=== PATIENT | female | born 1950 | race Caucasian/White ===

== ENCOUNTER 2017-07-04 17:34 | Inpatient (IN) | payer MEDICARE, OTHER ==
[2017-07-04] MEDS ORDERED: DEXTROSE 50% 25 GM / 50ML DISP.SYRIN. IV (20:00)
[2017-07-04] MEDS ORDERED: NON FORMULARY ITEM (Albuterol Sulfate (Proair Hfa Inhaler) 2 PUFF) INH (20:45)
[2017-07-04] MEDS ORDERED: ALBUTEROL SULFATE 2.5 MG/3 ML NEBU. NEB (21:00)
[2017-07-04] MEDS ORDERED: NON FORMULARY ITEM (Budesonide/Formoterol Fumarate (Symbicort 160-4.5 Mcg Inhaler) 2 PUFF) IH (21:00)
[2017-07-04] MEDS ORDERED: NON FORMULARY ITEM (Ipratropium/Albuterol Sulfate (Combivent Respimat Inhal) 2 INH) IH (21:00)
[2017-07-04] MEDS: IV DEXTROSE 5% - 0.9 % NACL 1,000 ML IV (21:05)
[2017-07-04 21:26] LABS: POC GLUCOSE 102 mg/dL (70-99)
[2017-07-04 21:37] LABS: HEMATOCRIT 33.2 % (36.0-47.0); HEMOGLOBIN 10.9 g/dL (12.0-15.5); MEAN CORPUSCULAR HEMOGLOBIN 26 pg (25-35); MEAN CORPUSCULAR HGB CONC 33 g/dL (31-37); MEAN CORPUSCULAR VOLUME 79 fL (79-100); PLATELET COUNT 310 x10^3/uL (140-400); RED BLOOD COUNT 4.19 x10^6/uL (3.50-5.40); RED CELL DISTRIBUTION WIDTH 16.5 % (11.5-14.5); WHITE BLOOD COUNT 7.8 x10^3/uL (4.0-11.0)
[2017-07-04] MEDS: ATORVASTATIN CALCIUM 40 MG TABLET. PO (21:37)
[2017-07-04] MEDS: ALPRAZolam 0.5 MG TABLET PO (21:38)
[2017-07-04] MEDS: oxyCODONE IR 5 MG TABLET PO (21:38)
[2017-07-04] MEDS: AMITRIPTYLINE HCL 50 MG TABLET PO (21:38)
[2017-07-04] MEDS: IPRATRPIUM/ALBUTEROL 0.5/2.5MG 3 ML NEBU. NEB (21:45)
[2017-07-04 21:57] LABS: ALBUMIN 3.8 g/dL (3.4-5.0); ALK PHOS 91 U/L (46-116); ALT (SGPT) 18 U/L (14-59); ANION GAP 9 (6-14); AST (SGOT) 12 U/L (15-37); BLOOD UREA NITROGEN 21 mg/dL (7-20); BUN/CREATININE RATIO 12 (6-20); CALCIUM 8.9 mg/dL (8.5-10.1); CARBON DIOXIDE 30 mmol/L (21-32); CHLORIDE 104 mmol/L (98-107); CREATININE 1.8 mg/dL (0.6-1.0); GLUCOSE 116 mg/dL (70-99); POTASSIUM 3.4 mmol/L (3.5-5.1); SODIUM 143 mmol/L (136-145); TOTAL BILIRUBIN 0.5 mg/dL (0.2-1.0); TOTAL PROTEIN 7.6 g/dL (6.4-8.2)
[2017-07-04 23:28] LABS: % SAT IRON 13 % (15-34); IRON,SERUM 60 ug/dL (50-170)
[2017-07-05 01:01] LABS: BILIRUBIN,URINE NEGATIVE (NEG); CLARITY,URINE CLEAR; COLOR,URINE YELLOW; GLUCOSE,URINE NEGATIVE (NEG); NITRITE,URINE NEGATIVE (NEG); PROTEIN,URINE NEGATIVE (NEG-TRACE); UROBILINOGEN,URINE 0.2 mg/dL (0.2 mg/dL)
[2017-07-05 01:07] LABS: BARBITURATES NEG (NEG); BENZODIAZEPINES POS (NEG); CANNABINOIDS NEG (NEG); COCAINE NEG (NEG); METHADONE NEG (NEG); OPIATES POS (NEG); PHENCYCLIDINE NEG (NEG)
[2017-07-05] MEDS: POTASSIUM CHLORIDE 20 MEQ TABLET.ER. PO ×3 (01:10→12:28)
[2017-07-05 01:16] LABS: AMPHETAMINE/METHAMPHETAMINE NEG (NEG); ETHANOL, URINE NEG (NEG)
[2017-07-05 01:45] LABS: BACTERIA,URINE MANY /HPF (0-FEW); RBC,URINE OCC /HPF (0-2); SQUAMOUS EPITHELIAL CELL,UR MOD /LPF
[2017-07-05 01:46] LABS: HYALINE CASTS, URINE FEW /HPF
[2017-07-05 04:39] LABS: ADD MAN DIFF? NO
[2017-07-05 04:53] LABS: BASO # 0.1 x10^3/uL (0.0-0.2); BASO % 1 % (0-3); EOS # 0.1 x10^3/uL (0.0-0.7); EOS % 2 % (0-3); HEMATOCRIT 32.7 % (36.0-47.0); HEMOGLOBIN 10.7 g/dL (12.0-15.5); LYMPH # 2.3 x10^3/uL (1.0-4.8); LYMPH % 31 % (24-48); MEAN CORPUSCULAR HEMOGLOBIN 26 pg (25-35); MEAN CORPUSCULAR HGB CONC 33 g/dL (31-37); MEAN CORPUSCULAR VOLUME 80 fL (79-100); MONO # 0.4 x10^3/uL (0.0-1.1); MONO % 6 % (0-9); NEUT # 4.4 x10^3uL (1.8-7.7); NEUT % 61 % (31-73); PLATELET COUNT 309 x10^3/uL (140-400); RED CELL DISTRIBUTION WIDTH 16.6 % (11.5-14.5); WHITE BLOOD COUNT 7.3 x10^3/uL (4.0-11.0)
[2017-07-05 05:16] LABS: ANION GAP 8 (6-14); BLOOD UREA NITROGEN 21 mg/dL (7-20); CALCIUM 9.2 mg/dL (8.5-10.1); CARBON DIOXIDE 31 mmol/L (21-32); CHLORIDE 103 mmol/L (98-107); CREATININE 1.6 mg/dL (0.6-1.0); GFR 32.1; GLUCOSE 135 mg/dL (70-99); POTASSIUM 3.1 mmol/L (3.5-5.1); SODIUM 142 mmol/L (136-145)
[2017-07-05] MEDS: IV DEXTROSE 5% - 0.9 % NACL 1,000 ML IV ×4 (06:31→20:32)
[2017-07-05] MEDS: IPRATRPIUM/ALBUTEROL 0.5/2.5MG 3 ML NEBU. NEB ×4 (07:36→20:19)
[2017-07-05] MEDS: BUDESONIDE 0.5 MG/2 ML NEBU. NEB ×2 (07:36→20:19)
[2017-07-05] MEDS ORDERED: POTASSIUM CHLORIDE 10 MEQ TABLET.ER. PO (08:00)
[2017-07-05] MEDS: IOHEXOL 240 MG/ML 50ML VIAL. PO (08:00)
[2017-07-05] MEDS ORDERED: CONTRAST GIVEN. MC (08:00)
[2017-07-05] MEDS: INSULIN LISPRO 300 UNITS/3 ML INSULN.PEN. SQ ×4 (08:00→16:57)
[2017-07-05] MEDS ORDERED: FUROSEMIDE 40 MG TABLET. PO (09:00)
[2017-07-05] MEDS ORDERED: hydroCHLOROthiazide 12.5 MG CAPSULE PO (09:00)
[2017-07-05] MEDS: DICLOFENAC SODIUM 1% TOPICAL GEL 100GM TUBE. TP ×2 (09:00→20:31)
[2017-07-05] MEDS: LIDOCAINE (700MG/PATCH) PATCH. TD ×2 (09:00→21:52)
[2017-07-05 09:18] LABS: POC GLUCOSE 137 mg/dL (70-99)
[2017-07-05] MEDS: ASPIRIN CHEWABLE 81 MG TABLET. PO (09:23)
[2017-07-05] MEDS: LEVOTHYROXINE 100 MCG TABLET PO (09:23)
[2017-07-05] MEDS: ALPRAZolam 0.5 MG TABLET PO ×3 (09:23→20:30)
[2017-07-05] MEDS: GLIMEPIRIDE 2 MG TABLET. PO ×2 (09:24→16:52)
[2017-07-05] MEDS: PIOGLITAZONE 15 MG TABLET. PO (09:24)
[2017-07-05] MEDS: oxyCODONE IR 5 MG TABLET PO ×2 (09:24→20:31)
[2017-07-05] MEDS: LISINOPRIL 20 MG TABLET PO (09:24)
[2017-07-05] MEDS: amLODIPine BESYLATE 5 MG TABLET PO (09:25)
[2017-07-05] MEDS: BUPIVACAINE MPF 0.25% 10 ML VIAL. IJ (10:15)
[2017-07-05 11:28] LABS: POC GLUCOSE 153 mg/dL (70-99)
[2017-07-05] MEDS: BUPIVACAINE MPF 0.25% 30 ML VIAL. IJ (11:58)
[2017-07-05] MEDS: methylPREDNISolone ACETATE 40 MG/ML VIAL. IM (11:58)
[2017-07-05] MEDS: MAGNESIUM CITRATE 296 ML SOLUTION. PO (12:28)
[2017-07-05] MEDS: METHYLNALTREXONE 12 MG/0.6 ML VIAL. SQ (12:29)
[2017-07-05 16:42] LABS: POC GLUCOSE 157 mg/dL (70-99)
[2017-07-05] MEDS: ATORVASTATIN CALCIUM 40 MG TABLET. PO (20:30)
[2017-07-05] MEDS: AMITRIPTYLINE HCL 50 MG TABLET PO (20:31)
[2017-07-05] MEDS: PATCH REMOVAL. MC (20:36)
[2017-07-05 21:08] LABS: POC GLUCOSE 105 mg/dL (70-99)
[2017-07-06 03:43] LABS: ADD MAN DIFF? NO
[2017-07-06 03:48] LABS: BASO # 0.1 x10^3/uL (0.0-0.2); BASO % 1 % (0-3); EOS # 0.1 x10^3/uL (0.0-0.7); EOS % 1 % (0-3); HEMOGLOBIN 9.6 g/dL (12.0-15.5); LYMPH # 1.1 x10^3/uL (1.0-4.8); LYMPH % 17 % (24-48); MEAN CORPUSCULAR HEMOGLOBIN 27 pg (25-35); MEAN CORPUSCULAR HGB CONC 33 g/dL (31-37); MEAN CORPUSCULAR VOLUME 80 fL (79-100); MONO # 0.3 x10^3/uL (0.0-1.1); MONO % 5 % (0-9); NEUT % 76 % (31-73); PLATELET COUNT 260 x10^3/uL (140-400); RED BLOOD COUNT 3.61 x10^6/uL (3.50-5.40); RED CELL DISTRIBUTION WIDTH 16.6 % (11.5-14.5); WHITE BLOOD COUNT 6.6 x10^3/uL (4.0-11.0)
[2017-07-06 04:03] LABS: ANION GAP 3 (6-14); BLOOD UREA NITROGEN 15 mg/dL (7-20); CALCIUM 8.6 mg/dL (8.5-10.1); CARBON DIOXIDE 31 mmol/L (21-32); CHLORIDE 108 mmol/L (98-107); CREATININE 0.7 mg/dL (0.6-1.0); GFR 83.2; GLUCOSE 153 mg/dL (70-99); POTASSIUM 4.6 mmol/L (3.5-5.1); SODIUM 142 mmol/L (136-145)
[2017-07-06] MEDS: LEVOTHYROXINE 100 MCG TABLET PO (06:11)
[2017-07-06] MEDS: IV DEXTROSE 5% - 0.9 % NACL 1,000 ML IV ×2 (06:12→11:14)
[2017-07-06] MEDS: oxyCODONE IR 5 MG TABLET PO ×2 (06:12→20:28)
[2017-07-06] MEDS: BUDESONIDE 0.5 MG/2 ML NEBU. NEB ×2 (06:57→20:37)
[2017-07-06] MEDS: IPRATRPIUM/ALBUTEROL 0.5/2.5MG 3 ML NEBU. NEB ×4 (06:57→20:37)
[2017-07-06 07:54] LABS: POC GLUCOSE 141 mg/dL (70-99)
[2017-07-06] MEDS: INSULIN LISPRO 300 UNITS/3 ML INSULN.PEN. SQ ×3 (08:00→17:00)
[2017-07-06] MEDS: POLYETHYLENE GLYCOL 3350 17 GM PACKET. PO (08:00)
[2017-07-06] MEDS: DICLOFENAC SODIUM 1% TOPICAL GEL 100GM TUBE. TP ×2 (08:23→20:29)
[2017-07-06] MEDS: LIDOCAINE (700MG/PATCH) PATCH. TD (08:23)
[2017-07-06] MEDS: PANTOPRAZOLE 40 MG TABLET.DR. PO (08:24)
[2017-07-06] MEDS: GLIMEPIRIDE 2 MG TABLET. PO ×2 (08:24→17:33)
[2017-07-06] MEDS: PIOGLITAZONE 15 MG TABLET. PO (08:24)
[2017-07-06] MEDS: ASPIRIN CHEWABLE 81 MG TABLET. PO (08:24)
[2017-07-06] MEDS: ALPRAZolam 0.5 MG TABLET PO ×3 (08:24→20:28)
[2017-07-06] MEDS: amLODIPine BESYLATE 5 MG TABLET PO (08:25)
[2017-07-06] MEDS: LISINOPRIL 20 MG TABLET PO (08:25)
[2017-07-06 11:13] LABS: POC GLUCOSE 225 mg/dL (70-99)
[2017-07-06] MEDS: MAGNESIUM CITRATE 296 ML SOLUTION. PO (11:13)
[2017-07-06] MEDS: GADOBUTROL 7.5 MMOL/7.5 ML VIAL IV ×2 (12:50→12:51)
[2017-07-06] MEDS: BISACODYL 5 MG TABLET.DR. PO ×2 (13:05→17:33)
[2017-07-06] MEDS: METOCLOPRAMIDE HCL 10 MG/2 ML VIAL. IV (15:16)
[2017-07-06] MEDS: POLYETHYLENE GLYCOL 3350 238 GM POWDER PO (15:18)
[2017-07-06 16:55] LABS: POC GLUCOSE 145 mg/dL (70-99)
[2017-07-06] MEDS: ATORVASTATIN CALCIUM 40 MG TABLET. PO (20:27)
[2017-07-06] MEDS: AMITRIPTYLINE HCL 50 MG TABLET PO (20:28)
[2017-07-06] MEDS: PATCH REMOVAL. MC (21:00)
[2017-07-06 22:03] LABS: POC GLUCOSE 135 mg/dL (70-99)
[2017-07-07] MEDS: IV DEXTROSE 5% - 0.9 % NACL 1,000 ML IV (03:02)
[2017-07-07] MEDS: LEVOTHYROXINE 100 MCG TABLET PO (05:06)
[2017-07-07] MEDS ORDERED: PROCHLORPERAZINE 10 MG/2 ML VIAL. IV (07:00)
[2017-07-07] MEDS ORDERED: ONDANSETRON PF 4 MG/2 ML VIAL. IV (07:00)
[2017-07-07] MEDS ORDERED: MORPHINE SULFATE 2 MG/ML DISP.SYRIN. IV (07:00)
[2017-07-07] MEDS ORDERED: LIDOCAINE 1% PF 2 ML VIAL. ID (07:00)
[2017-07-07] MEDS ORDERED: fentaNYL PF VIAL 100 MCG/2 ML VIAL IV ×2 (07:00)
[2017-07-07] MEDS: IPRATRPIUM/ALBUTEROL 0.5/2.5MG 3 ML NEBU. NEB ×2 (07:27→12:00)
[2017-07-07] MEDS: BUDESONIDE 0.5 MG/2 ML NEBU. NEB (07:27)
[2017-07-07 07:35] LABS: POC GLUCOSE 98 mg/dL (70-99)
[2017-07-07] MEDS: INSULIN LISPRO 300 UNITS/3 ML INSULN.PEN. SQ ×2 (08:00→12:00)
[2017-07-07] MEDS: GLIMEPIRIDE 2 MG TABLET. PO ×2 (08:00→16:34)
[2017-07-07] MEDS: DICLOFENAC SODIUM 1% TOPICAL GEL 100GM TUBE. TP (09:00)
[2017-07-07] MEDS: ALPRAZolam 0.5 MG TABLET PO ×2 (09:00→16:32)
[2017-07-07 12:02] LABS: POC GLUCOSE 129 mg/dL (70-99)
[2017-07-07] MEDS: IV RINGERS,LACTATED 1000ML 1,000 ML IV (12:29)
[2017-07-07] MEDS ORDERED: LIDOCAINE 2% PF Vial for OR 5 ML VIAL. ×2 (12:33)
[2017-07-07] MEDS ORDERED: PROPOFOL 60 ML IV (12:33)
[2017-07-07] MEDS ORDERED: PROPOFOL 40 ML IV (13:14)
[2017-07-07] MEDS: POLYETHYLENE GLYCOL 3350 17 GM PACKET. PO (16:32)
[2017-07-07] MEDS: oxyCODONE IR 5 MG TABLET PO (16:33)
[2017-07-07] MEDS: LISINOPRIL 20 MG TABLET PO (16:34)
[2017-07-07] MEDS: LIDOCAINE (700MG/PATCH) PATCH. TD (16:34)
[2017-07-07] MEDS: PIOGLITAZONE 15 MG TABLET. PO (16:35)
[2017-07-07] MEDS: PANTOPRAZOLE 40 MG TABLET.DR. PO (16:35)
[2017-07-07] MEDS: ASPIRIN CHEWABLE 81 MG TABLET. PO (16:35)
[2017-07-07] MEDS: amLODIPine BESYLATE 5 MG TABLET PO (16:35)
== END 2017-07-07 18:17 | disposition home or self-care (01) | DRG 391 ==
LOC: 6 SOUTH 17:34
PROC: 0DB68ZX Excision of Stomach, Via Natural or Artificial Opening Endoscopic, Diagnostic (ICD-10-PCS; principal; 2017-07-07 12:40)
PROC: 0DB98ZX Excision of Duodenum, Via Natural or Artificial Opening Endoscopic, Diagnostic (ICD-10-PCS; 2017-07-07 12:40)
DX: A09 Infectious gastroenteritis and colitis, unspecified (principal); N17.0 Acute kidney failure with tubular necrosis; E11.22 Type 2 diabetes mellitus with diabetic chronic kidney disease; E11.42 Type 2 diabetes mellitus with diabetic polyneuropathy; R13.10 Dysphagia, unspecified; Z68.42 Body mass index [BMI] 45.0-49.9, adult; D64.9 Anemia, unspecified; E03.9 Hypothyroidism, unspecified; E66.9 Obesity, unspecified; E78.5 Hyperlipidemia, unspecified; E86.0 Dehydration; F32.9 Major depressive disorder, single episode, unspecified; F40.240 Claustrophobia; G57.10 Meralgia paresthetica, unspecified lower limb; G89.29 Other chronic pain; I12.9 Hypertensive chronic kidney disease with stage 1 through stage 4 chronic kidney disease, or unspecified chronic kidney disease; I70.0 Atherosclerosis of aorta; J44.9 Chronic obstructive pulmonary disease, unspecified; K21.0 Gastro-esophageal reflux disease with esophagitis; K44.9 Diaphragmatic hernia without obstruction or gangrene; K59.09 Other constipation; K64.8 Other hemorrhoids; M17.0 Bilateral primary osteoarthritis of knee; M46.90 Unspecified inflammatory spondylopathy, site unspecified; M51.16 Intervertebral disc disorders with radiculopathy, lumbar region; N18.9 Chronic kidney disease, unspecified; Z79.82 Long term (current) use of aspirin; Z80.49 Family history of malignant neoplasm of other genital organs; Z83.3 Family history of diabetes mellitus; Z87.11 Personal history of peptic ulcer disease; Z87.891 Personal history of nicotine dependence; A08.4 Viral intestinal infection, unspecified
CPT/HCPCS: 36415; 45378; 71046; 72100; 72158; 73565; 74176; 80048; 80053; 80307; 81001; 82962; 83540; 83550; 85025; 85027; 87045; 88305; 88342; 93005; 94640; 94760; 97165-GO; A9585; J1030; J1815; J2212; J2704; J2765; J3490; J7042; J7120; J7620; J7626; Q9966

== ENCOUNTER 2018-12-09 21:30 | Inpatient (IN) | payer MEDICARE, OTHER ==
[~2018-12-09] VITALS: Ht 157.5 cm; Wt 130.3 kg
[~2018-12-09 21:30] MED LIST: ALBU0.63 NEB; ALBU2.5V8 INH; ALPR0.5T PO; AMIT100T PO; AMLO5TAB10 PO; ASPI-630 PO; ATOR40TA PO; BUDE10.2 IH; FLECTOR1 EACH TD; FURO-68 PO; GLIM4TAB4 PO; IPRA3AMP29 NEB; IPRA4AER IH; LEVO200T PO; LIDO700A21 TP; LISI1TAB19 PO; OXYC10TA PO; PIOG45TA40 PO; POTA20TA4 PO
[2018-12-09 22:12] LABS: BASO # 0.1 x10^3/uL (0.0-0.2); BASO % 1 % (0-3); EOS # 0.2 x10^3/uL (0.0-0.7); EOS % 2 % (0-3); HEMATOCRIT 35.9 % (36.0-47.0); HEMOGLOBIN 11.9 g/dL (12.0-15.5); LYMPH # 1.1 x10^3/uL (1.0-4.8); LYMPH % 15 % (24-48); MEAN CORPUSCULAR HEMOGLOBIN 29 pg (25-35); MEAN CORPUSCULAR HGB CONC 33 g/dL (31-37); MEAN CORPUSCULAR VOLUME 87 fL (79-100); MONO # 0.3 x10^3/uL (0.0-1.1); MONO % 4 % (0-9); NEUT # 5.8 x10^3/uL (1.8-7.7); NEUT % 78 % (31-73); PLATELET COUNT 330 x10^3/uL (140-400); RED BLOOD COUNT 4.14 x10^6/uL (3.50-5.40); RED CELL DISTRIBUTION WIDTH 14.3 % (11.5-14.5); WHITE BLOOD COUNT 7.4 x10^3/uL (4.0-11.0)
[2018-12-09] MEDS ORDERED: IPRATRPIUM/ALBUTEROL 0.5/2.5MG 3 ML NEBU. NEB ONE (22:15)
--- NOTE | 2018-12-09 22:18 | PHYS DOC ---
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 Patient's underlying history of COPD uses Symbicort as well as Combivent. She states she's had difficulty with ambulation and having this to rest with even walking to the bathroom. She denies any chest pain. No nausea, vomiting, diarrhea, abdominal pain. She does describe abdominal bloat ing. Patient is already on Lasix 40 mg daily. She denies any fever. Patient was seen by her primary care physician on November 14 with no medication changes at that time. She was referred to cardiology for further evaluation given the dyspnea on exertion. Review of Systems Review of Systems Constitutional: Denies fever or chills [] HENT: Denies nasal congestion or sore throat [] Respiratory: shortness of breath [] Cardiovascular: No additional information not addressed in HPI [] GI: Abdominal bloating, no nausea, vomiting, bloody stools or diarrhea [] Musculoskeletal: Denies back pain or joint pain [] Neurologic: Denies headache, focal weakness or sensory changes [] All other systems were reviewed and found to be within normal limits, except as documented in this note. Current Medications Current Medications Current Medications Medications (Trade) Dose Ordered Sig/Sushma Start Time Stop Time Status Last Admin Dose Admin Albuterol/ Ipratropium (Duoneb) 3 ml 1X ONCE 12/09/18 22:15 12/09/18 22:17 DC 12/09/18 22:08 3 ML Info (CONTRAST GIVEN -- Rx MONITORING) 1 each PRN DAILY PRN 12/10/18 00:15 12/12/18 00:14 Iohexol (Omnipaque 300 Mg/ml) 60 ml 1X ONCE 12/10/18 00:00 12/10/18 00:01 DC 12/10/18 00:18 60 ML Allergies Allergies Allergies Coded Allergies Type Severity Reaction Last Updated Verified No Known Drug Allergies 07/04/17 No Physical Exam Physical Exam Constitutional: Well developed, well nourished, no acute distress, non-toxic appearance. [] HENT: Normocephalic, atraumatic, bilateral external ears normal, oropharynx moist, no oral exudates, nose normal. [] Neck: large lymph node appreciated to left neck concerning Eyes: PERRLA, EOMI, conjunctiva normal, no discharge. [] Cardiovascular:Heart rate regular rhythm, no murmur [] Lungs & Thorax: Decreased breath sounds appreciable bilaterally[] Abdomen: Bowel sounds normal, soft, no tenderness, no masses, no pulsatile masses, distended [] Skin: Warm, dry, no erythema, no rash. [] Extremities: No tenderness, no edema. [] Neurologic: Alert and oriented X 3, no focal deficits noted. [] Psychologic: Affect normal, judgement normal, mood normal. [] Current Patient Data Vital Signs Vital Signs Date Time Temp Pulse Resp B/P (MAP) Pulse Ox O2 Delivery O2 Flow Rate FiO2 12/09/18 22:35 96 19 149/64 (92) 95 Room Air 12/09/18 21:35 97.8 97.8 Lab Values Laboratory Tests Test 12/09/18 22:05 12/09/18 22:20 12/09/18 22:24 White Blood Count 7.4 x10^3/uL (4.0-11.0) Red Blood Count 4.14 x10^6/uL (3.50-5.40) Hemoglobin 11.9 g/dL (12.0-15.5) L Hematocrit 35.9 % (36.0-47.0) L Mean Corpuscular Volume 87 fL (79-100) Mean Corpuscular Hemoglobin 29 pg (25-35) Mean Corpuscular Hemoglobin Concent 33 g/dL (31-37) Red Cell Distribution Width 14.3 % (11.5-14.5) Platelet Count 330 x10^3/uL (140-400) Neutrophils (%) (Auto) 78 % (31-73) H Lymphocytes (%) (Auto) 15 % (24-48) L Monocytes (%) (Auto) 4 % (0-9) Eosinophils (%) (Auto) 2 % (0-3) Basophils (%) (Auto) 1 % (0-3) Neutrophils # (Auto) 5.8 x10^3/uL (1.8-7.7) Lymphocytes # (Auto) 1.1 x10^3/uL (1.0-4.8) Monocytes # (Auto) 0.3 x10^3/uL (0.0-1.1) Eosinophils # (Auto) 0.2 x10^3/uL (0.0-0.7) Basophils # (Auto) 0.1 x10^3/uL (0.0-0.2) Sodium Level 143 mmol/L (136-145) Potassium Level 3.9 mmol/L (3.5-5.1) Chloride Level 103 mmol/L (98-107) Carbon Dioxide Level 29 mmol/L (21-32) Anion Gap 11 (6-14) Blood Urea Nitrogen 17 mg/dL (7-20) Creatinine 1.1 mg/dL (0.6-1.0) H Estimated GFR (Cockcroft-Gault) 49.1 BUN/Creatinine Ratio 15 (6-20) Glucose Level 119 mg/dL (70-99) H Calcium Level 9.8 mg/dL (8.5-10.1) Total Bilirubin 0.3 mg/dL (0.2-1.0) Aspartate Amino Transferase (AST) 15 U/L (15-37) Alanine Aminotransferase (ALT) 16 U/L (14-59) Alkaline Phosphatase 82 U/L (46-116) Troponin I Quantitative < 0.017 ng/mL (0.000-0.055) UZ-Clz-V-Type Natriuretic Peptide 272 pg/mL (0-124) H Total Protein 8.6 g/dL (6.4-8.2) H Albumin 3.9 g/dL (3.4-5.0) Albumin/Globulin Ratio 0.8 (1.0-1.7) L Urine Collection Type Unknown Urine Color Yellow Urine Clarity Clear Urine pH 5.0 Urine Specific Holmes 1.010 Urine Protein Negative mg/dL (NEG-TRACE) Urine Glucose (UA) Negative mg/dL (NEG) Urine Ketones (Stick) Negative mg/dL (NEG) Urine Blood Negative (NEG) Urine Nitrite Negative (NEG) Urine Bilirubin Negative (NEG) Urine Urobilinogen Dipstick 0.2 mg/dL (0.2 mg/dL) Urine Leukocyte Esterase Negative (NEG) Urine RBC 0 /HPF (0-2) Urine WBC 0 /HPF (0-4) Urine Squamous Epithelial Cells Mod /LPF Urine Bacteria Few /HPF (0-FEW) Influenza Type A Antigen Negative (NEGATIVE) Influenza Type B Antigen Negative (NEGATIVE) Laboratory Tests 12/09/18 22:05 Laboratory Tests 12/09/18 22:05 EKG EKG [] Radiology/Procedures Radiology/[place] [address] IMAGING REPORT Signed PATIENT: MEGA ARAUZ: [id number] : 1950 LOCATION: ER AGE: 68 SEX: F EXAM STATUS: REG ER ORD. PHYSICIAN: SHELDON TRUONG MD REASON: dyspnea PROCEDURE: PORTABLE CHEST 1V AP chest. HISTORY: Dyspnea AP view was taken of the chest. The heart is enlarged. There is an elevated left diaphragm. There is density in the left upper lobe either an infiltrate or possibly a nodule. There is atelectasis or infiltrate in the left lung base. A left pleural effusion is possible. The right lung is clear. IMPRESSION: 1. Cardiomegaly. 2. Elevated left diaphragm. 3. Left basilar density from atelectasis or infiltrate or pleural effusion. 4. Infiltrate versus nodule or mass left upper lobe. Electronically signed by: Carlos Weir MD (12/09/2018 10:54 PM) [facility] DICTATED and SIGNED BY: CARLOS WEIR MD DATE: 12/09/18 2254 [] [address] [address] IMAGING REPORT Signed PATIENT: MEGA ARAUZ: [id number] : 1950 LOCATION: ER AGE: 68 SEX: F EXAM STATUS: REG ER ORD. PHYSICIAN: SHELDON TRUONG MD REASON: left neck nodul, concern for lung mass on xray PROCEDURE: CT NECK CHEST W/CONT CT of the neck with contrast, CT chest with contrast. HISTORY: Lung nodule, left neck mass, short of air, weakness CT NECK: CT scan the neck was done using 60 mL Omnipaque 300 contrast. Visualized portion of the brain is unremarkable. Sinuses are clear. Parotid and submandibular glands are unremarkable. Thyroid is fairly small possible atrophy. There is extensive adenopathy on the left side of the neck extending into the mediastinum. There is degenerative disc disease with disc space narrowing at multiple levels in the thoracic spine. There is no bony destructive process. IMPRESSION: 1. Extensive left neck adenopathy End impression CT CHEST: CT scan the chest was done following the CT scan of the neck. There is extensive superior mediastinal and left periaortic adenopathy in the mediastinum. Subcarinal node is enlarged. Left hilar nodes are enlarged. There is a left upper lobe lung mass just above the hilum of the lung which continues to the hilum and is contiguous with the mediastinal adenopathy. Lung cancer is most likely. Small cell lung cancer can have this pattern. Lymphoma could potentially have this pattern. The right lung is clear except for mild atelectasis in the anterior medial right upper lobe and middle lobe. There is mild atelectasis along the left diaphragm. There is a large hiatus hernia. Visualized portions the liver and spleen are unremarkable. Adrenal glands are normal. Spleen is unremarkable. IMPRESSION: 1. Left upper lobe lung mass most likely lung cancer. 2. Extensive mediastinal and hilar adenopathy. 3. Atelectasis left lung base. 4. Mild atelectasis medial right lung. 5. Hiatus hernia Electronically signed by: Carlos Weir MD (12/10/2018 1:27 AM) [facility] DICTATED and SIGNED BY: CARLOS WEIR MD DATE: 12/10/18 0127 Course & Med Decision Making Course & Med Decision Making Pertinent Labs and Imaging studies reviewed. (See chart for details) [] 68-year-old female presents to the emergency department with complaints of dyspnea, weakness, fatigue. Patient's underlying history of COPD uses Symbicort as well as Combivent. She states she's had difficulty with ambulation and having this to rest with even walking to the bathroom. She denies any chest pain. No nausea, vomiting, diarrhea, abdominal pain. She does describe abdominal bloatin g. Patient is already on Lasix 40 mg daily. She denies any fever. Patient was seen by her primary care physician on November 14 with no medication changes at that time. She was referred to cardiology for further evaluation given the dyspnea on exertion. Labs reviewed, white blood cell count 7.4, hemoglobin 11.9, BNP 272, influenza negative. Chest x-ray revealed evidence of concern for atelectasis versus pleural effusion and left lung. CT was performed of the neck as well as chest given lymphadenopathy appreciated in the left neck and concern for left pleural effusion. CT reveals evidence of left upper lung mass as well as extensive lymphadenopathy appreciated in the neck and hilar lymphadenopathy. This is likely all reactive. Results discussed with patient and family at bedside. Patient will be admitted to the hospital for further evaluation with pulmonary as well as hematology oncology. Consults will be placed. Dragon Disclaimer Dragon Disclaimer This electronic medical record was generated, in whole or in part, using a voice recognition dictation system. Departure Departure Impression: Primary Impression: Dyspnea on minimal exertion Additional Impression: Mass of left lung Disposition: ADMITTED INPATIENT Admitting Physician: Yari Michel Condition: STABLE Referrals: YARI MICHEL MD (PCP) Problem Qualifiers SHELDON TRUONG MD Dec 09, 2018 22:18
[2018-12-09 22:22] LABS: CALCIUM 9.8 mg/dL (8.5-10.1); CREATININE 1.1 mg/dL (0.6-1.0); GFR 49.1; POTASSIUM 3.9 mmol/L (3.5-5.1)
[2018-12-09 22:27] LABS: ALBUMIN 3.9 g/dL (3.4-5.0); ALBUMIN/GLOBULIN RATIO 0.8 (1.0-1.7); TOTAL BILIRUBIN 0.3 mg/dL (0.2-1.0); TOTAL PROTEIN 8.6 g/dL (6.4-8.2)
[2018-12-09 22:31] LABS: BILIRUBIN,URINE NEGATIVE (NEG); CLARITY,URINE CLEAR; COLOR,URINE YELLOW; NITRITE,URINE NEGATIVE (NEG); PROTEIN,URINE NEGATIVE (NEG-TRACE); UROBILINOGEN,URINE 0.2 mg/dL (0.2 mg/dL)
[2018-12-09 22:38] LABS: BACTERIA,URINE FEW /HPF (0-FEW); RBC,URINE 0 /HPF (0-2); SQUAMOUS EPITHELIAL CELL,UR MOD /LPF; WBC,URINE 0 /HPF (0-4)
[2018-12-09 22:47] LABS: INFLUENZA A PATIENT NEGATIVE (NEGATIVE); INFLUENZA B PATIENT NEGATIVE (NEGATIVE)
--- NOTE | 2018-12-09 22:57 | RAD ---
AP chest. HISTORY: Dyspnea AP view was taken of the chest. The heart is enlarged. There is an elevated left diaphragm. There is density in the left upper lobe either an infiltrate or possibly a nodule. There is atelectasis or infiltrate in the left lung base. A left pleural effusion is possible. The right lung is clear. IMPRESSION: 1. Cardiomegaly. 2. Elevated left diaphragm. 3. Left basilar density from atelectasis or infiltrate or pleural effusion. 4. Infiltrate versus nodule or mass left upper lobe. Electronically signed by: Carlos Weir MD (12/09/2018 10:54 PM) [facility]
[2018-12-10] MEDS ORDERED: CONTRAST GIVEN. MC PRN ×2 (00:15→14:15)
--- NOTE | 2018-12-10 01:30 | RAD ---
CT of the neck with contrast, CT chest with contrast. HISTORY: Lung nodule, left neck mass, short of air, weakness CT NECK: CT scan the neck was done using 60 mL Omnipaque 300 contrast. Visualized portion of the brain is unremarkable. Sinuses are clear. Parotid and submandibular glands are unremarkable. Thyroid is fairly small possible atrophy. There is extensive adenopathy on the left side of the neck extending into the mediastinum. There is degenerative disc disease with disc space narrowing at multiple levels in the thoracic spine. There is no bony destructive process. IMPRESSION: 1. Extensive left neck adenopathy End impression CT CHEST: CT scan the chest was done following the CT scan of the neck. There is extensive superior mediastinal and left periaortic adenopathy in the mediastinum. Subcarinal node is enlarged. Left hilar nodes are enlarged. There is a left upper lobe lung mass just above the hilum of the lung which continues to the hilum and is contiguous with the mediastinal adenopathy. Lung cancer is most likely. Small cell lung cancer can have this pattern. Lymphoma could potentially have this pattern. The right lung is clear except for mild atelectasis in the anterior medial right upper lobe and middle lobe. There is mild atelectasis along the left diaphragm. There is a large hiatus hernia. Visualized portions the liver and spleen are unremarkable. Adrenal glands are normal. Spleen is unremarkable. IMPRESSION: 1. Left upper lobe lung mass most likely lung cancer. 2. Extensive mediastinal and hilar adenopathy. 3. Atelectasis left lung base. 4. Mild atelectasis medial right lung. 5. Hiatus hernia Electronically signed by: Carlos Weri MD (12/10/2018 1:27 AM) [facility]
[2018-12-10] MEDS ORDERED: ONDANSETRON PF 4 MG/2 ML VIAL. IV PRN (02:00)
[2018-12-10] MEDS ORDERED: MORPHINE SULFATE 2 MG/ML VIAL. IV PRN (02:00)
[2018-12-10] MEDS ORDERED: ACETAMINOPHEN 325 MG TABLET. PO PRN (02:00)
[2018-12-10] MEDS ORDERED: IOHEXOL 300 MG/ML 100ML VIAL. ONE (04:02)
[2018-12-10 04:20] VITALS: BP 149/59
[2018-12-10] MEDS ORDERED: ALBUTEROL SULFATE 2.5 MG/3 ML NEBU. NEB PRN (04:45)
[2018-12-10] MEDS: ALPRAZolam 0.25 MG TABLET PO PRN (04:55)
[2018-12-10 07:00] VITALS: BP 133/59
[2018-12-10] MEDS ORDERED: IPRATRPIUM/ALBUTEROL 0.5/2.5MG 3 ML NEBU. NEB SCH (08:00)
[2018-12-10] MEDS ORDERED: IPRATRPIUM/ALBUTEROL 0.5/2.5MG 3 ML NEBU. NEB PRN (09:30)
--- NOTE | 2018-12-10 09:44 | PDOC ---
Provider Note Provider Note Pt seen.H&P dictated.#[id number] PATRIC MICHEL MD Dec 10, 2018 09:44
[2018-12-10] MEDS: LIDOCAINE (700MG/PATCH) PATCH. TP SCH ×2 (10:00→11:54)
--- NOTE | 2018-12-10 10:04 | HP ---
ADMIT DATE: 12/10/2018 REASON FOR ADMISSION TO THE HOSPITAL: New lung mass with pleural effusion and cervical adenopathy, possible cancer. HISTORY OF PRESENT ILLNESS: The patient is a 68-year-old female. She was having shortness of breath and she also noted some swelling lymph nodes in the neck, came to the Emergency Room. She is an ex-smoker, smoked for more than 25 years, stopped 10 years ago and she was having shortness of breath as well as hard to breathe. She came to the Emergency Room and x-ray shows a lung mass, new, and also cervical lymphadenopathy and CT scan shows pleural effusion and mediastinal adenopathy. The patient was admitted to the hospital, Pulmonary and Oncology was consulted. PAST MEDICAL HISTORY: Has history of diastolic heart failure, chronic COPD, diabetes, hypertension, hyperlipidemia, hypothyroidism, anxiety, depression. She also had a lipomatosis of the spinal cord. ALLERGIES: No known drug allergies. MEDICATIONS: Albuterol inhaler, she has albuterol nebulizer; Xanax 0.5 three times a day, amitriptyline 100 mg at bedtime, amlodipine 5 mg daily, aspirin 81 mg daily, atorvastatin 40 mg daily, Symbicort twice a day, Flector patch daily, glimepiride 4 mg twice a day, DuoNeb 4 times daily, levothyroxine 200 mcg daily, lidocaine patch daily, lisinopril 20/12.5 daily, oxycodone 10 mg q.6, Actos 45 mg daily; potassium 20 mEq, she takes one daily. PERSONAL HISTORY: Smoked for more than 25 years, 2 packs, quit 10 years ago. Denies alcohol, denies street drugs. SOCIAL HISTORY: Lives with her and ambulates. She is on chronic pain medications. FAMILY HISTORY: Her had prostate cancer and history of cancer in her sister. REVIEW OF SYMPTOMS: Complains of shortness of breath and also swelling in the back of the left neck, anxiety. Rest of the 14-system was reviewed and negative. PHYSICAL EXAMINATION: VITAL SIGNS: At the time of admission shows temperature 97, pulse 101, respirations 12, blood pressure 193/72, 100% on room air. HEENT: Head is atraumatic. Pupils equal. Oral cavity: Dentures. NECK: There are some palpable firm lymph nodes swellings in the posterior of the left neck. CHEST: Symmetrical. CARDIOVASCULAR: S1, S2. LUNGS: Clear to auscultation. No wheezing. ABDOMEN: Obese. No masses palpable. EXTERNAL GENITALIA: No Arriaga. RECTAL: Deferred. EXTREMITIES: No calf tenderness, no edema. Pulses 1+. NEUROLOGIC: Moving all extremities. No focal deficits noted. LABORATORY DATA: Shows a white count of 7, hemoglobin 12, platelets 330. Electrolytes show sodium 143, potassium 3.9, chloride 103, bicarbonate 29, anion gap 11, BUN 17, creatinine 1.1, glucose 119. LFTs were normal. Troponin is negative. BNP normal. Albumin 3.9. Urine is negative. Serology: Influenza A and B was negative. Had a chest x-ray, shows elevated left diaphragm, left basilar density, nodule in the left upper lobe. Had a CT of the neck and chest, shows a left upper lobe lung mass, extensive mediastinal and hilar adenopathy, atelectasis of the left lung base, mild atelectasis of the right lung, hiatal hernia. FINAL IMPRESSION: 1. Left upper lung mass new finding ,suspicious for lung cancer 2. Extensive mediastinal hilar adenopathy as well as cervical adenopathy, atelectasis of the left lung, atelectasis of the right lung and hiatal hernia. 3. Diabetes. 4. Hypertension. 5. Hyperlipidemia. 6. Hypothyroidism. 7. Anxiety, depression. 8. Ex-smoker, quit 10 years ago, smoked for 25 years, 2 packs at least. PLAN: At this time, was admitted to the hospital. Pulmonary is consulted. Oncology was consulted. We had to get a tissue biopsy and breathing treatment. Further recommendations to follow. Discussed with Dr. Madden. PATRIC MICHEL MD DR: ALISSON/deb JOB#: [id number] / [id number] SHERICE
[2018-12-10 10:46] LABS: PROTHROMBIN TIME PATIENT 12.7 SEC (11.7-14.0)
[2018-12-10 11:00] VITALS: BP 128/53
[2018-12-10] MEDS: PIOGLITAZONE 15 MG TABLET. PO SCH (11:51)
[2018-12-10] MEDS: amLODIPine BESYLATE 5 MG TABLET PO SCH (11:51)
[2018-12-10] MEDS: LEVOTHYROXINE 100 MCG TABLET PO SCH (11:52)
[2018-12-10] MEDS: LISINOPRIL 20 MG TABLET PO SCH (11:52)
[2018-12-10] MEDS: ALPRAZolam 0.5 MG TABLET PO SCH ×3 (11:52→21:12)
[2018-12-10] MEDS: hydroCHLOROthiazide 12.5 MG CAPSULE PO SCH (11:52)
[2018-12-10] MEDS: ASPIRIN CHEWABLE 81 MG TABLET. PO SCH (11:53)
[2018-12-10] MEDS: GLIMEPIRIDE 2 MG TABLET. PO SCH ×2 (11:53→21:13)
[2018-12-10] MEDS: DICLOFENAC SODIUM 1% TOPICAL GEL 100GM TUBE. TP SCH ×2 (11:54→21:15)
[2018-12-10] MEDS: INSULIN LISPRO 300 UNITS/3 ML VIAL. SQ SCH ×2 (12:00→17:00)
[2018-12-10] MEDS ORDERED: NON FORMULARY ITEM (Albuterol Sulfate (Albuterol Sulfate Neb Soln) 1 VIAL) NEB SCH (13:00)
[2018-12-10] MEDS ORDERED: NON FORMULARY ITEM (Ipratropium/Albuterol Sulfate (Combivent Respimat Inhal) 2 INH) IH SCH (13:00)
[2018-12-10] MEDS: IPRATRPIUM/ALBUTEROL 0.5/2.5MG 3 ML NEBU. NEB SCH ×3 (13:00→20:13)
[2018-12-10] MEDS: BUDESONIDE 0.5 MG/2 ML NEBU. NEB SCH ×2 (13:00→20:13)
--- NOTE | 2018-12-10 13:42 | PDOC ---
Provider Note Provider Note Med Onc consult: see dictation [id number] 1. Extensive left neck adenopathy - plan LN bx. 2. Left upper lobe lung mass most likely lung cancer. 3. Extensive mediastinal and hilar adenopathy. KAYLA GRAHAM MD Dec 10, 2018 13:41
[2018-12-10] MEDS ORDERED: IOHEXOL 300 MG/ML 100ML VIAL. IV ONE ×2 (14:00)
[2018-12-10] MEDS ORDERED: IOHEXOL 240 MG/ML 50ML VIAL. PO ONE (14:00)
[2018-12-10 15:00] VITALS: BP 186/77
--- NOTE | 2018-12-10 15:11 | NUR ---
SW following pt for dc planning. Chart reviewed and discussed with RN. Pt lives at home with spouse. Oncology following. PT/OT ordered. SW will be available as needed.
[2018-12-10] MEDS: oxyCODONE IR 5 MG TABLET PO PRN (17:22)
--- NOTE | 2018-12-10 17:57 | PDOC ---
PULMONARY PROGRESS NOTES Vitals Vital Signs Date Time Temp Pulse Resp B/P (MAP) Pulse Ox O2 Delivery O2 Flow Rate FiO2 12/10/18 17:22 97 Room Air 2.0 12/10/18 15:00 98.2 103 18 186/77 (113) 98.2 Labs Laboratory Tests Test 12/09/18 22:05 12/09/18 22:20 12/09/18 22:24 12/10/18 10:10 White Blood Count 7.4 x10^3/uL (4.0-11.0) Red Blood Count 4.14 x10^6/uL (3.50-5.40) Hemoglobin 11.9 g/dL (12.0-15.5) Hematocrit 35.9 % (36.0-47.0) Mean Corpuscular Volume 87 fL (79-100) Mean Corpuscular Hemoglobin 29 pg (25-35) Mean Corpuscular Hemoglobin Concent 33 g/dL (31-37) Red Cell Distribution Width 14.3 % (11.5-14.5) Platelet Count 330 x10^3/uL (140-400) Neutrophils (%) (Auto) 78 % (31-73) Lymphocytes (%) (Auto) 15 % (24-48) Monocytes (%) (Auto) 4 % (0-9) Eosinophils (%) (Auto) 2 % (0-3) Basophils (%) (Auto) 1 % (0-3) Neutrophils # (Auto) 5.8 x10^3/uL (1.8-7.7) Lymphocytes # (Auto) 1.1 x10^3/uL (1.0-4.8) Monocytes # (Auto) 0.3 x10^3/uL (0.0-1.1) Eosinophils # (Auto) 0.2 x10^3/uL (0.0-0.7) Basophils # (Auto) 0.1 x10^3/uL (0.0-0.2) Sodium Level 143 mmol/L (136-145) Potassium Level 3.9 mmol/L (3.5-5.1) Chloride Level 103 mmol/L (98-107) Carbon Dioxide Level 29 mmol/L (21-32) Anion Gap 11 (6-14) Blood Urea Nitrogen 17 mg/dL (7-20) Creatinine 1.1 mg/dL (0.6-1.0) Estimated GFR (Cockcroft-Gault) 49.1 BUN/Creatinine Ratio 15 (6-20) Glucose Level 119 mg/dL (70-99) Calcium Level 9.8 mg/dL (8.5-10.1) Total Bilirubin 0.3 mg/dL (0.2-1.0) Aspartate Amino Transf (AST/SGOT) 15 U/L (15-37) Alanine Aminotransferase (ALT/SGPT) 16 U/L (14-59) Alkaline Phosphatase 82 U/L (46-116) Troponin I Quantitative < 0.017 ng/mL (0.000-0.055) HH-Sia-O-Type Natriuretic Peptide 272 pg/mL (0-124) Total Protein 8.6 g/dL (6.4-8.2) Albumin 3.9 g/dL (3.4-5.0) Albumin/Globulin Ratio 0.8 (1.0-1.7) Urine Collection Type Unknown Urine Color Yellow Urine Clarity Clear Urine pH 5.0 Urine Specific Merrill 1.010 Urine Protein Negative mg/dL (NEG-TRACE) Urine Glucose (UA) Negative mg/dL (NEG) Urine Ketones (Stick) Negative mg/dL (NEG) Urine Blood Negative (NEG) Urine Nitrite Negative (NEG) Urine Bilirubin Negative (NEG) Urine Urobilinogen Dipstick 0.2 mg/dL (0.2 mg/dL) Urine Leukocyte Esterase Negative (NEG) Urine RBC 0 /HPF (0-2) Urine WBC 0 /HPF (0-4) Urine Squamous Epithelial Cells Mod /LPF Urine Bacteria Few /HPF (0-FEW) Influenza Type A Antigen Negative (NEGATIVE) Influenza Type B Antigen Negative (NEGATIVE) Prothrombin Time 12.7 SEC (11.7-14.0) Prothromb Time International Ratio 1.0 (0.8-1.1) Test 12/10/18 12:09 12/10/18 17:27 Glucose (Fingerstick) 147 mg/dL (70-99) 125 mg/dL (70-99) Laboratory Tests Test 12/09/18 22:05 12/09/18 22:20 12/09/18 22:24 12/10/18 10:10 White Blood Count 7.4 x10^3/uL (4.0-11.0) Red Blood Count 4.14 x10^6/uL (3.50-5.40) Hemoglobin 11.9 g/dL (12.0-15.5) Hematocrit 35.9 % (36.0-47.0) Mean Corpuscular Volume 87 fL (79-100) Mean Corpuscular Hemoglobin 29 pg (25-35) Mean Corpuscular Hemoglobin Concent 33 g/dL (31-37) Red Cell Distribution Width 14.3 % (11.5-14.5) Platelet Count 330 x10^3/uL (140-400) Neutrophils (%) (Auto) 78 % (31-73) Lymphocytes (%) (Auto) 15 % (24-48) Monocytes (%) (Auto) 4 % (0-9) Eosinophils (%) (Auto) 2 % (0-3) Basophils (%) (Auto) 1 % (0-3) Neutrophils # (Auto) 5.8 x10^3/uL (1.8-7.7) Lymphocytes # (Auto) 1.1 x10^3/uL (1.0-4.8) Monocytes # (Auto) 0.3 x10^3/uL (0.0-1.1) Eosinophils # (Auto) 0.2 x10^3/uL (0.0-0.7) Basophils # (Auto) 0.1 x10^3/uL (0.0-0.2) Sodium Level 143 mmol/L (136-145) Potassium Level 3.9 mmol/L (3.5-5.1) Chloride Level 103 mmol/L (98-107) Carbon Dioxide Level 29 mmol/L (21-32) Anion Gap 11 (6-14) Blood Urea Nitrogen 17 mg/dL (7-20) Creatinine 1.1 mg/dL (0.6-1.0) Estimated GFR (Cockcroft-Gault) 49.1 BUN/Creatinine Ratio 15 (6-20) Glucose Level 119 mg/dL (70-99) Calcium Level 9.8 mg/dL (8.5-10.1) Total Bilirubin 0.3 mg/dL (0.2-1.0) Aspartate Amino Transf (AST/SGOT) 15 U/L (15-37) Alanine Aminotransferase (ALT/SGPT) 16 U/L (14-59) Alkaline Phosphatase 82 U/L (46-116) Troponin I Quantitative < 0.017 ng/mL (0.000-0.055) TZ-Zud-A-Type Natriuretic Peptide 272 pg/mL (0-124) Total Protein 8.6 g/dL (6.4-8.2) Albumin 3.9 g/dL (3.4-5.0) Albumin/Globulin Ratio 0.8 (1.0-1.7) Urine Collection Type Unknown Urine Color Yellow Urine Clarity Clear Urine pH 5.0 Urine Specific Merrill 1.010 Urine Protein Negative mg/dL (NEG-TRACE) Urine Glucose (UA) Negative mg/dL (NEG) Urine Ketones (Stick) Negative mg/dL (NEG) Urine Blood Negative (NEG) Urine Nitrite Negative (NEG) Urine Bilirubin Negative (NEG) Urine Urobilinogen Dipstick 0.2 mg/dL (0.2 mg/dL) Urine Leukocyte Esterase Negative (NEG) Urine RBC 0 /HPF (0-2) Urine WBC 0 /HPF (0-4) Urine Squamous Epithelial Cells Mod /LPF Urine Bacteria Few /HPF (0-FEW) Influenza Type A Antigen Negative (NEGATIVE) Influenza Type B Antigen Negative (NEGATIVE) Prothrombin Time 12.7 SEC (11.7-14.0) Prothromb Time International Ratio 1.0 (0.8-1.1) Test 12/10/18 12:09 12/10/18 17:27 Glucose (Fingerstick) 147 mg/dL (70-99) 125 mg/dL (70-99) Medications Active Scripts Medications Dose Route/Sig Max Daily Dose Days Date Category Proair Hfa Inhaler (Albuterol Sulfate) 8.5 Gm Hfa.aer.ad 2 Puff INH PRN Q4HRS PRN 07/04/17 Reported Lidocaine PATCH (Lidocaine) 1 Each Adh..patch 1 Each TP DAILY 07/04/17 Reported Amlodipine Besylate 5 Mg Tablet 5 Mg PO DAILY 07/04/17 Reported Duoneb 0.5-3(2.5) Mg/3 Ml (Albuterol/Ipratropium) 3 Ml Ampul.neb 3 Ml NEB QID 07/04/17 Reported Symbicort 160-4.5 Mcg Inhaler (Budesonide/Formoterol Fumarate) 10.2 Gm Hfa.aer.ad 2 Puff IH BID 07/04/17 Reported Flector (Diclofenac Epolamine) 1 Each Patch.td12 1 Each TD BID 07/04/17 Reported Combivent Respimat Inhal (Ipratropium/Albuterol Sulfate) 4 Gm Aer.w.adap 2 Inh IH QID 07/04/17 Reported Albuterol Sulfate Neb Soln (Albuterol Sulfate) 0.63 Mg/3 Ml Vial.neb 1 Vial NEB QID 07/04/17 Reported Xanax (Alprazolam) 0.5 Mg Tablet 1 Tab PO TID 07/04/17 Reported Oxycodone Hcl Immed.release (Oxycodone Hcl) 10 Mg Tablet 10 Mg PO PRN Q6HRS PRN 07/04/17 Reported Potassium Chloride 20 Meq Tablet.er 8 Meq PO DAILY 07/04/17 Reported Synthroid (Levothyroxine Sodium) 200 Mcg Tablet 1 Tab PO DAILY 07/04/17 Reported Lisinopril-Hctz 20-12.5 Mg Tab (Lisinopril/Hydrochlorothiazide) 1 Each Tablet 1 Tab PO DAILY 07/04/17 Reported Glimepiride 4 Mg Tablet 1 Tab PO BID 07/04/17 Reported Lipitor (Atorvastatin Calcium) 40 Mg Tablet 1 Tab PO DAILY 07/04/17 Reported Actos (Pioglitazone Hcl) 45 Mg Tablet 1 Tab PO DAILY 07/04/17 Reported Amitriptyline Hcl 100 Mg Tablet 1 Tab PO QHS 07/04/17 Reported Aspirin 81 Mg Tab.chew 1 Tab PO DAILY 07/04/17 Reported Impression . NOTE DICTATED S/W DR GRAHAM WILL AWAIT BX RESULTS AECOPD MIRNA ANTON MD Dec 10, 2018 17:57
[2018-12-10 19:10] VITALS: BP 139/67
[2018-12-10] MEDS: AMITRIPTYLINE HCL 25 MG TABLET. PO SCH ×2 (21:00→21:13)
[2018-12-10] MEDS: ATORVASTATIN CALCIUM 40 MG TABLET. PO SCH (21:13)
[2018-12-10] MEDS: PATCH REMOVAL. MC SCH (21:26)
[2018-12-10 23:55] VITALS: BP 122/54
[2018-12-11] VITALS (9 sets, daily range): BP systolic 115–147; BP diastolic 54–80
[2018-12-11] MEDS: ALBUTEROL SULFATE 2.5 MG/3 ML NEBU. INH PRN (00:32)
[2018-12-11] MEDS: oxyCODONE IR 5 MG TABLET PO PRN ×3 (02:31→17:11)
--- NOTE | 2018-12-11 02:38 | CONS ---
DATE OF CONSULTATION: 12/10/2018 ATTENDING PHYSICIAN: Dr. Deng. REASON FOR CONSULTATION: The patient seen in pulmonary consultation at the request of Dr. Deng for abnormal CT chest. HISTORY OF PRESENT ILLNESS: The patient is a 68-year-old who presented with increasing shortness of breath. Over the last 2-3 weeks, she was having difficulty tolerating activities of daily living at home. She has a cough, mostly nonproductive. No fever, chills or night sweats. No hemoptysis. She was evaluated in the Emergency Department and underwent CT chest, which revealed a left upper lobe mass, extensive mediastinal hilar adenopathy, some atelectasis in the left base, mild atelectasis in the right mid lung and a hiatal hernia. PAST MEDICAL HISTORY: Remarkable for: 1. Tobacco dependent, quit 25 years ago. 2. COPD. 3. Chronic diastolic heart failure. 4. Diabetes. 5. Hypertension. 6. Hyperlipidemia. 7. Hypothyroidism. 8. Anxiety and depression. 9. Lipomatosis of spinal cord. ALLERGIES: No known drug allergies. CURRENT MEDICATIONS: List was reviewed. SOCIAL HISTORY: She smoked 2 packs for 10 years, quit 25 years ago. FAMILY HISTORY: Cancer in her sister. She does not know what type. REVIEW OF SYSTEMS: CONSTITUTIONAL: No fever or chills. EYES: No change in visual acuity. HENT: No nasal congestion or sore throat. PULMONARY: As indicated above. CARDIOVASCULAR: No chest pain. No pressure. GASTROINTESTINAL: No nausea, vomiting, diarrhea. GENITOURINARY: No dysuria or frequency. MUSCULOSKELETAL: No localized muscle aches or joint pains. SKIN: No new skin rashes. NEUROLOGIC: No headaches, diplopia or blurred vision. PHYSICAL EXAMINATION: GENERAL: Morbid obese individual, body mass index of liters of oxygen supplementation. HEENT: Eyes, the sclerae were nonicteric. NECK: Jugular venous distention could not be assessed secondary to body habitus. CHEST: Full expansion. LUNGS: Poor airway flow with no wheezes. CARDIOVASCULAR: Regular rate and rhythm with S1, S2, no S3. ABDOMEN: Obese. EXTREMITIES: No clubbing, cyanosis. Minimal edema. NEUROLOGICAL: The patient was awake, alert, following commands. A detailed neuro exam was not performed. LABORATORY DATA: Serology for influenza was negative. Electrolytes were noted. BUN and creatinine were noted. White count was normal. IMPRESSION: 1. Progressive dyspnea, multifactorial secondary to acute exacerbation of chronic obstructive pulmonary disease, morbid obesity and weakness. 2. Abnormal CT chest revealing left upper lobe mass, mediastinal hilar adenopathy and extensive left neck adenopathy. 3. Morbid obesity. 4. Clinical symptoms and signs of obstructive sleep apnea. 5. Chronic diastolic heart failure. 6. Hyperlipidemia. 7. Hypothyroidism. PLAN: 1. Case discussed with Dr. Madden. We will proceed with a biopsy of the left neck adenopathy. 2. We will follow clinical course and make further recommendations. 3. Outpatient polysomnogram. I do appreciate the privilege in sharing in the patient's care. MIRNA ANTON MD DR: KRYSTAL/nts JOB#: [id number] / [id number]
--- NOTE | 2018-12-11 03:17 | CONS ---
DATE OF CONSULTATION: 12/10/2018 REQUESTING PHYSICIAN: Dr. Yari Deng. REASON FOR CONSULTATION: Left cervical lymphadenopathy, left upper lobe lung mass along with extensive hilar and mediastinal lymphadenopathy. HISTORY OF PRESENT ILLNESS: The patient is a 68-year-old gentleman who had dyspnea since 11/2018. She has a history of cigarette smoking that she quit in 2008. She has smoked 1-2 packs of cigarettes per day for 25 years. In view of worsening shortness of breath, she came in to the Emergency Room on 12/09/2018. She underwent CT scan of the neck that revealed extensive adenopathy in the left side of the neck extending into the mediastinum. She underwent CT scan of the chest that revealed left upper lobe lung mass with extensive mediastinal and hilar lymphadenopathy concerning for small cell lung cancer or lymphoma. She denies any significant loss of weight or loss of appetite. No fevers, chills or night sweats. She denies hemoptysis. She reports headaches. PAST MEDICAL HISTORY: History of diastolic heart failure, chronic COPD, diabetes, hypertension, hyperlipidemia, hypothyroidism, anxiety, depression, lipomatosis of the spinal cord. SOCIAL HISTORY: She has a history of smoking for 25 years that she quit in 2008. She has smoked 1-2 packs a day. FAMILY HISTORY: has prostate cancer and sister also has history of cancer. REVIEW OF SYSTEMS: A 12-point review of system was performed. Pertinent positives are mentioned in the history of present illness. Rest of the system review is negative. PHYSICAL EXAMINATION: GENERAL APPEARANCE: The patient is a 68-year-old female who is in no acute cardiorespiratory distress. VITAL SIGNS: Blood pressure 128/53, temperature 98.6. HEENT: Head is atraumatic, normocephalic. EYES: No icterus. NECK: Supple. CHEST: Bilaterally symmetrical. HEART: S1, S2 normal. ABDOMEN: Soft, nontender, no hepatosplenomegaly. CENTRAL NERVOUS SYSTEM: No focal deficits. LYMPHATICS: She has evidence of left cervical lymphadenopathy. A 2-cm lymph node is palpable in the left posterior neck region. SKIN: No rashes. PSYCHOLOGIC: Mood and affect are appropriate. LABORATORY DATA: WBC 7.4, hemoglobin 11.9, platelet count 330. Creatinine 1.1, calcium 9.8, total bilirubin 0.3, AST 15, ALT 16, alkaline phosphatase 82, total protein is 8.6, albumin 3.9. IMPRESSION AND PLAN: 1. Left upper lobe lung mass with extensive mediastinal, hilar lymphadenopathy and left cervical lymphadenopathy is clinically concerning for primary lung cancer with metastatic disease. I discussed in detail with the patient and her sister. I explained the concern for malignancy and the need for biopsy and she understands and agrees to proceed with biopsy. I will consult Interventional Radiology for left cervical lymph node biopsy. I also discussed with Dr. Deng and with Dr. Shalonda Godoy. I will also obtain CT scan of the abdomen and pelvis for completion of staging and in addition, she also reports abdominal pain. 2. Headaches. I will obtain MRI of the brain to evaluate for metastasis. 3. Dyspnea. I discussed with Dr. Shalonda Godoy and management per Dr. Godoy. KAYLA GRAHAM MD DR: VALERIANO/deb JOB#: [id number] / [id number] SHERICE
[2018-12-11] MEDS: ALPRAZolam 0.25 MG TABLET PO PRN (03:33)
[2018-12-11 05:13] LABS: BASO % 1 % (0-3); EOS # 0.1 x10^3/uL (0.0-0.7); EOS % 1 % (0-3); HEMATOCRIT 34.7 % (36.0-47.0); HEMOGLOBIN 11.6 g/dL (12.0-15.5); LYMPH # 1.1 x10^3/uL (1.0-4.8); LYMPH % 17 % (24-48); MEAN CORPUSCULAR HEMOGLOBIN 29 pg (25-35); MEAN CORPUSCULAR HGB CONC 33 g/dL (31-37); MEAN CORPUSCULAR VOLUME 86 fL (79-100); MONO # 0.4 x10^3/uL (0.0-1.1); MONO % 6 % (0-9); NEUT % 76 % (31-73); PLATELET COUNT 291 x10^3/uL (140-400); RED BLOOD COUNT 4.02 x10^6/uL (3.50-5.40); RED CELL DISTRIBUTION WIDTH 14.4 % (11.5-14.5); WHITE BLOOD COUNT 6.6 x10^3/uL (4.0-11.0)
[2018-12-11 06:03] LABS: ALBUMIN 3.5 g/dL (3.4-5.0); ALBUMIN/GLOBULIN RATIO 0.8 (1.0-1.7); CALCIUM 9.2 mg/dL (8.5-10.1); GFR 54.8; POTASSIUM 3.3 mmol/L (3.5-5.1); TOTAL BILIRUBIN 0.4 mg/dL (0.2-1.0); TOTAL PROTEIN 7.8 g/dL (6.4-8.2)
[2018-12-11] MEDS: LEVOTHYROXINE 100 MCG TABLET PO SCH (06:18)
[2018-12-11] MEDS: BUDESONIDE 0.5 MG/2 ML NEBU. NEB SCH ×2 (07:30→21:43)
[2018-12-11] MEDS: IPRATRPIUM/ALBUTEROL 0.5/2.5MG 3 ML NEBU. NEB SCH ×4 (07:30→21:42)
[2018-12-11] MEDS: INSULIN LISPRO 300 UNITS/3 ML VIAL. SQ SCH ×3 (07:53→17:00)
--- NOTE | 2018-12-11 08:55 | PDOC ---
PROGRESS NOTES Subjective Subjective HPI - f/u of Left upper lobe lung mass ROS - has dyspnea Objective Objective Vital Signs Date Time Temp Pulse Resp B/P (MAP) Pulse Ox O2 Delivery O2 Flow Rate FiO2 12/11/18 07:31 99 Nasal Cannula 3.0 12/11/18 07:00 97.8 87 16 134/59 (84) 97.8 Intake and Output 12/11/18 06:59 Intake Total 750 ml Balance 750 ml Intake Oral 750 ml # Voids 3 # Bowel Movements 1 Physical Exam Heart: Normal S1, Normal S2 General: Alert, Oriented X3 Lungs: Clear to auscultation Neuro: Normal speech Psych/Mental Status: Mental status NL Assessment Assessment Problems Medical Problems: (1) Anxiety Status: Acute (2) Depression Status: Chronic (3) Diabetes Status: Chronic (4) Dyspnea on minimal exertion Status: Acute (5) HTN (hypertension) Status: Chronic (6) Hyperlipidemia Status: Chronic (7) Hypothyroidism Status: Chronic (8) Mass of left lung Status: Acute (9) Pleural effusion, left Status: Acute IMPRESSION AND PLAN: 1. Left upper lobe lung mass with extensive mediastinal, hilar lymphadenopathy and left cervical lymphadenopathy is clinically concerning for primary lung cancer with metastatic disease. I explained the concern for malignancy and the need for biopsy and she understands and agrees to proceed with biopsy. I will consult Interventional Radiology for left cervical lymph node biopsy. I also discussed with Dr. Deng and with Dr. Shalonda Godoy. I will also obtain CT scan of the abdomen and pelvis for completion of staging and in addition, she also reports abdominal pain. 2. Headaches. I will obtain MRI of the brain to evaluate for metastasis. Pending. 3. Dyspnea. I discussed with Dr. Shalonda Godoy and management per Dr. Godoy. Comment Review of Relevant I have reviewed the following items malik (where applicable) has been applied. Labs Laboratory Tests Test 12/09/18 22:05 12/09/18 22:20 12/09/18 22:24 12/10/18 10:10 White Blood Count 7.4 x10^3/uL (4.0-11.0) Red Blood Count 4.14 x10^6/uL (3.50-5.40) Hemoglobin 11.9 g/dL (12.0-15.5) Hematocrit 35.9 % (36.0-47.0) Mean Corpuscular Volume 87 fL (79-100) Mean Corpuscular Hemoglobin 29 pg (25-35) Mean Corpuscular Hemoglobin Concent 33 g/dL (31-37) Red Cell Distribution Width 14.3 % (11.5-14.5) Platelet Count 330 x10^3/uL (140-400) Neutrophils (%) (Auto) 78 % (31-73) Lymphocytes (%) (Auto) 15 % (24-48) Monocytes (%) (Auto) 4 % (0-9) Eosinophils (%) (Auto) 2 % (0-3) Basophils (%) (Auto) 1 % (0-3) Neutrophils # (Auto) 5.8 x10^3/uL (1.8-7.7) Lymphocytes # (Auto) 1.1 x10^3/uL (1.0-4.8) Monocytes # (Auto) 0.3 x10^3/uL (0.0-1.1) Eosinophils # (Auto) 0.2 x10^3/uL (0.0-0.7) Basophils # (Auto) 0.1 x10^3/uL (0.0-0.2) Sodium Level 143 mmol/L (136-145) Potassium Level 3.9 mmol/L (3.5-5.1) Chloride Level 103 mmol/L (98-107) Carbon Dioxide Level 29 mmol/L (21-32) Anion Gap 11 (6-14) Blood Urea Nitrogen 17 mg/dL (7-20) Creatinine 1.1 mg/dL (0.6-1.0) Estimated GFR (Cockcroft-Gault) 49.1 BUN/Creatinine Ratio 15 (6-20) Glucose Level 119 mg/dL (70-99) Calcium Level 9.8 mg/dL (8.5-10.1) Total Bilirubin 0.3 mg/dL (0.2-1.0) Aspartate Amino Transf (AST/SGOT) 15 U/L (15-37) Alanine Aminotransferase (ALT/SGPT) 16 U/L (14-59) Alkaline Phosphatase 82 U/L (46-116) Troponin I Quantitative < 0.017 ng/mL (0.000-0.055) TM-Nih-Q-Type Natriuretic Peptide 272 pg/mL (0-124) Total Protein 8.6 g/dL (6.4-8.2) Albumin 3.9 g/dL (3.4-5.0) Albumin/Globulin Ratio 0.8 (1.0-1.7) Urine Collection Type Unknown Urine Color Yellow Urine Clarity Clear Urine pH 5.0 Urine Specific [place] 1.010 Urine Protein Negative mg/dL (NEG-TRACE) Urine Glucose (UA) Negative mg/dL (NEG) Urine Ketones (Stick) Negative mg/dL (NEG) Urine Blood Negative (NEG) Urine Nitrite Negative (NEG) Urine Bilirubin Negative (NEG) Urine Urobilinogen Dipstick 0.2 mg/dL (0.2 mg/dL) Urine Leukocyte Esterase Negative (NEG) Urine RBC 0 /HPF (0-2) Urine WBC 0 /HPF (0-4) Urine Squamous Epithelial Cells Mod /LPF Urine Bacteria Few /HPF (0-FEW) Influenza Type A Antigen Negative (NEGATIVE) Influenza Type B Antigen Negative (NEGATIVE) Prothrombin Time 12.7 SEC (11.7-14.0) Prothromb Time International Ratio 1.0 (0.8-1.1) Test 12/10/18 12:09 12/10/18 17:27 12/10/18 19:45 12/11/18 04:06 Glucose (Fingerstick) 147 mg/dL (70-99) 125 mg/dL (70-99) 140 mg/dL (70-99) White Blood Count 6.6 x10^3/uL (4.0-11.0) Red Blood Count 4.02 x10^6/uL (3.50-5.40) Hemoglobin 11.6 g/dL (12.0-15.5) Hematocrit 34.7 % (36.0-47.0) Mean Corpuscular Volume 86 fL (79-100) Mean Corpuscular Hemoglobin 29 pg (25-35) Mean Corpuscular Hemoglobin Concent 33 g/dL (31-37) Red Cell Distribution Width 14.4 % (11.5-14.5) Platelet Count 291 x10^3/uL (140-400) Neutrophils (%) (Auto) 76 % (31-73) Lymphocytes (%) (Auto) 17 % (24-48) Monocytes (%) (Auto) 6 % (0-9) Eosinophils (%) (Auto) 1 % (0-3) Basophils (%) (Auto) 1 % (0-3) Neutrophils # (Auto) 5.0 x10^3/uL (1.8-7.7) Lymphocytes # (Auto) 1.1 x10^3/uL (1.0-4.8) Monocytes # (Auto) 0.4 x10^3/uL (0.0-1.1) Eosinophils # (Auto) 0.1 x10^3/uL (0.0-0.7) Basophils # (Auto) 0.0 x10^3/uL (0.0-0.2) Sodium Level 143 mmol/L (136-145) Potassium Level 3.3 mmol/L (3.5-5.1) Chloride Level 103 mmol/L (98-107) Carbon Dioxide Level 31 mmol/L (21-32) Anion Gap 9 (6-14) Blood Urea Nitrogen 11 mg/dL (7-20) Creatinine 1.0 mg/dL (0.6-1.0) Estimated GFR (Cockcroft-Gault) 54.8 BUN/Creatinine Ratio 11 (6-20) Glucose Level 143 mg/dL (70-99) Calcium Level 9.2 mg/dL (8.5-10.1) Total Bilirubin 0.4 mg/dL (0.2-1.0) Aspartate Amino Transf (AST/SGOT) 15 U/L (15-37) Alanine Aminotransferase (ALT/SGPT) 15 U/L (14-59) Alkaline Phosphatase 71 U/L (46-116) Total Protein 7.8 g/dL (6.4-8.2) Albumin 3.5 g/dL (3.4-5.0) Albumin/Globulin Ratio 0.8 (1.0-1.7) Test 12/11/18 07:31 Glucose (Fingerstick) 133 mg/dL (70-99) Laboratory Tests Test 12/10/18 10:10 12/10/18 12:09 12/10/18 17:27 12/10/18 19:45 Prothrombin Time 12.7 SEC (11.7-14.0) Prothromb Time International Ratio 1.0 (0.8-1.1) Glucose (Fingerstick) 147 mg/dL (70-99) 125 mg/dL (70-99) 140 mg/dL (70-99) Test 12/11/18 04:06 12/11/18 07:31 White Blood Count 6.6 x10^3/uL (4.0-11.0) Red Blood Count 4.02 x10^6/uL (3.50-5.40) Hemoglobin 11.6 g/dL (12.0-15.5) Hematocrit 34.7 % (36.0-47.0) Mean Corpuscular Volume 86 fL (79-100) Mean Corpuscular Hemoglobin 29 pg (25-35) Mean Corpuscular Hemoglobin Concent 33 g/dL (31-37) Red Cell Distribution Width 14.4 % (11.5-14.5) Platelet Count 291 x10^3/uL (140-400) Neutrophils (%) (Auto) 76 % (31-73) Lymphocytes (%) (Auto) 17 % (24-48) Monocytes (%) (Auto) 6 % (0-9) Eosinophils (%) (Auto) 1 % (0-3) Basophils (%) (Auto) 1 % (0-3) Neutrophils # (Auto) 5.0 x10^3/uL (1.8-7.7) Lymphocytes # (Auto) 1.1 x10^3/uL (1.0-4.8) Monocytes # (Auto) 0.4 x10^3/uL (0.0-1.1) Eosinophils # (Auto) 0.1 x10^3/uL (0.0-0.7) Basophils # (Auto) 0.0 x10^3/uL (0.0-0.2) Sodium Level 143 mmol/L (136-145) Potassium Level 3.3 mmol/L (3.5-5.1) Chloride Level 103 mmol/L (98-107) Carbon Dioxide Level 31 mmol/L (21-32) Anion Gap 9 (6-14) Blood Urea Nitrogen 11 mg/dL (7-20) Creatinine 1.0 mg/dL (0.6-1.0) Estimated GFR (Cockcroft-Gault) 54.8 BUN/Creatinine Ratio 11 (6-20) Glucose Level 143 mg/dL (70-99) Calcium Level 9.2 mg/dL (8.5-10.1) Total Bilirubin 0.4 mg/dL (0.2-1.0) Aspartate Amino Transf (AST/SGOT) 15 U/L (15-37) Alanine Aminotransferase (ALT/SGPT) 15 U/L (14-59) Alkaline Phosphatase 71 U/L (46-116) Total Protein 7.8 g/dL (6.4-8.2) Albumin 3.5 g/dL (3.4-5.0) Albumin/Globulin Ratio 0.8 (1.0-1.7) Glucose (Fingerstick) 133 mg/dL (70-99) Medications Current Medications Albuterol/ Ipratropium (Duoneb) 3 ml 1X ONCE NEB Last administered on 12/09/18at 22:08; Start 12/09/18 at 22:15; Stop 12/09/18 at 22:17; Status DC Iohexol (Omnipaque 300 Mg/ml) 60 ml 1X ONCE IV Last administered on 12/10/18at 00:18; Start 12/10/18 at 00:00; Stop 12/10/18 at 00:01; Status DC Info (CONTRAST GIVEN -- Rx MONITORING) 1 each PRN DAILY PRN MC SEE COMMENTS; Start 12/10/18 at 00:15; Stop 12/10/18 at 17:29; Status DC Ondansetron HCl (Zofran) 4 mg PRN Q8HRS PRN IV NAUSEA/VOMITING; Start 12/10/18 at 02:00; Stop 12/11/18 at 01:59; Status DC Morphine Sulfate (Morphine Sulfate) 2 mg PRN Q2HR PRN IV PAIN; Start 12/10/18 at 02:00; Stop 12/11/18 at 01:59; Status DC Acetaminophen (Tylenol) 650 mg PRN Q4HRS PRN PO FEVER; Start 12/10/18 at 02:00; Stop 12/11/18 at 01:59; Status DC Albuterol/ Ipratropium (Duoneb) 3 ml RTQID NEB Last administered on 12/10/18at 08:41; Start 12/10/18 at 08:00; Stop 12/10/18 at 09:50; Status DC Iohexol (Omnipaque 300 Mg/ml) 100 ml STK-MED ONCE .ROUTE ; Start 12/10/18 at 04:02; Stop 12/10/18 at 04:02; Status DC Alprazolam (Xanax) 0.25 mg PRN Q6HRS PRN PO ANXIETY / AGITATION Last administered on 12/11/18at 03:33; Start 12/10/18 at 04:45 Albuterol Sulfate (Ventolin Neb Soln) 2.5 mg PRN Q4HRS PRN NEB SHORTNESS OF BREATH Last administered on 12/10/18at 04:49; Start 12/10/18 at 04:45; Stop 12/10/18 at 09:52; Status DC Oxycodone HCl (Roxicodone) 10 mg PRN Q6HRS PRN PO PAIN Last administered on 12/11/18at 02:31; Start 12/10/18 at 04:45 Albuterol Sulfate (Ventolin Neb Soln) 2.5 mg PRN Q4HRS PRN INH SHORTNESS OF BREATH Last administered on 12/11/18at 00:32; Start 12/10/18 at 09:30 Alprazolam (Xanax) 0.5 mg TID PO Last administered on 12/10/18at 21:12; Start 12/10/18 at 10:00 Amlodipine Besylate (Norvasc) 5 mg DAILY PO Last administered on 12/10/18at 11:51; Start 12/10/18 at 10:00 Aspirin (Children'S Aspirin) 81 mg DAILY PO Last administered on 12/10/18at 11:53; Start 12/10/18 at 10:00 Atorvastatin Calcium (Lipitor) 40 mg QHS PO Last administered on 12/10/18at 21:13; Start 12/10/18 at 21:00 Albuterol/ Ipratropium (Duoneb) 3 ml RTQID NEB Last administered on 12/11/18at 07:30; Start 12/10/18 at 12:00 Lidocaine (Lidoderm) 1 patch DAILY TP ; Start 12/10/18 at 10:00 Non-Formulary Medication (Albuterol Sulfate (Albuterol Sulfate Neb Soln)) 1 vial QID NEB ; Start 12/10/18 at 13:00; Status UNV Amitriptyline HCl (Elavil) 100 mg QHS PO ; Start 12/10/18 at 21:00 Budesonide (Pulmicort) 0.5 mg RTBID NEB Last administered on 12/11/18at 07:30; Start 12/10/18 at 10:00 Diclofenac Sodium (Voltaren) 1 cornelia BID TP Last administered on 12/10/18at 21:15; Start 12/10/18 at 10:00 Glimepiride (Amaryl) 4 mg BID PO Last administered on 12/10/18at 21:13; Start 12/10/18 at 10:00 Non-Formulary Medication (Ipratropium/ Albuterol Sulfate (Combivent Respimat Inhal)) 2 inh QID IH ; Start 12/10/18 at 13:00; Status UNV Levothyroxine Sodium (Synthroid) 200 mcg DAILY06 PO Last administered on 12/11/18at 06:18; Start 12/10/18 at 10:00 Non-Formulary Medication (Lisinopril/ Hydrochlorothiazide (Lisinopril-Hctz 20- 12.5 Mg Tab)) 1 tab DAILY PO ; Start 12/11/18 at 09:00; Status UNV Pioglitazone HCl (Actos) 45 mg DAILY PO Last administered on 12/10/18at 11:51; Start 12/10/18 at 10:00 Potassium Chloride (Klor-Con) 10 meq DAILYWBKFT PO ; Start 12/11/18 at 08:00 Albuterol/ Ipratropium (Duoneb) 3 ml QID PRN NEB sob; Start 12/10/18 at 09:30; Stop 12/10/18 at 09:50; Status DC Insulin Human Lispro (HumaLOG) 0-9 UNITS TIDWMEALS SQ ; Start 12/10/18 at 12:00 Dextrose (Dextrose 50%-Water Syringe) 12.5 gm PRN Q15MIN PRN IV SEE COMMENTS; Start 12/10/18 at 09:30 Lisinopril (Prinivil) 20 mg DAILY PO Last administered on 12/10/18at 11:52; Start 12/10/18 at 10:00 Hydrochlorothiazide (Microzide) 12.5 mg DAILY PO Last administered on 12/10/18at 11:52; Start 12/10/18 at 10:00 Miscellaneous (Lidoderm Patch Removal) 1 ea QHS ; Start 12/10/18 at 21:00 Iohexol (Omnipaque 240 Mg/ml) 50 ml 1X ONCE PO Last administered on 12/10/18at 16:30; Start 12/10/18 at 14:00; Stop 12/10/18 at 14:07; Status DC Iohexol (Omnipaque 300 Mg/ml) 75 ml 1X ONCE IV Last administered on 12/10/18at 16:30; Start 12/10/18 at 14:00; Stop 12/10/18 at 14:07; Status DC Info (CONTRAST GIVEN -- Rx MONITORING) 1 each PRN DAILY PRN MC SEE COMMENTS; Start 12/10/18 at 14:15; Stop 12/12/18 at 14:14 Influenza Virus Vaccine Quadrival (Afluria Quad 2019-20 (3yr Up) Syringe) 0.5 ml ONCE ONCE VAX IM ; Start 12/11/18 at 09:00; Stop 12/11/18 at 09:01 Active Scripts Active Reported Proair Hfa Inhaler (Albuterol Sulfate) 8.5 Gm Hfa.aer.ad 2 Puff INH PRN Q4HRS PRN Lidocaine PATCH (Lidocaine) 1 Each Adh..patch 1 Each TP DAILY Amlodipine Besylate 5 Mg Tablet 5 Mg PO DAILY Duoneb 0.5-3(2.5) Mg/3 Ml (Albuterol/Ipratropium) 3 Ml Ampul.neb 3 Ml NEB QID Symbicort 160-4.5 Mcg Inhaler (Budesonide/Formoterol Fumarate) 10.2 Gm Hfa.aer.ad 2 Puff IH BID Flector (Diclofenac Epolamine) 1 Each Patch.td12 1 Each TD BID Combivent Respimat Inhal (Ipratropium/Albuterol Sulfate) 4 Gm Aer.w.adap 2 Inh IH QID Albuterol Sulfate Neb Soln (Albuterol Sulfate) 0.63 Mg/3 Ml Vial.neb 1 Vial NEB QID Xanax (Alprazolam) 0.5 Mg Tablet 1 Tab PO TID Oxycodone Hcl Immed.release (Oxycodone Hcl) 10 Mg Tablet 10 Mg PO PRN Q6HRS PRN Potassium Chloride 20 Meq Tablet.er 8 Meq PO DAILY Synthroid (Levothyroxine Sodium) 200 Mcg Tablet 1 Tab PO DAILY Lisinopril-Hctz 20-12.5 Mg Tab (Lisinopril/Hydrochlorothiazide) 1 Each Tablet 1 Tab PO DAILY Glimepiride 4 Mg Tablet 1 Tab PO BID Lipitor (Atorvastatin Calcium) 40 Mg Tablet 1 Tab PO DAILY Actos (Pioglitazone Hcl) 45 Mg Tablet 1 Tab PO DAILY Amitriptyline Hcl 100 Mg Tablet 1 Tab PO QHS Aspirin 81 Mg Tab.chew 1 Tab PO DAILY Vitals/I & O Vital Sign - Last 24 Hours 12/10/18 12/10/18 12/10/18 12/10/18 11:00 11:51 11:52 13:01 Temp 98.6 98.6 Pulse 95 101 95 Resp 18 B/P (MAP) 128/53 (78) 133/59 128/53 Pulse Ox 98 95 O2 Delivery Nasal Cannula Nasal Cannula O2 Flow Rate 2.0 2.0 12/10/18 12/10/18 12/10/18 12/10/18 15:00 16:08 17:22 18:23 Temp 98.2 98.2 Pulse 103 Resp 18 B/P (MAP) 186/77 (113) Pulse Ox 97 97 97 97 O2 Delivery Room Air Room Air Room Air Room Air O2 Flow Rate 2.0 2.0 12/10/18 12/10/18 12/10/18 12/10/18 19:10 20:00 20:14 23:55 Temp 97.9 97.7 97.9 97.7 Pulse 97 96 Resp 20 18 B/P (MAP) 139/67 (91) 122/54 (76) Pulse Ox 96 95 92 O2 Delivery Nasal Cannula Nasal Cannula Nasal Cannula Room Air O2 Flow Rate 2.0 2.0 12/11/18 12/11/18 12/11/18 12/11/18 00:32 03:08 07:00 07:31 Temp 98.5 97.8 98.5 97.8 Pulse 91 87 Resp 18 16 B/P (MAP) 117/54 (75) 134/59 (84) Pulse Ox 99 99 99 O2 Delivery Nasal Cannula Nasal Cannula Nasal Cannula Nasal Cannula O2 Flow Rate 2.0 3.0 3.0 3.0 Intake and Output 12/10/18 12/10/18 12/11/18 14:59 22:59 06:59 Intake Total 280 ml 320 ml 150 ml Balance 280 ml 320 ml 150 ml KAYLA GRAHAM MD Dec 11, 2018 08:55
[2018-12-11] MEDS ORDERED: NON FORMULARY ITEM (Lisinopril/Hydrochlorothiazide (Lisinopril-Hctz 20-12.5 Mg Tab) 1 TAB) PO SCH (09:00)
[2018-12-11] MEDS ORDERED: FLU VAX QS 2019-20 (36MOS+)/PF 0.5 ML SYRINGE. VAX IM ONE (09:00)
[2018-12-11] MEDS ORDERED: LIDOCAINE WITH 8.4% SOD BICARB 3 ML DISP.SYRIN. ONE ×2 (09:01→09:02)
--- NOTE | 2018-12-11 09:02 | PDOC ---
PROGRESS NOTES Subjective Subjective no new problems Objective Objective Vital Signs Date Time Temp Pulse Resp B/P (MAP) Pulse Ox O2 Delivery O2 Flow Rate FiO2 12/11/18 07:31 99 Nasal Cannula 3.0 12/11/18 07:00 97.8 87 16 134/59 (84) 97.8 Intake and Output 12/11/18 07:00 Intake Total 750 ml Balance 750 ml Intake Oral 750 ml # Voids 3 # Bowel Movements 1 Physical Exam Abdomen: Normal bowel sounds, Soft Heart: Normal S1, Normal S2 General: Alert, Oriented X3 Lungs: Clear to auscultation MUSCULOSKELETAL: No deformity Neuro: Normal speech Psych/Mental Status: Mental status NL Diagnosis Problem List Problems Medical Problems: (1) Anxiety Status: Acute (2) Depression Status: Chronic (3) Diabetes Status: Chronic (4) Dyspnea on minimal exertion Status: Acute (5) HTN (hypertension) Status: Chronic (6) Hyperlipidemia Status: Chronic (7) Hypothyroidism Status: Chronic (8) Mass of left lung Status: Acute (9) Pleural effusion, left Status: Acute Assessment Assessment Problems Medical Problems: (1) Anxiety Status: Acute (2) Depression Status: Chronic (3) Diabetes Status: Chronic (4) Dyspnea on minimal exertion Status: Acute (5) HTN (hypertension) Status: Chronic (6) Hyperlipidemia Status: Chronic (7) Hypothyroidism Status: Chronic (8) Mass of left lung Status: Acute (9) Pleural effusion, left Status: Acute FINAL IMPRESSION: 1. Left upper lung mass new finding ,suspicious for lung cancer 2. Extensive mediastinal hilar adenopathy as well as cervical adenopathy, atelectasis of the left lung, atelectasis of the right lung and hiatal hernia. 3. Diabetes. 4. Hypertension. 5. Hyperlipidemia. 6. Hypothyroidism. 7. Anxiety, depression. 8. Ex-smoker, quit 10 years ago, smoked for 25 years, 2 packs at least. PLAN: Pt going for lymph node biopsy today by IR. CT scan abd and pelvis Mri brain and bone scan. low pot 3.3 replace. spoke with oncology. At this time, was admitted to the hospital. Pulmonary is consulted. Oncology was consulted. We had to get a tissue biopsy and breathing treatment. Further recommendations to follow. Discussed with Dr. Madden. Plan Plan of Care Problems Medical Problems: (1) Anxiety Status: Acute (2) Depression Status: Chronic (3) Diabetes Status: Chronic (4) Dyspnea on minimal exertion Status: Acute (5) HTN (hypertension) Status: Chronic (6) Hyperlipidemia Status: Chronic (7) Hypothyroidism Status: Chronic (8) Mass of left lung Status: Acute (9) Pleural effusion, left Status: Acute Comment Review of Relevant I have reviewed the following items malik (where applicable) has been applied. Labs Laboratory Tests Test 12/10/18 10:10 12/10/18 12:09 12/10/18 17:27 12/10/18 19:45 Prothrombin Time 12.7 SEC (11.7-14.0) Prothromb Time International Ratio 1.0 (0.8-1.1) Glucose (Fingerstick) 147 mg/dL (70-99) 125 mg/dL (70-99) 140 mg/dL (70-99) Test 12/11/18 04:06 12/11/18 07:31 White Blood Count 6.6 x10^3/uL (4.0-11.0) Red Blood Count 4.02 x10^6/uL (3.50-5.40) Hemoglobin 11.6 g/dL (12.0-15.5) Hematocrit 34.7 % (36.0-47.0) Mean Corpuscular Volume 86 fL (79-100) Mean Corpuscular Hemoglobin 29 pg (25-35) Mean Corpuscular Hemoglobin Concent 33 g/dL (31-37) Red Cell Distribution Width 14.4 % (11.5-14.5) Platelet Count 291 x10^3/uL (140-400) Neutrophils (%) (Auto) 76 % (31-73) Lymphocytes (%) (Auto) 17 % (24-48) Monocytes (%) (Auto) 6 % (0-9) Eosinophils (%) (Auto) 1 % (0-3) Basophils (%) (Auto) 1 % (0-3) Neutrophils # (Auto) 5.0 x10^3/uL (1.8-7.7) Lymphocytes # (Auto) 1.1 x10^3/uL (1.0-4.8) Monocytes # (Auto) 0.4 x10^3/uL (0.0-1.1) Eosinophils # (Auto) 0.1 x10^3/uL (0.0-0.7) Basophils # (Auto) 0.0 x10^3/uL (0.0-0.2) Sodium Level 143 mmol/L (136-145) Potassium Level 3.3 mmol/L (3.5-5.1) Chloride Level 103 mmol/L (98-107) Carbon Dioxide Level 31 mmol/L (21-32) Anion Gap 9 (6-14) Blood Urea Nitrogen 11 mg/dL (7-20) Creatinine 1.0 mg/dL (0.6-1.0) Estimated GFR (Cockcroft-Gault) 54.8 BUN/Creatinine Ratio 11 (6-20) Glucose Level 143 mg/dL (70-99) Calcium Level 9.2 mg/dL (8.5-10.1) Total Bilirubin 0.4 mg/dL (0.2-1.0) Aspartate Amino Transf (AST/SGOT) 15 U/L (15-37) Alanine Aminotransferase (ALT/SGPT) 15 U/L (14-59) Alkaline Phosphatase 71 U/L (46-116) Total Protein 7.8 g/dL (6.4-8.2) Albumin 3.5 g/dL (3.4-5.0) Albumin/Globulin Ratio 0.8 (1.0-1.7) Glucose (Fingerstick) 133 mg/dL (70-99) Medications Current Medications Albuterol Sulfate (Ventolin Neb Soln) 2.5 mg PRN Q4HRS PRN INH SHORTNESS OF BREATH Last administered on 12/11/18at 00:32; Start 12/10/18 at 09:30 Albuterol/ Ipratropium (Duoneb) 3 ml QID PRN NEB sob; Start 12/10/18 at 09:30; Stop 12/10/18 at 09:50; Status DC Albuterol/ Ipratropium (Duoneb) 3 ml RTQID NEB Last administered on 12/11/18at 07:30; Start 12/10/18 at 12:00 Alprazolam (Xanax) 0.5 mg TID PO Last administered on 12/10/18at 21:12; Start 12/10/18 at 10:00 Amitriptyline HCl (Elavil) 100 mg QHS PO ; Start 12/10/18 at 21:00 Amlodipine Besylate (Norvasc) 5 mg DAILY PO Last administered on 12/10/18 11 :51; Start 12/10/18 at 10:00 Aspirin (Children'S Aspirin) 81 mg DAILY PO Last administered on 12/10/18at 11:53; Start 12/10/18 at 10:00 Atorvastatin Calcium (Lipitor) 40 mg QHS PO Last administered on 12/10/18 21:13; Start 12/10/18 at 21:00 Budesonide (Pulmicort) 0.5 mg RTBID NEB Last administered on 12/11/18 07:30; Start 12/10/18 at 10:00 Dextrose (Dextrose 50%-Water Syringe) 12.5 gm PRN Q15MIN PRN IV SEE COMMENTS; Start 12/10/18 at 09:30 Diclofenac Sodium (Voltaren) 1 cornelia BID TP Last administered on 12/10/18at 21:15; Start 12/10/18 at 10:00 Glimepiride (Amaryl) 4 mg BID PO Last administered on 12/10/18 21:13; Start 12/10/18 at 10:00 Hydrochlorothiazide (Microzide) 12.5 mg DAILY PO Last administered on 12/10/18 11:52; Start 12/10/18 at 10:00 Influenza Virus Vaccine Quadrival (Afluria Quad 2019-20 (3yr Up) Syringe) 0.5 ml ONCE ONCE VAX IM ; Start 12/11/18 at 09:00; Stop 12/11/18 at 09:01 Info (CONTRAST GIVEN -- Rx MONITORING) 1 each PRN DAILY PRN MC SEE COMMENTS; Start 12/10/18 at 14:15; Stop 12/12/18 at 14:14 Insulin Human Lispro (HumaLOG) 0-9 UNITS TIDWMEALS SQ ; Start 12/10/18 at 12:00 Iohexol (Omnipaque 240 Mg/ml) 50 ml 1X ONCE PO Last administered on 12/10/18at 16:30; Start 12/10/18 at 14:00; Stop 12/10/18 at 14:07; Status DC Iohexol (Omnipaque 300 Mg/ml) 75 ml 1X ONCE IV Last administered on 12/10/18at 16:30; Start 12/10/18 at 14:00; Stop 12/10/18 at 14:07; Status DC Levothyroxine Sodium (Synthroid) 200 mcg DAILY06 PO Last administered on 12/11/18at 06:18; Start 12/10/18 at 10:00 Lidocaine (Lidoderm) 1 patch DAILY TP ; Start 12/10/18 at 10:00 Lisinopril (Prinivil) 20 mg DAILY PO Last administered on 12/10/18at 11:52; Start 12/10/18 at 10:00 Miscellaneous (Lidoderm Patch Removal) 1 ea QHS MC ; Start 12/10/18 at 21:00 Non-Formulary Medication (Albuterol Sulfate (Albuterol Sulfate Neb Soln)) 1 vial QID NEB ; Start 12/10/18 at 13:00; Status UNV Non-Formulary Medication (Ipratropium/ Albuterol Sulfate (Combivent Respimat Inhal)) 2 inh QID IH ; Start 12/10/18 at 13:00; Status UNV Non-Formulary Medication (Lisinopril/ Hydrochlorothiazide (Lisinopril-Hctz 20- 12.5 Mg Tab)) 1 tab DAILY PO ; Start 12/11/18 at 09:00; Status UNV Pioglitazone HCl (Actos) 45 mg DAILY PO Last administered on 12/10/18at 11:51; Start 12/10/18 at 10:00 Potassium Chloride (Klor-Con) 10 meq DAILYWBKFT PO ; Start 12/11/18 at 08:00 Vitals/I & O Vital Sign - Last 24 Hours 12/10/18 12/10/18 12/10/18 12/10/18 11:00 11:51 11:52 13:01 Temp 98.6 98.6 Pulse 95 101 95 Resp 18 B/P (MAP) 128/53 (78) 133/59 128/53 Pulse Ox 98 95 O2 Delivery Nasal Cannula Nasal Cannula O2 Flow Rate 2.0 2.0 12/10/18 12/10/18 12/10/18 12/10/18 15:00 16:08 17:22 18:23 Temp 98.2 98.2 Pulse 103 Resp 18 B/P (MAP) 186/77 (113) Pulse Ox 97 97 97 97 O2 Delivery Room Air Room Air Room Air Room Air O2 Flow Rate 2.0 2.0 12/10/18 12/10/18 12/10/18 12/10/18 19:10 20:00 20:14 23:55 Temp 97.9 97.7 97.9 97.7 Pulse 97 96 Resp 20 18 B/P (MAP) 139/67 (91) 122/54 (76) Pulse Ox 96 95 92 O2 Delivery Nasal Cannula Nasal Cannula Nasal Cannula Room Air O2 Flow Rate 2.0 2.0 12/11/18 12/11/18 12/11/18 12/11/18 00:32 03:08 07:00 07:31 Temp 98.5 97.8 98.5 97.8 Pulse 91 87 Resp 18 16 B/P (MAP) 117/54 (75) 134/59 (84) Pulse Ox 99 99 99 O2 Delivery Nasal Cannula Nasal Cannula Nasal Cannula Nasal Cannula O2 Flow Rate 2.0 3.0 3.0 3.0 Intake and Output 12/10/18 12/10/18 12/11/18 15:00 23:00 07:00 Intake Total 280 ml 320 ml 150 ml Balance 280 ml 320 ml 150 ml PATRIC MICHEL MD Dec 11, 2018 09:02
[2018-12-11] MEDS ORDERED: fentaNYL PF VIAL 100 MCG/2 ML VIAL ONE (09:03)
[2018-12-11] MEDS ORDERED: MIDAZOLAM HCL/PF 2 MG/2 ML VIAL. ONE (09:03)
[2018-12-11] MEDS: ALPRAZolam 0.5 MG TABLET PO SCH ×3 (09:05→20:41)
[2018-12-11] MEDS: LIDOCAINE (700MG/PATCH) PATCH. TP SCH (09:06)
[2018-12-11] MEDS ORDERED: MIDAZOLAM HCL/PF 2 MG/2 ML VIAL. IV ONE (09:15)
[2018-12-11] MEDS ORDERED: fentaNYL PF VIAL 100 MCG/2 ML VIAL IV ONE (09:15)
[2018-12-11] MEDS ORDERED: LIDOCAINE WITH 8.4% SOD BICARB 3 ML DISP.SYRIN. IJ ONE (09:15)
--- NOTE | 2018-12-11 09:22 | RAD ---
EXAM: CT ABDOMEN/PELVIS WITH CONTRAST. HISTORY: Abdominal pain, cervical adenopathy, lung mass. TECHNIQUE: Computed tomography of the abdomen and pelvis was performed after the intravenous administration of iodinated contrast. COMPARISON: 07/05/2017. FINDINGS: Lung windows through the visualized portions of the bases reveal a large hiatal hernia. There is mild atelectasis. There are atherosclerotic calcifications of the coronary arteries. Refer to the chest study for description of mediastinal adenopathy and pulmonary nodules. Bone windows reveal no suspicious lesions. Dense material dependently in the gallbladder may represent vicarious excretion of contrast. The pancreas, kidneys, adrenal glands and liver are unremarkable. There is a calcified granuloma in the spleen. The appendix is noninflamed. There is no small bowel obstruction. There are no pathologically enlarged retroperitoneal, mesenteric, pelvic or inguinal lymph nodes. IMPRESSION: 1. No evidence of metastatic disease inferior to the diaphragm. 2. Large hiatal hernia. *One or more of the following individualized dose reduction techniques were utilized for this examination: 1. Automated exposure control. 2. Adjustment of the mA and/or kV according to patient size. 3. Use of iterative reconstruction technique. Electronically signed by: Neal Carey MD (12/11/2018 9:19 AM) [facility]
[2018-12-11] MEDS: PIOGLITAZONE 15 MG TABLET. PO SCH (10:45)
[2018-12-11] MEDS: ASPIRIN CHEWABLE 81 MG TABLET. PO SCH (10:45)
[2018-12-11] MEDS: LISINOPRIL 20 MG TABLET PO SCH (10:45)
[2018-12-11] MEDS: POTASSIUM CHLORIDE 10 MEQ TABLET.ER. PO SCH (10:45)
[2018-12-11] MEDS: amLODIPine BESYLATE 5 MG TABLET PO SCH (10:46)
[2018-12-11] MEDS: hydroCHLOROthiazide 12.5 MG CAPSULE PO SCH (10:46)
--- NOTE | 2018-12-11 10:46 | PDOC ---
PULMONARY PROGRESS NOTES Vitals Vital Signs Date Time Temp Pulse Resp B/P (MAP) Pulse Ox O2 Delivery O2 Flow Rate FiO2 12/11/18 09:40 92 18 127/65 (85) 93 Room Air 12/11/18 09:34 2.0 12/11/18 07:00 97.8 97.8 Labs Laboratory Tests Test 12/09/18 22:05 12/09/18 22:20 12/09/18 22:24 12/10/18 10:10 White Blood Count 7.4 x10^3/uL (4.0-11.0) Red Blood Count 4.14 x10^6/uL (3.50-5.40) Hemoglobin 11.9 g/dL (12.0-15.5) Hematocrit 35.9 % (36.0-47.0) Mean Corpuscular Volume 87 fL (79-100) Mean Corpuscular Hemoglobin 29 pg (25-35) Mean Corpuscular Hemoglobin Concent 33 g/dL (31-37) Red Cell Distribution Width 14.3 % (11.5-14.5) Platelet Count 330 x10^3/uL (140-400) Neutrophils (%) (Auto) 78 % (31-73) Lymphocytes (%) (Auto) 15 % (24-48) Monocytes (%) (Auto) 4 % (0-9) Eosinophils (%) (Auto) 2 % (0-3) Basophils (%) (Auto) 1 % (0-3) Neutrophils # (Auto) 5.8 x10^3/uL (1.8-7.7) Lymphocytes # (Auto) 1.1 x10^3/uL (1.0-4.8) Monocytes # (Auto) 0.3 x10^3/uL (0.0-1.1) Eosinophils # (Auto) 0.2 x10^3/uL (0.0-0.7) Basophils # (Auto) 0.1 x10^3/uL (0.0-0.2) Sodium Level 143 mmol/L (136-145) Potassium Level 3.9 mmol/L (3.5-5.1) Chloride Level 103 mmol/L (98-107) Carbon Dioxide Level 29 mmol/L (21-32) Anion Gap 11 (6-14) Blood Urea Nitrogen 17 mg/dL (7-20) Creatinine 1.1 mg/dL (0.6-1.0) Estimated GFR (Cockcroft-Gault) 49.1 BUN/Creatinine Ratio 15 (6-20) Glucose Level 119 mg/dL (70-99) Calcium Level 9.8 mg/dL (8.5-10.1) Total Bilirubin 0.3 mg/dL (0.2-1.0) Aspartate Amino Transf (AST/SGOT) 15 U/L (15-37) Alanine Aminotransferase (ALT/SGPT) 16 U/L (14-59) Alkaline Phosphatase 82 U/L (46-116) Troponin I Quantitative < 0.017 ng/mL (0.000-0.055) QD-Mco-M-Type Natriuretic Peptide 272 pg/mL (0-124) Total Protein 8.6 g/dL (6.4-8.2) Albumin 3.9 g/dL (3.4-5.0) Albumin/Globulin Ratio 0.8 (1.0-1.7) Urine Collection Type Unknown Urine Color Yellow Urine Clarity Clear Urine pH 5.0 Urine Specific [place] 1.010 Urine Protein Negative mg/dL (NEG-TRACE) Urine Glucose (UA) Negative mg/dL (NEG) Urine Ketones (Stick) Negative mg/dL (NEG) Urine Blood Negative (NEG) Urine Nitrite Negative (NEG) Urine Bilirubin Negative (NEG) Urine Urobilinogen Dipstick 0.2 mg/dL (0.2 mg/dL) Urine Leukocyte Esterase Negative (NEG) Urine RBC 0 /HPF (0-2) Urine WBC 0 /HPF (0-4) Urine Squamous Epithelial Cells Mod /LPF Urine Bacteria Few /HPF (0-FEW) Influenza Type A Antigen Negative (NEGATIVE) Influenza Type B Antigen Negative (NEGATIVE) Prothrombin Time 12.7 SEC (11.7-14.0) Prothromb Time International Ratio 1.0 (0.8-1.1) Test 12/10/18 12:09 12/10/18 17:27 12/10/18 19:45 12/11/18 04:06 Glucose (Fingerstick) 147 mg/dL (70-99) 125 mg/dL (70-99) 140 mg/dL (70-99) White Blood Count 6.6 x10^3/uL (4.0-11.0) Red Blood Count 4.02 x10^6/uL (3.50-5.40) Hemoglobin 11.6 g/dL (12.0-15.5) Hematocrit 34.7 % (36.0-47.0) Mean Corpuscular Volume 86 fL (79-100) Mean Corpuscular Hemoglobin 29 pg (25-35) Mean Corpuscular Hemoglobin Concent 33 g/dL (31-37) Red Cell Distribution Width 14.4 % (11.5-14.5) Platelet Count 291 x10^3/uL (140-400) Neutrophils (%) (Auto) 76 % (31-73) Lymphocytes (%) (Auto) 17 % (24-48) Monocytes (%) (Auto) 6 % (0-9) Eosinophils (%) (Auto) 1 % (0-3) Basophils (%) (Auto) 1 % (0-3) Neutrophils # (Auto) 5.0 x10^3/uL (1.8-7.7) Lymphocytes # (Auto) 1.1 x10^3/uL (1.0-4.8) Monocytes # (Auto) 0.4 x10^3/uL (0.0-1.1) Eosinophils # (Auto) 0.1 x10^3/uL (0.0-0.7) Basophils # (Auto) 0.0 x10^3/uL (0.0-0.2) Sodium Level 143 mmol/L (136-145) Potassium Level 3.3 mmol/L (3.5-5.1) Chloride Level 103 mmol/L (98-107) Carbon Dioxide Level 31 mmol/L (21-32) Anion Gap 9 (6-14) Blood Urea Nitrogen 11 mg/dL (7-20) Creatinine 1.0 mg/dL (0.6-1.0) Estimated GFR (Cockcroft-Gault) 54.8 BUN/Creatinine Ratio 11 (6-20) Glucose Level 143 mg/dL (70-99) Calcium Level 9.2 mg/dL (8.5-10.1) Total Bilirubin 0.4 mg/dL (0.2-1.0) Aspartate Amino Transf (AST/SGOT) 15 U/L (15-37) Alanine Aminotransferase (ALT/SGPT) 15 U/L (14-59) Alkaline Phosphatase 71 U/L (46-116) Total Protein 7.8 g/dL (6.4-8.2) Albumin 3.5 g/dL (3.4-5.0) Albumin/Globulin Ratio 0.8 (1.0-1.7) Test 12/11/18 07:31 Glucose (Fingerstick) 133 mg/dL (70-99) Laboratory Tests Test 12/10/18 12:09 12/10/18 17:27 12/10/18 19:45 12/11/18 04:06 Glucose (Fingerstick) 147 mg/dL (70-99) 125 mg/dL (70-99) 140 mg/dL (70-99) White Blood Count 6.6 x10^3/uL (4.0-11.0) Red Blood Count 4.02 x10^6/uL (3.50-5.40) Hemoglobin 11.6 g/dL (12.0-15.5) Hematocrit 34.7 % (36.0-47.0) Mean Corpuscular Volume 86 fL (79-100) Mean Corpuscular Hemoglobin 29 pg (25-35) Mean Corpuscular Hemoglobin Concent 33 g/dL (31-37) Red Cell Distribution Width 14.4 % (11.5-14.5) Platelet Count 291 x10^3/uL (140-400) Neutrophils (%) (Auto) 76 % (31-73) Lymphocytes (%) (Auto) 17 % (24-48) Monocytes (%) (Auto) 6 % (0-9) Eosinophils (%) (Auto) 1 % (0-3) Basophils (%) (Auto) 1 % (0-3) Neutrophils # (Auto) 5.0 x10^3/uL (1.8-7.7) Lymphocytes # (Auto) 1.1 x10^3/uL (1.0-4.8) Monocytes # (Auto) 0.4 x10^3/uL (0.0-1.1) Eosinophils # (Auto) 0.1 x10^3/uL (0.0-0.7) Basophils # (Auto) 0.0 x10^3/uL (0.0-0.2) Sodium Level 143 mmol/L (136-145) Potassium Level 3.3 mmol/L (3.5-5.1) Chloride Level 103 mmol/L (98-107) Carbon Dioxide Level 31 mmol/L (21-32) Anion Gap 9 (6-14) Blood Urea Nitrogen 11 mg/dL (7-20) Creatinine 1.0 mg/dL (0.6-1.0) Estimated GFR (Cockcroft-Gault) 54.8 BUN/Creatinine Ratio 11 (6-20) Glucose Level 143 mg/dL (70-99) Calcium Level 9.2 mg/dL (8.5-10.1) Total Bilirubin 0.4 mg/dL (0.2-1.0) Aspartate Amino Transf (AST/SGOT) 15 U/L (15-37) Alanine Aminotransferase (ALT/SGPT) 15 U/L (14-59) Alkaline Phosphatase 71 U/L (46-116) Total Protein 7.8 g/dL (6.4-8.2) Albumin 3.5 g/dL (3.4-5.0) Albumin/Globulin Ratio 0.8 (1.0-1.7) Test 12/11/18 07:31 Glucose (Fingerstick) 133 mg/dL (70-99) Medications Active Scripts Medications Dose Route/Sig Max Daily Dose Days Date Category Proair Hfa Inhaler (Albuterol Sulfate) 8.5 Gm Hfa.aer.ad 2 Puff INH PRN Q4HRS PRN 07/04/17 Reported Lidocaine PATCH (Lidocaine) 1 Each Adh..patch 1 Each TP DAILY 07/04/17 Reported Amlodipine Besylate 5 Mg Tablet 5 Mg PO DAILY 07/04/17 Reported Duoneb 0.5-3(2.5) Mg/3 Ml (Albuterol/Ipratropium) 3 Ml Ampul.neb 3 Ml NEB QID 07/04/17 Reported Symbicort 160-4.5 Mcg Inhaler (Budesonide/Formoterol Fumarate) 10.2 Gm Hfa.aer.ad 2 Puff IH BID 07/04/17 Reported Flector (Diclofenac Epolamine) 1 Each Patch.td12 1 Each TD BID 07/04/17 Reported Combivent Respimat Inhal (Ipratropium/Albuterol Sulfate) 4 Gm Aer.w.adap 2 Inh IH QID 07/04/17 Reported Albuterol Sulfate Neb Soln (Albuterol Sulfate) 0.63 Mg/3 Ml Vial.neb 1 Vial NEB QID 07/04/17 Reported Xanax (Alprazolam) 0.5 Mg Tablet 1 Tab PO TID 07/04/17 Reported Oxycodone Hcl Immed.release (Oxycodone Hcl) 10 Mg Tablet 10 Mg PO PRN Q6HRS PRN 07/04/17 Reported Potassium Chloride 20 Meq Tablet.er 8 Meq PO DAILY 07/04/17 Reported Synthroid (Levothyroxine Sodium) 200 Mcg Tablet 1 Tab PO DAILY 07/04/17 Reported Lisinopril-Hctz 20-12.5 Mg Tab (Lisinopril/Hydrochlorothiazide) 1 Each Tablet 1 Tab PO DAILY 07/04/17 Reported Glimepiride 4 Mg Tablet 1 Tab PO BID 07/04/17 Reported Lipitor (Atorvastatin Calcium) 40 Mg Tablet 1 Tab PO DAILY 07/04/17 Reported Actos (Pioglitazone Hcl) 45 Mg Tablet 1 Tab PO DAILY 07/04/17 Reported Amitriptyline Hcl 100 Mg Tablet 1 Tab PO QHS 07/04/17 Reported Aspirin 81 Mg Tab.chew 1 Tab PO DAILY 07/04/17 Reported Impression . IMPRESSION: 1. Progressive dyspnea, multifactorial secondary to acute exacerbation of chronic obstructive pulmonary disease, morbid obesity and weakness. 2. Abnormal CT chest revealing left upper lobe mass, mediastinal hilar adenopathy and extensive left neck adenopathy. 3. Morbid obesity. 4. Clinical symptoms and signs of obstructive sleep apnea. 5. Chronic diastolic heart failure. 6. Hyperlipidemia. 7. Hypothyroidism. Plan . 1. Case discussed with Dr. Madden. We will proceed with a biopsy of the left neck adenopathy. 2. We will follow clinical course and make further recommendations. 3. Outpatient polysomnogram. MIRNA ANTON MD Dec 11, 2018 10:45
[2018-12-11] MEDS: DICLOFENAC SODIUM 1% TOPICAL GEL 100GM TUBE. TP SCH ×2 (10:48→21:00)
[2018-12-11] MEDS: GLIMEPIRIDE 2 MG TABLET. PO SCH ×2 (10:55→20:43)
[2018-12-11] MEDS ORDERED: POTASSIUM CHLORIDE 20 MEQ TABLET.ER. PO ONE (14:00)
--- NOTE | 2018-12-11 16:59 | RAD ---
EXAM: Nuclear bone scan. HISTORY: Lung mass. TECHNIQUE: Following the intravenous injection of 25 mCi of Tc 99m labeled methylene diphosphonate (MDP), whole body imaging was performed. COMPARISON: CT dated 12/10/2018. FINDINGS: There is expected tracer activity within the renal collecting system. There is bilateral symmetric radiotracer activity within the appendicular skeleton which is likely degenerative, particularly involving the shoulders, knees and feet and left wrist. No convincing radiotracer activity is seen to suggest osseous metastatic disease. IMPRESSION: No convincing scintigraphic evidence of osseous metastatic disease. Electronically signed by: Dorinda De MD (12/11/2018 4:55 PM) [place] [id number]
[2018-12-11] MEDS: ATORVASTATIN CALCIUM 40 MG TABLET. PO SCH (20:42)
[2018-12-11] MEDS: AMITRIPTYLINE HCL 25 MG TABLET. PO SCH (20:42)
[2018-12-11] MEDS: PATCH REMOVAL. MC SCH (21:00)
[2018-12-12] MEDS: ALBUTEROL SULFATE 2.5 MG/3 ML NEBU. INH PRN (03:39)
[2018-12-12 03:46] VITALS: BP 127/60
[2018-12-12 05:57] LABS: CREATININE 1.4 mg/dL (0.6-1.0); GFR 37.2
[2018-12-12 06:40] LABS: CHOLESTEROL/HDL RATIO 2.7
[2018-12-12] MEDS: LEVOTHYROXINE 100 MCG TABLET PO SCH (06:50)
[2018-12-12 07:59] VITALS: BP 123/49
[2018-12-12] MEDS: INSULIN LISPRO 300 UNITS/3 ML VIAL. SQ SCH ×3 (08:00→17:00)
[2018-12-12] MEDS: BUDESONIDE 0.5 MG/2 ML NEBU. NEB SCH ×2 (08:20→19:37)
[2018-12-12] MEDS: IPRATRPIUM/ALBUTEROL 0.5/2.5MG 3 ML NEBU. NEB SCH ×4 (08:20→19:37)
--- NOTE | 2018-12-12 08:39 | RAD ---
12/12/2018 6:34 AM Procedure: Ultrasound-guided biopsy, left supraclavicular lymph node Clinical Indication: left cervical lymphadenopathy Discussion: The procedure was explained in its entirety to the patient or the patients designated pest control service representative by a member of the treatment team, including a discussion of the risks, benefits and commonly accepted alternatives to the procedure, as well as the expected consequences of no therapy whatsoever. Discussion of the risks included, but was not limited to, those that are most frequent and those that are rare but possibly severe or life-threatening, as well as the possibility of unforeseen complications. All elements of maximal sterile barrier technique including the use of a cap, mask, sterile gown, sterile gloves, large sterile sheet, appropriate hand hygiene, and 2% chlorhexidine for cutaneous antisepsis (or acceptable alternative antiseptic per current guidelines) were followed for this procedure. Ultrasound evaluation demonstrates multiple abnormal left cervical and supraclavicular lymph nodes. Largest node in the left vallecular region was targeted for biopsy. The overlying skin was prepped and draped as described. 1% lidocaine was administered for local anesthesia. Under direct ultrasound guidance multiple passes through the node were made with an 18-gauge core needle. Manual pressure was held. Repeat ultrasound demonstrates no hemorrhage or other complication. Sterile dressings were applied. No immediate competitions were identified. Impression: Ultrasound-guided biopsy, left supraclavicular lymphadenopathy
--- NOTE | 2018-12-12 08:51 | NUR ---
SW following pt. PT/OT recommends home independent. SW will be available as needed.
--- NOTE | 2018-12-12 09:00 | PDOC ---
PULMONARY PROGRESS NOTES Vitals Vital Signs Date Time Temp Pulse Resp B/P (MAP) Pulse Ox O2 Delivery O2 Flow Rate FiO2 12/12/18 08:24 98 Nasal Cannula 2.0 12/12/18 07:59 98.1 91 20 123/49 (73) 98.1 Labs Laboratory Tests Test 12/10/18 10:10 12/10/18 12:09 12/10/18 17:27 12/10/18 19:45 Prothrombin Time 12.7 SEC (11.7-14.0) Prothromb Time International Ratio 1.0 (0.8-1.1) Glucose (Fingerstick) 147 mg/dL (70-99) 125 mg/dL (70-99) 140 mg/dL (70-99) Test 12/11/18 04:06 12/11/18 07:31 12/11/18 12:05 12/11/18 16:53 White Blood Count 6.6 x10^3/uL (4.0-11.0) Red Blood Count 4.02 x10^6/uL (3.50-5.40) Hemoglobin 11.6 g/dL (12.0-15.5) Hematocrit 34.7 % (36.0-47.0) Mean Corpuscular Volume 86 fL (79-100) Mean Corpuscular Hemoglobin 29 pg (25-35) Mean Corpuscular Hemoglobin Concent 33 g/dL (31-37) Red Cell Distribution Width 14.4 % (11.5-14.5) Platelet Count 291 x10^3/uL (140-400) Neutrophils (%) (Auto) 76 % (31-73) Lymphocytes (%) (Auto) 17 % (24-48) Monocytes (%) (Auto) 6 % (0-9) Eosinophils (%) (Auto) 1 % (0-3) Basophils (%) (Auto) 1 % (0-3) Neutrophils # (Auto) 5.0 x10^3/uL (1.8-7.7) Lymphocytes # (Auto) 1.1 x10^3/uL (1.0-4.8) Monocytes # (Auto) 0.4 x10^3/uL (0.0-1.1) Eosinophils # (Auto) 0.1 x10^3/uL (0.0-0.7) Basophils # (Auto) 0.0 x10^3/uL (0.0-0.2) Sodium Level 143 mmol/L (136-145) Potassium Level 3.3 mmol/L (3.5-5.1) Chloride Level 103 mmol/L (98-107) Carbon Dioxide Level 31 mmol/L (21-32) Anion Gap 9 (6-14) Blood Urea Nitrogen 11 mg/dL (7-20) Creatinine 1.0 mg/dL (0.6-1.0) Estimated GFR (Cockcroft-Gault) 54.8 BUN/Creatinine Ratio 11 (6-20) Glucose Level 143 mg/dL (70-99) Calcium Level 9.2 mg/dL (8.5-10.1) Total Bilirubin 0.4 mg/dL (0.2-1.0) Aspartate Amino Transf (AST/SGOT) 15 U/L (15-37) Alanine Aminotransferase (ALT/SGPT) 15 U/L (14-59) Alkaline Phosphatase 71 U/L (46-116) Total Protein 7.8 g/dL (6.4-8.2) Albumin 3.5 g/dL (3.4-5.0) Albumin/Globulin Ratio 0.8 (1.0-1.7) Glucose (Fingerstick) 133 mg/dL (70-99) 221 mg/dL (70-99) 84 mg/dL (70-99) Test 12/11/18 21:12 12/12/18 03:26 12/12/18 07:19 Glucose (Fingerstick) 143 mg/dL (70-99) 118 mg/dL (70-99) Sodium Level 143 mmol/L (136-145) Potassium Level 4.0 mmol/L (3.5-5.1) Chloride Level 103 mmol/L (98-107) Carbon Dioxide Level 28 mmol/L (21-32) Anion Gap 12 (6-14) Blood Urea Nitrogen 17 mg/dL (7-20) Creatinine 1.4 mg/dL (0.6-1.0) Estimated GFR (Cockcroft-Gault) 37.2 Glucose Level 103 mg/dL (70-99) Calcium Level 9.0 mg/dL (8.5-10.1) Triglycerides Level 79 mg/dL (0-150) Cholesterol Level 150 mg/dL (0-200) LDL Cholesterol, Calculated 79 mg/dL (0-100) VLDL Cholesterol, Calculated 16 mg/dL (0-40) Non-HDL Cholesterol Calculated 95 mg/dL (0-129) HDL Cholesterol 55 mg/dL (40-60) Cholesterol/HDL Ratio 2.7 Thyroid Stimulating Hormone (TSH) 2.602 uIU/mL (0.358-3.74) Laboratory Tests Test 12/11/18 12:05 12/11/18 16:53 12/11/18 21:12 12/12/18 03:26 Glucose (Fingerstick) 221 mg/dL (70-99) 84 mg/dL (70-99) 143 mg/dL (70-99) Sodium Level 143 mmol/L (136-145) Potassium Level 4.0 mmol/L (3.5-5.1) Chloride Level 103 mmol/L (98-107) Carbon Dioxide Level 28 mmol/L (21-32) Anion Gap 12 (6-14) Blood Urea Nitrogen 17 mg/dL (7-20) Creatinine 1.4 mg/dL (0.6-1.0) Estimated GFR (Cockcroft-Gault) 37.2 Glucose Level 103 mg/dL (70-99) Calcium Level 9.0 mg/dL (8.5-10.1) Triglycerides Level 79 mg/dL (0-150) Cholesterol Level 150 mg/dL (0-200) LDL Cholesterol, Calculated 79 mg/dL (0-100) VLDL Cholesterol, Calculated 16 mg/dL (0-40) Non-HDL Cholesterol Calculated 95 mg/dL (0-129) HDL Cholesterol 55 mg/dL (40-60) Cholesterol/HDL Ratio 2.7 Thyroid Stimulating Hormone (TSH) 2.602 uIU/mL (0.358-3.74) Test 12/12/18 07:19 Glucose (Fingerstick) 118 mg/dL (70-99) Medications Active Scripts Medications Dose Route/Sig Max Daily Dose Days Date Category Proair Hfa Inhaler (Albuterol Sulfate) 8.5 Gm Hfa.aer.ad 2 Puff INH PRN Q4HRS PRN 07/04/17 Reported Lidocaine PATCH (Lidocaine) 1 Each Adh..patch 1 Each TP DAILY 07/04/17 Reported Amlodipine Besylate 5 Mg Tablet 5 Mg PO DAILY 07/04/17 Reported Duoneb 0.5-3(2.5) Mg/3 Ml (Albuterol/Ipratropium) 3 Ml Ampul.neb 3 Ml NEB QID 07/04/17 Reported Symbicort 160-4.5 Mcg Inhaler (Budesonide/Formoterol Fumarate) 10.2 Gm Hfa.aer.ad 2 Puff IH BID 07/04/17 Reported Flector (Diclofenac Epolamine) 1 Each Patch.td12 1 Each TD BID 07/04/17 Reported Combivent Respimat Inhal (Ipratropium/Albuterol Sulfate) 4 Gm Aer.w.adap 2 Inh IH QID 07/04/17 Reported Albuterol Sulfate Neb Soln (Albuterol Sulfate) 0.63 Mg/3 Ml Vial.neb 1 Vial NEB QID 07/04/17 Reported Xanax (Alprazolam) 0.5 Mg Tablet 1 Tab PO TID 07/04/17 Reported Oxycodone Hcl Immed.release (Oxycodone Hcl) 10 Mg Tablet 10 Mg PO PRN Q6HRS PRN 07/04/17 Reported Potassium Chloride 20 Meq Tablet.er 8 Meq PO DAILY 07/04/17 Reported Synthroid (Levothyroxine Sodium) 200 Mcg Tablet 1 Tab PO DAILY 07/04/17 Reported Lisinopril-Hctz 20-12.5 Mg Tab (Lisinopril/Hydrochlorothiazide) 1 Each Tablet 1 Tab PO DAILY 07/04/17 Reported Glimepiride 4 Mg Tablet 1 Tab PO BID 07/04/17 Reported Lipitor (Atorvastatin Calcium) 40 Mg Tablet 1 Tab PO DAILY 07/04/17 Reported Actos (Pioglitazone Hcl) 45 Mg Tablet 1 Tab PO DAILY 07/04/17 Reported Amitriptyline Hcl 100 Mg Tablet 1 Tab PO QHS 07/04/17 Reported Aspirin 81 Mg Tab.chew 1 Tab PO DAILY 07/04/17 Reported Impression . IMPRESSION: 1. Progressive dyspnea, multifactorial secondary to acute exacerbation of chronic obstructive pulmonary disease, morbid obesity and weakness. 2. Abnormal CT chest revealing left upper lobe mass, mediastinal hilar adenopathy and extensive left neck adenopathy. 3. Morbid obesity. 4. Clinical symptoms and signs of obstructive sleep apnea. 5. Chronic diastolic heart failure. 6. Hyperlipidemia. 7. Hypothyroidism. Plan . 1. Case discussed with Dr. Madden. We will proceed with a biopsy of the left neck adenopathy. 2. We will follow clinical course and make further recommendations. 3. Outpatient polysomnogram. MIRNA ANTON MD Dec 12, 2018 09:00
[2018-12-12] MEDS: oxyCODONE IR 5 MG TABLET PO PRN ×3 (09:03→21:44)
[2018-12-12] MEDS: ALPRAZolam 0.5 MG TABLET PO SCH ×3 (09:03→21:37)
[2018-12-12] MEDS: PIOGLITAZONE 15 MG TABLET. PO SCH (09:04)
[2018-12-12] MEDS: LISINOPRIL 20 MG TABLET PO SCH (09:04)
[2018-12-12] MEDS: hydroCHLOROthiazide 12.5 MG CAPSULE PO SCH (09:04)
[2018-12-12] MEDS: amLODIPine BESYLATE 5 MG TABLET PO SCH (09:04)
[2018-12-12] MEDS: GLIMEPIRIDE 2 MG TABLET. PO SCH ×2 (09:04→21:37)
[2018-12-12] MEDS: LIDOCAINE (700MG/PATCH) PATCH. TP SCH (09:05)
[2018-12-12] MEDS: POTASSIUM CHLORIDE 10 MEQ TABLET.ER. PO SCH (09:05)
[2018-12-12] MEDS: ASPIRIN CHEWABLE 81 MG TABLET. PO SCH (09:05)
[2018-12-12] MEDS: DICLOFENAC SODIUM 1% TOPICAL GEL 100GM TUBE. TP SCH ×2 (09:06→21:00)
[2018-12-12] MEDS ORDERED: PANTOPRAZOLE 40 MG TABLET.DR. PO ONE (09:15)
--- NOTE | 2018-12-12 09:20 | PDOC ---
PROGRESS NOTES Subjective Subjective c/o heart burn,hiatal hernia large Objective Objective Vital Signs Date Time Temp Pulse Resp B/P (MAP) Pulse Ox O2 Delivery O2 Flow Rate FiO2 12/12/18 09:04 91 123/49 12/12/18 09:03 18 Nasal Cannula 2.0 12/12/18 08:24 98 12/12/18 07:59 98.1 98.1 Intake and Output 12/12/18 07:00 Intake Total 1070 ml Balance 1070 ml Intake Oral 1070 ml # Voids 7 Physical Exam Abdomen: Normal bowel sounds, Soft Heart: Normal S1, Normal S2 General: Alert, Oriented X3 Lungs: Clear to auscultation MUSCULOSKELETAL: No deformity Neuro: Normal speech Psych/Mental Status: Mental status NL Diagnosis Problem List Problems Medical Problems: (1) Anxiety Status: Acute (2) Depression Status: Chronic (3) Diabetes Status: Chronic (4) Dyspnea on minimal exertion Status: Acute (5) HTN (hypertension) Status: Chronic (6) Hyperlipidemia Status: Chronic (7) Hypothyroidism Status: Chronic (8) Mass of left lung Status: Acute (9) Pleural effusion, left Status: Acute Assessment Assessment Problems Medical Problems: (1) Anxiety Status: Acute (2) Depression Status: Chronic (3) Diabetes Status: Chronic (4) Dyspnea on minimal exertion Status: Acute (5) HTN (hypertension) Status: Chronic (6) Hyperlipidemia Status: Chronic (7) Hypothyroidism Status: Chronic (8) Mass of left lung Status: Acute (9) Pleural effusion, left Status: Acute FINAL IMPRESSION: 1. Left upper lung mass new finding ,suspicious for lung cancer 2. Extensive mediastinal hilar adenopathy as well as cervical adenopathy, atelectasis of the left lung, atelectasis of the right lung and hiatal hernia. 3. Diabetes. 4. Hypertension. 5. Hyperlipidemia. 6. Hypothyroidism. 7. Anxiety, depression. 8. Ex-smoker, quit 10 years ago, smoked for 25 years, 2 packs at least. PLAN: Pt went for lymph node [id number]/5/[address] scan abd and pelvis neg Bone scan neg. waiting for path report. spoke with oncology. pt eval +treat. Brain mri on hold? protonix for heart burn At this time, was admitted to the hospital. Pulmonary is consulted. Oncology was consulted. We had to get a tissue biopsy and breathing treatment. Further recommendations to follow. Discussed with Dr. Madden. Plan Plan of Care Problems Medical Problems: (1) Anxiety Status: Acute (2) Depression Status: Chronic (3) Diabetes Status: Chronic (4) Dyspnea on minimal exertion Status: Acute (5) HTN (hypertension) Status: Chronic (6) Hyperlipidemia Status: Chronic (7) Hypothyroidism Status: Chronic (8) Mass of left lung Status: Acute (9) Pleural effusion, left Status: Acute Comment Review of Relevant I have reviewed the following items malik (where applicable) has been applied. Labs Laboratory Tests Test 12/11/18 12:05 12/11/18 16:53 12/11/18 21:12 12/12/18 03:26 Glucose (Fingerstick) 221 mg/dL (70-99) 84 mg/dL (70-99) 143 mg/dL (70-99) Sodium Level 143 mmol/L (136-145) Potassium Level 4.0 mmol/L (3.5-5.1) Chloride Level 103 mmol/L (98-107) Carbon Dioxide Level 28 mmol/L (21-32) Anion Gap 12 (6-14) Blood Urea Nitrogen 17 mg/dL (7-20) Creatinine 1.4 mg/dL (0.6-1.0) Estimated GFR (Cockcroft-Gault) 37.2 Glucose Level 103 mg/dL (70-99) Calcium Level 9.0 mg/dL (8.5-10.1) Triglycerides Level 79 mg/dL (0-150) Cholesterol Level 150 mg/dL (0-200) LDL Cholesterol, Calculated 79 mg/dL (0-100) VLDL Cholesterol, Calculated 16 mg/dL (0-40) Non-HDL Cholesterol Calculated 95 mg/dL (0-129) HDL Cholesterol 55 mg/dL (40-60) Cholesterol/HDL Ratio 2.7 Thyroid Stimulating Hormone (TSH) 2.602 uIU/mL (0.358-3.74) Test 12/12/18 07:19 Glucose (Fingerstick) 118 mg/dL (70-99) Medications Current Medications Potassium Chloride (Klor-Con) 40 meq 1X ONCE PO Last administered on 12/11/18at 17:09; Start 12/11/18 at 14:00; Stop 12/11/18 at 14:01; Status DC Vitals/I & O Vital Sign - Last 24 Hours 12/11/18 12/11/18 12/11/18 12/11/18 09:29 09:34 09:40 10:45 Pulse 99 99 92 92 Resp 16 15 18 B/P (MAP) 144/80 (101) 140/69 (92) 127/65 (85) 127/65 Pulse Ox 97 97 93 O2 Delivery Nasal Cannula Nasal Cannula Room Air O2 Flow Rate 2.0 2.0 12/11/18 12/11/18 12/11/18 12/11/18 10:46 10:57 11:00 11:28 Temp 98.1 98.1 Pulse 92 98 Resp 18 18 B/P (MAP) 127/65 115/58 (77) Pulse Ox 94 O2 Delivery Room Air Room Air Nasal Cannula O2 Flow Rate 3.0 12/11/18 12/11/18 12/11/18 12/11/18 11:57 15:37 15:39 17:11 Temp 98.7 98.7 Pulse 98 Resp 14 18 16 B/P (MAP) 123/66 (85) Pulse Ox 97 94 97 O2 Delivery Nasal Cannula Room Air Room Air Nasal Cannula O2 Flow Rate 2.0 2.0 12/11/18 12/11/18 12/11/18 12/11/18 18:11 19:20 19:49 21:43 Temp 98.0 98.0 Pulse 102 Resp 18 18 B/P (MAP) 137/56 (83) Pulse Ox 97 96 94 O2 Delivery Nasal Cannula Room Air Room Air Room Air O2 Flow Rate 2.0 12/11/18 12/11/18 12/12/18 12/12/18 21:45 23:38 03:40 03:46 Temp 97.8 97.9 97.8 97.9 Pulse 102 98 Resp 18 18 B/P (MAP) 147/75 (99) 127/60 (82) Pulse Ox 94 97 96 95 O2 Delivery Room Air Room Air Nasal Cannula Nasal Cannula O2 Flow Rate 2.0 2.0 12/12/18 12/12/18 12/12/18 12/12/18 07:59 08:24 09:03 09:04 Temp 98.1 98.1 Pulse 91 91 Resp 20 18 B/P (MAP) 123/49 (73) 123/49 Pulse Ox 93 98 O2 Delivery Nasal Cannula Nasal Cannula Nasal Cannula O2 Flow Rate 2.0 2.0 2.0 12/12/18 09:04 Pulse 91 B/P (MAP) 123/49 Intake and Output 12/11/18 12/11/18 12/12/18 15:00 23:00 07:00 Intake Total 120 ml 750 ml 200 ml Balance 120 ml 750 ml 200 ml PATRIC MICHEL MD Dec 12, 2018 09:20
[2018-12-12] MEDS: MAG HYDROX/ALUMINUM HYD/SIMETH 30 ML ORAL.SUSP PO PRN (10:49)
[2018-12-12] MEDS: ENOXAPARIN 40 MG/0.4 ML SYRINGE. SQ SCH (10:49)
[2018-12-12 11:20] VITALS: BP 161/63
[2018-12-12 15:12] VITALS: BP 95/44
[2018-12-12 19:15] VITALS: BP 98/44
[2018-12-12] MEDS: PATCH REMOVAL. MC SCH (21:00)
[2018-12-12] MEDS: AMITRIPTYLINE HCL 25 MG TABLET. PO SCH (21:00)
[2018-12-12] MEDS: ATORVASTATIN CALCIUM 40 MG TABLET. PO SCH (21:37)
[2018-12-12 23:17] VITALS: BP 99/34
[2018-12-13] VITALS (12 sets, daily range): BP systolic 94–144; BP diastolic 35–94
[2018-12-13] MEDS: ALBUTEROL SULFATE 2.5 MG/3 ML NEBU. INH PRN (00:58)
[2018-12-13] MEDS: LEVOTHYROXINE 100 MCG TABLET PO SCH (06:39)
[2018-12-13 07:15] LABS: HEMOGLOBIN A1C 6.7 % (4.8-5.6)
[2018-12-13] MEDS: oxyCODONE IR 5 MG TABLET PO PRN ×2 (07:44→21:31)
[2018-12-13] MEDS: PANTOPRAZOLE 40 MG TABLET.DR. PO SCH (07:44)
[2018-12-13] MEDS: POTASSIUM CHLORIDE 10 MEQ TABLET.ER. PO SCH (07:45)
[2018-12-13] MEDS: BUDESONIDE 0.5 MG/2 ML NEBU. NEB SCH ×2 (07:57→20:18)
[2018-12-13] MEDS: IPRATRPIUM/ALBUTEROL 0.5/2.5MG 3 ML NEBU. NEB SCH ×4 (07:57→20:18)
[2018-12-13] MEDS: INSULIN LISPRO 300 UNITS/3 ML VIAL. SQ SCH ×3 (08:00→17:00)
[2018-12-13] MEDS: DICLOFENAC SODIUM 1% TOPICAL GEL 100GM TUBE. TP SCH ×2 (09:00→21:00)
[2018-12-13] MEDS: PIOGLITAZONE 15 MG TABLET. PO SCH (09:24)
[2018-12-13] MEDS: hydroCHLOROthiazide 12.5 MG CAPSULE PO SCH (09:24)
[2018-12-13] MEDS: GLIMEPIRIDE 2 MG TABLET. PO SCH ×2 (09:25→20:05)
[2018-12-13] MEDS: LISINOPRIL 20 MG TABLET PO SCH (09:25)
[2018-12-13] MEDS: ALPRAZolam 0.5 MG TABLET PO SCH ×3 (09:25→20:06)
[2018-12-13] MEDS: ASPIRIN CHEWABLE 81 MG TABLET. PO SCH (09:26)
[2018-12-13] MEDS: amLODIPine BESYLATE 5 MG TABLET PO SCH (09:26)
--- NOTE | 2018-12-13 09:43 | PDOC ---
PROGRESS NOTES Subjective Subjective recieved news about path, small cell lung cancer Objective Objective Vital Signs Date Time Temp Pulse Resp B/P (MAP) Pulse Ox O2 Delivery O2 Flow Rate FiO2 12/13/18 09:26 88 129/58 12/13/18 08:00 98 Nasal Cannula 2.0 12/13/18 07:54 97.6 20 97.6 Intake and Output 12/13/18 07:00 Intake Total 1370 ml Balance 1370 ml Intake Oral 1370 ml # Voids 2 Physical Exam Abdomen: Normal bowel sounds, Soft Heart: Normal S1, Normal S2 General: Alert, Oriented X3 Lungs: Clear to auscultation MUSCULOSKELETAL: No deformity Neuro: Normal speech Psych/Mental Status: Mental status NL Diagnosis Problem List Problems Medical Problems: (1) Anxiety Status: Acute (2) Depression Status: Chronic (3) Diabetes Status: Chronic (4) Dyspnea on minimal exertion Status: Acute (5) HTN (hypertension) Status: Chronic (6) Hyperlipidemia Status: Chronic (7) Hypothyroidism Status: Chronic (8) Mass of left lung Status: Acute (9) Pleural effusion, left Status: Acute Assessment Assessment Problems Medical Problems: (1) Anxiety Status: Acute (2) Depression Status: Chronic (3) Diabetes Status: Chronic (4) Dyspnea on minimal exertion Status: Acute (5) HTN (hypertension) Status: Chronic (6) Hyperlipidemia Status: Chronic (7) Hypothyroidism Status: Chronic (8) Mass of left lung Status: Acute (9) Pleural effusion, left Status: Acute FINAL IMPRESSION:Small cell lung ca ,metastatic 1. Left upper lung mass new finding ,suspicious for lung cancer, small cell lung cancer 2. Extensive mediastinal hilar adenopathy as well as cervical adenopathy, atelectasis of the left lung, atelectasis of the right lung and hiatal hernia. 3. Diabetes. 4. Hypertension. 5. Hyperlipidemia. 6. Hypothyroidism. 7. Anxiety, depression. 8. Ex-smoker, quit 10 years ago, smoked for 25 years, 2 packs at least. PLAN: landon placement today, start on chemo tomorrow Pt went for lymph node [id number]/5/19 by IR.small cell lung ca CT scan abd and pelvis neg Bone scan neg. spoke with oncology. pt eval +treat. protonix for heart burn Plan Plan of Care Problems Medical Problems: (1) Anxiety Status: Acute (2) Depression Status: Chronic (3) Diabetes Status: Chronic (4) Dyspnea on minimal exertion Status: Acute (5) HTN (hypertension) Status: Chronic (6) Hyperlipidemia Status: Chronic (7) Hypothyroidism Status: Chronic (8) Mass of left lung Status: Acute (9) Pleural effusion, left Status: Acute Comment Review of Relevant I have reviewed the following items malik (where applicable) has been applied. Labs Laboratory Tests Test 12/12/18 11:12 12/12/18 16:59 12/12/18 20:42 12/13/18 07:21 Glucose (Fingerstick) 200 mg/dL (70-99) 93 mg/dL (70-99) 183 mg/dL (70-99) 71 mg/dL (70-99) Medications Current Medications Enoxaparin Sodium (Lovenox 40mg Syringe) 40 mg Q24H SQ Last administered on 12/12/18at 10:49; Start 12/12/18 at 10:00 Pantoprazole Sodium (Protonix) 40 mg DAILYAC PO Last administered on 12/13/18at 07:44; Start 12/13/18 at 07:30 Vitals/I & O Vital Sign - Last 24 Hours 12/12/18 12/12/18 12/12/18 12/12/18 10:10 11:20 12:16 15:07 Temp 97.7 97.7 Pulse 100 Resp 17 20 18 B/P (MAP) 161/63 (95) Pulse Ox 96 98 98 O2 Delivery Nasal Cannula Room Air Nasal Cannula Room Air O2 Flow Rate 2.0 2.0 2.0 12/12/18 12/12/18 12/12/18 12/12/18 15:12 16:10 16:11 18:58 Temp 97.6 97.6 Pulse 88 Resp 20 17 B/P (MAP) 95/44 (61) Pulse Ox 99 98 O2 Delivery Room Air Nasal Cannula Nasal Cannula Room Air O2 Flow Rate 2.0 2.0 12/12/18 12/12/18 12/12/18 12/12/18 19:15 19:37 19:38 21:44 Temp 98.0 98.0 Pulse 93 Resp 18 B/P (MAP) 98/44 (62) Pulse Ox 95 98 98 O2 Delivery Room Air Nasal Cannula Nasal Cannula Room Air O2 Flow Rate 2.0 2.0 12/12/18 12/13/18 12/13/18 12/13/18 23:17 00:58 03:47 07:54 Temp 98.5 97.9 97.6 98.5 97.9 97.6 Pulse 93 87 88 Resp 18 18 20 B/P (MAP) 99/34 (55) 133/43 (73) 129/58 (81) Pulse Ox 95 98 90 94 O2 Delivery Room Air Nasal Cannula Room Air Room Air O2 Flow Rate 2.0 12/13/18 12/13/18 12/13/18 08:00 09:25 09:26 Pulse 88 88 B/P (MAP) 129/58 129/58 Pulse Ox 98 O2 Delivery Nasal Cannula O2 Flow Rate 2.0 Intake and Output 12/12/18 12/12/18 12/13/18 15:00 23:00 07:00 Intake Total 320 ml 650 ml 400 ml Balance 320 ml 650 ml 400 ml PATRIC MICHEL MD Dec 13, 2018 09:43
--- NOTE | 2018-12-13 09:55 | PDOC ---
PULMONARY PROGRESS NOTES Subjective PT NOT MORE SOA DEPRESSED ABOUT DX Vitals Vital Signs Date Time Temp Pulse Resp B/P (MAP) Pulse Ox O2 Delivery O2 Flow Rate FiO2 12/13/18 09:26 88 129/58 12/13/18 08:00 98 Nasal Cannula 2.0 12/13/18 07:54 97.6 20 97.6 ROS: No Nausea, No Chest Pain, No Abdominal Pain, No Increase Cough General: Alert Lungs: Clear Cardiovascular: S1, S2 Abdomen: Soft Neuro Exam: Alert Extremities: No Edema Skin: Warm Labs Laboratory Tests Test 12/11/18 12:05 12/11/18 16:53 12/11/18 21:12 12/12/18 03:20 Glucose (Fingerstick) 221 mg/dL (70-99) 84 mg/dL (70-99) 143 mg/dL (70-99) Hemoglobin A1c 6.7 % (4.8-5.6) Test 12/12/18 03:26 12/12/18 07:19 12/12/18 11:12 12/12/18 16:59 Sodium Level 143 mmol/L (136-145) Potassium Level 4.0 mmol/L (3.5-5.1) Chloride Level 103 mmol/L (98-107) Carbon Dioxide Level 28 mmol/L (21-32) Anion Gap 12 (6-14) Blood Urea Nitrogen 17 mg/dL (7-20) Creatinine 1.4 mg/dL (0.6-1.0) Estimated GFR (Cockcroft-Gault) 37.2 Glucose Level 103 mg/dL (70-99) Calcium Level 9.0 mg/dL (8.5-10.1) Triglycerides Level 79 mg/dL (0-150) Cholesterol Level 150 mg/dL (0-200) LDL Cholesterol, Calculated 79 mg/dL (0-100) VLDL Cholesterol, Calculated 16 mg/dL (0-40) Non-HDL Cholesterol Calculated 95 mg/dL (0-129) HDL Cholesterol 55 mg/dL (40-60) Cholesterol/HDL Ratio 2.7 Thyroid Stimulating Hormone (TSH) 2.602 uIU/mL (0.358-3.74) Glucose (Fingerstick) 118 mg/dL (70-99) 200 mg/dL (70-99) 93 mg/dL (70-99) Test 12/12/18 20:42 11/7/19 07:21 Glucose (Fingerstick) 183 mg/dL (70-99) 71 mg/dL (70-99) Laboratory Tests Test 12/12/18 11:12 12/12/18 16:59 12/12/18 20:42 12/13/18 07:21 Glucose (Fingerstick) 200 mg/dL (70-99) 93 mg/dL (70-99) 183 mg/dL (70-99) 71 mg/dL (70-99) Medications Active Scripts Medications Dose Route/Sig Max Daily Dose Days Date Category Proair Hfa Inhaler (Albuterol Sulfate) 8.5 Gm Hfa.aer.ad 2 Puff INH PRN Q4HRS PRN 07/04/17 Reported Lidocaine PATCH (Lidocaine) 1 Each Adh..patch 1 Each TP DAILY 07/04/17 Reported Amlodipine Besylate 5 Mg Tablet 5 Mg PO DAILY 07/04/17 Reported Duoneb 0.5-3(2.5) Mg/3 Ml (Albuterol/Ipratropium) 3 Ml Ampul.neb 3 Ml NEB QID 07/04/17 Reported Symbicort 160-4.5 Mcg Inhaler (Budesonide/Formoterol Fumarate) 10.2 Gm Hfa.aer.ad 2 Puff IH BID 07/04/17 Reported Flector (Diclofenac Epolamine) 1 Each Patch.td12 1 Each TD BID 07/04/17 Reported Combivent Respimat Inhal (Ipratropium/Albuterol Sulfate) 4 Gm Aer.w.adap 2 Inh IH QID 07/04/17 Reported Albuterol Sulfate Neb Soln (Albuterol Sulfate) 0.63 Mg/3 Ml Vial.neb 1 Vial NEB QID 07/04/17 Reported Xanax (Alprazolam) 0.5 Mg Tablet 1 Tab PO TID 07/04/17 Reported Oxycodone Hcl Immed.release (Oxycodone Hcl) 10 Mg Tablet 10 Mg PO PRN Q6HRS PRN 07/04/17 Reported Potassium Chloride 20 Meq Tablet.er 8 Meq PO DAILY 07/04/17 Reported Synthroid (Levothyroxine Sodium) 200 Mcg Tablet 1 Tab PO DAILY 07/04/17 Reported Lisinopril-Hctz 20-12.5 Mg Tab (Lisinopril/Hydrochlorothiazide) 1 Each Tablet 1 Tab PO DAILY 07/04/17 Reported Glimepiride 4 Mg Tablet 1 Tab PO BID 07/04/17 Reported Lipitor (Atorvastatin Calcium) 40 Mg Tablet 1 Tab PO DAILY 07/04/17 Reported Actos (Pioglitazone Hcl) 45 Mg Tablet 1 Tab PO DAILY 07/04/17 Reported Amitriptyline Hcl 100 Mg Tablet 1 Tab PO QHS 07/04/17 Reported Aspirin 81 Mg Tab.chew 1 Tab PO DAILY 07/04/17 Reported Impression . IMPRESSION: 1. Progressive dyspnea, multifactorial secondary to acute exacerbation of chronic obstructive pulmonary disease, morbid obesity and weakness. 2. Abnormal CT chest revealing left upper lobe mass, mediastinal hilar adenopathy and extensive left neck adenopathy. 3. Morbid obesity. 4. Clinical symptoms and signs of obstructive sleep apnea. 5. Chronic diastolic heart failure. 6. Hyperlipidemia. 7. Hypothyroidism. 8. SMALL CELL CA Plan . PER DR SANTOS EAGLE CATH TODAY CHEMO ADDED MIRNA REYES MD Dec 13, 2018 09:55
--- NOTE | 2018-12-13 10:30 | NUR ---
This RN notified HARRIETT Fontaine welding supervisor of the need for a chemo nurse tomorrow.
--- NOTE | 2018-12-13 10:33 | NUR ---
This RN held pt's Lovenox due to pt getting port placement this afternoon. This RN also held pt's Lidocaine patch and Voltaren gel because pt did not want this am.
--- NOTE | 2018-12-13 12:26 | PDOC ---
PROGRESS NOTES Subjective Subjective HPI - f/u of Small cell lung ca ROS - dyspnea better Objective Objective Vital Signs Date Time Temp Pulse Resp B/P (MAP) Pulse Ox O2 Delivery O2 Flow Rate FiO2 12/13/18 11:35 97.8 97 20 139/61 (87) 93 Room Air 97.8 12/13/18 11:15 2.0 Intake and Output 12/13/18 07:00 Intake Total 1370 ml Balance 1370 ml Intake Oral 1370 ml # Voids 2 Physical Exam Heart: Normal S1, Normal S2 General: Alert, Oriented X3, No acute distress Lungs: Clear to auscultation Neuro: Normal speech Psych/Mental Status: Mental status NL Assessment Assessment Problems Medical Problems: (1) Anxiety Status: Acute (2) Depression Status: Chronic (3) Diabetes Status: Chronic (4) Dyspnea on minimal exertion Status: Acute (5) HTN (hypertension) Status: Chronic (6) Hyperlipidemia Status: Chronic (7) Hypothyroidism Status: Chronic (8) Mass of left lung Status: Acute (9) Pleural effusion, left Status: Acute IMPRESSION AND PLAN: 1. Small cell lung ca, atleast Stage IIIB, Left upper lobe lung mass with extensive mediastinal, hilar lymphadenopathy and left cervical lymphadenopathy is clinically concerning for primary lung cancer with metastatic disease to LN. s/p cervical lymph node biopsy 12/11/18 and I received verbal report from Dr Mcguire that this is small cell lung ca. CT scan of the abdomen and pelvis 12/10/18: neg Bone scan 12/11/18- neg I d/w pt in detail the options of chemo/xrt vs best supportive care and she pre fers chemo XRT. I also discussed with Dr. Deng and with Dr. Shalonda Godoy, and pathologist Rachele and RN. Consult IR for port. Start chemo LINDSEY with carboplatin and etoposide 12/14/18. Orders faxed to pharmacy. Plan to add radiation with C2. I will consult Dr Hercules. 2. Headaches thought to be due to cervical LN per pt and hence MRI of the brain to evaluate for metastasis was deferred to be done as outpt. 3. Dyspnea. I discussed with Dr. Shalonda Godoy and management per Dr. Godoy. Comment Review of Relevant I have reviewed the following items malik (where applicable) has been applied. Labs Laboratory Tests Test 12/11/18 16:53 12/11/18 21:12 12/12/18 03:20 12/12/18 03:26 Glucose (Fingerstick) 84 mg/dL (70-99) 143 mg/dL (70-99) Hemoglobin A1c 6.7 % (4.8-5.6) Sodium Level 143 mmol/L (136-145) Potassium Level 4.0 mmol/L (3.5-5.1) Chloride Level 103 mmol/L (98-107) Carbon Dioxide Level 28 mmol/L (21-32) Anion Gap 12 (6-14) Blood Urea Nitrogen 17 mg/dL (7-20) Creatinine 1.4 mg/dL (0.6-1.0) Estimated GFR (Cockcroft-Gault) 37.2 Glucose Level 103 mg/dL (70-99) Calcium Level 9.0 mg/dL (8.5-10.1) Triglycerides Level 79 mg/dL (0-150) Cholesterol Level 150 mg/dL (0-200) LDL Cholesterol, Calculated 79 mg/dL (0-100) VLDL Cholesterol, Calculated 16 mg/dL (0-40) Non-HDL Cholesterol Calculated 95 mg/dL (0-129) HDL Cholesterol 55 mg/dL (40-60) Cholesterol/HDL Ratio 2.7 Thyroid Stimulating Hormone (TSH) 2.602 uIU/mL (0.358-3.74) Test 12/12/18 07:19 12/12/18 11:12 12/12/18 16:59 12/12/18 20:42 Glucose (Fingerstick) 118 mg/dL (70-99) 200 mg/dL (70-99) 93 mg/dL (70-99) 183 mg/dL (70-99) Test 12/13/18 07:21 12/13/18 11:00 Glucose (Fingerstick) 71 mg/dL (70-99) 160 mg/dL (70-99) Laboratory Tests Test 12/12/18 16:59 12/12/18 20:42 12/13/18 07:21 12/13/18 11:00 Glucose (Fingerstick) 93 mg/dL (70-99) 183 mg/dL (70-99) 71 mg/dL (70-99) 160 mg/dL (70-99) Medications Current Medications Albuterol/ Ipratropium (Duoneb) 3 ml 1X ONCE NEB Last administered on 12/09at 22:08; Start 12/09/18 at 22:15; Stop 12/09/18 at 22:17; Status DC Iohexol (Omnipaque 300 Mg/ml) 60 ml 1X ONCE IV Last administered on 12/10/18at 00:18; Start 12/10/18 at 00:00; Stop 12/10/18 at 00:01; Status DC Info (CONTRAST GIVEN -- Rx MONITORING) 1 each PRN DAILY PRN MC SEE COMMENTS; Start 12/10/18 at 00:15; Stop 12/10/18 at 17:29; Status DC Ondansetron HCl (Zofran) 4 mg PRN Q8HRS PRN IV NAUSEA/VOMITING; Start 12/10/18 at 02:00; Stop 12/11/18 at 01:59; Status DC Morphine Sulfate (Morphine Sulfate) 2 mg PRN Q2HR PRN IV PAIN; Start 12/10/18 at 02:00; Stop 12/11/18 at 01:59; Status DC Acetaminophen (Tylenol) 650 mg PRN Q4HRS PRN PO FEVER; Start 12/10/18 at 02:00; Stop 12/11/18 at 01:59; Status DC Albuterol/ Ipratropium (Duoneb) 3 ml RTQID NEB Last administered on 12/10/18at 08:41; Start 12/10/18 at 08:00; Stop 12/10/18 at 09:50; Status DC Iohexol (Omnipaque 300 Mg/ml) 100 ml STK-MED ONCE .ROUTE ; Start 12/10/18 at 04:02; Stop 12/10/18 at 04:02; Status DC Alprazolam (Xanax) 0.25 mg PRN Q6HRS PRN PO ANXIETY / AGITATION Last administered on 12/11/18at 03:33; Start 12/10/18 at 04:45 Albuterol Sulfate (Ventolin Neb Soln) 2.5 mg PRN Q4HRS PRN NEB SHORTNESS OF BREATH Last administered on 12/10/18at 04:49; Start 12/10/18 at 04:45; Stop 12/10/18 at 09:52; Status DC Oxycodone HCl (Roxicodone) 10 mg PRN Q6HRS PRN PO PAIN Last administered on 12/13/18 07:44; Start 12/10/18 at 04:45 Albuterol Sulfate (Ventolin Neb Soln) 2.5 mg PRN Q4HRS PRN INH SHORTNESS OF BREATH Last administered on 12/13/18 00:58; Start 12/10/18 at 09:30 Alprazolam (Xanax) 0.5 mg TID PO Last administered on 12/13/18 09:25; Start 12/10/18 at 10:00 Amlodipine Besylate (Norvasc) 5 mg DAILY PO Last administered on 12/13/18 09:26; Start 12/10/18 at 10:00 Aspirin (Children'S Aspirin) 81 mg DAILY PO Last administered on 12/13/18 09:26; Start 12/10/18 at 10:00 Atorvastatin Calcium (Lipitor) 40 mg QHS PO Last administered on 12/12/18 21:37; Start 12/10/18 at 21:00 Albuterol/ Ipratropium (Duoneb) 3 ml RTQID NEB Last administered on 12/13/18 11:14; Start 12/10/18 at 12:00 Lidocaine (Lidoderm) 1 patch DAILY TP Last administered on 12/12/18 09:05; Start 12/10/18 at 10:00 Non-Formulary Medication (Albuterol Sulfate (Albuterol Sulfate Neb Soln)) 1 vial QID NEB ; Start 12/10/18 at 13:00; Status UNV Amitriptyline HCl (Elavil) 100 mg QHS PO Last administered on 12/11/18 20:42; Start 12/10/18 at 21:00 Budesonide (Pulmicort) 0.5 mg RTBID NEB Last administered on 12/13/18 07:57; Start 12/10/18 at 10:00 Diclofenac Sodium (Voltaren) 1 cornelia BID TP Last administered on 12/12/18 09:06; Start 12/10/18 at 10:00 Glimepiride (Amaryl) 4 mg BID PO Last administered on 12/13/18 09:25; Start 12/10/18 at 10:00 Non-Formulary Medication (Ipratropium/ Albuterol Sulfate (Combivent Respimat Inhal)) 2 inh QID IH ; Start 12/10/18 at 13:00; Status UNV Levothyroxine Sodium (Synthroid) 200 mcg DAILY06 PO Last administered on 12/13/18at 06:39; Start 12/10/18 at 10:00 Non-Formulary Medication (Lisinopril/ Hydrochlorothiazide (Lisinopril-Hctz 20- 12.5 Mg Tab)) 1 tab DAILY PO ; Start 12/11/18 at 09:00; Status UNV Pioglitazone HCl (Actos) 45 mg DAILY PO Last administered on 12/13/18 09:24; Start 12/10/18 at 10:00 Potassium Chloride (Klor-Con) 10 meq DAILYWBKFT PO Last administered on 12/13/18at 07:45; Start 12/11/18 at 08:00 Albuterol/ Ipratropium (Duoneb) 3 ml QID PRN NEB sob; Start 12/10/18 at 09:30; Stop 12/10/18 at 09:50; Status DC Insulin Human Lispro (HumaLOG) 0-9 UNITS TIDWMEALS SQ Last administered on 12/12/18 12:30; Start 12/10/18 at 12:00 Dextrose (Dextrose 50%-Water Syringe) 12.5 gm PRN Q15MIN PRN IV SEE COMMENTS; Start 12/10/18 at 09:30 Lisinopril (Prinivil) 20 mg DAILY PO Last administered on 12/13/18 09:25; Start 12/10/18 at 10:00 Hydrochlorothiazide (Microzide) 12.5 mg DAILY PO Last administered on 12/13/18 09:24; Start 12/10/18 at 10:00 Miscellaneous (Lidoderm Patch Removal) 1 ea QHS MC Last administered on 12/12/18 21:00; Start 12/10/18 at 21:00 Iohexol (Omnipaque 240 Mg/ml) 50 ml 1X ONCE PO Last administered on 12/10/18 16:30; Start 12/10/18 at 14:00; Stop 12/10/18 at 14:07; Status DC Iohexol (Omnipaque 300 Mg/ml) 75 ml 1X ONCE IV Last administered on 11/4/19at 16:30; Start 12/10/18 at 14:00; Stop 12/10/18 at 14:07; Status DC Info (CONTRAST GIVEN -- Rx MONITORING) 1 each PRN DAILY PRN MC SEE COMMENTS; Start 12/10/18 at 14:15; Stop 12/12/18 at 14:14; Status DC Influenza Virus Vaccine Quadrival (Afluria Quad 2019-20 (3yr Up) Syringe) 0.5 ml ONCE ONCE VAX IM Last administered on 12/11/18at 17:16; Start 12/11/18 at 09:00; Stop 12/11/18 at 09:01; Status DC Lidocaine HCl (Buffered Lidocaine 1%) 3 ml STK-MED ONCE .ROUTE ; Start 12/11/18 at 09:01; Stop 12/11/18 at 09:02; Status DC Lidocaine HCl (Buffered Lidocaine 1%) 3 ml STK-MED ONCE .ROUTE ; Start 12/11/18 at 09:02; Stop 12/11/18 at 09:02; Status DC Midazolam HCl (Versed) 2 mg STK-MED ONCE .ROUTE ; Start 12/11/18 at 09:03; Stop 12/11/18 at 09:03; Status DC Fentanyl Citrate (Fentanyl 2ml Vial) 100 mcg STK-MED ONCE .ROUTE ; Start 12/11/18 at 09:03; Stop 12/11/18 at 09:03; Status DC Potassium Chloride (Klor-Con) 40 meq 1X ONCE PO Last administered on 12/11/18at 17:09; Start 12/11/18 at 14:00; Stop 12/11/18 at 14:01; Status DC Lidocaine HCl (Buffered Lidocaine 1%) 3 ml 1X ONCE IJ Last administered on 12/11/18at 09:29; Start 12/11/18 at 09:15; Stop 12/11/18 at 09:17; Status DC Midazolam HCl (Versed) 2 mg 1X ONCE IV ; Start 12/11/18 at 09:15; Stop 12/11/18 at 09:17; Status DC Fentanyl Citrate (Fentanyl 2ml Vial) 100 mcg 1X ONCE IV ; Start 12/11/18 at 09:15; Stop 12/11/18 at 09:17; Status DC Pantoprazole Sodium (Protonix) 40 mg DAILYAC PO Last administered on 12/13/18at 07:44; Start 12/13/18 at 07:30 Pantoprazole Sodium (Protonix) 40 mg 1X ONCE PO Last administered on 12/12/18at 10:49; Start 12/12/18 at 09:15; Stop 12/12/18 at 09:23; Status DC Al Hydroxide/Mg Hydroxide (Mylanta Plus Xs) 30 ml PRN Q2HR PRN PO HEARTBURN / GAS Last administered on 12/12/18at 10:49; Start 12/12/18 at 09:15 Enoxaparin Sodium (Lovenox 40mg Syringe) 40 mg Q24H SQ Last administered on 12/12/18at 10:49; Start 12/12/18 at 10:00 Active Scripts Active Reported Proair Hfa Inhaler (Albuterol Sulfate) 8.5 Gm Hfa.aer.ad 2 Puff INH PRN Q4HRS PRN Lidocaine PATCH (Lidocaine) 1 Each Adh..patch 1 Each TP DAILY Amlodipine Besylate 5 Mg Tablet 5 Mg PO DAILY Duoneb 0.5-3(2.5) Mg/3 Ml (Albuterol/Ipratropium) 3 Ml Ampul.neb 3 Ml NEB QID Symbicort 160-4.5 Mcg Inhaler (Budesonide/Formoterol Fumarate) 10.2 Gm Hfa.aer.ad 2 Puff IH BID Flector (Diclofenac Epolamine) 1 Each Patch.td12 1 Each TD BID Combivent Respimat Inhal (Ipratropium/Albuterol Sulfate) 4 Gm Aer.w.adap 2 Inh IH QID Albuterol Sulfate Neb Soln (Albuterol Sulfate) 0.63 Mg/3 Ml Vial.neb 1 Vial NEB QID Xanax (Alprazolam) 0.5 Mg Tablet 1 Tab PO TID Oxycodone Hcl Immed.release (Oxycodone Hcl) 10 Mg Tablet 10 Mg PO PRN Q6HRS PRN Potassium Chloride 20 Meq Tablet.er 8 Meq PO DAILY Synthroid (Levothyroxine Sodium) 200 Mcg Tablet 1 Tab PO DAILY Lisinopril-Hctz 20-12.5 Mg Tab (Lisinopril/Hydrochlorothiazide) 1 Each Tablet 1 Tab PO DAILY Glimepiride 4 Mg Tablet 1 Tab PO BID Lipitor (Atorvastatin Calcium) 40 Mg Tablet 1 Tab PO DAILY Actos (Pioglitazone Hcl) 45 Mg Tablet 1 Tab PO DAILY Amitriptyline Hcl 100 Mg Tablet 1 Tab PO QHS Aspirin 81 Mg Tab.chew 1 Tab PO DAILY Vitals/I & O Vital Sign - Last 24 Hours 12/12/18 12/12/18 12/12/18 12/12/18 15:07 15:12 16:10 16:11 Temp 97.6 97.6 Pulse 88 Resp 18 20 17 B/P (MAP) 95/44 (61) Pulse Ox 98 99 98 O2 Delivery Room Air Room Air Nasal Cannula Nasal Cannula O2 Flow Rate 2.0 2.0 2.0 12/12/18 12/12/18 12/12/18 12/12/18 18:58 19:15 19:37 19:38 Temp 98.0 98.0 Pulse 93 Resp 18 B/P (MAP) 98/44 (62) Pulse Ox 95 98 98 O2 Delivery Room Air Room Air Nasal Cannula Nasal Cannula O2 Flow Rate 2.0 2.0 12/12/18 12/12/18 12/13/18 12/13/18 21:44 23:17 00:58 03:47 Temp 98.5 97.9 98.5 97.9 Pulse 93 87 Resp 18 18 B/P (MAP) 99/34 (55) 133/43 (73) Pulse Ox 95 98 90 O2 Delivery Room Air Room Air Nasal Cannula Room Air O2 Flow Rate 2.0 12/13/18 12/13/18 12/13/18 12/13/18 07:54 08:00 09:25 09:26 Temp 97.6 97.6 Pulse 88 88 88 Resp 20 B/P (MAP) 129/58 (81) 129/58 129/58 Pulse Ox 94 98 O2 Delivery Room Air Nasal Cannula O2 Flow Rate 2.0 12/13/18 12/13/18 11:15 11:35 Temp 97.8 97.8 Pulse 97 Resp 20 B/P (MAP) 139/61 (87) Pulse Ox 96 93 O2 Delivery Nasal Cannula Room Air O2 Flow Rate 2.0 Intake and Output 12/12/18 12/12/18 12/13/18 15:00 23:00 07:00 Intake Total 320 ml 650 ml 400 ml Balance 320 ml 650 ml 400 ml KAYLA GRAHAM MD Dec 13, 2018 12:26
[2018-12-13] MEDS ORDERED: LIDOCAINE 1%/EPI 1:100,000 20 ML VIAL. ONE (13:11)
[2018-12-13] MEDS ORDERED: MIDAZOLAM HCL/PF 2 MG/2 ML VIAL. ONE (13:13)
[2018-12-13] MEDS ORDERED: fentaNYL PF VIAL 100 MCG/2 ML VIAL ONE (13:13)
[2018-12-13] MEDS ORDERED: LIDOCAINE 1%/EPI 1:100,000 20 ML VIAL. INJ ONE (13:30)
[2018-12-13] MEDS ORDERED: fentaNYL PF VIAL 100 MCG/2 ML VIAL IV ONE (13:30)
[2018-12-13] MEDS ORDERED: MIDAZOLAM HCL/PF 2 MG/2 ML VIAL. IV ONE (13:30)
--- NOTE | 2018-12-13 14:27 | NUR ---
Patient to IR for landon-cath placement, patient tolerated well with no complications. Vitals stable, report called to RN on 6th floor.
[2018-12-13] MEDS: SERTRALINE 50 MG TABLET. PO SCH (15:18)
[2018-12-13] MEDS ORDERED: LIDOCAINE 4% KIT 4 ML SOLUTION. TP PRN (16:30)
[2018-12-13] MEDS: LIDOCAINE (700MG/PATCH) PATCH. TP SCH (20:05)
[2018-12-13] MEDS: AMITRIPTYLINE HCL 25 MG TABLET. PO SCH ×2 (20:06→20:11)
[2018-12-13] MEDS: PATCH REMOVAL. MC SCH (20:06)
[2018-12-13] MEDS: ATORVASTATIN CALCIUM 40 MG TABLET. PO SCH ×2 (20:06→20:11)
[2018-12-13] MEDS: MAG HYDROX/ALUMINUM HYD/SIMETH 30 ML ORAL.SUSP PO PRN (20:08)
[2018-12-13] MEDS: ENOXAPARIN 40 MG/0.4 ML SYRINGE. SQ SCH (21:30)
--- NOTE | 2018-12-13 23:06 | PATHOLOGY ---
[facility] Accession Number: [id number] . 01 Material submitted: . lymph node - LEFT CERVICAL LYMPH NODE BIOPSY. Modifiers: left . 01 Clinical history: . Lymphadenopathy . 02 Diagnosis: "LT cervical LN BX", needle biopsy: - SMALL CELL CARCINOMA. (See comment) . (CLW:mm; 12/13/2018) [facility] 12/13/2018 1050 Local . 02 Comment: Sections show needle core biopsy fragments of a malignant neoplasm. Islands of malignant cells are infiltrating through a desmoplastic stroma. The tumor cells are medium-sized with smudged nuclear chromatin, nuclear molding and scant cytoplasm. Mitotic figures and apoptotic / karyorrhectic debris is readily identified. No background lymph node tissue is present. . Properly-controlled immunohistochemical stains are performed: . Block A1: AE1/AE3: Reactive with dot-like staining CD56: Reactive Synaptophysin: Reactive TTF-1: Reactive CD45: Tumor cells non-reactive P63: Tumor cells non-reactive . Overall, the diagnosis is small cell carcinoma. Clinical and radiographic correlation is recommended. The H and E stained slides are co-reviewed with Dr. Lauren Guzman. The case is discussed preliminarily with Dr. Zana Graham on 12/12/2018 at 10:25 a.m. and again on 12/13/2018 at 9:15 a.m. . (CLW:mm; 12/13/2018) . 02 Electronically signed: . Alicia Mcguire MD, Pathologist NPI- [id number] . 01 Gross description: . Received in formalin labeled "Sara Talbert, left cervical lymph node BX (neck)," are 4 distinct needle cores of doan soft tissue ranging from 0.5-1.6 cm in length and measuring less than 0.1 cm each in diameter. The specimen is submitted entirely in cassettes A1-A3. (TSD; 12/11/2018) TOB/TOB 12/11/2018 1721 Local . 02 Pathologist provided ICD-10: C77.0 . 02 CPT . 843564, E04220, [id number] Specimen Comment: A courtesy copy of this report has been sent to [phone], [phone] Specimen Comment: [id number], Specimen Comment: Report sent to ,DR GRAHAM / DR MICHEL Performed at: 01 [facility] [address], [place] [id number] MD Boris Rodriguez MD Phone: [phone] Performed at: 02 [facility] [address] [place], [place] [id number] MD Suraj Duong MD Phone: [phone]
--- NOTE | 2018-12-13 23:54 | CONS ---
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 She underwent confirmatory biopsy of her cervical adenopathy here on 12/11/2018. We were asked to see regarding the role of radiation therapy in combination with chemotherapy in her treatment. ICD 10 C34.12 C77.8 HISTORY OF PRESENT ILLNESS: The patient is a 68-year-old woman, who noted a 2-week history of progressive weakness and shortness of breath, which did not get better. Over the last 4-5 weeks, she noted left neck pain as well. During this time, she noted diminished appetite and 10-12 pound weight loss. She had no headaches, nausea or vomiting. She did have a prior history of smoking 1 pack a day for 25-30 years and quit 11 years ago. Following admission, she underwent CT scan of the neck and chest. This revealed a 3.3 cm left upper lobe mass extending into the left hilum with extensive mediastinal and left hilar adenopathy. Neck revealed extensive left supraclavicular and inferior cervical adenopathy extending into the mediastinum. No liver or adrenal metastases on my review. Followup CT-guided needle biopsy of her cervical adenopathy confirmed small cell carcinoma. Completion evaluation thus far includes a bone scan, which revealed no evidence for metastatic disease. CT scan of the abdomen and pelvis also revealed no evidence for occult metastatic disease. MRI scan of the brain has not been performed. She is now scheduled to have central line placement later today on 12/13/2018, anticipating she will undergo her first cycle of chemotherapy here as an inpatient. Following this, we anticipate she would then proceed with combined treatment with chest radiation with her second cycle of chemotherapy. PAST MEDICAL HISTORY: Remarkable for COPD, congestive heart failure, diabetes, hypertension, hyperlipidemia, hypothyroidism, previous history of anxiety and depression. ALLERGIES: No known allergies. MEDICATIONS: See hospital list. SOCIAL HISTORY: for the second time for 40 years. Three sons; ages 50, 46 and 39, all living here. Smoked 1 pack a day for 25-30 years, quit 11 years ago. No alcohol use. 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 She enjoys painting with water colors. PHYSICAL EXAMINATION: GENERAL: Revealed a pleasant, obese woman in no acute distress, alert, cooperative and appropriate. HEENT: Unremarkable. She had a 3 cm posterior inferior left cervical lymph node, fullness in the left supraclavicular region, right supraclavicular region and neck was clear. LUNGS: Clear. HEART: Regular. ABDOMEN: Obese without hepatomegaly. EXTREMITIES: Reveal no clubbing, cyanosis or edema. NEUROLOGIC: She had no focal neurologic deficits. LABORATORY STUDIES: Baseline laboratory studies 12/11/2018, hemoglobin 11.6, white count 6600 and platelet count 291,000. Chemistry panel: Creatinine 1.1. Normal liver function tests. ASSESSMENT AND PLAN: In summary, my impression is that of limited bulky stage 3B (T2 N3 M0) small cell carcinoma of the left upper lobe. Her volume of disease could benefit from initial cytoreduction with systemic chemotherapy first which is planned for following central line placement. We will then embark upon combined modality treatment with her second cycle of chemotherapy with chest radiation therapy. To complete her staging evaluation, MRI scan of the head would be indicated as well. I had a general discussion with the patient. In addition, I reviewed this with Dr. Zana Madden. Thank you for allowing us to participate in her evaluation. Sincerely yours, JESSIE JERONIMO MD DR: SOUMYA/deb JOB#: [id number] / [id number] PATRIC Grimm MD, SABATO MD MTDD
[2018-12-14] VITALS (9 sets, daily range): BP systolic 110–159; BP diastolic 42–59
[2018-12-14] MEDS: ALBUTEROL SULFATE 2.5 MG/3 ML NEBU. INH PRN (02:05)
[2018-12-14] MEDS: LEVOTHYROXINE 100 MCG TABLET PO SCH (06:22)
[2018-12-14] MEDS: IPRATRPIUM/ALBUTEROL 0.5/2.5MG 3 ML NEBU. NEB SCH ×4 (07:17→19:36)
[2018-12-14] MEDS: BUDESONIDE 0.5 MG/2 ML NEBU. NEB SCH ×2 (07:17→20:00)
[2018-12-14] MEDS: INSULIN LISPRO 300 UNITS/3 ML VIAL. SQ SCH ×3 (08:00→17:25)
[2018-12-14] MEDS: oxyCODONE IR 5 MG TABLET PO PRN ×3 (08:26→23:33)
[2018-12-14] MEDS ORDERED: DEXAMETHASONE SOD PHOS IV ONE (08:30)
[2018-12-14] MEDS ORDERED: NORMAL SALINE IV ONE ×3 (08:30→10:00)
--- NOTE | 2018-12-14 08:41 | NUR ---
SW following pt. Discussed with RN and no SW needs at this time. SW will be available as needed.
[2018-12-14] MEDS: PATCH REMOVAL. MC SCH (09:00)
[2018-12-14] MEDS ORDERED: ENOXAPARIN 40 MG/0.4 ML SYRINGE. SQ SCH (09:00)
[2018-12-14] MEDS ORDERED: ONDANSETRON PF 4 MG/2 ML VIAL. IVP ONE (09:00)
[2018-12-14] MEDS ORDERED: ETOPOSIDE IV ONE (09:00)
--- NOTE | 2018-12-14 09:02 | PDOC ---
PULMONARY PROGRESS NOTES Subjective PT NOT MORE SOA DEPRESSED ABOUT DX Vitals Vital Signs Date Time Temp Pulse Resp B/P (MAP) Pulse Ox O2 Delivery O2 Flow Rate FiO2 12/14/18 08:26 93 Room Air 2.0 12/14/18 07:49 98.2 92 20 145/56 (85) 98.2 ROS: No Nausea, No Chest Pain, No Abdominal Pain, No Increase Cough General: Alert Lungs: Clear Cardiovascular: S1, S2 Abdomen: Soft Neuro Exam: Alert Extremities: No Edema Skin: Warm Labs Laboratory Tests Test 12/12/18 11:12 12/12/18 16:59 12/12/18 20:42 12/13/18 07:21 Glucose (Fingerstick) 200 mg/dL (70-99) 93 mg/dL (70-99) 183 mg/dL (70-99) 71 mg/dL (70-99) Test 12/13/18 11:00 12/13/18 17:04 Glucose (Fingerstick) 160 mg/dL (70-99) 150 mg/dL (70-99) Laboratory Tests Test 12/13/18 11:00 12/13/18 17:04 Glucose (Fingerstick) 160 mg/dL (70-99) 150 mg/dL (70-99) Medications Active Scripts Medications Dose Route/Sig Max Daily Dose Days Date Category Proair Hfa Inhaler (Albuterol Sulfate) 8.5 Gm Hfa.aer.ad 2 Puff INH PRN Q4HRS PRN 07/04/17 Reported Lidocaine PATCH (Lidocaine) 1 Each Adh..patch 1 Each TP DAILY 07/04/17 Reported Amlodipine Besylate 5 Mg Tablet 5 Mg PO DAILY 07/04/17 Reported Duoneb 0.5-3(2.5) Mg/3 Ml (Albuterol/Ipratropium) 3 Ml Ampul.neb 3 Ml NEB QID 07/04/17 Reported Symbicort 160-4.5 Mcg Inhaler (Budesonide/Formoterol Fumarate) 10.2 Gm Hfa.aer.ad 2 Puff IH BID 07/04/17 Reported Flector (Diclofenac Epolamine) 1 Each Patch.td12 1 Each TD BID 07/04/17 Reported Combivent Respimat Inhal (Ipratropium/Albuterol Sulfate) 4 Gm Aer.w.adap 2 Inh IH QID 07/04/17 Reported Albuterol Sulfate Neb Soln (Albuterol Sulfate) 0.63 Mg/3 Ml Vial.neb 1 Vial NEB QID 07/04/17 Reported Xanax (Alprazolam) 0.5 Mg Tablet 1 Tab PO TID 07/04/17 Reported Oxycodone Hcl Immed.release (Oxycodone Hcl) 10 Mg Tablet 10 Mg PO PRN Q6HRS PRN 07/04/17 Reported Potassium Chloride 20 Meq Tablet.er 8 Meq PO DAILY 07/04/17 Reported Synthroid (Levothyroxine Sodium) 200 Mcg Tablet 1 Tab PO DAILY 07/04/17 Reported Lisinopril-Hctz 20-12.5 Mg Tab (Lisinopril/Hydrochlorothiazide) 1 Each Tablet 1 Tab PO DAILY 07/04/17 Reported Glimepiride 4 Mg Tablet 1 Tab PO BID 07/04/17 Reported Lipitor (Atorvastatin Calcium) 40 Mg Tablet 1 Tab PO DAILY 07/04/17 Reported Actos (Pioglitazone Hcl) 45 Mg Tablet 1 Tab PO DAILY 07/04/17 Reported Amitriptyline Hcl 100 Mg Tablet 1 Tab PO QHS 07/04/17 Reported Aspirin 81 Mg Tab.chew 1 Tab PO DAILY 07/04/17 Reported Impression . IMPRESSION: 1. Progressive dyspnea, multifactorial secondary to acute exacerbation of chronic obstructive pulmonary disease, morbid obesity and weakness. 2. Abnormal CT chest revealing left upper lobe mass, mediastinal hilar adenopathy and extensive left neck adenopathy. 3. Morbid obesity. 4. Clinical symptoms and signs of obstructive sleep apnea. 5. Chronic diastolic heart failure. 6. Hyperlipidemia. 7. Hypothyroidism. 8. SMALL CELL CA Diagnosis: "LT cervical LN BX", needle biopsy: - SMALL CELL CARCINOMA. (See comment) . (CLW:[place]; 12/13/2018) [facility] 12/13/2018 1050 Local Plan . SPOKE WITH DR GRAHAM CHEMO AND XRT RESP STATUS IS COMPENSATED ADDED MIRNA REYES MD Dec 14, 2018 09:02
[2018-12-14] MEDS ORDERED: LIDOCAINE 4% KIT 4 ML SOLUTION. TP ONE (09:15)
[2018-12-14] MEDS ORDERED: LIDOCAINE/PRILOCAINE TOPICAL CREAM 5GM TUBE. TP ONE (09:30)
--- NOTE | 2018-12-14 09:45 | PDOC ---
PROGRESS NOTES Subjective Subjective starting chemo today Objective Objective Vital Signs Date Time Temp Pulse Resp B/P (MAP) Pulse Ox O2 Delivery O2 Flow Rate FiO2 12/14/18 08:26 93 Room Air 2.0 12/14/18 07:49 98.2 92 20 145/56 (85) 98.2 Intake and Output 12/14/18 07:00 Intake Total 320 ml Balance 320 ml Intake Oral 320 ml # Voids 4 Physical Exam Abdomen: Normal bowel sounds, Soft Heart: Normal S1, Normal S2 General: Alert, Oriented X3, No acute distress Lungs: Clear to auscultation MUSCULOSKELETAL: No deformity Neuro: Normal speech Psych/Mental Status: Mental status NL Diagnosis Problem List Problems Medical Problems: (1) Anxiety Status: Acute (2) Depression Status: Chronic (3) Diabetes Status: Chronic (4) Dyspnea on minimal exertion Status: Acute (5) HTN (hypertension) Status: Chronic (6) Hyperlipidemia Status: Chronic (7) Hypothyroidism Status: Chronic (8) Mass of left lung Status: Acute (9) Pleural effusion, left Status: Acute Assessment Assessment Problems Medical Problems: (1) Anxiety Status: Acute (2) Depression Status: Chronic (3) Diabetes Status: Chronic (4) Dyspnea on minimal exertion Status: Acute (5) HTN (hypertension) Status: Chronic (6) Hyperlipidemia Status: Chronic (7) Hypothyroidism Status: Chronic (8) Mass of left lung Status: Acute (9) Pleural effusion, left Status: Acute FINAL IMPRESSION:Small cell lung ca ,metastatic 1. Left upper lung mass new finding ,suspicious for lung cancer, small cell lung cancer 2. Extensive mediastinal hilar adenopathy as well as cervical adenopathy, atelectasis of the left lung, atelectasis of the right lung and hiatal hernia. 3. Diabetes. 4. Hypertension. 5. Hyperlipidemia. 6. Hypothyroidism. 7. Anxiety, depression. 8. Ex-smoker, quit 10 years ago, smoked for 25 years, 2 packs at least. PLAN: start on chemo today. Port placed yesterday for chemo. lymph node czttit01/5/19 showed small cell lung ca CT scan abd and pelvis neg Bone scan neg. spoke with oncology. pt eval +treat. protonix for heart burn noted Radiation oncology input. Plan Plan of Care Problems Medical Problems: (1) Anxiety Status: Acute (2) Depression Status: Chronic (3) Diabetes Status: Chronic (4) Dyspnea on minimal exertion Status: Acute (5) HTN (hypertension) Status: Chronic (6) Hyperlipidemia Status: Chronic (7) Hypothyroidism Status: Chronic (8) Mass of left lung Status: Acute (9) Pleural effusion, left Status: Acute Comment Review of Relevant I have reviewed the following items malik (where applicable) has been applied. Labs Laboratory Tests Test 12/13/18 11:00 12/13/18 17:04 Glucose (Fingerstick) 160 mg/dL (70-99) 150 mg/dL (70-99) Medications Current Medications Carboplatin 600 mg/Sodium Chloride 310 ml @ 310 mls/hr 1X ONCE IV ; Start 12/14/18 at 10:00; Stop 12/14/18 at 10:59 Dexamethasone Sodium Phosphate 12 mg/Sodium Chloride 53 ml @ 212 mls/hr 1X ONCE IV ; Start 12/14/18 at 08:30; Stop 12/14/18 at 08:44; Status DC Enoxaparin Sodium (Lovenox 40mg Syringe) 40 mg Q24H SQ ; Start 12/14/18 at 09:00 Etoposide 236 mg/ Sodium Chloride 1,011.8 ml @ 1,011.8 mls/hr 1X ONCE IV ; S tart 12/14/18 at 09:00; Stop 12/14/18 at 09:59 Etoposide 236 mg/ Sodium Chloride 1,011.8 ml @ 1,011.8 mls/hr DAILY IV ; Start 12/17/18 at 09:00; Stop 12/18/18 at 09:59 Fentanyl Citrate (Fentanyl 2ml Vial) 100 mcg 1X ONCE IV Last administered on 12/13/18at 13:30; Start 12/13/18 at 13:30; Stop 12/13/18 at 13:31; Status DC Fentanyl Citrate (Fentanyl 2ml Vial) 100 mcg STK-MED ONCE .ROUTE ; Start 12/13/18 at 13:13; Stop 12/13/18 at 13:14; Status DC Lidocaine (Lidoderm) 1 patch QHS TP Last administered on 12/13/18at 20:05; Start 12/13/18 at 21:00 Lidocaine HCl (Lta Kit) 4 ml 1X ONCE TP ; Start 12/14/18 at 09:15; Stop 12/14/18 at 09:16; Status UNV Lidocaine HCl (Lta Kit) 4 ml 1X PRN TP SEE COMMENTS; Start 12/13/18 at 16:30 Lidocaine/ Epinephrine (LIDOCAINE 1%-EPI 1:100,000 Multi-Dose) 20 ml 1X ONCE INJ Last administered on 12/13/18at 13:30; Start 12/13/18 at 13:30; Stop 12/13/18 at 13:31; Status DC Lidocaine/ Epinephrine (LIDOCAINE 1%-EPI 1:100,000 Multi-Dose) 20 ml STK-MED ONCE .ROUTE ; Start 12/13/18 at 13:11; Stop 12/13/18 at 13:11; Status DC Lidocaine/ Prilocaine (Emla) 1 cornelia 1X ONCE TP ; Start 12/14/18 at 09:30; Stop 12/14/18 at 09:31; Status DC Midazolam HCl (Versed) 2 mg 1X ONCE IV Last administered on 12/13/18at 13:30; Start 12/13/18 at 13:30; Stop 12/13/18 at 13:31; Status DC Midazolam HCl (Versed) 2 mg STK-MED ONCE .ROUTE ; Start 12/13/18 at 13:13; Stop 12/13/18 at 13:13; Status DC Miscellaneous (Lidoderm Patch Removal) 1 ea DAILY MC ; Start 12/14/18 at 09:00 Ondansetron HCl (Zofran) 4 mg PRN Q4HRS PRN IVP NAUSEA/VOMITING; Start 12/13/18 at 15:00 Ondansetron HCl (Zofran) 8 mg 1X ONCE IVP ; Start 12/14/18 at 09:00; Stop 12/14/18 at 09:01; Status DC Ondansetron HCl (Zofran) 8 mg DAILY IVP ; Start 12/17/18 at 09:00; Stop 12/18/18 at 09:01 Sertraline HCl (Zoloft) 50 mg DAILY PO Last administered on 12/13/18at 15:18; Start 12/13/18 at 14:00 Vitals/I & O Vital Sign - Last 24 Hours 12/13/18 12/13/18 12/13/18 12/13/18 11:15 11:35 13:30 15:00 Temp 97.8 98.0 97.8 98.0 Pulse 97 97 Resp 20 14 20 B/P (MAP) 139/61 (87) 144/57 (86) Pulse Ox 96 93 100 97 O2 Delivery Nasal Cannula Room Air Nasal Cannula Room Air O2 Flow Rate 2.0 2.0 12/13/18 12/13/18 12/13/18 12/13/18 15:15 15:30 15:41 15:45 Pulse 97 101 100 B/P (MAP) 117/94 (102) 129/55 (79) 128/43 (71) Pulse Ox 97 93 96 95 O2 Delivery Room Air Room Air Nasal Cannula Room Air O2 Flow Rate 2.0 12/13/18 12/13/18 12/13/18 12/13/18 16:00 16:30 17:00 18:00 Pulse 96 90 93 98 B/P (MAP) 111/38 (62) 105/42 (63) 94/35 (54) 131/49 (76) Pulse Ox 92 93 92 95 O2 Delivery Room Air Room Air Room Air Room Air 12/13/18 12/13/18 12/13/18 12/13/18 20:00 20:19 20:20 21:31 Pulse Ox 96 96 96 O2 Delivery Room Air Nasal Cannula Nasal Cannula Room Air O2 Flow Rate 2.0 2.0 12/13/18 12/13/18 12/13/18 12/14/18 22:15 22:31 23:40 02:05 Temp 98.0 98.0 Pulse 94 Resp 18 B/P (MAP) 133/50 (77) Pulse Ox 96 96 94 96 O2 Delivery Room Air Room Air Nasal Cannula Nasal Cannula O2 Flow Rate 2.0 2.0 12/14/18 12/14/18 12/14/18 12/14/18 03:11 07:20 07:49 08:26 Temp 97.7 98.2 97.7 98.2 Pulse 95 92 Resp 20 20 B/P (MAP) 143/46 (78) 145/56 (85) Pulse Ox 100 98 93 93 O2 Delivery Nasal Cannula Nasal Cannula Nasal Cannula Room Air O2 Flow Rate 2.0 2.0 2.0 2.0 Intake and Output 12/13/18 12/13/18 12/14/18 15:00 23:00 07:00 Intake Total 200 ml 120 ml Balance 200 ml 120 ml PATRIC MICHEL MD Dec 14, 2018 09:45
[2018-12-14] MEDS ORDERED: CARBOPLATIN IV ONE (10:00)
[2018-12-14] MEDS: ASPIRIN CHEWABLE 81 MG TABLET. PO SCH (10:09)
[2018-12-14] MEDS: POTASSIUM CHLORIDE 10 MEQ TABLET.ER. PO SCH (10:09)
[2018-12-14] MEDS: GLIMEPIRIDE 2 MG TABLET. PO SCH ×2 (10:09→20:35)
[2018-12-14] MEDS: amLODIPine BESYLATE 5 MG TABLET PO SCH (10:10)
[2018-12-14] MEDS: PANTOPRAZOLE 40 MG TABLET.DR. PO SCH (10:10)
[2018-12-14] MEDS: PIOGLITAZONE 15 MG TABLET. PO SCH (10:10)
[2018-12-14] MEDS: SERTRALINE 50 MG TABLET. PO SCH (10:10)
[2018-12-14] MEDS: LISINOPRIL 20 MG TABLET PO SCH (10:11)
[2018-12-14] MEDS: ALPRAZolam 0.5 MG TABLET PO SCH ×3 (10:11→20:36)
[2018-12-14] MEDS: hydroCHLOROthiazide 12.5 MG CAPSULE PO SCH (10:25)
--- NOTE | 2018-12-14 12:44 | PDOC ---
PROGRESS NOTES Subjective Subjective HPI - f/u of Small cell lung ca ROS - no CP Objective Objective Vital Signs Date Time Temp Pulse Resp B/P (MAP) Pulse Ox O2 Delivery O2 Flow Rate FiO2 12/14/18 11:42 98.2 99 121/42 (68) 94 Room Air 2.0 98.2 12/14/18 11:32 20 Intake and Output 12/14/18 06:59 Intake Total 320 ml Balance 320 ml Intake Oral 320 ml # Voids 4 Physical Exam Heart: Normal S1, Normal S2 General: Alert, Oriented X3 Lungs: Clear to auscultation Neuro: Normal speech Psych/Mental Status: Mental status NL Assessment Assessment Problems Medical Problems: (1) Anxiety Status: Acute (2) Depression Status: Chronic (3) Diabetes Status: Chronic (4) Dyspnea on minimal exertion Status: Acute (5) HTN (hypertension) Status: Chronic (6) Hyperlipidemia Status: Chronic (7) Hypothyroidism Status: Chronic (8) Mass of left lung Status: Acute (9) Pleural effusion, left Status: Acute IMPRESSION AND PLAN: 1. Small cell lung ca, Stage IIIB, [id number], Left upper lobe lung mass with extensive mediastinal, hilar lymphadenopathy and left cervical lymphadenopathy is clinically concerning for primary lung cancer with metastatic disease to LN. s/p cervical lymph node biopsy 12/11/18 and I received verbal report from Dr Mcguire that this is small cell lung ca. CT scan of the abdomen and pelvis 12/10/18: neg Bone scan 12/11/18- neg I d/w pt in detail the options of chemo/xrt vs best supportive care and she prefers chemo XRT. I also discussed with Dr. Deng and with Dr. Shalonda Godoy, and pathologist Rachele and RN. s/p IR for port 12/13/18. Start chemo LINDSEY with carboplatin and etoposide 12/14/18. I d/w pt risks and benefits and she agrees. Days 2,3 will be done 12/17/18 and 12/18/18 per chemo RN availability/schedule. Orders faxed to pharmacy. Plan to add radiation with C2. I d/w Dr Hercules. f/u with me in 2 weeks. 2. Headaches thought to be due to cervical LN per pt and hence MRI of the brain to evaluate for metastasis was deferred to be done as outpt. 3. Dyspnea. I discussed with Dr. Shalonda Godoy and management per Dr. Godoy. Comment Review of Relevant I have reviewed the following items malik (where applicable) has been applied. Labs Laboratory Tests Test 12/12/18 16:59 12/12/18 20:42 12/13/18 07:21 12/13/18 11:00 Glucose (Fingerstick) 93 mg/dL (70-99) 183 mg/dL (70-99) 71 mg/dL (70-99) 160 mg/dL (70-99) Test 12/13/18 17:04 12/14/18 07:52 12/14/18 11:17 Glucose (Fingerstick) 150 mg/dL (70-99) 106 mg/dL (70-99) 174 mg/dL (70-99) Laboratory Tests Test 12/13/18 17:04 12/14/18 07:52 12/14/18 11:17 Glucose (Fingerstick) 150 mg/dL (70-99) 106 mg/dL (70-99) 174 mg/dL (70-99) Medications Current Medications Albuterol/ Ipratropium (Duoneb) 3 ml 1X ONCE NEB Last administered on 12/09/18a t 22:08; Start 12/09/18 at 22:15; Stop 12/09/18 at 22:17; Status DC Iohexol (Omnipaque 300 Mg/ml) 60 ml 1X ONCE IV Last administered on 12/10/18at 00:18; Start 12/10/18 at 00:00; Stop 12/10/18 at 00:01; Status DC Info (CONTRAST GIVEN -- Rx MONITORING) 1 each PRN DAILY PRN MC SEE COMMENTS; Start 12/10/18 at 00:15; Stop 12/10/18 at 17:29; Status DC Ondansetron HCl (Zofran) 4 mg PRN Q8HRS PRN IV NAUSEA/VOMITING; Start 12/10/18 at 02:00; Stop 12/11/18 at 01:59; Status DC Morphine Sulfate (Morphine Sulfate) 2 mg PRN Q2HR PRN IV PAIN; Start 12/10/18 at 02:00; Stop 12/11/18 at 01:59; Status DC Acetaminophen (Tylenol) 650 mg PRN Q4HRS PRN PO FEVER; Start 12/10/18 at 02:00; Stop 12/11/18 at 01:59; Status DC Albuterol/ Ipratropium (Duoneb) 3 ml RTQID NEB Last administered on 12/10/18 08:41; Start 12/10/18 at 08:00; Stop 12/10/18 at 09:50; Status DC Iohexol (Omnipaque 300 Mg/ml) 100 ml STK-MED ONCE .ROUTE ; Start 12/10/18 at 04:02; Stop 12/10/18 at 04:02; Status DC Alprazolam (Xanax) 0.25 mg PRN Q6HRS PRN PO ANXIETY / AGITATION Last administered on 12/11/18 03:33; Start 12/10/18 at 04:45 Albuterol Sulfate (Ventolin Neb Soln) 2.5 mg PRN Q4HRS PRN NEB SHORTNESS OF BREATH Last administered on 12/10/18at 04:49; Start 12/10/18 at 04:45; Stop 12/10/18 at 09:52; Status DC Oxycodone HCl (Roxicodone) 10 mg PRN Q6HRS PRN PO PAIN Last administered on 12/14/18 08:26; Start 12/10/18 at 04:45 Albuterol Sulfate (Ventolin Neb Soln) 2.5 mg PRN Q4HRS PRN INH SHORTNESS OF BREATH Last administered on 12/14/18 02:05; Start 12/10/18 at 09:30 Alprazolam (Xanax) 0.5 mg TID PO Last administered on 12/14/18 10:11; Start 12/10/18 at 10:00 Amlodipine Besylate (Norvasc) 5 mg DAILY PO Last administered on 12/14/18 10:10; Start 12/10/18 at 10:00 Aspirin (Children'S Aspirin) 81 mg DAILY PO Last administered on 12/14/18 10:09; Start 12/10/18 at 10:00 Atorvastatin Calcium (Lipitor) 40 mg QHS PO Last administered on 12/12/18 21:37; Start 12/10/18 at 21:00 Albuterol/ Ipratropium (Duoneb) 3 ml RTQID NEB Last administered on 12/14/18 11:21; Start 12/10/18 at 12:00 Lidocaine (Lidoderm) 1 patch DAILY TP Last administered on 12/12/18 09:05; Start 12/10/18 at 10:00; Stop 12/13/18 at 16:23; Status DC Non-Formulary Medication (Albuterol Sulfate (Albuterol Sulfate Neb Soln)) 1 vial QID NEB ; Start 12/10/18 at 13:00; Status UNV Amitriptyline HCl (Elavil) 100 mg QHS PO Last administered on 12/11/18 20:42; Start 12/10/18 at 21:00 Budesonide (Pulmicort) 0.5 mg RTBID NEB Last administered on 12/14/18 07:17; Start 12/10/18 at 10:00 Diclofenac Sodium (Voltaren) 1 cornelia BID TP Last administered on 12/12/18 09:06; Start 12/10/18 at 10:00 Glimepiride (Amaryl) 4 mg BID PO Last administered on 12/14/18 10:09; Start 12/10/18 at 10:00 Non-Formulary Medication (Ipratropium/ Albuterol Sulfate (Combivent Respimat Inhal)) 2 inh QID IH ; Start 12/10/18 at 13:00; Status UNV Levothyroxine Sodium (Synthroid) 200 mcg DAILY06 PO Last administered on 12/14/18 06:22; Start 12/10/18 at 10:00 Non-Formulary Medication (Lisinopril/ Hydrochlorothiazide (Lisinopril-Hctz 20- 12.5 Mg Tab)) 1 tab DAILY PO ; Start 12/11/18 at 09:00; Status UNV Pioglitazone HCl (Actos) 45 mg DAILY PO Last administered on 12/14/18 10:10; Start 12/10/18 at 10:00 Potassium Chloride (Klor-Con) 10 meq DAILYWBKFT PO Last administered on 12/14/18 10:09; Start 12/11/18 at 08:00 Albuterol/ Ipratropium (Duoneb) 3 ml QID PRN NEB sob; Start 12/10/18 at 09:30; Stop 12/10/18 at 09:50; Status DC Insulin Human Lispro (HumaLOG) 0-9 UNITS TIDWMEALS SQ Last administered on 12/12/18at 12:30; Start 12/10/18 at 12:00 Dextrose (Dextrose 50%-Water Syringe) 12.5 gm PRN Q15MIN PRN IV SEE COMMENTS; Start 12/10/18 at 09:30 Lisinopril (Prinivil) 20 mg DAILY PO Last administered on 12/14/18at 10:11; Start 12/10/18 at 10:00 Hydrochlorothiazide (Microzide) 12.5 mg DAILY PO Last administered on 12/14/18at 10:25; Start 12/10/18 at 10:00 Miscellaneous (Lidoderm Patch Removal) 1 ea QHS MC Last administered on 12/12/18at 21:00; Start 12/10/18 at 21:00; Stop 12/14/18 at 09:28; Status DC Iohexol (Omnipaque 240 Mg/ml) 50 ml 1X ONCE PO Last administered on 12/10/18at 16:30; Start 12/10/18 at 14:00; Stop 12/10/18 at 14:07; Status DC Iohexol (Omnipaque 300 Mg/ml) 75 ml 1X ONCE IV Last administered on 12/10/18at 16:30; Start 12/10/18 at 14:00; Stop 12/10/18 at 14:07; Status DC Info (CONTRAST GIVEN -- Rx MONITORING) 1 each PRN DAILY PRN MC SEE COMMENTS; Start 12/10/18 at 14:15; Stop 12/12/18 at 14:14; Status DC Influenza Virus Vaccine Quadrival (Afluria Quad 2019-20 (3yr Up) Syringe) 0.5 ml ONCE ONCE VAX IM Last administered on 12/11/18at 17:16; Start 12/11/18 at 09:00; Stop 12/11/18 at 09:01; Status DC Lidocaine HCl (Buffered Lidocaine 1%) 3 ml STK-MED ONCE .ROUTE ; Start 12/11/18 at 09:01; Stop 12/11/18 at 09:02; Status DC Lidocaine HCl (Buffered Lidocaine 1%) 3 ml STK-MED ONCE .ROUTE ; Start 12/11/18 at 09:02; Stop 12/11/18 at 09:02; Status DC Midazolam HCl (Versed) 2 mg STK-MED ONCE .ROUTE ; Start 12/11/18 at 09:03; Stop 12/11/18 at 09:03; Status DC Fentanyl Citrate (Fentanyl 2ml Vial) 100 mcg STK-MED ONCE .ROUTE ; Start 12/11/18 at 09:03; Stop 12/11/18 at 09:03; Status DC Potassium Chloride (Klor-Con) 40 meq 1X ONCE PO Last administered on 12/11/18at 17:09; Start 12/11/18 at 14:00; Stop 12/11/18 at 14:01; Status DC Lidocaine HCl (Buffered Lidocaine 1%) 3 ml 1X ONCE IJ Last administered on 12/11/18at 09:29; Start 12/11/18 at 09:15; Stop 12/11/18 at 09:17; Status DC Midazolam HCl (Versed) 2 mg 1X ONCE IV ; Start 12/11/18 at 09:15; Stop 12/11/18 at 09:17; Status DC Fentanyl Citrate (Fentanyl 2ml Vial) 100 mcg 1X ONCE IV ; Start 12/11/18 at 09:15; Stop 12/11/18 at 09:17; Status DC Pantoprazole Sodium (Protonix) 40 mg DAILYAC PO Last administered on 12/14/18at 10:10; Start 12/13/18 at 07:30 Pantoprazole Sodium (Protonix) 40 mg 1X ONCE PO Last administered on 12/12/18at 10:49; Start 12/12/18 at 09:15; Stop 12/12/18 at 09:23; Status DC Al Hydroxide/Mg Hydroxide (Mylanta Plus Xs) 30 ml PRN Q2HR PRN PO HEARTBURN / GAS Last administered on 12/13/18at 20:08; Start 12/12/18 at 09:15 Enoxaparin Sodium (Lovenox 40mg Syringe) 40 mg Q24H SQ Last administered on 12/13/18at 21:30; Start 12/12/18 at 10:00; Stop 12/13/18 at 22:18; Status DC Sertraline HCl (Zoloft) 50 mg DAILY PO Last administered on 12/14/18at 10:10; Start 12/13/18 at 14:00 Lidocaine/ Epinephrine (LIDOCAINE 1%-EPI 1:100,000 Multi-Dose) 20 ml STK-MED ONCE .ROUTE ; Start 12/13/18 at 13:11; Stop 12/13/18 at 13:11; Status DC Midazolam HCl (Versed) 2 mg STK-MED ONCE .ROUTE ; Start 12/13/18 at 13:13; Stop 12/13/18 at 13:13; Status DC Fentanyl Citrate (Fentanyl 2ml Vial) 100 mcg STK-MED ONCE .ROUTE ; Start 12/13/18 at 13:13; Stop 12/13/18 at 13:14; Status DC Midazolam HCl (Versed) 2 mg 1X ONCE IV Last administered on 12/13/18at 13:30; Start 12/13/18 at 13:30; Stop 12/13/18 at 13:31; Status DC Fentanyl Citrate (Fentanyl 2ml Vial) 100 mcg 1X ONCE IV Last administered on 12/13/18at 13:30; Start 12/13/18 at 13:30; Stop 12/13/18 at 13:31; Status DC Lidocaine/ Epinephrine (LIDOCAINE 1%-EPI 1:100,000 Multi-Dose) 20 ml 1X ONCE INJ Last administered on 12/13/18at 13:30; Start 12/13/18 at 13:30; Stop 12/13/18 at 13:31; Status DC Ondansetron HCl (Zofran) 4 mg PRN Q4HRS PRN IVP NAUSEA/VOMITING; Start 12/13/18 at 15:00 Dexamethasone Sodium Phosphate 12 mg/Sodium Chloride 53 ml @ 212 mls/hr 1X ONCE IV Last administered on 12/14/18at 10:25; Start 12/14/18 at 08:30; Stop 12/14/18 at 08:44; Status DC Ondansetron HCl (Zofran) 8 mg 1X ONCE IVP Last administered on 12/14/18at 10:24; Start 12/14/18 at 09:00; Stop 12/14/18 at 09:01; Status DC Ondansetron HCl (Zofran) 8 mg DAILY IVP ; Start 12/17/18 at 09:00; Stop 12/18/18 at 09:01 Etoposide 236 mg/ Sodium Chloride 1,011.8 ml @ 1,011.8 mls/hr 1X ONCE IV Last administered on 12/14/18at 11:37; Start 12/14/18 at 09:00; Stop 12/14/18 at 09:59; Status DC Carboplatin 600 mg/Sodium Chloride 310 ml @ 310 mls/hr 1X ONCE IV ; Start 12/14/18 at 10:00; Stop 12/14/18 at 10:59; Status DC Etoposide 236 mg/ Sodium Chloride 1,011.8 ml @ 1,011.8 mls/hr DAILY IV ; Start 12/17/18 at 09:00; Stop 12/18/18 at 09:59 Lidocaine (Lidoderm) 1 patch QHS TP Last administered on 12/13/18at 20:05; Start 12/13/18 at 21:00 Lidocaine HCl (Lta Kit) 4 ml 1X PRN TP SEE COMMENTS; Start 12/13/18 at 16:30 Miscellaneous (Lidoderm Patch Removal) 1 ea DAILY MC ; Start 12/14/18 at 09:00 Enoxaparin Sodium (Lovenox 40mg Syringe) 40 mg Q24H SQ Last administered on 12/14/18at 10:12; Start 12/14/18 at 09:00 Lidocaine HCl (Lta Kit) 4 ml 1X ONCE TP ; Start 12/14/18 at 09:15; Stop 12/14/18 at 09:16; Status UNV Lidocaine/ Prilocaine (Emla) 1 cornelia 1X ONCE TP Last administered on 12/14/18at 10:13; Start 12/14/18 at 09:30; Stop 12/14/18 at 09:31; Status DC Active Scripts Active Reported Proair Hfa Inhaler (Albuterol Sulfate) 8.5 Gm Hfa.aer.ad 2 Puff INH PRN Q4HRS PRN Lidocaine PATCH (Lidocaine) 1 Each Adh..patch 1 Each TP DAILY Amlodipine Besylate 5 Mg Tablet 5 Mg PO DAILY Duoneb 0.5-3(2.5) Mg/3 Ml (Albuterol/Ipratropium) 3 Ml Ampul.neb 3 Ml NEB QID Symbicort 160-4.5 Mcg Inhaler (Budesonide/Formoterol Fumarate) 10.2 Gm Hfa.aer.ad 2 Puff IH BID Flector (Diclofenac Epolamine) 1 Each Patch.td12 1 Each TD BID Combivent Respimat Inhal (Ipratropium/Albuterol Sulfate) 4 Gm Aer.w.adap 2 Inh IH QID Albuterol Sulfate Neb Soln (Albuterol Sulfate) 0.63 Mg/3 Ml Vial.neb 1 Vial NEB QID Xanax (Alprazolam) 0.5 Mg Tablet 1 Tab PO TID Oxycodone Hcl Immed.release (Oxycodone Hcl) 10 Mg Tablet 10 Mg PO PRN Q6HRS PRN Potassium Chloride 20 Meq Tablet.er 8 Meq PO DAILY Synthroid (Levothyroxine Sodium) 200 Mcg Tablet 1 Tab PO DAILY Lisinopril-Hctz 20-12.5 Mg Tab (Lisinopril/Hydrochlorothiazide) 1 Each Tablet 1 Tab PO DAILY Glimepiride 4 Mg Tablet 1 Tab PO BID Lipitor (Atorvastatin Calcium) 40 Mg Tablet 1 Tab PO DAILY Actos (Pioglitazone Hcl) 45 Mg Tablet 1 Tab PO DAILY Amitriptyline Hcl 100 Mg Tablet 1 Tab PO QHS Aspirin 81 Mg Tab.chew 1 Tab PO DAILY Vitals/I & O Vital Sign - Last 24 Hours 12/13/18 12/13/18 12/13/18 12/13/18 13:30 15:00 15:15 15:30 Temp 98.0 98.0 Pulse 97 97 101 Resp 14 20 B/P (MAP) 144/57 (86) 117/94 (102) 129/55 (79) Pulse Ox 100 97 97 93 O2 Delivery Nasal Cannula Room Air Room Air Room Air O2 Flow Rate 2.0 12/13/18 12/13/18 12/13/18 12/13/18 15:41 15:45 16:00 16:30 Pulse 100 96 90 B/P (MAP) 128/43 (71) 111/38 (62) 105/42 (63) Pulse Ox 96 95 92 93 O2 Delivery Nasal Cannula Room Air Room Air Room Air O2 Flow Rate 2.0 12/13/18 12/13/18 12/13/18 12/13/18 17:00 18:00 20:00 20:19 Pulse 93 98 B/P (MAP) 94/35 (54) 131/49 (76) Pulse Ox 92 95 96 O2 Delivery Room Air Room Air Room Air Nasal Cannula O2 Flow Rate 2.0 12/13/18 12/13/18 12/13/18 12/13/18 20:20 21:31 22:15 22:31 Pulse Ox 96 96 96 96 O2 Delivery Nasal Cannula Room Air Room Air Room Air O2 Flow Rate 2.0 12/13/18 12/14/18 12/14/18 12/14/18 23:40 02:05 03:11 07:20 Temp 98.0 97.7 98.0 97.7 Pulse 94 95 Resp 18 20 B/P (MAP) 133/50 (77) 143/46 (78) Pulse Ox 94 96 100 98 O2 Delivery Nasal Cannula Nasal Cannula Nasal Cannula Nasal Cannula O2 Flow Rate 2.0 2.0 2.0 2.0 12/14/18 12/14/18 12/14/18 12/14/18 07:49 08:26 10:10 10:11 Temp 98.2 98.2 Pulse 92 92 92 Resp 20 B/P (MAP) 145/56 (85) 145/56 145/56 Pulse Ox 93 93 O2 Delivery Nasal Cannula Room Air O2 Flow Rate 2.0 2.0 12/14/18 12/14/18 12/14/18 12/14/18 10:12 11:23 11:32 11:42 Temp 98.2 98.2 98.2 98.2 Pulse 99 99 Resp 20 B/P (MAP) 121/42 (68) 121/42 (68) Pulse Ox 93 98 94 94 O2 Delivery Room Air Nasal Cannula Nasal Cannula Room Air O2 Flow Rate 2.0 2.0 2.0 2.0 Intake and Output 12/13/18 12/13/18 12/14/18 14:59 22:59 06:59 Intake Total 200 ml 120 ml Balance 200 ml 120 ml KAYLA GRAHAM MD Dec 14, 2018 12:44
--- NOTE | 2018-12-14 13:26 | PDOC ---
Provider Note Provider Note 68 yo woman with Stage 3B (T2 N3 M0) small cell carcinoma of the left upper lobe with bulky mediastinal, supraclavicular and scalene adenopathy at diagnosis. She underwent confirmatory biopsy of her cervical adenopathy here on 12/11/2018. Now just beginning first cycle of chemo. Will reschedule brain MRI to complete staging. Anticipate chest RT to begin with second cycle of chemo. Discussed with patient. JESSIE JERONIMO MD Dec 14, 2018 13:26
[2018-12-14] MEDS: DICLOFENAC SODIUM 1% TOPICAL GEL 100GM TUBE. TP SCH ×2 (15:18→20:40)
[2018-12-14] MEDS: ATORVASTATIN CALCIUM 40 MG TABLET. PO SCH (20:36)
[2018-12-14] MEDS: AMITRIPTYLINE HCL 25 MG TABLET. PO SCH (20:36)
[2018-12-14] MEDS: LIDOCAINE (700MG/PATCH) PATCH. TP SCH (20:37)
[2018-12-14] MEDS: MAG HYDROX/ALUMINUM HYD/SIMETH 30 ML ORAL.SUSP PO PRN (23:32)
[2018-12-15] MEDS: ALBUTEROL SULFATE 2.5 MG/3 ML NEBU. INH PRN ×2 (00:10→22:47)
[2018-12-15 03:27] VITALS: BP 134/60
[2018-12-15] MEDS: LEVOTHYROXINE 100 MCG TABLET PO SCH (06:46)
[2018-12-15] MEDS: oxyCODONE IR 5 MG TABLET PO PRN ×3 (06:47→22:45)
[2018-12-15 07:25] VITALS: BP 140/43
[2018-12-15] MEDS: BUDESONIDE 0.5 MG/2 ML NEBU. NEB SCH ×2 (07:44→19:21)
[2018-12-15] MEDS: IPRATRPIUM/ALBUTEROL 0.5/2.5MG 3 ML NEBU. NEB SCH ×5 (07:44→19:21)
[2018-12-15] MEDS: INSULIN LISPRO 300 UNITS/3 ML VIAL. SQ SCH ×3 (08:00→17:06)
[2018-12-15] MEDS: DICLOFENAC SODIUM 1% TOPICAL GEL 100GM TUBE. TP SCH ×2 (09:21→22:44)
--- NOTE | 2018-12-15 09:21 | PDOC ---
PULMONARY PROGRESS NOTES Subjective Pt. resting comfortably on N/C, reports non-productive cough Vitals Vital Signs Date Time Temp Pulse Resp B/P (MAP) Pulse Ox O2 Delivery O2 Flow Rate FiO2 12/15/18 07:44 Nasal Cannula 2.0 12/15/18 07:25 97.6 75 18 140/43 (75) 98 97.6 ROS: No Nausea, No Chest Pain, No Abdominal Pain, No Increase Cough General: Alert, Oriented X4 Lungs: Clear Cardiovascular: S1, S2 Abdomen: Soft Neuro Exam: Alert Extremities: No Edema Skin: Warm Labs Laboratory Tests Test 12/13/18 11:00 12/13/18 17:04 12/14/18 07:52 12/14/18 11:17 Glucose (Fingerstick) 160 mg/dL (70-99) 150 mg/dL (70-99) 106 mg/dL (70-99) 174 mg/dL (70-99) Test 12/14/18 16:49 12/14/18 20:42 12/15/18 07:29 Glucose (Fingerstick) 171 mg/dL (70-99) 169 mg/dL (70-99) 132 mg/dL (70-99) Laboratory Tests Test 12/14/18 11:17 12/14/18 16:49 12/14/18 20:42 12/15/18 07:29 Glucose (Fingerstick) 174 mg/dL (70-99) 171 mg/dL (70-99) 169 mg/dL (70-99) 132 mg/dL (70-99) Medications Active Scripts Medications Dose Route/Sig Max Daily Dose Days Date Category Proair Hfa Inhaler (Albuterol Sulfate) 8.5 Gm Hfa.aer.ad 2 Puff INH PRN Q4HRS PRN 07/04/17 Reported Lidocaine PATCH (Lidocaine) 1 Each Adh..patch 1 Each TP DAILY 07/04/17 Reported Amlodipine Besylate 5 Mg Tablet 5 Mg PO DAILY 07/04/17 Reported Duoneb 0.5-3(2.5) Mg/3 Ml (Albuterol/Ipratropium) 3 Ml Ampul.neb 3 Ml NEB QID 07/04/17 Reported Symbicort 160-4.5 Mcg Inhaler (Budesonide/Formoterol Fumarate) 10.2 Gm Hfa.aer.ad 2 Puff IH BID 07/04/17 Reported Flector (Diclofenac Epolamine) 1 Each Patch.td12 1 Each TD BID 07/04/17 Reported Combivent Respimat Inhal (Ipratropium/Albuterol Sulfate) 4 Gm Aer.w.adap 2 Inh IH QID 07/04/17 Reported Albuterol Sulfate Neb Soln (Albuterol Sulfate) 0.63 Mg/3 Ml Vial.neb 1 Vial NEB QID 07/04/17 Reported Xanax (Alprazolam) 0.5 Mg Tablet 1 Tab PO TID 07/04/17 Reported Oxycodone Hcl Immed.release (Oxycodone Hcl) 10 Mg Tablet 10 Mg PO PRN Q6HRS PRN 07/04/17 Reported Potassium Chloride 20 Meq Tablet.er 8 Meq PO DAILY 07/04/17 Reported Synthroid (Levothyroxine Sodium) 200 Mcg Tablet 1 Tab PO DAILY 07/04/17 Reported Lisinopril-Hctz 20-12.5 Mg Tab (Lisinopril/Hydrochlorothiazide) 1 Each Tablet 1 Tab PO DAILY 07/04/17 Reported Glimepiride 4 Mg Tablet 1 Tab PO BID 07/04/17 Reported Lipitor (Atorvastatin Calcium) 40 Mg Tablet 1 Tab PO DAILY 07/04/17 Reported Actos (Pioglitazone Hcl) 45 Mg Tablet 1 Tab PO DAILY 07/04/17 Reported Amitriptyline Hcl 100 Mg Tablet 1 Tab PO QHS 07/04/17 Reported Aspirin 81 Mg Tab.chew 1 Tab PO DAILY 07/04/17 Reported Impression . IMPRESSION: 1. Progressive dyspnea, multifactorial secondary to acute exacerbation of chronic obstructive pulmonary disease, morbid obesity and weakness. 2. Small cell lung ca, Stage IIIB, T2N3M0, Left upper lobe lung mass with extensive mediastinal, hilar lymphadenopathy and left cervical lymphadenopathy is clinically concerning for primary lung cancer with metastatic disease to LN. s/p cervical lymph node biopsy 12/11/18 and I received verbal report from Dr Risa fuentes that this is small cell lung ca. 3. Morbid obesity. 4. Clinical symptoms and signs of obstructive sleep apnea. 5. Chronic diastolic heart failure. 6. Hyperlipidemia. 7. Hypothyroidism. Diagnosis: "LT cervical LN BX", needle biopsy: - SMALL CELL CARCINOMA. (See comment) . (CLW:[place]ford; 12/13/2018) [facility] 12/13/2018 1050 Local Plan . 1. cont. recommendations from HEM/ONC-- currently being treated with chemo and radiation 2. Cont. anti-depressants 3. pt. is clinically stable from resp. stand point 4. Cont. bronchodilators as needed MIRNA ANTON MD Dec 15, 2018 09:21
[2018-12-15] MEDS: PANTOPRAZOLE 40 MG TABLET.DR. PO SCH (09:22)
[2018-12-15] MEDS: POTASSIUM CHLORIDE 10 MEQ TABLET.ER. PO SCH (09:22)
[2018-12-15] MEDS: PIOGLITAZONE 15 MG TABLET. PO SCH (09:22)
[2018-12-15] MEDS: GLIMEPIRIDE 2 MG TABLET. PO SCH ×2 (09:22→22:44)
[2018-12-15] MEDS: amLODIPine BESYLATE 5 MG TABLET PO SCH (09:23)
[2018-12-15] MEDS: SERTRALINE 50 MG TABLET. PO SCH (09:23)
[2018-12-15] MEDS: DOCUSATE SODIUM 100 MG CAPSULE. PO SCH (09:23)
[2018-12-15] MEDS: LISINOPRIL 20 MG TABLET PO SCH (09:24)
[2018-12-15] MEDS: ALPRAZolam 0.5 MG TABLET PO SCH ×3 (09:26→21:00)
[2018-12-15] MEDS: hydroCHLOROthiazide 12.5 MG CAPSULE PO SCH (09:31)
[2018-12-15] MEDS: MAG HYDROX/ALUMINUM HYD/SIMETH 30 ML ORAL.SUSP PO PRN (09:31)
[2018-12-15] MEDS: ASPIRIN CHEWABLE 81 MG TABLET. PO SCH (09:32)
[2018-12-15] MEDS: PATCH REMOVAL. MC SCH (09:32)
--- NOTE | 2018-12-15 09:47 | PDOC ---
PROGRESS NOTES Subjective Subjective day #2 of chemo today, ist cycl eof chemo for small cell lung ca Objective Objective Vital Signs Date Time Temp Pulse Resp B/P (MAP) Pulse Ox O2 Delivery O2 Flow Rate FiO2 12/15/18 09:24 75 140/43 12/15/18 07:44 Nasal Cannula 2.0 12/15/18 07:25 97.6 18 98 97.6 Intake and Output 12/15/18 07:00 Intake Total 1834.8 ml Output Total 1050 ml Balance 784.8 ml Intake Oral 460 ml IV Total 1374.8 ml Output Urine Total 1050 ml # Voids 2 Physical Exam Abdomen: Normal bowel sounds, Soft Heart: Normal S1, Normal S2 General: Alert, Oriented X3 Lungs: Clear to auscultation MUSCULOSKELETAL: No deformity Neuro: Normal speech Psych/Mental Status: Mental status NL Diagnosis Problem List Problems Medical Problems: (1) Anxiety Status: Acute (2) Depression Status: Chronic (3) Diabetes Status: Chronic (4) Dyspnea on minimal exertion Status: Acute (5) HTN (hypertension) Status: Chronic (6) Hyperlipidemia Status: Chronic (7) Hypothyroidism Status: Chronic (8) Mass of left lung Status: Acute (9) Pleural effusion, left Status: Acute Assessment Assessment Problems Medical Problems: (1) Anxiety Status: Acute (2) Depression Status: Chronic (3) Diabetes Status: Chronic (4) Dyspnea on minimal exertion Status: Acute (5) HTN (hypertension) Status: Chronic (6) Hyperlipidemia Status: Chronic (7) Hypothyroidism Status: Chronic (8) Mass of left lung Status: Acute (9) Pleural effusion, left Status: Acute FINAL IMPRESSION:Small cell lung ca ,metastatic 1. Left upper lung mass new finding ,suspicious for lung cancer, small cell lung cancer 2. Extensive mediastinal hilar adenopathy as well as cervical adenopathy, atelectasis of the left lung, atelectasis of the right lung and hiatal hernia. 3. Diabetes. 4. Hypertension. 5. Hyperlipidemia. 6. Hypothyroidism. 7. Anxiety, depression. 8. Ex-smoker, quit 10 years ago, smoked for 25 years, 2 packs at least. PLAN: start on chemo , day #2 today , 1 st cycle of chemo for small cell lung ca Port placed for chemo. lymph node cospsp70/5/19 showed small cell lung ca CT scan abd and pelvis neg Bone scan neg. spoke with oncology. pt eval +treat. protonix for heart burn noted Radiation oncology input. MRI brain out pt Plan Plan of Care Problems Medical Problems: (1) Anxiety Status: Acute (2) Depression Status: Chronic (3) Diabetes Status: Chronic (4) Dyspnea on minimal exertion Status: Acute (5) HTN (hypertension) Status: Chronic (6) Hyperlipidemia Status: Chronic (7) Hypothyroidism Status: Chronic (8) Mass of left lung Status: Acute (9) Pleural effusion, left Status: Acute Comment Review of Relevant I have reviewed the following items malik (where applicable) has been applied. Labs Laboratory Tests Test 12/14/18 11:17 12/14/18 16:49 12/14/18 20:42 12/15/18 07:29 Glucose (Fingerstick) 174 mg/dL (70-99) 171 mg/dL (70-99) 169 mg/dL (70-99) 132 mg/dL (70-99) Medications Current Medications Carboplatin 600 mg/Sodium Chloride 310 ml @ 310 mls/hr 1X ONCE IV Last administered on 12/14/18at 12:49; Start 12/14/18 at 10:00; Stop 12/14/18 at 10:59; Status DC Docusate Sodium (Colace) 100 mg DAILY PO Last administered on 12/15/18at 09:23; Start 12/15/18 at 09:00 Enoxaparin Sodium (Lovenox 60mg Syringe) 60 mg Q12HR SQ Last administered on 12/15/18at 09:28; Start 12/14/18 at 21:00 Etoposide 236 mg/ Sodium Chloride 1,011.8 ml @ 1,011.8 mls/hr DAILY IV ; Start 12/15/18 at 13:00; Stop 12/16/18 at 13:59 Ondansetron HCl (Zofran) 8 mg DAILY IVP ; Start 12/17/18 at 12:30; Stop 12/18/18 at 12:31 Vitals/I & O Vital Sign - Last 24 Hours 12/14/18 12/14/18 12/14/18 12/14/18 10:10 10:11 10:12 11:23 Pulse 92 92 B/P (MAP) 145/56 145/56 Pulse Ox 93 98 O2 Delivery Room Air Nasal Cannula O2 Flow Rate 2.0 2.0 12/14/18 12/14/18 12/14/18 12/14/18 11:32 11:42 12:53 13:49 Temp 98.2 98.2 97.8 97.9 98.2 98.2 97.8 97.9 Pulse 99 99 93 93 Resp 20 20 20 B/P (MAP) 121/42 (68) 121/42 (68) 128/50 (76) 159/59 (92) Pulse Ox 94 94 95 95 O2 Delivery Nasal Cannula Room Air Nasal Cannula Nasal Cannula O2 Flow Rate 2.0 2.0 3.0 3.0 12/14/18 12/14/18 12/14/18 12/14/18 14:28 16:17 17:30 18:30 Temp 98.4 98.4 Pulse 96 Resp 20 20 B/P (MAP) 127/52 (77) Pulse Ox 96 96 O2 Delivery Nasal Cannula Nasal Cannula Room Air Room Air O2 Flow Rate 3.0 2.0 2.0 12/14/18 12/14/18 12/14/18 12/14/18 19:40 19:43 20:00 23:18 Temp 98.0 97.9 98.0 97.9 Pulse 103 105 Resp 16 16 B/P (MAP) 110/43 (65) 130/44 (72) Pulse Ox 94 93 95 O2 Delivery Room Air Nasal Cannula Room Air Nasal Cannula O2 Flow Rate 2.0 2.0 12/14/18 12/15/18 12/15/18 12/15/18 23:33 00:12 00:33 03:27 Temp 98.5 98.5 Pulse 95 Resp 20 20 16 B/P (MAP) 134/60 (84) Pulse Ox 84 93 O2 Delivery Room Air Room Air Room Air Nasal Cannula O2 Flow Rate 2.0 12/15/18 12/15/18 12/15/18 12/15/18 06:47 07:25 07:44 09:23 Temp 97.6 97.6 Pulse 75 75 Resp 18 18 B/P (MAP) 140/43 (75) 140/43 Pulse Ox 98 O2 Delivery Room Air Nasal Cannula Nasal Cannula O2 Flow Rate 2.0 2.0 12/15/18 09:24 Pulse 75 B/P (MAP) 140/43 Intake and Output 12/14/18 12/14/18 12/15/18 15:00 23:00 07:00 Intake Total 1374.8 ml 460 ml Output Total 1050 ml Balance 1374.8 ml -590 ml PATRIC MICHEL MD Dec 15, 2018 09:47
[2018-12-15 11:12] VITALS: BP 139/53
[2018-12-15] MEDS: ONDANSETRON PF 4 MG/2 ML VIAL. IVP SCH (13:49)
[2018-12-15] MEDS: NORMAL SALINE IV SCH (13:55)
[2018-12-15] MEDS: ETOPOSIDE IV SCH (13:55)
--- NOTE | 2018-12-15 14:01 | NUR ---
reviewed labs and reinforced teaching. she complained about right neck pain. area is slightly swollen, soft to palpation. applied lidocaine. explained it was probably positioning during insertion. reviewed medication to be given. questions answered. medication verified with pharmacist. she has a good and quick blood return prior to beginning [employer]-16. states she is going to nap.
[2018-12-15 15:10] VITALS: BP 124/45
--- NOTE | 2018-12-15 15:12 | NUR ---
family was here and return later this evening. she wanted to rests. she is dozing off and on. arouses easily. vp training-16 infusing at 300 cc hr ice was applied to right clavicle area. Addendum: 12/15/18 at 1516 by CHARLY ROMAN RN repositioned onto right lateral side.
--- NOTE | 2018-12-15 15:56 | NUR ---
assisted to the commode and she voids 350cc dk yellow urine. breath sounds are diminished and she feels like she is wheezing. no audible wheeze heard. she complains of right shoulder being very painful and feels like she cannot cough because of he pain. agrees to take pain medicine. clavicle area remains soft to touch and has a good blood return from the port a cath. propped up with pillows. she has drank approx 400cc and voided 350.
--- NOTE | 2018-12-15 16:45 | NUR ---
rests in [place] and visiting with her friend. appears to be in better spirits.
--- NOTE | 2018-12-15 17:33 | NUR ---
infusion completed. vol 1126. encouraged to take pain pill at bedtime. tolerated svp group director infusion. good blood return and flushes easily needle left in place.
[2018-12-15] MEDS: ONDANSETRON PF 4 MG/2 ML VIAL. IVP PRN (18:39)
[2018-12-15 19:05] VITALS: BP 130/50
[2018-12-15] MEDS: LIDOCAINE (700MG/PATCH) PATCH. TP SCH (22:43)
[2018-12-15] MEDS: ALPRAZolam 0.25 MG TABLET PO PRN (22:44)
[2018-12-15 23:05] VITALS: BP 123/42
[2018-12-16 03:10] VITALS: BP 152/62
[2018-12-16] MEDS: IPRATRPIUM/ALBUTEROL 0.5/2.5MG 3 ML NEBU. NEB SCH ×4 (06:36→20:54)
[2018-12-16] MEDS: BUDESONIDE 0.5 MG/2 ML NEBU. NEB SCH ×2 (06:36→20:54)
[2018-12-16] MEDS: LEVOTHYROXINE 100 MCG TABLET PO SCH (06:51)
[2018-12-16] MEDS: PANTOPRAZOLE 40 MG TABLET.DR. PO SCH (06:51)
[2018-12-16 07:15] VITALS: BP 136/59
[2018-12-16] MEDS: INSULIN LISPRO 300 UNITS/3 ML VIAL. SQ SCH ×3 (08:00→17:00)
[2018-12-16] MEDS: PATCH REMOVAL. MC SCH (09:00)
[2018-12-16] MEDS: PIOGLITAZONE 15 MG TABLET. PO SCH (09:07)
[2018-12-16] MEDS: SERTRALINE 50 MG TABLET. PO SCH (09:08)
[2018-12-16] MEDS: oxyCODONE IR 5 MG TABLET PO PRN ×2 (09:08→21:30)
[2018-12-16] MEDS: LISINOPRIL 20 MG TABLET PO SCH (09:09)
[2018-12-16] MEDS: GLIMEPIRIDE 2 MG TABLET. PO SCH ×2 (09:09→21:34)
[2018-12-16] MEDS: ALPRAZolam 0.5 MG TABLET PO SCH ×3 (09:09→21:30)
[2018-12-16] MEDS: hydroCHLOROthiazide 12.5 MG CAPSULE PO SCH (09:09)
[2018-12-16] MEDS: ASPIRIN CHEWABLE 81 MG TABLET. PO SCH (09:10)
[2018-12-16] MEDS: POTASSIUM CHLORIDE 10 MEQ TABLET.ER. PO SCH (09:10)
[2018-12-16] MEDS: amLODIPine BESYLATE 5 MG TABLET PO SCH (09:10)
[2018-12-16] MEDS: DOCUSATE SODIUM 100 MG CAPSULE. PO SCH (09:10)
[2018-12-16] MEDS: DICLOFENAC SODIUM 1% TOPICAL GEL 100GM TUBE. TP SCH ×2 (09:11→21:30)
[2018-12-16] MEDS: MAG HYDROX/ALUMINUM HYD/SIMETH 30 ML ORAL.SUSP PO PRN (09:23)
[2018-12-16] MEDS ORDERED: LIDOCAINE 2% TOPICAL JELLY 5GM TUBE. TP PRN (10:15)
--- NOTE | 2018-12-16 10:38 | PDOC ---
PROGRESS NOTES Subjective Subjective pt does not feel well Objective Objective Vital Signs Date Time Temp Pulse Resp B/P (MAP) Pulse Ox O2 Delivery O2 Flow Rate FiO2 12/16/18 10:03 94 Nasal Cannula 2.0 12/16/18 09:10 91 136/59 12/16/18 09:08 17 12/16/18 07:15 99.4 99.4 Intake and Output 12/16/18 07:00 Intake Total 1760 ml Output Total 2100 ml Balance -340 ml Intake Oral 1760 ml Output Urine Total 2100 ml Physical Exam Abdomen: Normal bowel sounds, Soft Heart: Normal S1, Normal S2 General: Alert, Oriented X3 Lungs: Clear to auscultation MUSCULOSKELETAL: No deformity Neuro: Normal speech Psych/Mental Status: Mental status NL Diagnosis Problem List Problems Medical Problems: (1) Anxiety Status: Acute (2) Depression Status: Chronic (3) Diabetes Status: Chronic (4) Dyspnea on minimal exertion Status: Acute (5) HTN (hypertension) Status: Chronic (6) Hyperlipidemia Status: Chronic (7) Hypothyroidism Status: Chronic (8) Mass of left lung Status: Acute (9) Pleural effusion, left Status: Acute Assessment Assessment Problems Medical Problems: (1) Anxiety Status: Acute (2) Depression Status: Chronic (3) Diabetes Status: Chronic (4) Dyspnea on minimal exertion Status: Acute (5) HTN (hypertension) Status: Chronic (6) Hyperlipidemia Status: Chronic (7) Hypothyroidism Status: Chronic (8) Mass of left lung Status: Acute (9) Pleural effusion, left Status: Acute FINAL IMPRESSION:Small cell lung ca ,metastatic 1. Left upper lung mass new finding ,suspicious for lung cancer, small cell lung cancer 2. Extensive mediastinal hilar adenopathy as well as cervical adenopathy, atelectasis of the left lung, atelectasis of the right lung and hiatal herni a. 3. Diabetes. 4. Hypertension. 5. Hyperlipidemia. 6. Hypothyroidism. 7. Anxiety, depression. 8. Ex-smoker, quit 10 years ago, smoked for 25 years, 2 packs at least. PLAN: start on chemo , day #3 today , 1 st cycle of chemo for small cell lung ca Port placed for chemo. lymph node /5/19 showed small cell lung ca CT scan abd and pelvis neg Bone scan neg. spoke with oncology. pt eval +treat. protonix for heart burn noted Radiation oncology input. MRI brain out pt Plan Plan of Care Problems Medical Problems: (1) Anxiety Status: Acute (2) Depression Status: Chronic (3) Diabetes Status: Chronic (4) Dyspnea on minimal exertion Status: Acute (5) HTN (hypertension) Status: Chronic (6) Hyperlipidemia Status: Chronic (7) Hypothyroidism Status: Chronic (8) Mass of left lung Status: Acute (9) Pleural effusion, left Status: Acute Comment Review of Relevant I have reviewed the following items malik (where applicable) has been applied. Labs Laboratory Tests Test 12/15/18 11:30 12/15/18 17:03 12/16/18 07:36 Glucose (Fingerstick) 158 mg/dL (70-99) 95 mg/dL (70-99) 85 mg/dL (70-99) Medications Current Medications Etoposide 236 mg/ Sodium Chloride 1,011.8 ml @ 1,011.8 mls/hr DAILY IV Last administered on 12/15/18at 13:55; Start 12/15/18 at 13:00; Stop 12/16/18 at 13:59 Lidocaine HCl (Xylocaine 2% Topical 5gm Tube) 1 cornelia PRN Q6HRS PRN TP to affected area; Start 12/16/18 at 10:15 Ondansetron HCl (Zofran) 8 mg Q24H IVP Last administered on 12/15/18at 13:49; Start 12/15/18 at 12:30; Stop 12/16/18 at 12:31 Vitals/I & O Vital Sign - Last 24 Hours 12/15/18 12/15/18 12/15/18 12/15/18 11:12 15:10 15:47 15:55 Temp 97.7 98.1 97.7 98.1 Pulse 72 91 Resp 18 18 18 B/P (MAP) 139/53 (81) 124/45 (71) Pulse Ox 99 95 95 O2 Delivery Nasal Cannula Nasal Cannula Nasal Cannula Nasal Cannula O2 Flow Rate 2.0 2.0 2.0 2.0 12/15/18 12/15/18 12/15/18 12/15/18 16:58 19:05 19:21 20:00 Temp 98.7 98.7 Pulse 95 Resp 20 18 B/P (MAP) 130/50 (76) Pulse Ox 96 96 O2 Delivery Nasal Cannula Nasal Cannula Room Air Nasal Cannula O2 Flow Rate 2.0 2.0 2.0 2.0 12/15/18 12/15/18 12/15/18 12/15/18 22:45 22:48 23:05 23:45 Temp 99.0 99.0 Pulse 106 Resp 18 19 18 B/P (MAP) 123/42 (69) Pulse Ox 96 94 96 O2 Delivery Nasal Cannula Room Air Nasal Cannula Nasal Cannula O2 Flow Rate 2.0 2.0 2.0 2.0 12/16/18 12/16/18 12/16/18 12/16/18 03:10 06:36 07:15 09:08 Temp 99.5 99.4 99.5 99.4 Pulse 107 91 Resp 19 20 17 B/P (MAP) 152/62 (92) 136/59 (84) Pulse Ox 93 94 O2 Delivery Nasal Cannula Room Air Nasal Cannula Nasal Cannula O2 Flow Rate 2.0 2.0 2.0 2.0 12/16/18 12/16/18 12/16/18 09:09 09:10 10:03 Pulse 91 91 B/P (MAP) 136/59 136/59 Pulse Ox 94 O2 Delivery Nasal Cannula O2 Flow Rate 2.0 Intake and Output 12/15/18 12/15/18 12/16/18 15:00 23:00 07:00 Intake Total 700 ml 820 ml 240 ml Output Total 400 ml 350 ml 1350 ml Balance 300 ml 470 ml -1110 ml PATRIC MICHEL MD Dec 16, 2018 10:38
--- NOTE | 2018-12-16 10:56 | PDOC ---
PULMONARY PROGRESS NOTES Subjective Pt. states she doesn't feel well today, is having difficultly with acid reflux today. Vitals Vital Signs Date Time Temp Pulse Resp B/P (MAP) Pulse Ox O2 Delivery O2 Flow Rate FiO2 12/16/18 10:03 94 Nasal Cannula 2.0 12/16/18 09:10 91 136/59 12/16/18 09:08 17 12/16/18 07:15 99.4 99.4 ROS: No Nausea, No Chest Pain, No Abdominal Pain, No Increase Cough General: Alert, Oriented X4 Lungs: Clear Cardiovascular: S1, S2 Abdomen: Soft Neuro Exam: Alert, Oriented Extremities: No Edema Skin: Warm Labs Laboratory Tests Test 12/14/18 11:17 12/14/18 16:49 12/14/18 20:42 12/15/18 07:29 Glucose (Fingerstick) 174 mg/dL (70-99) 171 mg/dL (70-99) 169 mg/dL (70-99) 132 mg/dL (70-99) Test 12/15/18 11:30 12/15/18 17:03 12/16/18 07:36 Glucose (Fingerstick) 158 mg/dL (70-99) 95 mg/dL (70-99) 85 mg/dL (70-99) Laboratory Tests Test 12/15/18 11:30 12/15/18 17:03 12/16/18 07:36 Glucose (Fingerstick) 158 mg/dL (70-99) 95 mg/dL (70-99) 85 mg/dL (70-99) Medications Active Scripts Medications Dose Route/Sig Max Daily Dose Days Date Category Proair Hfa Inhaler (Albuterol Sulfate) 8.5 Gm Hfa.aer.ad 2 Puff INH PRN Q4HRS PRN 07/04/17 Reported Lidocaine PATCH (Lidocaine) 1 Each Adh..patch 1 Each TP DAILY 07/04/17 Reported Amlodipine Besylate 5 Mg Tablet 5 Mg PO DAILY 07/04/17 Reported Duoneb 0.5-3(2.5) Mg/3 Ml (Albuterol/Ipratropium) 3 Ml Ampul.neb 3 Ml NEB QID 07/04/17 Reported Symbicort 160-4.5 Mcg Inhaler (Budesonide/Formoterol Fumarate) 10.2 Gm Hfa.aer.ad 2 Puff IH BID 07/04/17 Reported Flector (Diclofenac Epolamine) 1 Each Patch.td12 1 Each TD BID 07/04/17 Reported Combivent Respimat Inhal (Ipratropium/Albuterol Sulfate) 4 Gm Aer.w.adap 2 Inh IH QID 07/04/17 Reported Albuterol Sulfate Neb Soln (Albuterol Sulfate) 0.63 Mg/3 Ml Vial.neb 1 Vial NEB QID 07/04/17 Reported Xanax (Alprazolam) 0.5 Mg Tablet 1 Tab PO TID 07/04/17 Reported Oxycodone Hcl Immed.release (Oxycodone Hcl) 10 Mg Tablet 10 Mg PO PRN Q6HRS PRN 07/04/17 Reported Potassium Chloride 20 Meq Tablet.er 8 Meq PO DAILY 07/04/17 Reported Synthroid (Levothyroxine Sodium) 200 Mcg Tablet 1 Tab PO DAILY 07/04/17 Reported Lisinopril-Hctz 20-12.5 Mg Tab (Lisinopril/Hydrochlorothiazide) 1 Each Tablet 1 Tab PO DAILY 07/04/17 Reported Glimepiride 4 Mg Tablet 1 Tab PO BID 07/04/17 Reported Lipitor (Atorvastatin Calcium) 40 Mg Tablet 1 Tab PO DAILY 07/04/17 Reported Actos (Pioglitazone Hcl) 45 Mg Tablet 1 Tab PO DAILY 07/04/17 Reported Amitriptyline Hcl 100 Mg Tablet 1 Tab PO QHS 07/04/17 Reported Aspirin 81 Mg Tab.chew 1 Tab PO DAILY 07/04/17 Reported Impression . 1. Progressive dyspnea, multifactorial secondary to acute exacerbation of chronic obstructive pulmonary disease, morbid obesity and weakness. 2. Small cell lung ca, Stage IIIB, T2N3M0, Left upper lobe lung mass with extensive mediastinal, hilar lymphadenopathy and left cervical lymphadenopathy is clinically concerning for primary lung cancer with metastatic disease to LN. s/p cervical lymph node biopsy 12/11/18 and I received verbal report from Dr Mcguire that this is small cell lung ca. 3. Morbid obesity. 4. Clinical symptoms and signs of obstructive sleep apnea. 5. Chronic diastolic heart failure. 6. Hyperlipidemia. 7. Hypothyroidism. Diagnosis: "LT cervical LN BX", needle biopsy: - SMALL CELL CARCINOMA. (See comment) . (CLW:br[place]; 12/13/2018) [facility] 12/13/2018 1050 Local Plan . 1. Cont. recommendations from HEM/ONC-- currently being treated with chemo and radiation 2. Cont. anti-depressants 3. Pt. is clinically stable from respiratory stand point, cont. supplemental oxygen and bronchodilators 4. Cont. bronchodilators as needed 5. cont. PPI and HOB 30 degress post meals to aide with acid reflux MIRNA ANTON MD Dec 16, 2018 10:56
[2018-12-16] MEDS ORDERED: ONDA8TAB9 PO (11:11)
[2018-12-16 11:45] VITALS: BP 105/46
[2018-12-16] MEDS ORDERED: IPRATRPIUM/ALBUTEROL 0.5/2.5MG 3 ML NEBU. NEB SCH (12:00)
[2018-12-16] MEDS: ONDANSETRON PF 4 MG/2 ML VIAL. IVP SCH (13:10)
[2018-12-16] MEDS: NORMAL SALINE IV SCH (13:23)
[2018-12-16] MEDS: ETOPOSIDE IV SCH (13:23)
--- NOTE | 2018-12-16 13:49 | NUR ---
chemo (evp general counsel-16) started. good blood return prior to starting infusion. sister at bedside. she is going home with her sister. questions answered regarding side effects of chemo and radiations. Jennie is nauseated. right clavicle area remains tender and achy but not as bad as yesterday. insertion site cleansed with chlor prep allowed to dry then lidocaine ointment applied to area. jennie wants to sleep
[2018-12-16 15:24] VITALS: BP 134/49
--- NOTE | 2018-12-16 15:32 | NUR ---
awakened for medication and vital signs. o2 sat was 84% and she complains of being short of breath. rt paged for resp treatment. o2 increased to 2.5 l. denies nausea at this time. head repositioned.
--- NOTE | 2018-12-16 15:35 | NUR ---
good blood return from port. cont vp client services-16
--- NOTE | 2018-12-16 15:46 | NUR ---
respiratory treatment given. takes xanax with sip of water. o2 decreased to 2 l per n/c. breath sounds are diminished bilaterally
--- NOTE | 2018-12-16 16:49 | NUR ---
vp public relations-16 completed. tolerated well. no complaints of nausea at this time. port a cath flushed with saline. drank 100 water. and had 1100 iv fluids. no urine output during infusion.
[2018-12-16] MEDS ORDERED: FUROSEMIDE 20 MG/2 ML VIAL. IVP ONE (17:30)
[2018-12-16] MEDS: ALBUTEROL SULFATE 2.5 MG/3 ML NEBU. INH PRN (18:00)
[2018-12-16 18:01] LABS: BASO % 0 % (0-3); EOS % 0 % (0-3); HEMATOCRIT 33.3 % (36.0-47.0); LYMPH # 0.2 x10^3/uL (1.0-4.8); LYMPH % 2 % (24-48); MEAN CORPUSCULAR HEMOGLOBIN 29 pg (25-35); MEAN CORPUSCULAR HGB CONC 33 g/dL (31-37); MEAN CORPUSCULAR VOLUME 88 fL (79-100); MONO # 0.1 x10^3/uL (0.0-1.1); MONO % 1 % (0-9); NEUT # 9.7 x10^3/uL (1.8-7.7); NEUT % 97 % (31-73); PLATELET COUNT 197 x10^3/uL (140-400); RED BLOOD COUNT 3.78 x10^6/uL (3.50-5.40); RED CELL DISTRIBUTION WIDTH 15.2 % (11.5-14.5); WHITE BLOOD COUNT 9.9 x10^3/uL (4.0-11.0)
[2018-12-16 18:21] LABS: ALBUMIN 3.3 g/dL (3.4-5.0); ALBUMIN/GLOBULIN RATIO 0.7 (1.0-1.7); CALCIUM 8.6 mg/dL (8.5-10.1); GFR 54.8; MAGNESIUM 2.3 mg/dL (1.8-2.4); TOTAL BILIRUBIN 0.4 mg/dL (0.2-1.0); TOTAL PROTEIN 7.9 g/dL (6.4-8.2)
[2018-12-16 18:32] LABS: % BANDS 1 % (0-9); % MONOS 1 % (0-10); % SEGS 98 % (35-66); PLT ESTIMATE ADEQUATE (ADEQUATE)
[2018-12-16 19:10] VITALS: BP 130/52
--- NOTE | 2018-12-16 20:39 | RAD ---
EXAM: AP View of the chest DATE: 12/16/2018 5:25 PM INDICATION: Shortness of air, history of lung cancer COMPARISON: 12/09/2018, 07/05/2017 FINDINGS: The cardiac mediastinal silhouette is grossly stable to 12/26/2018, accentuated by patient rotation. Right port tip terminates over the distal SVC. Bilateral perihilar and lung base airspace opacities likely consolidation. Pulmonary edema would also result in similar appearance. Small left pleural effusion. No pneumothorax. Electronically signed by: Aron Shelton MD (12/16/2018 8:36 PM) [facility] [id number]
[2018-12-16] MEDS: LIDOCAINE (700MG/PATCH) PATCH. TP SCH (21:30)
[2018-12-16 23:15] VITALS: BP 126/53
[2018-12-17] VITALS (9 sets, daily range): BP systolic 135–187; BP diastolic 58–71
[2018-12-17] MEDS: DEXTROSE 50% 25 GM / 50ML DISP.SYRIN. IV PRN ×2 (01:30→03:15)
[2018-12-17] MEDS: LEVOTHYROXINE 100 MCG TABLET PO SCH (05:56)
[2018-12-17] MEDS ORDERED: IV DEXTROSE 5% - 0.9 % NACL 1,000 ML IV SCH (06:30)
[2018-12-17] MEDS: IV DEXTROSE 5% 1,000 ML IV SCH ×2 (06:45→20:05)
[2018-12-17] MEDS: BUDESONIDE 0.5 MG/2 ML NEBU. NEB SCH ×2 (07:30→19:54)
[2018-12-17] MEDS: IPRATRPIUM/ALBUTEROL 0.5/2.5MG 3 ML NEBU. NEB SCH ×4 (07:30→19:54)
[2018-12-17] MEDS: PATCH REMOVAL. MC SCH (09:00)
--- NOTE | 2018-12-17 09:09 | PDOC ---
SUBJECTIVE Subjective S: Erythema on port extending upwards a bit per RN, associated with tenderness, and all she wants is her lidocaine patch O: Physical exam: Gen.: obese elderly female, a bit dissheveled, resting in bed Lungs: Breathing comfortably Skin: Erythema at port extending upwards a bit with slight tenderness Labs: White count 9.9, hemoglobin 11, platelets 197 Creatinine 1.0 Assessment and Plan: Small cell lung ca, Left upper lobe lung mass with extensive mediastinal, hilar lymphadenopathy and left cervical lymphadenopathy, C1 D4 carbo/etoposide, w/ plans to start RT w/ C2, plans for outpt brain MRI erythema and tenderness at port w/ Temp to 99.9: deaccess, clean well and check cx, d/w RN, low threshold to add Abx COPD: per pulm GERD: PPI back pain: lidocaine patch and prn meds hypoglycemia: per primary Dispo: f/u Dr Madden and Dr Hercules upon dc Thank you kindly and please do not hesitate to call with questions. OBJECTIVE Vital Signs Vital Signs Date Time Temp Pulse Resp B/P (MAP) Pulse Ox O2 Delivery O2 Flow Rate FiO2 12/17/18 07:31 91 Nasal Cannula 2.0 12/17/18 07:00 99.9 116 22 187/71 (109) 90 Nasal Cannula 4.0 99.9 12/16/18 23:15 102 18 126/53 (77) 95 Nasal Cannula 2.0 12/16/18 22:30 95 Nasal Cannula 2.0 12/16/18 21:30 93 Nasal Cannula 2.0 12/16/18 20:56 93 Nasal Cannula 2.0 12/16/18 20:56 93 Nasal Cannula 2.0 12/16/18 20:00 Nasal Cannula 2.0 12/16/18 19:10 98.7 103 130/52 (78) 93 Nasal Cannula 2.0 98.7 12/16/18 18:01 91 Nasal Cannula 2.0 12/16/18 15:35 Nasal Cannula 2.0 12/16/18 15:24 97.9 104 20 134/49 (77) 90 Nasal Cannula 2.5 97.9 12/16/18 11:45 98.3 65 18 105/46 (65) 94 Nasal Cannula 2.0 98.3 12/16/18 10:08 19 Nasal Cannula 2.0 12/16/18 10:03 94 Nasal Cannula 2.0 12/16/18 09:10 91 136/59 12/16/18 09:09 91 136/59 12/16/18 09:08 17 Nasal Cannula 2.0 I & O Intake and Output 12/17/18 07:00 Intake Total 480 ml Output Total 350 ml Balance 130 ml Intake Oral 480 ml Output Urine Total 350 ml # Voids 5 COMMENT Lab Laboratory Tests Test 12/16/18 11:38 12/16/18 17:40 12/17/18 01:29 12/17/18 01:49 Glucose (Fingerstick) 91 mg/dL (70-99) 39 mg/dL (70-99) 130 mg/dL (70-99) White Blood Count 9.9 x10^3/uL (4.0-11.0) Red Blood Count 3.78 x10^6/uL (3.50-5.40) Hemoglobin 11.0 g/dL (12.0-15.5) Hematocrit 33.3 % (36.0-47.0) Mean Corpuscular Volume 88 fL (79-100) Mean Corpuscular Hemoglobin 29 pg (25-35) Mean Corpuscular Hemoglobin Concent 33 g/dL (31-37) Red Cell Distribution Width 15.2 % (11.5-14.5) Platelet Count 197 x10^3/uL (140-400) Neutrophils (%) (Auto) 97 % (31-73) Lymphocytes (%) (Auto) 2 % (24-48) Monocytes (%) (Auto) 1 % (0-9) Eosinophils (%) (Auto) 0 % (0-3) Basophils (%) (Auto) 0 % (0-3) Neutrophils # (Auto) 9.7 x10^3/uL (1.8-7.7) Lymphocytes # (Auto) 0.2 x10^3/uL (1.0-4.8) Monocytes # (Auto) 0.1 x10^3/uL (0.0-1.1) Eosinophils # (Auto) 0.0 x10^3/uL (0.0-0.7) Basophils # (Auto) 0.0 x10^3/uL (0.0-0.2) Segmented Neutrophils % 98 % (35-66) Band Neutrophils % 1 % (0-9) Monocytes % 1 % (0-10) Platelet Estimate Adequate (ADEQUATE) Sodium Level 134 mmol/L (136-145) Potassium Level 4.0 mmol/L (3.5-5.1) Chloride Level 98 mmol/L (98-107) Carbon Dioxide Level 27 mmol/L (21-32) Anion Gap 9 (6-14) Blood Urea Nitrogen 26 mg/dL (7-20) Creatinine 1.0 mg/dL (0.6-1.0) Estimated GFR (Cockcroft-Gault) 54.8 BUN/Creatinine Ratio 26 (6-20) Glucose Level 80 mg/dL (70-99) Calcium Level 8.6 mg/dL (8.5-10.1) Magnesium Level 2.3 mg/dL (1.8-2.4) Total Bilirubin 0.4 mg/dL (0.2-1.0) Aspartate Amino Transf (AST/SGOT) 30 U/L (15-37) Alanine Aminotransferase (ALT/SGPT) 26 U/L (14-59) Alkaline Phosphatase 66 U/L (46-116) Total Protein 7.9 g/dL (6.4-8.2) Albumin 3.3 g/dL (3.4-5.0) Albumin/Globulin Ratio 0.7 (1.0-1.7) Test 12/17/18 02:56 12/17/18 07:26 Glucose (Fingerstick) 71 mg/dL (70-99) 123 mg/dL (70-99) ANGELITA SHARPE MD Dec 17, 2018 09:09
--- NOTE | 2018-12-17 09:14 | PDOC ---
PULMONARY PROGRESS NOTES Subjective Pt. states she doesn't feel well today, is having difficultly with acid reflux today. Vitals Vital Signs Date Time Temp Pulse Resp B/P (MAP) Pulse Ox O2 Delivery O2 Flow Rate FiO2 12/17/18 07:31 91 Nasal Cannula 2.0 12/17/18 07:00 99.9 116 22 187/71 (109) 99.9 ROS: No Nausea, No Chest Pain, No Abdominal Pain, No Increase Cough General: Alert, Oriented X4 Lungs: Clear Cardiovascular: S1, S2 Abdomen: Soft Neuro Exam: Alert, Oriented Extremities: No Edema Skin: Warm Labs Laboratory Tests Test 12/15/18 11:30 12/15/18 17:03 12/16/18 07:36 12/16/18 11:38 Glucose (Fingerstick) 158 mg/dL (70-99) 95 mg/dL (70-99) 85 mg/dL (70-99) 91 mg/dL (70-99) Test 12/16/18 17:40 12/17/18 01:29 12/17/18 01:49 12/17/18 02:56 White Blood Count 9.9 x10^3/uL (4.0-11.0) Red Blood Count 3.78 x10^6/uL (3.50-5.40) Hemoglobin 11.0 g/dL (12.0-15.5) Hematocrit 33.3 % (36.0-47.0) Mean Corpuscular Volume 88 fL (79-100) Mean Corpuscular Hemoglobin 29 pg (25-35) Mean Corpuscular Hemoglobin Concent 33 g/dL (31-37) Red Cell Distribution Width 15.2 % (11.5-14.5) Platelet Count 197 x10^3/uL (140-400) Neutrophils (%) (Auto) 97 % (31-73) Lymphocytes (%) (Auto) 2 % (24-48) Monocytes (%) (Auto) 1 % (0-9) Eosinophils (%) (Auto) 0 % (0-3) Basophils (%) (Auto) 0 % (0-3) Neutrophils # (Auto) 9.7 x10^3/uL (1.8-7.7) Lymphocytes # (Auto) 0.2 x10^3/uL (1.0-4.8) Monocytes # (Auto) 0.1 x10^3/uL (0.0-1.1) Eosinophils # (Auto) 0.0 x10^3/uL (0.0-0.7) Basophils # (Auto) 0.0 x10^3/uL (0.0-0.2) Segmented Neutrophils % 98 % (35-66) Band Neutrophils % 1 % (0-9) Monocytes % 1 % (0-10) Platelet Estimate Adequate (ADEQUATE) Sodium Level 134 mmol/L (136-145) Potassium Level 4.0 mmol/L (3.5-5.1) Chloride Level 98 mmol/L (98-107) Carbon Dioxide Level 27 mmol/L (21-32) Anion Gap 9 (6-14) Blood Urea Nitrogen 26 mg/dL (7-20) Creatinine 1.0 mg/dL (0.6-1.0) Estimated GFR (Cockcroft-Gault) 54.8 BUN/Creatinine Ratio 26 (6-20) Glucose Level 80 mg/dL (70-99) Calcium Level 8.6 mg/dL (8.5-10.1) Magnesium Level 2.3 mg/dL (1.8-2.4) Total Bilirubin 0.4 mg/dL (0.2-1.0) Aspartate Amino Transf (AST/SGOT) 30 U/L (15-37) Alanine Aminotransferase (ALT/SGPT) 26 U/L (14-59) Alkaline Phosphatase 66 U/L (46-116) Total Protein 7.9 g/dL (6.4-8.2) Albumin 3.3 g/dL (3.4-5.0) Albumin/Globulin Ratio 0.7 (1.0-1.7) Glucose (Fingerstick) 39 mg/dL (70-99) 130 mg/dL (70-99) 71 mg/dL (70-99) Test 12/17/18 07:26 Glucose (Fingerstick) 123 mg/dL (70-99) Laboratory Tests Test 12/16/18 11:38 12/16/18 17:40 12/17/18 01:29 12/17/18 01:49 Glucose (Fingerstick) 91 mg/dL (70-99) 39 mg/dL (70-99) 130 mg/dL (70-99) White Blood Count 9.9 x10^3/uL (4.0-11.0) Red Blood Count 3.78 x10^6/uL (3.50-5.40) Hemoglobin 11.0 g/dL (12.0-15.5) Hematocrit 33.3 % (36.0-47.0) Mean Corpuscular Volume 88 fL (79-100) Mean Corpuscular Hemoglobin 29 pg (25-35) Mean Corpuscular Hemoglobin Concent 33 g/dL (31-37) Red Cell Distribution Width 15.2 % (11.5-14.5) Platelet Count 197 x10^3/uL (140-400) Neutrophils (%) (Auto) 97 % (31-73) Lymphocytes (%) (Auto) 2 % (24-48) Monocytes (%) (Auto) 1 % (0-9) Eosinophils (%) (Auto) 0 % (0-3) Basophils (%) (Auto) 0 % (0-3) Neutrophils # (Auto) 9.7 x10^3/uL (1.8-7.7) Lymphocytes # (Auto) 0.2 x10^3/uL (1.0-4.8) Monocytes # (Auto) 0.1 x10^3/uL (0.0-1.1) Eosinophils # (Auto) 0.0 x10^3/uL (0.0-0.7) Basophils # (Auto) 0.0 x10^3/uL (0.0-0.2) Segmented Neutrophils % 98 % (35-66) Band Neutrophils % 1 % (0-9) Monocytes % 1 % (0-10) Platelet Estimate Adequate (ADEQUATE) Sodium Level 134 mmol/L (136-145) Potassium Level 4.0 mmol/L (3.5-5.1) Chloride Level 98 mmol/L (98-107) Carbon Dioxide Level 27 mmol/L (21-32) Anion Gap 9 (6-14) Blood Urea Nitrogen 26 mg/dL (7-20) Creatinine 1.0 mg/dL (0.6-1.0) Estimated GFR (Cockcroft-Gault) 54.8 BUN/Creatinine Ratio 26 (6-20) Glucose Level 80 mg/dL (70-99) Calcium Level 8.6 mg/dL (8.5-10.1) Magnesium Level 2.3 mg/dL (1.8-2.4) Total Bilirubin 0.4 mg/dL (0.2-1.0) Aspartate Amino Transf (AST/SGOT) 30 U/L (15-37) Alanine Aminotransferase (ALT/SGPT) 26 U/L (14-59) Alkaline Phosphatase 66 U/L (46-116) Total Protein 7.9 g/dL (6.4-8.2) Albumin 3.3 g/dL (3.4-5.0) Albumin/Globulin Ratio 0.7 (1.0-1.7) Test 12/17/18 02:56 12/17/18 07:26 Glucose (Fingerstick) 71 mg/dL (70-99) 123 mg/dL (70-99) Medications Active Scripts Medications Dose Route/Sig Max Daily Dose Days Date Category Proair Hfa Inhaler (Albuterol Sulfate) 8.5 Gm Hfa.aer.ad 2 Puff INH PRN Q4HRS PRN 07/04/17 Reported Lidocaine PATCH (Lidocaine) 1 Each Adh..patch 1 Each TP DAILY 07/04/17 Reported Amlodipine Besylate 5 Mg Tablet 5 Mg PO DAILY 07/04/17 Reported Duoneb 0.5-3(2.5) Mg/3 Ml (Albuterol/Ipratropium) 3 Ml Ampul.neb 3 Ml NEB QID 07/04/17 Reported Symbicort 160-4.5 Mcg Inhaler (Budesonide/Formoterol Fumarate) 10.2 Gm Hfa.aer.ad 2 Puff IH BID 07/04/17 Reported Flector (Diclofenac Epolamine) 1 Each Patch.td12 1 Each TD BID 07/04/17 Reported Combivent Respimat Inhal (Ipratropium/Albuterol Sulfate) 4 Gm Aer.w.adap 2 Inh IH QID 07/04/17 Reported Albuterol Sulfate Neb Soln (Albuterol Sulfate) 0.63 Mg/3 Ml Vial.neb 1 Vial NEB QID 07/04/17 Reported Xanax (Alprazolam) 0.5 Mg Tablet 1 Tab PO TID 07/04/17 Reported Oxycodone Hcl Immed.release (Oxycodone Hcl) 10 Mg Tablet 10 Mg PO PRN Q6HRS PRN 07/04/17 Reported Potassium Chloride 20 Meq Tablet.er 8 Meq PO DAILY 07/04/17 Reported Synthroid (Levothyroxine Sodium) 200 Mcg Tablet 1 Tab PO DAILY 07/04/17 Reported Lisinopril-Hctz 20-12.5 Mg Tab (Lisinopril/Hydrochlorothiazide) 1 Each Tablet 1 Tab PO DAILY 07/04/17 Reported Glimepiride 4 Mg Tablet 1 Tab PO BID 07/04/17 Reported Lipitor (Atorvastatin Calcium) 40 Mg Tablet 1 Tab PO DAILY 07/04/17 Reported Actos (Pioglitazone Hcl) 45 Mg Tablet 1 Tab PO DAILY 07/04/17 Reported Amitriptyline Hcl 100 Mg Tablet 1 Tab PO QHS 07/04/17 Reported Aspirin 81 Mg Tab.chew 1 Tab PO DAILY 07/04/17 Reported Impression . 1. Progressive dyspnea, multifactorial secondary to acute exacerbation of chronic obstructive pulmonary disease, morbid obesity and weakness. 2. Small cell lung ca, Stage IIIB, [id number], Left upper lobe lung mass with extensive mediastinal, hilar lymphadenopathy and left cervical lymphadenopathy is clinically concerning for primary lung cancer with metastatic disease to LN. s/p cervical lymph node biopsy 12/11/18 and I received verbal report from Dr Mcguire that this is small cell lung ca. 3. Morbid obesity. 4. Clinical symptoms and signs of obstructive sleep apnea. 5. Chronic diastolic heart failure. 6. Hyperlipidemia. 7. Hypothyroidism. Diagnosis: "LT cervical LN BX", needle biopsy: - SMALL CELL CARCINOMA. (See comment) . (CLW:mmeliazar; 12/13/2018) QLM 12/13/2018 1050 Local Plan . 1. Cont. recommendations from HEM/ONC-- currently being treated with chemo and radiation 2. Cont. anti-depressants 3. Pt. is clinically stable from respiratory stand point, cont. supplemental oxygen and bronchodilators 4. Cont. bronchodilators as needed 5. cont. PPI and HOB 30 degress post meals to aide with acid reflux MIRNA ANTON MD Dec 17, 2018 09:14
[2018-12-17] MEDS: LIDOCAINE (700MG/PATCH) PATCH. TP SCH (09:32)
[2018-12-17] MEDS: DICLOFENAC SODIUM 1% TOPICAL GEL 100GM TUBE. TP SCH ×2 (09:33→21:00)
--- NOTE | 2018-12-17 09:40 | PDOC ---
PROGRESS NOTES Subjective Subjective low grade fever 99.9 Objective Objective Vital Signs Date Time Temp Pulse Resp B/P (MAP) Pulse Ox O2 Delivery O2 Flow Rate FiO2 12/17/18 07:31 91 Nasal Cannula 2.0 12/17/18 07:00 99.9 116 22 187/71 (109) 99.9 Intake and Output 12/17/18 07:00 Intake Total 480 ml Output Total 350 ml Balance 130 ml Intake Oral 480 ml Output Urine Total 350 ml # Voids 5 Physical Exam Abdomen: Normal bowel sounds, Soft Heart: Normal S1, Normal S2 General: Alert, Oriented X3 Lungs: Clear to auscultation MUSCULOSKELETAL: No deformity Neuro: Normal speech Psych/Mental Status: Mental status NL COMMENT redness rt chest over port area Diagnosis Problem List Problems Medical Problems: (1) Anxiety Status: Acute (2) Depression Status: Chronic (3) Diabetes Status: Chronic (4) Dyspnea on minimal exertion Status: Acute (5) HTN (hypertension) Status: Chronic (6) Hyperlipidemia Status: Chronic (7) Hypothyroidism Status: Chronic (8) Mass of left lung Status: Acute (9) Pleural effusion, left Status: Acute Assessment Assessment Problems Medical Problems: (1) Anxiety Status: Acute (2) Depression Status: Chronic (3) Diabetes Status: Chronic (4) Dyspnea on minimal exertion Status: Acute (5) HTN (hypertension) Status: Chronic (6) Hyperlipidemia Status: Chronic (7) Hypothyroidism Status: Chronic (8) Mass of left lung Status: Acute (9) Pleural effusion, left Status: Acute FINAL IMPRESSION: cellulitis at port site. hypoglycemia. Small cell lung ca ,metastatic 1. Left upper lung mass new finding ,suspicious for lung cancer, small cell lung cancer 2. Extensive mediastinal hilar adenopathy as well as cervical adenopathy, atelectasis of the left lung, atelectasis of the right lung and hiatal hernia. 3. Diabetes. 4. Hypertension. 5. Hyperlipidemia. 6. Hypothyroidism. 7. Anxiety, depression. 8. Ex-smoker, quit 10 years ago, smoked for 25 years, 2 packs at least. PLAN: ID consult.spoke with A Campa deactivate port.spoke with oncology d/c amaryl and actose due to hypoglycemia start on chemo , day #3 completed yesterday , 1 st cycle of chemo for small cell lung ca. labs ok cxr rt lung infiltrates. Port placed for chemo. lymph node teqtom00/5/19 showed small cell lung ca CT scan abd and pelvis neg Bone scan neg. spoke with oncology. pt eval +treat. protonix for heart burn noted Radiation oncology input. MRI brain out pt Plan Plan of Care Problems Medical Problems: (1) Anxiety Status: Acute (2) Depression Status: Chronic (3) Diabetes Status: Chronic (4) Dyspnea on minimal exertion Status: Acute (5) HTN (hypertension) Status: Chronic (6) Hyperlipidemia Status: Chronic (7) Hypothyroidism Status: Chronic (8) Mass of left lung Status: Acute (9) Pleural effusion, left Status: Acute Comment Review of Relevant I have reviewed the following items malik (where applicable) has been applied. Labs Laboratory Tests Test 12/16/18 11:38 12/16/18 17:40 12/17/18 01:29 12/17/18 01:49 Glucose (Fingerstick) 91 mg/dL (70-99) 39 mg/dL (70-99) 130 mg/dL (70-99) White Blood Count 9.9 x10^3/uL (4.0-11.0) Red Blood Count 3.78 x10^6/uL (3.50-5.40) Hemoglobin 11.0 g/dL (12.0-15.5) Hematocrit 33.3 % (36.0-47.0) Mean Corpuscular Volume 88 fL (79-100) Mean Corpuscular Hemoglobin 29 pg (25-35) Mean Corpuscular Hemoglobin Concent 33 g/dL (31-37) Red Cell Distribution Width 15.2 % (11.5-14.5) Platelet Count 197 x10^3/uL (140-400) Neutrophils (%) (Auto) 97 % (31-73) Lymphocytes (%) (Auto) 2 % (24-48) Monocytes (%) (Auto) 1 % (0-9) Eosinophils (%) (Auto) 0 % (0-3) Basophils (%) (Auto) 0 % (0-3) Neutrophils # (Auto) 9.7 x10^3/uL (1.8-7.7) Lymphocytes # (Auto) 0.2 x10^3/uL (1.0-4.8) Monocytes # (Auto) 0.1 x10^3/uL (0.0-1.1) Eosinophils # (Auto) 0.0 x10^3/uL (0.0-0.7) Basophils # (Auto) 0.0 x10^3/uL (0.0-0.2) Segmented Neutrophils % 98 % (35-66) Band Neutrophils % 1 % (0-9) Monocytes % 1 % (0-10) Platelet Estimate Adequate (ADEQUATE) Sodium Level 134 mmol/L (136-145) Potassium Level 4.0 mmol/L (3.5-5.1) Chloride Level 98 mmol/L (98-107) Carbon Dioxide Level 27 mmol/L (21-32) Anion Gap 9 (6-14) Blood Urea Nitrogen 26 mg/dL (7-20) Creatinine 1.0 mg/dL (0.6-1.0) Estimated GFR (Cockcroft-Gault) 54.8 BUN/Creatinine Ratio 26 (6-20) Glucose Level 80 mg/dL (70-99) Calcium Level 8.6 mg/dL (8.5-10.1) Magnesium Level 2.3 mg/dL (1.8-2.4) Total Bilirubin 0.4 mg/dL (0.2-1.0) Aspartate Amino Transf (AST/SGOT) 30 U/L (15-37) Alanine Aminotransferase (ALT/SGPT) 26 U/L (14-59) Alkaline Phosphatase 66 U/L (46-116) Total Protein 7.9 g/dL (6.4-8.2) Albumin 3.3 g/dL (3.4-5.0) Albumin/Globulin Ratio 0.7 (1.0-1.7) Test 12/17/18 02:56 12/17/18 07:26 Glucose (Fingerstick) 71 mg/dL (70-99) 123 mg/dL (70-99) Medications Current Medications Albuterol/ Ipratropium (Duoneb) 3 ml RTQID NEB ; Start 12/16/18 at 12:00; Stop 12/16/18 at 10:45; Status DC Dextrose 1,000 ml @ 75 mls/hr [id number] IV Last administered on 12/17/18at 06:45; Start 12/17/18 at 06:45 Dextrose/Sodium Chloride 1,000 ml @ 75 mls/hr [id number] IV Last administered on 12/17/18at 06:30; Start 12/17/18 at 06:30; Stop 12/17/18 at 06:41; Status DC Furosemide (Lasix) 20 mg 1X ONCE IVP Last administered on 12/16/18at 17:56; Start 12/16/18 at 17:30; Stop 12/16/18 at 17:37; Status DC Lidocaine HCl (Xylocaine 2% Topical 5gm Tube) 1 cornelia PRN Q6HRS PRN TP to a ffected area; Start 12/16/18 at 10:15 Vitals/I & O Vital Sign - Last 24 Hours 12/16/18 12/16/18 12/16/18 12/16/18 10:03 10:08 11:45 15:24 Temp 98.3 97.9 98.3 97.9 Pulse 65 104 Resp 19 18 20 B/P (MAP) 105/46 (65) 134/49 (77) Pulse Ox 94 94 90 O2 Delivery Nasal Cannula Nasal Cannula Nasal Cannula Nasal Cannula O2 Flow Rate 2.0 2.0 2.0 2.5 12/16/18 12/16/18 12/16/18 12/16/18 15:35 18:01 19:10 20:00 Temp 98.7 98.7 Pulse 103 B/P (MAP) 130/52 (78) Pulse Ox 91 93 O2 Delivery Nasal Cannula Nasal Cannula Nasal Cannula Nasal Cannula O2 Flow Rate 2.0 2.0 2.0 2.0 12/16/18 12/16/18 12/16/18 12/16/18 20:56 20:56 21:30 22:30 Pulse Ox 93 93 93 95 O2 Delivery Nasal Cannula Nasal Cannula Nasal Cannula Nasal Cannula O2 Flow Rate 2.0 2.0 2.0 2.0 12/16/18 12/17/18 12/17/18 23:15 07:00 07:31 Temp 99.9 99.9 Pulse 102 116 Resp 18 22 B/P (MAP) 126/53 (77) 187/71 (109) Pulse Ox 95 90 91 O2 Delivery Nasal Cannula Nasal Cannula Nasal Cannula O2 Flow Rate 2.0 4.0 2.0 Intake and Output 12/16/18 12/16/18 12/17/18 15:00 23:00 07:00 Intake Total 180 ml 100 ml 200 ml Output Total 350 ml Balance 180 ml -250 ml 200 ml PATRIC MICHEL MD Dec 17, 2018 09:40
[2018-12-17] MEDS: fentaNYL PF VIAL 100 MCG/2 ML VIAL IVP PRN (09:48)
--- NOTE | 2018-12-17 09:56 | RAD ---
Procedure: Ultrasound and fluoroscopically guided placement of right internal jugular power port.. 12/17/2018 7:52 AM Clinical Indication: for chemo, lung ca Sedation: Conscious sedation was administered for 30 minutes. The patient was monitored by a qualified independent observer throughout the time of sedation. Please refer to the medical record for exact doses of medications utilized to achieve moderate sedation. Fluoroscopy time: 1.2 minutes Dose area product: [id number] Consent: The procedure was explained in its entirety to the patient or the patients designated senior sales representative by a member of the treatment team, including a discussion of the risks, benefits and commonly accepted alternatives to the procedure, as well as the expected consequences of no therapy whatsoever. Discussion of the risks included, but was not limited to, those that are most frequent and those that are rare but possibly severe or life-threatening, as well as the possibility of unforeseen complications. Technique and Findings: All elements of maximal sterile barrier technique including the use of a cap, mask, sterile gown, sterile gloves, large sterile sheet, appropriate hand hygiene, and 2% chlorhexidine for cutaneous antisepsis (or acceptable alternative antiseptic per current guidelines) were followed for this procedure. Following informed consent, and a timeout procedure, the patient was prepped and draped in the usual sterile fashion. Ultrasound interrogation of the right neck revealed patency and compressibility of the right internal jugular vein. A 21-gauge micropuncture was then used to gain access to this vein under ultrasound guidance. A hard copy ultrasound image was recorded. The needle was exchanged over a wire for a sheath. A 1 inch incision was made several centimeters inferior to the venotomy site. A catheter was tunneled from this site dermatotomy site in the neck. Catheter was advanced through peel-away sheath such that its tip was in the proximal right atrium with the patient supine. The catheter was trimmed to length and connected to the port reservoir. The port was found to flush and aspirate normally. The wound was closed in layers using 4-0 Vicryl suture. Sterile dressings were applied. Impression: Successful ultrasound and fluoroscopically guided placement of a right internal jugular PowerPort
[2018-12-17] MEDS ORDERED: GADOTERATE 7.5 MMOL/15ML VIAL. IVP ONE (10:00)
--- NOTE | 2018-12-17 10:57 | NUR ---
SW following pt. Spoke with RN and pt has not wanting to participate a lot in ADL's but appears to capable of doing things for herself. PT to see pt today. Pt is getting MRI and RN reports she might take access out of port today. SW will be available as needed.
[2018-12-17] MEDS: PIPERACILLIN/TAZOBACTAM 3.375 GM in IV NORMAL SALINE 50ML 50 ML IV SCH ×2 (12:00→18:00)
[2018-12-17] MEDS: PANTOPRAZOLE 40 MG TABLET.DR. PO SCH (12:03)
[2018-12-17] MEDS: POTASSIUM CHLORIDE 10 MEQ TABLET.ER. PO SCH (12:04)
[2018-12-17] MEDS: amLODIPine BESYLATE 5 MG TABLET PO SCH (12:04)
[2018-12-17] MEDS: hydroCHLOROthiazide 12.5 MG CAPSULE PO SCH (12:04)
[2018-12-17] MEDS: LISINOPRIL 20 MG TABLET PO SCH (12:05)
[2018-12-17] MEDS: SERTRALINE 50 MG TABLET. PO SCH (12:05)
[2018-12-17] MEDS: ASPIRIN CHEWABLE 81 MG TABLET. PO SCH (12:05)
[2018-12-17] MEDS: DOCUSATE SODIUM 100 MG CAPSULE. PO SCH (12:05)
[2018-12-17] MEDS: ALPRAZolam 0.5 MG TABLET PO SCH ×3 (12:05→21:00)
--- NOTE | 2018-12-17 12:05 | RAD ---
MRI Brain with and without contrast History: Small cell lung carcinoma Technique: Multiplanar, multi sequential pre and postcontrast MR imaging was performed of the brain. Comparison: None Findings: There is some motion degradation. There is no evidence of recent infarct or cytotoxic edema. The ventricles, sulci, and cisterns are within normal limits in size and configuration. There is no significant midline shift, intraaxial mass effect, or focal abnormal extra-axial fluid collection. Allowing for motion, there is no convincing significant signal abnormality of the brain parenchyma. There is no nodular parenchymal or leptomeningeal enhancement. There is preservation of the major intracranial flow-voids at the skull base. The cerebellar tonsils are normal in location. There is no significant abnormality of the pineal gland or pituitary gland. There is negligible patchy ethmoid air cell mucosal thickening. There is more confluent moderate fluid signal abnormality of the left mastoid air cells, to a somewhat lesser degree on the right. There is small mucous retention cyst of the lateral right frontal sinus. There is preserved marrow signal of the clivus. There is proptosis greater on the left. Impression: 1. Allowing for motion, there is no convincing abnormal intracranial enhancement. 2. There is some fluid in the mastoid air cells greater on the left of uncertain sterility. Electronically signed by: Elmer Mota MD (12/17/2018 12:02 PM) [id number]
--- NOTE | 2018-12-17 14:48 | CONS ---
DATE OF CONSULTATION: 12/15/2018 REFERRING PHYSICIAN: Yari Deng MD REASON FOR CONSULTATION: Erythema around Port-A-Cath site. HISTORY OF PRESENT ILLNESS: A 68-year-old female presented to the ER on 12/09/2018 with complaints of dyspnea, fatigue, overall weakness. The patient also had neck pain a couple of weeks prior to admission with decreased appetite and weight loss. She underwent CT of the neck and chest, which revealed left upper lobe mass with extensive mediastinal and left hilar adenopathy. Neck CT revealed extensive lymphadenopathy extending into the mediastinum. She underwent CT-guided needle biopsy of the cervical lymph nodes which confirmed small cell carcinoma. Further evaluation of CT abdomen and pelvis was done for staging along with bone scan. She underwent a central line placement on 12/13/2018 and received chemotherapy starting last Monday, Monday and Monday. The patient was noticed to have redness around the port site, which is extending upwards with tenderness. The patient complains of pain in both the lower extremities and chest wall around the port site. She has low-grade fever, T-max of 99.9. The patient is anxious, appears depressed, says feels very tired. White count was 9.9, creatinine of 1.0, blood cultures are drawn. ID consult has been requested for further evaluation of erythema around the port site, which is extending upwards. PAST MEDICAL HISTORY: COPD, GERD, chronic back pain, morbid obesity, diastolic heart failure, hypertension, hyperlipidemia, hypothyroidism, lipomatosis of spinal cord, anxiety, depression. ALLERGIES: No known drug allergies. SOCIAL HISTORY: Smoked for more than 25 years, quit 11 years ago. Denies alcohol or street drugs. Lives with . FAMILY HISTORY: As per HPI. CURRENT MEDICATIONS: Antibiotics none. Other medications reviewed in medication list. REVIEW OF SYSTEMS: Negative except for above in HPI. PHYSICAL EXAMINATION: VITAL SIGNS: Temperature 97.8, T-max 99.9, pulse 111, respiratory rate 20, blood pressure 153/64, oxygen saturation 92% on 4 L by nasal cannula. GENERAL: Alert, oriented x 3 female, anxious, little uncomfortable due to leg pain. Cooperative. HEENT: Anicteric, no thrush. Oral mucosa moist. NECK: Supple. LUNGS: Clear bilaterally. ABDOMEN: Soft, obese. Bowel sounds present, nontender, nondistended. EXTREMITIES: No edema, no cyanosis. DERMATOLOGIC: Warm, dry. No generalized rash except for erythema around the port site extending towards the neck, erythematous, tender. CENTRAL NERVOUS SYSTEM: Alert and oriented x 3, grossly nonfocal. PSYCHIATRIC: Cooperative, anxious. LABORATORY DATA: WBC 9.9, hemoglobin 11.0, hematocrit 33.3, platelets 197, neutrophils 97%, bands 1. Sodium 134, potassium 4.0, chloride 98, bicarbonate 27, BUN 26, creatinine 1.0, glucose 80, albumin 3.3. UA on admission shows moderate squamous epithelial cells, otherwise negative. Influenza screen negative. Micro blood cultures done this morning, pending at this time. IMAGING: Chest x-ray 12/16 shows cardiac mediastinal silhouette is grossly stable, accentuated by patient rotation, right port tip terminates over the distal SVC, bilateral perihilar and lung airspace opacity likely consolidation, pulmonary edema could be a result in similar appearance, small left pleural effusion, no pneumothorax. Brain MRI results pending at this time. IMPRESSION: 1. Erythema and tenderness at the Port site, cellulitis, cannot r/o bloodstream infection. 2. Febrile illness,from above 3. Recently diagnosed small cell lung CA, status post chemo started on 12/14 through Port-A-Cath placed on 12/13 4. Chronic obstructive pulmonary disease. 5. History of chronic back pain. 6. Anxiety, depression RECOMMENDATIONS: 1. Start empiric Zosyn and daptomycin. 2. We would like to avoid vancomycin due to HALLE this admission 3. BC done this am, if any drainage noted from landon cath site, send for c/s 4. Follow up cultures and labs 5. Monitor Port-A-Cath site closely. 6. Maintain aspiration precaution. Thank you for allowing me to participate in this patient's care. If you have any questions, do not hesitate to contact me. PAMELA MULLEN MD DR: DEMETRIS/deb JOB#: [id number] / [id number] ADALGISAD
[2018-12-17] MEDS: ALBUTEROL SULFATE 2.5 MG/3 ML NEBU. INH PRN (17:28)
--- NOTE | 2018-12-17 20:12 | NUR ---
Patient had positive sepsis screen. This nurse paged the sepsis pager and physician. Got orders for Lactic and blood cultures x2 from ICU.
[2018-12-17 20:44] LABS: BASE EXCESS ABG 2 mmol/L (-3-3); HCO3 ABG 27 mmol/L (21-28); PCO2 ABG 43 mmHg (35-46); PO2 ABG 97 mmHg (65-108); SAT O2 ABG 97 % (92-99)
[2018-12-17 20:45] LABS: FIO2 ABG 32
[2018-12-17] MEDS: DAPTOmycin (GENERIC) IVPB 500 MG in IV NORMAL SALINE 50ML 50 ML IV SCH (20:52)
[2018-12-17 21:03] LABS: BASO % 0 % (0-3); EOS % 0 % (0-3); HEMATOCRIT 28.9 % (36.0-47.0); HEMOGLOBIN 9.6 g/dL (12.0-15.5); LYMPH # 0.1 x10^3/uL (1.0-4.8); LYMPH % 1 % (24-48); MEAN CORPUSCULAR HEMOGLOBIN 29 pg (25-35); MEAN CORPUSCULAR HGB CONC 33 g/dL (31-37); MEAN CORPUSCULAR VOLUME 86 fL (79-100); MONO % 0 % (0-9); NEUT % 99 % (31-73); PLATELET COUNT 150 x10^3/uL (140-400); RED BLOOD COUNT 3.35 x10^6/uL (3.50-5.40); RED CELL DISTRIBUTION WIDTH 15.1 % (11.5-14.5); WHITE BLOOD COUNT 10.1 x10^3/uL (4.0-11.0)
[2018-12-17 21:14] LABS: ALBUMIN 2.8 g/dL (3.4-5.0); ALBUMIN/GLOBULIN RATIO 0.6 (1.0-1.7); CALCIUM 8.6 mg/dL (8.5-10.1); CREATININE 1.2 mg/dL (0.6-1.0); GFR 44.4; MAGNESIUM 2.2 mg/dL (1.8-2.4); POTASSIUM 3.2 mmol/L (3.5-5.1); TOTAL BILIRUBIN 0.4 mg/dL (0.2-1.0); TOTAL PROTEIN 7.2 g/dL (6.4-8.2)
[2018-12-17 23:32] LABS: BILIRUBIN,URINE NEGATIVE (NEG); CLARITY,URINE CLEAR; COLOR,URINE YELLOW; NITRITE,URINE NEGATIVE (NEG); PROTEIN,URINE 100 mg/dL (NEG-TRACE); UROBILINOGEN,URINE 0.2 mg/dL (0.2 mg/dL)
[2018-12-17 23:46] LABS: BACTERIA,URINE 0 /HPF (0-FEW); RBC,URINE RARE /HPF (0-2); SQUAMOUS EPITHELIAL CELL,UR FEW /LPF; WBC,URINE RARE /HPF (0-4)
[2018-12-18] VITALS (24 sets, daily range): BP systolic 81–192; BP diastolic 35–73
--- NOTE | 2018-12-18 00:01 | NUR ---
TRANSFERRED TO ICU ROOM [address] [place] [address]. REPORT RECEIVED FROM HARRIETT KING. REPORTS TRANSFER DUE TO POSITIVE SEPSIS AND AMS. UPON ARRIVAL TO ICU PATIENT ALERT AND ANSWERS MOST QUESTIONS APPROPRIATELY. AGITATED AND DEMANDING, EASILY REDIRECTED. 4L OXYGEN VIA NC. COMPLAINED OF PAIN TO BACK DUE TO "TUMOR" IN HER BACK. REQUESTS BREATHING TREATMENT BECAUSE SHE NEEDS "AIR'. WILL CONTINUE TO MONITOR.
[2018-12-18] MEDS: PIPERACILLIN/TAZOBACTAM 3.375 GM in IV NORMAL SALINE 50ML 50 ML IV SCH ×5 (00:15→23:53)
[2018-12-18] MEDS: ALBUTEROL SULFATE 2.5 MG/3 ML NEBU. INH PRN ×3 (00:24→22:16)
--- NOTE | 2018-12-18 01:00 | NUR ---
REDNESS NOTED AROUND BANDAGED AREA WHERE CAMILLE CATH IS PLACED. ABOVE PORT, PIN-SIZED SCAB NOTED WITH SEROSANGUOUS DRAINAGE, OOZING. 4X4'S PLACED OVER DRAINAGE. WILL CONTINUE TO MONITOR.
[2018-12-18] MEDS: ACETAMINOPHEN 325 MG TABLET. PO PRN (05:48)
[2018-12-18] MEDS: LEVOTHYROXINE 100 MCG TABLET PO SCH ×2 (05:50→09:54)
--- NOTE | 2018-12-18 07:30 | PDOC ---
Infectious Disease Note Subjective: Subjective pt was transferred to icu last pm with fever of 102 required fluid bolus for hypotension bp is around 90s not on pressors on o2 sleepy but arousable says feels a little better ROS: ROS Temp of 102 some sob Vital Signs: Vital Signs Vital Signs Date Time Temp Pulse Resp B/P (MAP) Pulse Ox O2 Delivery O2 Flow Rate FiO2 12/18/18 06:00 94 24 121/57 (78) 92 Nasal Cannula 4.0 12/18/18 04:00 101.4 101.4 Physical Exam: PHYSICAL EXAM GENERAL: Alert,female,tired appearing HEENT: Anicteric, no thrush. Oral mucosa moist. NECK: Supple. LUNGS: Clear bilaterally. ABDOMEN: Soft, obese. Bowel sounds present, nontender, nondistended. EXTREMITIES: No edema, no cyanosis. DERMATOLOGIC: Warm, dry. No generalized rash except for erythema around the port site extending towards the neck, erythematous, tender.drainage from superior aspect CENTRAL NERVOUS SYSTEM: Alert and oriented x 3, grossly nonfocal. PSYCHIATRIC: Cooperative, anxious. Medications: Inpatient Meds: Current Medications Medications (Trade) Dose Ordered Sig/Sushma Start Time Stop Time Status Last Admin Dose Admin Acetaminophen (Tylenol) 650 mg PRN Q6HRS PRN 12/18/18 05:00 12/18/18 05:48 650 MG Al Hydroxide/Mg Hydroxide (Mylanta Plus Xs) 30 ml PRN Q2HR PRN 12/12/18 09:15 12/16/18 09:23 30 ML Albuterol Sulfate (Ventolin Neb Soln) 2.5 mg PRN Q4HRS PRN 12/10/18 09:30 12/18/18 04:10 2.5 MG Albuterol/ Ipratropium (Duoneb) 3 ml RTQID 12/16/18 12:00 12/16/18 10:45 DC Alprazolam (Xanax) 0.5 mg TID 12/10/18 10:00 12/17/18 15:17 0.5 MG Amitriptyline HCl (Elavil) 100 mg QHS 12/10/18 21:00 12/14/18 20:54 DC 12/11/18 20:42 100 MG Amlodipine Besylate (Norvasc) 5 mg DAILY 12/10/18 10:00 12/17/18 12:04 5 MG Aspirin (Children'S Aspirin) 81 mg DAILY 12/10/18 10:00 12/17/18 12:05 81 MG Atorvastatin Calcium (Lipitor) 40 mg QHS 12/10/18 21:00 12/14/18 20:54 DC 12/12/18 21:37 40 MG Budesonide (Pulmicort) 0.5 mg RTBID 12/10/18 10:00 12/17/18 19:54 0.5 MG Carboplatin 600 mg/Sodium Chloride 310 ml @ 310 mls/hr 1X ONCE 12/14/18 10:00 12/14/18 10:59 DC 12/14/18 12:49 310 MLS/HR Daptomycin 500 mg/ Sodium Chloride 50 ml @ 100 mls/hr Q24H 12/17/18 12:30 12/17/18 20:52 100 MLS/HR Dexamethasone Sodium Phosphate 12 mg/Sodium Chloride 53 ml @ 212 mls/hr 1X ONCE 12/14/18 08:30 12/14/18 08:44 DC 12/14/18 10:25 212 MLS/HR Dextrose 1,000 ml @ 75 mls/hr [id number] 12/17/18 06:45 12/17/18 06:45 75 MLS/HR Dextrose (Dextrose 50%-Water Syringe) 12.5 gm PRN Q15MIN PRN 12/10/18 09:30 12/17/18 03:15 12.5 GM Dextrose/Sodium Chloride 1,000 ml @ 75 mls/hr [id number] 12/17/18 06:30 12/17/18 06:41 DC 12/17/18 06:30 75 MLS/HR Diclofenac Sodium (Voltaren) 1 cornelia BID 12/10/18 10:00 12/17/18 09:33 1 CORNELIA Docusate Sodium (Colace) 100 mg DAILY 12/15/18 09:00 12/17/18 12:05 100 MG Enoxaparin Sodium (Lovenox 40mg Syringe) 40 mg Q24H 12/14/18 09:00 12/14/18 15:41 DC 12/14/18 10:12 40 MG Enoxaparin Sodium (Lovenox 60mg Syringe) 60 mg Q12HR 12/17/18 10:00 12/17/18 22:37 60 MG Etoposide 236 mg/ Sodium Chloride 1,011.8 ml @ 1,011.8 mls/hr DAILY 12/15/18 13:00 12/16/18 13:59 DC 12/16/18 13:23 1,011.8 MLS/HR Fentanyl Citrate (Fentanyl 2ml Vial) 25 mcg PRN Q4HRS PRN 12/17/18 09:45 12/17/18 09:48 25 MCG Furosemide (Lasix) 20 mg 1X ONCE 12/16/18 17:30 12/16/18 17:37 DC 12/16/18 17:56 20 MG Gadoterate Meglumine (Dotarem) 25.8 ml 1X ONCE 12/17/18 10:00 12/17/18 10:01 DC 12/17/18 10:23 25.8 ML Glimepiride (Amaryl) 4 mg BID 12/10/18 10:00 12/17/18 06:37 DC 12/16/18 21:34 4 MG Hydrochlorothiazide (Microzide) 12.5 mg DAILY 12/10/18 10:00 12/17/18 12:04 12.5 MG Influenza Virus Vaccine Quadrival (Afluria Quad 2019-20 (3yr Up) Syringe) 0.5 ml ONCE ONCE 12/11/18 09:00 12/11/18 09:01 DC 12/11/18 17:16 0.5 ML Info (CONTRAST GIVEN -- Rx MONITORING) 1 each PRN DAILY PRN 12/10/18 14:15 12/12/18 14:14 DC Insulin Human Lispro (HumaLOG) 0-9 UNITS TIDWMEALS 12/10/18 12:00 12/17/18 06:37 DC 12/14/18 17:25 4 UNITS Iohexol (Omnipaque 240 Mg/ml) 50 ml 1X ONCE 12/10/18 14:00 12/10/18 14:07 DC 12/10/18 16:30 50 ML Iohexol (Omnipaque 300 Mg/ml) 75 ml 1X ONCE 12/10/18 14:00 12/10/18 14:07 DC 12/10/18 16:30 75 ML Levothyroxine Sodium (Synthroid) 200 mcg DAILY06 12/10/18 10:00 12/18/18 05:50 200 MCG Lidocaine (Lidoderm) 1 patch DAILY08 12/18/18 08:00 Lidocaine HCl (Buffered Lidocaine 1%) 3 ml 1X ONCE 12/11/18 09:15 12/11/18 09:17 DC 12/11/18 09:29 3 ML Lidocaine HCl (Lta Kit) 4 ml 1X ONCE 12/14/18 09:15 12/14/18 09:16 UNV Lidocaine HCl (Xylocaine 2% Topical 5gm Tube) 1 cornelia PRN Q6HRS PRN 12/16/18 10:15 Lidocaine/ Epinephrine (LIDOCAINE 1%-EPI 1:100,000 Multi-Dose) 20 ml 1X ONCE 12/13/18 13:30 12/13/18 13:31 DC 12/13/18 13:30 15 ML Lidocaine/ Prilocaine (Emla) 1 cornelia 1X ONCE 12/14/18 09:30 12/14/18 09:31 DC 12/14/18 10:13 1 CORNELIA Lisinopril (Prinivil) 20 mg DAILY 12/10/18 10:00 12/17/18 12:05 20 MG Midazolam HCl (Versed) 2 mg 1X ONCE 12/13/18 13:30 12/13/18 13:31 DC 12/13/18 13:30 1 MG Miscellaneous (Lidoderm Patch Removal) 1 ea DAILY 12/14/18 09:00 12/17/18 09:00 1 EA Morphine Sulfate (Morphine Sulfate) 2 mg PRN Q2HR PRN 12/10/18 02:00 12/11/18 01:59 DC Non-Formulary Medication (Albuterol Sulfate (Albuterol Sulfate Neb Soln)) 1 vial QID 12/10/18 13:00 UNV Non-Formulary Medication (Ipratropium/ Albuterol Sulfate (Combivent Respimat Inhal)) 2 inh QID 12/10/18 13:00 UNV Non-Formulary Medication (Lisinopril/ Hydrochlorothiazide (Lisinopril-Hctz 20-12.5 Mg Tab)) 1 tab DAILY 12/11/18 09:00 UNV Ondansetron HCl (Zofran) 8 mg Q24H 12/15/18 12:30 12/16/18 12:31 DC 12/16/18 13:10 8 MG Oxycodone HCl (Roxicodone) 10 mg PRN Q6HRS PRN 12/10/18 04:45 12/16/18 21:30 10 MG Pantoprazole Sodium (Protonix) 40 mg 1X ONCE 12/12/18 09:15 12/12/18 09:23 DC 12/12/18 10:49 40 MG Pioglitazone HCl (Actos) 45 mg DAILY 12/10/18 10:00 12/17/18 06:37 DC 12/16/18 09:07 45 MG Piperacillin Sod/ Tazobactam Sod 3.375 gm/Sodium Chloride 50 ml @ 100 mls/hr Q6HRS 12/17/18 12:00 12/18/18 05:47 100 MLS/HR Potassium Chloride (Klor-Con) 40 meq 1X ONCE 12/11/18 14:00 12/11/18 14:01 DC 12/11/18 17:09 40 MEQ Sertraline HCl (Zoloft) 50 mg DAILY 12/13/18 14:00 12/17/18 12:05 50 MG Labs: Lab Laboratory Tests Test 12/17/18 11:40 12/17/18 17:17 12/17/18 20:40 12/17/18 22:38 Glucose (Fingerstick) 151 mg/dL (70-99) 224 mg/dL (70-99) 220 mg/dL (70-99) White Blood Count 10.1 x10^3/uL (4.0-11.0) Red Blood Count 3.35 x10^6/uL (3.50-5.40) Hemoglobin 9.6 g/dL (12.0-15.5) Hematocrit 28.9 % (36.0-47.0) Mean Corpuscular Volume 86 fL (79-100) Mean Corpuscular Hemoglobin 29 pg (25-35) Mean Corpuscular Hemoglobin Concent 33 g/dL (31-37) Red Cell Distribution Width 15.1 % (11.5-14.5) Platelet Count 150 x10^3/uL (140-400) Neutrophils (%) (Auto) 99 % (31-73) Lymphocytes (%) (Auto) 1 % (24-48) Monocytes (%) (Auto) 0 % (0-9) Eosinophils (%) (Auto) 0 % (0-3) Basophils (%) (Auto) 0 % (0-3) Neutrophils # (Auto) 10.0 x10^3/uL (1.8-7.7) Lymphocytes # (Auto) 0.1 x10^3/uL (1.0-4.8) Monocytes # (Auto) 0.0 x10^3/uL (0.0-1.1) Eosinophils # (Auto) 0.0 x10^3/uL (0.0-0.7) Basophils # (Auto) 0.0 x10^3/uL (0.0-0.2) O2 Saturation 97 % (92-99) Arterial Blood pH 7.42 (7.35-7.45) Arterial Blood pCO2 at Patient Temp 43 mmHg (35-46) Arterial Blood pO2 at Patient Temp 97 mmHg (65-108) Arterial Blood HCO3 27 mmol/L (21-28) Arterial Blood Base Excess 2 mmol/L (-3-3) FiO2 32 Sodium Level 130 mmol/L (136-145) Potassium Level 3.2 mmol/L (3.5-5.1) Chloride Level 93 mmol/L (98-107) Carbon Dioxide Level 31 mmol/L (21-32) Anion Gap 6 (6-14) Blood Urea Nitrogen 22 mg/dL (7-20) Creatinine 1.2 mg/dL (0.6-1.0) Estimated GFR (Cockcroft-Gault) 44.4 BUN/Creatinine Ratio 18 (6-20) Glucose Level 218 mg/dL (70-99) Lactic Acid Level 0.9 mmol/L (0.4-2.0) Calcium Level 8.6 mg/dL (8.5-10.1) Magnesium Level 2.2 mg/dL (1.8-2.4) Total Bilirubin 0.4 mg/dL (0.2-1.0) Aspartate Amino Transf (AST/SGOT) 40 U/L (15-37) Alanine Aminotransferase (ALT/SGPT) 30 U/L (14-59) Alkaline Phosphatase 59 U/L (46-116) Creatine Kinase 102 U/L (26-192) Total Protein 7.2 g/dL (6.4-8.2) Albumin 2.8 g/dL (3.4-5.0) Albumin/Globulin Ratio 0.6 (1.0-1.7) Test 11/11/19 23:15 12/18/18 06:34 Urine Collection Type U cath Urine Color Yellow Urine Clarity Clear Urine pH 5.0 Urine Specific [place] 1.015 Urine Protein 100 mg/dL (NEG-TRACE) Urine Glucose (UA) 250 mg/dL (NEG) Urine Ketones (Stick) Negative mg/dL (NEG) Urine Blood Moderate (NEG) Urine Nitrite Negative (NEG) Urine Bilirubin Negative (NEG) Urine Urobilinogen Dipstick 0.2 mg/dL (0.2 mg/dL) Urine Leukocyte Esterase Negative (NEG) Urine RBC Rare /HPF (0-2) Urine WBC Rare /HPF (0-4) Urine Squamous Epithelial Cells Few /LPF Urine Transitional Epithelial Cells Occ /LPF Urine Bacteria 0 /HPF (0-FEW) Urine Mucus Slight /LPF Glucose (Fingerstick) 127 mg/dL (70-99) Micro bc neg Objective: Assessment: 1. Erythema and tenderness at the port site, [place] cath site cellulitis/abscess, cannot r/o BSI 2. Febrile illness. 3. Recently diagnosed small cell lung CA, status post chemo 12/14 through Port-A-Cath, landon cath placed 12/13 4. Chronic obstructive pulmonary disease. 5. History of chronic back pain. 6. HALLE this admission ,now improving Plan: Plan of Care swab c/s from purulent material around landon cath site repeat bc cont Zosyn and daptomycin. Follow up cultures and labs. U/S mediastinum Maintain aspiration precaution. D/W PAMELA DONALDSON MD Dec 18, 2018 07:30
[2018-12-18] MEDS: IPRATRPIUM/ALBUTEROL 0.5/2.5MG 3 ML NEBU. NEB SCH ×4 (08:19→19:22)
[2018-12-18] MEDS: BUDESONIDE 0.5 MG/2 ML NEBU. NEB SCH ×2 (08:19→19:22)
[2018-12-18] MEDS: PATCH REMOVAL. MC SCH (09:00)
[2018-12-18] MEDS: hydroCHLOROthiazide 12.5 MG CAPSULE PO SCH (09:00)
[2018-12-18] MEDS: LISINOPRIL 20 MG TABLET PO SCH (09:00)
[2018-12-18] MEDS: amLODIPine BESYLATE 5 MG TABLET PO SCH (09:00)
--- NOTE | 2018-12-18 09:37 | PDOC ---
SUBJECTIVE Subjective S: Erythema ot port improved, to ICU for fever, port assoc cellulitis O: Physical exam: Gen.: obese elderly female, resting in bed, NAD Lungs: Breathing comfortably Skin: Erythema at port improved, some drainage superiorly per RN Labs: White count 9.9, hemoglobin 11, platelets 197 yesterday Creatinine 1.2 Assessment and Plan: Small cell lung ca, Left upper lobe lung mass with extensive mediastinal, hilar lymphadenopathy and left cervical lymphadenopathy, C1 D5 carbo/etoposide, w/ plans to start RT w/ C2, plans for outpt brain MRI erythema and tenderness at port w/ fever: apprec ID assistance, on Abx, port not needed til Day 21 (today is Day 5), ok to remove if need be COPD: per pulm GERD: PPI back pain: lidocaine patch and prn meds hypoglycemia: per primary Prophylaxis: lovenox (not sure needing 60 bid? RN to discuss w/ others) Dispo: f/u Dr Madden and Dr Hercules upon dc Thank you kindly and please do not hesitate to call with questions. OBJECTIVE Vital Signs Vital Signs Date Time Temp Pulse Resp B/P (MAP) Pulse Ox O2 Delivery O2 Flow Rate FiO2 12/18/18 08:21 98 Nasal Cannula 4.0 12/18/18 06:00 94 24 121/57 (78) 92 Nasal Cannula 4.0 12/18/18 05:00 99 24 139/55 (83) 92 Nasal Cannula 4.0 12/18/18 04:10 Nasal Cannula 4.0 12/18/18 04:00 101.4 109 24 149/53 (85) 95 Nasal Cannula 4.0 101.4 12/18/18 04:00 Nasal Cannula 4.0 12/18/18 03:00 115 24 153/59 (90) 92 Nasal Cannula 4.0 12/18/18 02:00 120 24 165/73 (103) 97 Nasal Cannula 4.0 12/18/18 01:00 120 24 161/67 (98) 97 Nasal Cannula 4.0 12/18/18 00:24 96 Nasal Cannula 3.0 12/18/18 00:01 108 24 166/64 (98) 94 Nasal Cannula 4.0 12/18/18 00:00 Nasal Cannula 4.0 12/17/18 23:45 108 24 161/59 (93) 94 Nasal Cannula 4.0 12/17/18 23:30 110 24 180/63 (102) 94 Nasal Cannula 4.0 12/17/18 23:15 108 24 180/66 (104) 94 Nasal Cannula 4.0 12/17/18 23:00 100.2 112 24 184/68 (106) 91 Nasal Cannula 2.0 100.2 12/17/18 22:37 100.7 104 24 145/60 (88) 94 Nasal Cannula 4.0 100.7 12/17/18 19:55 94 Nasal Cannula 4.0 12/17/18 19:53 Nasal Cannula 3.0 12/17/18 19:40 102.7 103 24 135/58 (83) 92 Nasal Cannula 4.0 102.7 12/17/18 17:31 95 Nasal Cannula 5.0 12/17/18 15:00 98.4 100 23 152/59 (90) 96 Nasal Cannula 4.0 98.4 12/17/18 14:50 92 Nasal Cannula 5.0 12/17/18 12:05 111 153/64 12/17/18 12:04 111 153/64 12/17/18 11:43 97.8 111 20 153/64 (93) 92 Nasal Cannula 4.0 97.8 12/17/18 11:29 96 Nasal Cannula 2.0 12/17/18 11:09 91 Nasal Cannula 2.0 12/17/18 09:48 91 Nasal Cannula 2.0 I & O Intake and Output 12/18/18 07:00 Intake Total 950 ml Output Total 705 ml Balance 245 ml Intake Oral 900 ml IV Total 50 ml Output Urine Total 705 ml COMMENT Lab Laboratory Tests Test 12/17/18 11:40 12/17/18 17:17 12/17/18 20:40 12/17/18 22:38 Glucose (Fingerstick) 151 mg/dL (70-99) 224 mg/dL (70-99) 220 mg/dL (70-99) White Blood Count 10.1 x10^3/uL (4.0-11.0) Red Blood Count 3.35 x10^6/uL (3.50-5.40) Hemoglobin 9.6 g/dL (12.0-15.5) Hematocrit 28.9 % (36.0-47.0) Mean Corpuscular Volume 86 fL (79-100) Mean Corpuscular Hemoglobin 29 pg (25-35) Mean Corpuscular Hemoglobin Concent 33 g/dL (31-37) Red Cell Distribution Width 15.1 % (11.5-14.5) Platelet Count 150 x10^3/uL (140-400) Neutrophils (%) (Auto) 99 % (31-73) Lymphocytes (%) (Auto) 1 % (24-48) Monocytes (%) (Auto) 0 % (0-9) Eosinophils (%) (Auto) 0 % (0-3) Basophils (%) (Auto) 0 % (0-3) Neutrophils # (Auto) 10.0 x10^3/uL (1.8-7.7) Lymphocytes # (Auto) 0.1 x10^3/uL (1.0-4.8) Monocytes # (Auto) 0.0 x10^3/uL (0.0-1.1) Eosinophils # (Auto) 0.0 x10^3/uL (0.0-0.7) Basophils # (Auto) 0.0 x10^3/uL (0.0-0.2) O2 Saturation 97 % (92-99) Arterial Blood pH 7.42 (7.35-7.45) Arterial Blood pCO2 at Patient Temp 43 mmHg (35-46) Arterial Blood pO2 at Patient Temp 97 mmHg (65-108) Arterial Blood HCO3 27 mmol/L (21-28) Arterial Blood Base Excess 2 mmol/L (-3-3) FiO2 32 Sodium Level 130 mmol/L (136-145) Potassium Level 3.2 mmol/L (3.5-5.1) Chloride Level 93 mmol/L (98-107) Carbon Dioxide Level 31 mmol/L (21-32) Anion Gap 6 (6-14) Blood Urea Nitrogen 22 mg/dL (7-20) Creatinine 1.2 mg/dL (0.6-1.0) Estimated GFR (Cockcroft-Gault) 44.4 BUN/Creatinine Ratio 18 (6-20) Glucose Level 218 mg/dL (70-99) Lactic Acid Level 0.9 mmol/L (0.4-2.0) Calcium Level 8.6 mg/dL (8.5-10.1) Magnesium Level 2.2 mg/dL (1.8-2.4) Total Bilirubin 0.4 mg/dL (0.2-1.0) Aspartate Amino Transf (AST/SGOT) 40 U/L (15-37) Alanine Aminotransferase (ALT/SGPT) 30 U/L (14-59) Alkaline Phosphatase 59 U/L (46-116) Creatine Kinase 102 U/L (26-192) Total Protein 7.2 g/dL (6.4-8.2) Albumin 2.8 g/dL (3.4-5.0) Albumin/Globulin Ratio 0.6 (1.0-1.7) Test 12/17/18 23:15 12/18/18 06:34 Urine Collection Type U cath Urine Color Yellow Urine Clarity Clear Urine pH 5.0 Urine Specific [place] 1.015 Urine Protein 100 mg/dL (NEG-TRACE) Urine Glucose (UA) 250 mg/dL (NEG) Urine Ketones (Stick) Negative mg/dL (NEG) Urine Blood Moderate (NEG) Urine Nitrite Negative (NEG) Urine Bilirubin Negative (NEG) Urine Urobilinogen Dipstick 0.2 mg/dL (0.2 mg/dL) Urine Leukocyte Esterase Negative (NEG) Urine RBC Rare /HPF (0-2) Urine WBC Rare /HPF (0-4) Urine Squamous Epithelial Cells Few /LPF Urine Transitional Epithelial Cells Occ /LPF Urine Bacteria 0 /HPF (0-FEW) Urine Mucus Slight /LPF Glucose (Fingerstick) 127 mg/dL (70-99) ANGELITA SHARPE MD Dec 18, 2018 09:37
[2018-12-18] MEDS ORDERED: AMINO AC 3%/ELECTROLYTE/GLYCER 1,000 ML IV ONE (09:51)
[2018-12-18] MEDS: DOCUSATE SODIUM 100 MG CAPSULE. PO SCH (09:53)
[2018-12-18] MEDS: ASPIRIN CHEWABLE 81 MG TABLET. PO SCH (09:53)
[2018-12-18] MEDS: PANTOPRAZOLE 40 MG TABLET.DR. PO SCH (09:54)
[2018-12-18] MEDS: ALPRAZolam 0.5 MG TABLET PO SCH ×4 (09:54→22:17)
[2018-12-18] MEDS: POTASSIUM CHLORIDE 10 MEQ TABLET.ER. PO SCH (09:55)
[2018-12-18] MEDS: SERTRALINE 50 MG TABLET. PO SCH (09:55)
[2018-12-18] MEDS: DICLOFENAC SODIUM 1% TOPICAL GEL 100GM TUBE. TP SCH ×2 (09:57→22:18)
[2018-12-18] MEDS: LIDOCAINE (700MG/PATCH) PATCH. TP SCH (10:05)
[2018-12-18] MEDS ORDERED: POTASSIUM CHLORIDE 20 MEQ TABLET.ER. PO ONE ×2 (10:15→12:15)
--- NOTE | 2018-12-18 10:22 | PDOC ---
PROGRESS NOTES Subjective Subjective moved to ICU last night due to sepsis and fever and bacteremia Objective Objective Vital Signs Date Time Temp Pulse Resp B/P (MAP) Pulse Ox O2 Delivery O2 Flow Rate FiO2 12/18/18 08:21 98 Nasal Cannula 4.0 12/18/18 06:00 94 24 121/57 (78) 12/18/18 04:00 101.4 101.4 Intake and Output 12/18/18 07:00 Intake Total 950 ml Output Total 705 ml Balance 245 ml Intake Oral 900 ml IV Total 50 ml Output Urine Total 705 ml Physical Exam Abdomen: Normal bowel sounds, Soft Heart: Normal S1, Normal S2 General: Alert, Oriented X3 Lungs: Clear to auscultation MUSCULOSKELETAL: No deformity Neuro: Normal speech Psych/Mental Status: Mental status NL COMMENT redness rt chest over port area Diagnosis Problem List Problems Medical Problems: (1) Anxiety Status: Acute (2) Depression Status: Chronic (3) Diabetes Status: Chronic (4) Dyspnea on minimal exertion Status: Acute (5) HTN (hypertension) Status: Chronic (6) Hyperlipidemia Status: Chronic (7) Hypothyroidism Status: Chronic (8) Mass of left lung Status: Acute (9) Pleural effusion, left Status: Acute Assessment Assessment Problems Medical Problems: (1) Anxiety Status: Acute (2) Depression Status: Chronic (3) Diabetes Status: Chronic (4) Dyspnea on minimal exertion Status: Acute (5) HTN (hypertension) Status: Chronic (6) Hyperlipidemia Status: Chronic (7) Hypothyroidism Status: Chronic (8) Mass of left lung Status: Acute (9) Pleural effusion, left Status: Acute FINAL IMPRESSION: sepsis bacteremia staph,6/6 blood c/s positive cellulitis at port site.? pus pocket Small cell lung ca ,metastatic. 1. Left upper lung mass new finding ,suspicious for lung cancer, small cell lung cancer 2. Extensive mediastinal hilar adenopathy as well as cervical adenopathy, atelectasis of the left lung, atelectasis of the right lung and hiatal hernia. 3. Diabetes. 4. Hypertension. 5. Hyperlipidemia. 6. Hypothyroidism. 7. Anxiety, depression. 8. Ex-smoker, quit 10 years ago, smoked for 25 years, 2 packs at least. PLAN: moved to ICU. dapto+zosyn spoke with ID. need to remove port. replace pot. MRI brain neg for mets ID consult.spoke with A Lokesh rhoadesctivate port.spoke with oncology d/c amaryl and actose due to hypoglycemia start on chemo , 1 st cycle of chemo completed 12/16/18 labs reviewed. cxr lung infiltrates. Port placed for chemo.12/13/18 lymph node eopoof59/5/19 showed small cell lung ca CT scan abd and pelvis neg Bone scan neg. spoke with oncology. pt eval +treat. protonix for heart burn noted Radiation oncology input. MRI brain out pt Plan Plan of Care Problems Medical Problems: (1) Anxiety Status: Acute (2) Depression Status: Chronic (3) Diabetes Status: Chronic (4) Dyspnea on minimal exertion Status: Acute (5) HTN (hypertension) Status: Chronic (6) Hyperlipidemia Status: Chronic (7) Hypothyroidism Status: Chronic (8) Mass of left lung Status: Acute (9) Pleural effusion, left Status: Acute Comment Review of Relevant I have reviewed the following items malik (where applicable) has been applied. Labs Laboratory Tests Test 12/17/18 11:40 12/17/18 17:17 12/17/18 20:40 12/17/18 22:38 Glucose (Fingerstick) 151 mg/dL (70-99) 224 mg/dL (70-99) 220 mg/dL (70-99) White Blood Count 10.1 x10^3/uL (4.0-11.0) Red Blood Count 3.35 x10^6/uL (3.50-5.40) Hemoglobin 9.6 g/dL (12.0-15.5) Hematocrit 28.9 % (36.0-47.0) Mean Corpuscular Volume 86 fL (79-100) Mean Corpuscular Hemoglobin 29 pg (25-35) Mean Corpuscular Hemoglobin Concent 33 g/dL (31-37) Red Cell Distribution Width 15.1 % (11.5-14.5) Platelet Count 150 x10^3/uL (140-400) Neutrophils (%) (Auto) 99 % (31-73) Lymphocytes (%) (Auto) 1 % (24-48) Monocytes (%) (Auto) 0 % (0-9) Eosinophils (%) (Auto) 0 % (0-3) Basophils (%) (Auto) 0 % (0-3) Neutrophils # (Auto) 10.0 x10^3/uL (1.8-7.7) Lymphocytes # (Auto) 0.1 x10^3/uL (1.0-4.8) Monocytes # (Auto) 0.0 x10^3/uL (0.0-1.1) Eosinophils # (Auto) 0.0 x10^3/uL (0.0-0.7) Basophils # (Auto) 0.0 x10^3/uL (0.0-0.2) O2 Saturation 97 % (92-99) Arterial Blood pH 7.42 (7.35-7.45) Arterial Blood pCO2 at Patient Temp 43 mmHg (35-46) Arterial Blood pO2 at Patient Temp 97 mmHg (65-108) Arterial Blood HCO3 27 mmol/L (21-28) Arterial Blood Base Excess 2 mmol/L (-3-3) FiO2 32 Sodium Level 130 mmol/L (136-145) Potassium Level 3.2 mmol/L (3.5-5.1) Chloride Level 93 mmol/L (98-107) Carbon Dioxide Level 31 mmol/L (21-32) Anion Gap 6 (6-14) Blood Urea Nitrogen 22 mg/dL (7-20) Creatinine 1.2 mg/dL (0.6-1.0) Estimated GFR (Cockcroft-Gault) 44.4 BUN/Creatinine Ratio 18 (6-20) Glucose Level 218 mg/dL (70-99) Lactic Acid Level 0.9 mmol/L (0.4-2.0) Calcium Level 8.6 mg/dL (8.5-10.1) Magnesium Level 2.2 mg/dL (1.8-2.4) Total Bilirubin 0.4 mg/dL (0.2-1.0) Aspartate Amino Transf (AST/SGOT) 40 U/L (15-37) Alanine Aminotransferase (ALT/SGPT) 30 U/L (14-59) Alkaline Phosphatase 59 U/L (46-116) Creatine Kinase 102 U/L (26-192) Total Protein 7.2 g/dL (6.4-8.2) Albumin 2.8 g/dL (3.4-5.0) Albumin/Globulin Ratio 0.6 (1.0-1.7) Test 12/17/18 23:15 12/18/18 06:34 Urine Collection Type U cath Urine Color Yellow Urine Clarity Clear Urine pH 5.0 Urine Specific [place] 1.015 Urine Protein 100 mg/dL (NEG-TRACE) Urine Glucose (UA) 250 mg/dL (NEG) Urine Ketones (Stick) Negative mg/dL (NEG) Urine Blood Moderate (NEG) Urine Nitrite Negative (NEG) Urine Bilirubin Negative (NEG) Urine Urobilinogen Dipstick 0.2 mg/dL (0.2 mg/dL) Urine Leukocyte Esterase Negative (NEG) Urine RBC Rare /HPF (0-2) Urine WBC Rare /HPF (0-4) Urine Squamous Epithelial Cells Few /LPF Urine Transitional Epithelial Cells Occ /LPF Urine Bacteria 0 /HPF (0-FEW) Urine Mucus Slight /LPF Glucose (Fingerstick) 127 mg/dL (70-99) Microbiology 12/17/18 Blood Culture - Final, Complete Medications Current Medications Acetaminophen (Tylenol) 650 mg PRN Q6HRS PRN PO MILD PAIN / TEMP Last administered on 12/18/18at 05:48; Start 12/18/18 at 05:00 Amino Acids/ Glycerin/ Electrolytes 1,000 ml @ As Directed STK-MED ONCE IV ; Start 12/18/18 at 09:51; Stop 12/18/18 at 09:51; Status DC Daptomycin 500 mg/ Sodium Chloride 50 ml @ 100 mls/hr Q24H IV Last administered on 12/17/18at 20:52; Start 12/17/18 at 12:30 Lidocaine (Lidoderm) 1 patch [id number] TP Last administered on 12/18/18at 10:05; Start 12/18/18 at 08:00 Piperacillin Sod/ Tazobactam Sod 3.375 gm/Sodium Chloride 50 ml @ 100 mls/hr Q6HRS IV Last administered on 12/18/18at 05:47; Start 12/17/18 at 12:00 Vitals/I & O Vital Sign - Last 24 Hours 12/17/18 12/17/18 12/17/18 12/17/18 11:09 11:29 11:43 12:04 Temp 97.8 97.8 Pulse 111 111 Resp 20 B/P (MAP) 153/64 (93) 153/64 Pulse Ox 91 96 92 O2 Delivery Nasal Cannula Nasal Cannula Nasal Cannula O2 Flow Rate 2.0 2.0 4.0 12/17/18 12/17/18 12/17/18 12/17/18 12:05 14:50 15:00 17:31 Temp 98.4 98.4 Pulse 111 100 Resp 23 B/P (MAP) 153/64 152/59 (90) Pulse Ox 92 96 95 O2 Delivery Nasal Cannula Nasal Cannula Nasal Cannula O2 Flow Rate 5.0 4.0 5.0 12/17/18 12/17/18 12/17/18 12/17/18 19:40 19:53 19:55 22:37 Temp 102.7 100.7 102.7 100.7 Pulse 103 104 Resp 24 B/P (MAP) 135/58 (83) 145/60 (88) Pulse Ox 92 94 94 O2 Delivery Nasal Cannula Nasal Cannula Nasal Cannula Nasal Cannula O2 Flow Rate 4.0 3.0 4.0 4.0 12/17/18 12/17/18 12/17/18 12/17/18 23:00 23:15 23:30 23:45 Temp 100.2 100.2 Pulse 112 108 110 108 Resp 24 24 B/P (MAP) 184/68 (106) 180/66 (104) 180/63 (102) 161/59 (93) Pulse Ox 91 94 94 94 O2 Delivery Nasal Cannula Nasal Cannula Nasal Cannula Nasal Cannula O2 Flow Rate 2.0 4.0 4.0 4.0 12/18/18 12/18/18 12/18/18 12/18/18 00:00 00:01 00:24 01:00 Pulse 108 120 Resp 24 B/P (MAP) 166/64 (98) 161/67 (98) Pulse Ox 94 96 97 O2 Delivery Nasal Cannula Nasal Cannula Nasal Cannula Nasal Cannula O2 Flow Rate 4.0 4.0 3.0 4.0 12/18/18 12/18/18 12/18/18 12/18/18 02:00 03:00 04:00 04:00 Temp 101.4 101.4 Pulse 120 115 109 Resp 24 B/P (MAP) 165/73 (103) 153/59 (90) 149/53 (85) Pulse Ox 97 92 95 O2 Delivery Nasal Cannula Nasal Cannula Nasal Cannula Nasal Cannula O2 Flow Rate 4.0 4.0 4.0 4.0 12/18/18 12/18/18 12/18/18 12/18/18 04:10 05:00 06:00 08:21 Pulse 99 94 Resp 24 24 B/P (MAP) 139/55 (83) 121/57 (78) Pulse Ox 92 92 98 O2 Delivery Nasal Cannula Nasal Cannula Nasal Cannula Nasal Cannula O2 Flow Rate 4.0 4.0 4.0 4.0 Intake and Output 12/17/18 12/17/18 12/18/18 15:00 23:00 07:00 Intake Total 300 ml 0 ml 650 ml Output Total 0 ml 705 ml Balance 300 ml 0 ml -55 ml PATRIC MICHEL MD Dec 18, 2018 10:22
[2018-12-18] MEDS ORDERED: LIDOCAINE 1%/EPI 1:100,000 20 ML VIAL. ONE (10:59)
--- NOTE | 2018-12-18 11:18 | PDOC ---
PULMONARY PROGRESS NOTES Subjective Pt transfer to ICU for sepsis 07/12 BC positive stable BP sleepy Vitals Vital Signs Date Time Temp Pulse Resp B/P (MAP) Pulse Ox O2 Delivery O2 Flow Rate FiO2 12/18/18 08:21 98 Nasal Cannula 4.0 12/18/18 06:00 94 24 121/57 (78) 12/18/18 04:00 101.4 101.4 General: Oriented X4, Lethargic Lungs: Clear Cardiovascular: S1, S2 Abdomen: Soft, Other (obese) Neuro Exam: Oriented Extremities: Other (trace edema) Skin: Warm Labs Laboratory Tests Test 12/16/18 11:38 12/16/18 17:40 12/17/18 01:29 12/17/18 01:49 Glucose (Fingerstick) 91 mg/dL (70-99) 39 mg/dL (70-99) 130 mg/dL (70-99) White Blood Count 9.9 x10^3/uL (4.0-11.0) Red Blood Count 3.78 x10^6/uL (3.50-5.40) Hemoglobin 11.0 g/dL (12.0-15.5) Hematocrit 33.3 % (36.0-47.0) Mean Corpuscular Volume 88 fL (79-100) Mean Corpuscular Hemoglobin 29 pg (25-35) Mean Corpuscular Hemoglobin Concent 33 g/dL (31-37) Red Cell Distribution Width 15.2 % (11.5-14.5) Platelet Count 197 x10^3/uL (140-400) Neutrophils (%) (Auto) 97 % (31-73) Lymphocytes (%) (Auto) 2 % (24-48) Monocytes (%) (Auto) 1 % (0-9) Eosinophils (%) (Auto) 0 % (0-3) Basophils (%) (Auto) 0 % (0-3) Neutrophils # (Auto) 9.7 x10^3/uL (1.8-7.7) Lymphocytes # (Auto) 0.2 x10^3/uL (1.0-4.8) Monocytes # (Auto) 0.1 x10^3/uL (0.0-1.1) Eosinophils # (Auto) 0.0 x10^3/uL (0.0-0.7) Basophils # (Auto) 0.0 x10^3/uL (0.0-0.2) Segmented Neutrophils % 98 % (35-66) Band Neutrophils % 1 % (0-9) Monocytes % 1 % (0-10) Platelet Estimate Adequate (ADEQUATE) Sodium Level 134 mmol/L (136-145) Potassium Level 4.0 mmol/L (3.5-5.1) Chloride Level 98 mmol/L (98-107) Carbon Dioxide Level 27 mmol/L (21-32) Anion Gap 9 (6-14) Blood Urea Nitrogen 26 mg/dL (7-20) Creatinine 1.0 mg/dL (0.6-1.0) Estimated GFR (Cockcroft-Gault) 54.8 BUN/Creatinine Ratio 26 (6-20) Glucose Level 80 mg/dL (70-99) Calcium Level 8.6 mg/dL (8.5-10.1) Magnesium Level 2.3 mg/dL (1.8-2.4) Total Bilirubin 0.4 mg/dL (0.2-1.0) Aspartate Amino Transf (AST/SGOT) 30 U/L (15-37) Alanine Aminotransferase (ALT/SGPT) 26 U/L (14-59) Alkaline Phosphatase 66 U/L (46-116) Total Protein 7.9 g/dL (6.4-8.2) Albumin 3.3 g/dL (3.4-5.0) Albumin/Globulin Ratio 0.7 (1.0-1.7) Test 12/17/18 02:56 12/17/18 07:26 12/17/18 11:40 12/17/18 17:17 Glucose (Fingerstick) 71 mg/dL (70-99) 123 mg/dL (70-99) 151 mg/dL (70-99) 224 mg/dL (70-99) Test 12/17/18 20:40 12/17/18 22:38 12/17/18 23:15 12/18/18 06:34 White Blood Count 10.1 x10^3/uL (4.0-11.0) Red Blood Count 3.35 x10^6/uL (3.50-5.40) Hemoglobin 9.6 g/dL (12.0-15.5) Hematocrit 28.9 % (36.0-47.0) Mean Corpuscular Volume 86 fL (79-100) Mean Corpuscular Hemoglobin 29 pg (25-35) Mean Corpuscular Hemoglobin Concent 33 g/dL (31-37) Red Cell Distribution Width 15.1 % (11.5-14.5) Platelet Count 150 x10^3/uL (140-400) Neutrophils (%) (Auto) 99 % (31-73) Lymphocytes (%) (Auto) 1 % (24-48) Monocytes (%) (Auto) 0 % (0-9) Eosinophils (%) (Auto) 0 % (0-3) Basophils (%) (Auto) 0 % (0-3) Neutrophils # (Auto) 10.0 x10^3/uL (1.8-7.7) Lymphocytes # (Auto) 0.1 x10^3/uL (1.0-4.8) Monocytes # (Auto) 0.0 x10^3/uL (0.0-1.1) Eosinophils # (Auto) 0.0 x10^3/uL (0.0-0.7) Basophils # (Auto) 0.0 x10^3/uL (0.0-0.2) O2 Saturation 97 % (92-99) Arterial Blood pH 7.42 (7.35-7.45) Arterial Blood pCO2 at Patient Temp 43 mmHg (35-46) Arterial Blood pO2 at Patient Temp 97 mmHg (65-108) Arterial Blood HCO3 27 mmol/L (21-28) Arterial Blood Base Excess 2 mmol/L (-3-3) FiO2 32 Sodium Level 130 mmol/L (136-145) Potassium Level 3.2 mmol/L (3.5-5.1) Chloride Level 93 mmol/L (98-107) Carbon Dioxide Level 31 mmol/L (21-32) Anion Gap 6 (6-14) Blood Urea Nitrogen 22 mg/dL (7-20) Creatinine 1.2 mg/dL (0.6-1.0) Estimated GFR (Cockcroft-Gault) 44.4 BUN/Creatinine Ratio 18 (6-20) Glucose Level 218 mg/dL (70-99) Lactic Acid Level 0.9 mmol/L (0.4-2.0) Calcium Level 8.6 mg/dL (8.5-10.1) Magnesium Level 2.2 mg/dL (1.8-2.4) Total Bilirubin 0.4 mg/dL (0.2-1.0) Aspartate Amino Transf (AST/SGOT) 40 U/L (15-37) Alanine Aminotransferase (ALT/SGPT) 30 U/L (14-59) Alkaline Phosphatase 59 U/L (46-116) Creatine Kinase 102 U/L (26-192) Total Protein 7.2 g/dL (6.4-8.2) Albumin 2.8 g/dL (3.4-5.0) Albumin/Globulin Ratio 0.6 (1.0-1.7) Glucose (Fingerstick) 220 mg/dL (70-99) 127 mg/dL (70-99) Urine Collection Type U cath Urine Color Yellow Urine Clarity Clear Urine pH 5.0 Urine Specific [place] 1.015 Urine Protein 100 mg/dL (NEG-TRACE) Urine Glucose (UA) 250 mg/dL (NEG) Urine Ketones (Stick) Negative mg/dL (NEG) Urine Blood Moderate (NEG) Urine Nitrite Negative (NEG) Urine Bilirubin Negative (NEG) Urine Urobilinogen Dipstick 0.2 mg/dL (0.2 mg/dL) Urine Leukocyte Esterase Negative (NEG) Urine RBC Rare /HPF (0-2) Urine WBC Rare /HPF (0-4) Urine Squamous Epithelial Cells Few /LPF Urine Transitional Epithelial Cells Occ /LPF Urine Bacteria 0 /HPF (0-FEW) Urine Mucus Slight /LPF Laboratory Tests Test 12/17/18 11:40 12/17/18 17:17 12/17/18 20:40 12/17/18 22:38 Glucose (Fingerstick) 151 mg/dL (70-99) 224 mg/dL (70-99) 220 mg/dL (70-99) White Blood Count 10.1 x10^3/uL (4.0-11.0) Red Blood Count 3.35 x10^6/uL (3.50-5.40) Hemoglobin 9.6 g/dL (12.0-15.5) Hematocrit 28.9 % (36.0-47.0) Mean Corpuscular Volume 86 fL (79-100) Mean Corpuscular Hemoglobin 29 pg (25-35) Mean Corpuscular Hemoglobin Concent 33 g/dL (31-37) Red Cell Distribution Width 15.1 % (11.5-14.5) Platelet Count 150 x10^3/uL (140-400) Neutrophils (%) (Auto) 99 % (31-73) Lymphocytes (%) (Auto) 1 % (24-48) Monocytes (%) (Auto) 0 % (0-9) Eosinophils (%) (Auto) 0 % (0-3) Basophils (%) (Auto) 0 % (0-3) Neutrophils # (Auto) 10.0 x10^3/uL (1.8-7.7) Lymphocytes # (Auto) 0.1 x10^3/uL (1.0-4.8) Monocytes # (Auto) 0.0 x10^3/uL (0.0-1.1) Eosinophils # (Auto) 0.0 x10^3/uL (0.0-0.7) Basophils # (Auto) 0.0 x10^3/uL (0.0-0.2) O2 Saturation 97 % (92-99) Arterial Blood pH 7.42 (7.35-7.45) Arterial Blood pCO2 at Patient Temp 43 mmHg (35-46) Arterial Blood pO2 at Patient Temp 97 mmHg (65-108) Arterial Blood HCO3 27 mmol/L (21-28) Arterial Blood Base Excess 2 mmol/L (-3-3) FiO2 32 Sodium Level 130 mmol/L (136-145) Potassium Level 3.2 mmol/L (3.5-5.1) Chloride Level 93 mmol/L (98-107) Carbon Dioxide Level 31 mmol/L (21-32) Anion Gap 6 (6-14) Blood Urea Nitrogen 22 mg/dL (7-20) Creatinine 1.2 mg/dL (0.6-1.0) Estimated GFR (Cockcroft-Gault) 44.4 BUN/Creatinine Ratio 18 (6-20) Glucose Level 218 mg/dL (70-99) Lactic Acid Level 0.9 mmol/L (0.4-2.0) Calcium Level 8.6 mg/dL (8.5-10.1) Magnesium Level 2.2 mg/dL (1.8-2.4) Total Bilirubin 0.4 mg/dL (0.2-1.0) Aspartate Amino Transf (AST/SGOT) 40 U/L (15-37) Alanine Aminotransferase (ALT/SGPT) 30 U/L (14-59) Alkaline Phosphatase 59 U/L (46-116) Creatine Kinase 102 U/L (26-192) Total Protein 7.2 g/dL (6.4-8.2) Albumin 2.8 g/dL (3.4-5.0) Albumin/Globulin Ratio 0.6 (1.0-1.7) Test 12/17/18 23:15 12/18/18 06:34 Urine Collection Type U cath Urine Color Yellow Urine Clarity Clear Urine pH 5.0 Urine Specific [place] 1.015 Urine Protein 100 mg/dL (NEG-TRACE) Urine Glucose (UA) 250 mg/dL (NEG) Urine Ketones (Stick) Negative mg/dL (NEG) Urine Blood Moderate (NEG) Urine Nitrite Negative (NEG) Urine Bilirubin Negative (NEG) Urine Urobilinogen Dipstick 0.2 mg/dL (0.2 mg/dL) Urine Leukocyte Esterase Negative (NEG) Urine RBC Rare /HPF (0-2) Urine WBC Rare /HPF (0-4) Urine Squamous Epithelial Cells Few /LPF Urine Transitional Epithelial Cells Occ /LPF Urine Bacteria 0 /HPF (0-FEW) Urine Mucus Slight /LPF Glucose (Fingerstick) 127 mg/dL (70-99) Medications Active Scripts Medications Dose Route/Sig Max Daily Dose Days Date Category Proair Hfa Inhaler (Albuterol Sulfate) 8.5 Gm Hfa.aer.ad 2 Puff INH PRN Q4HRS PRN 07/04/17 Reported Lidocaine PATCH (Lidocaine) 1 Each Adh..patch 1 Each TP DAILY 07/04/17 Reported Amlodipine Besylate 5 Mg Tablet 5 Mg PO DAILY 07/04/17 Reported Duoneb 0.5-3(2.5) Mg/3 Ml (Albuterol/Ipratropium) 3 Ml Ampul.neb 3 Ml NEB QID 07/04/17 Reported Symbicort 160-4.5 Mcg Inhaler (Budesonide/Formoterol Fumarate) 10.2 Gm Hfa.aer.ad 2 Puff IH BID 07/04/17 Reported Flector (Diclofenac Epolamine) 1 Each Patch.td12 1 Each TD BID 07/04/17 Reported Combivent Respimat Inhal (Ipratropium/Albuterol Sulfate) 4 Gm Aer.w.adap 2 Inh IH QID 07/04/17 Reported Albuterol Sulfate Neb Soln (Albuterol Sulfate) 0.63 Mg/3 Ml Vial.neb 1 Vial NEB QID 07/04/17 Reported Xanax (Alprazolam) 0.5 Mg Tablet 1 Tab PO TID 07/04/17 Reported Oxycodone Hcl Immed.release (Oxycodone Hcl) 10 Mg Tablet 10 Mg PO PRN Q6HRS PRN 07/04/17 Reported Potassium Chloride 20 Meq Tablet.er 8 Meq PO DAILY 07/04/17 Reported Synthroid (Levothyroxine Sodium) 200 Mcg Tablet 1 Tab PO DAILY 07/04/17 Reported Lisinopril-Hctz 20-12.5 Mg Tab (Lisinopril/Hydrochlorothiazide) 1 Each Tablet 1 Tab PO DAILY 07/04/17 Reported Glimepiride 4 Mg Tablet 1 Tab PO BID 07/04/17 Reported Lipitor (Atorvastatin Calcium) 40 Mg Tablet 1 Tab PO DAILY 07/04/17 Reported Actos (Pioglitazone Hcl) 45 Mg Tablet 1 Tab PO DAILY 07/04/17 Reported Amitriptyline Hcl 100 Mg Tablet 1 Tab PO QHS 07/04/17 Reported Aspirin 81 Mg Tab.chew 1 Tab PO DAILY 07/04/17 Reported Impression . 1. Dyspnea/ encephalopathy due to sepsis and acute exacerbation of chronic obstructive pulmonary disease, morbid obesity and weakness. 2. Small cell lung ca, Stage IIIB, T2N3M0, Left upper lobe lung mass with extensive mediastinal, hilar lymphadenopathy and left cervical lymphadenopathy s/p cervical lymph node biopsy 12/11/18 3. Morbid obesity. 4. Clinical symptoms and signs of obstructive sleep apnea. 5. Chronic diastolic heart failure. 6. Hyperlipidemia. 7. Hypothyroidism. 8. 07/12 BC positive PATH Diagnosis: "LT cervical LN BX", needle biopsy: - SMALL CELL CARCINOMA. (See comment) . (CLW:[place]ford; 12/13/2018) QLM 12/13/2018 1050 Local Plan . 1. Cont. recommendations from HEM/ONC-- currently being treated with chemo and radiation 2. Follow all BC ID/ Abx per ID 3. Pt. is clinically stable from respiratory stand point, cont. supplemental oxygen and bronchodilators / PRN BIPAP 4. Cont.bronchodilators as needed 5. cont. PPI and HOB 30 degress post meals to aide with acid reflux d/w NICANOR LOPEZ MD Dec 18, 2018 11:18
[2018-12-18] MEDS ORDERED: LIDOCAINE 1%/EPI 1:100,000 20 ML VIAL. INJ ONE (11:45)
[2018-12-18] MEDS: AMINO AC 3%/ELECTROLYTE/GLYCER 1,000 ML IV SCH ×2 (13:12→22:18)
--- NOTE | 2018-12-18 14:12 | RAD ---
Removal of right internal jugular PowerPort at the bedside 12/18/2018 12/18/2018 12:07 PM Clinical Indication: Port infection. Sepsis. Discussion: The procedure was explained in its entirety to the patient or the patients designated sales representative womens health by a member of the treatment team, including a discussion of the risks, benefits and commonly accepted alternatives to the procedure, as well as the expected consequences of no therapy whatsoever. Discussion of the risks included, but was not limited to, those that are most frequent and those that are rare but possibly severe or life-threatening, as well as the possibility of unforeseen complications. All elements of maximal sterile barrier technique including the use of a cap, mask, sterile gown, sterile gloves, large sterile sheet, appropriate hand hygiene, and 2% chlorhexidine for cutaneous antisepsis (or acceptable alternative antiseptic per current guidelines) were followed for this procedure. 1% lidocaine was administered overlying the port reservoir. A small incision was made overlying the reservoir. Purulent exudate was encountered. The port and catheter were removed intact. The pocket was thoroughly irrigated and then packed with iodoform gauze. Sterile dressings were applied. No immediate complications were identified. The port was sent for Gram stain and culture. Impression: Removal of right internal jugular PowerPort secondary to amanda infection
--- NOTE | 2018-12-18 14:44 | NUR ---
SS following up with discharge planning. Pt transferred to ICU for sepsis and decreased LOC. Pt on IV Dapto and Zosyn and is currently requiring oxygen. On 12/12/2018, PT recommended home independent but pt has not been able to work with therapy since 12/12/2018. SS phoned and faxed referral to [facility], ; fax [phone], in case needed for prison IV abx and PT/OT. SS was informed that pt does have Rev Codes for LTAC and is accepted at [facility] but won't be able to have chemo treatments while at LTAC. SS was informed that Medicare will not pay for chemo during an LTAC stay. Pt's RN notified. SS will continue to follow for discharge planning.
[2018-12-18] MEDS: MAG HYDROX/ALUMINUM HYD/SIMETH 30 ML ORAL.SUSP PO PRN (16:11)
[2018-12-18] MEDS: oxyCODONE IR 5 MG TABLET PO PRN ×2 (16:16→22:17)
--- NOTE | 2018-12-18 17:00 | NUR ---
wound care wound care will f/u tomorrow 12/19/2018 as patient went to IR today and just had a dressing placed on the wound today 12/18/2018
[2018-12-18] MEDS: fentaNYL PF VIAL 100 MCG/2 ML VIAL IVP PRN ×2 (18:20→23:54)
[2018-12-18] MEDS: ENOXAPARIN 40 MG/0.4 ML SYRINGE. SQ SCH (22:17)
[2018-12-18] MEDS: DAPTOmycin (GENERIC) IVPB 500 MG in IV NORMAL SALINE 50ML 50 ML IV SCH (22:19)
--- NOTE | 2018-12-18 23:45 | NUR ---
PATIENT WAS AGITATED AND RESTLESS AND STATES SHE IS IS UNABLE TO TO GET COMFORTABLE. ATTEMPTED TO MAKE PATIENT COMFORTABLE AND PATIENT STATES SHE WANTS F[facility] FOR PAIN. BECAME INCREASINGLY DEMANDING AND BELLIGERENT WITH AND YELLING "YOU'RE A BITCH!" LEFT ROOM AND CLOSED DOORS WHILE PATIENT IS STILL YELLING. REQUESTED CHARGE NURSE ABDON TO SPEAK WITH THE PATIENT.
[2018-12-19] VITALS (15 sets, daily range): BP systolic 96–175; BP diastolic 41–93
[2018-12-19] MEDS: ALBUTEROL SULFATE 2.5 MG/3 ML NEBU. INH PRN ×2 (02:33→22:42)
[2018-12-19] MEDS: ACETAMINOPHEN 325 MG TABLET. PO PRN (03:48)
[2018-12-19] MEDS: ALPRAZolam 0.25 MG TABLET PO PRN (03:48)
[2018-12-19] MEDS: oxyCODONE IR 5 MG TABLET PO PRN ×3 (04:37→20:34)
[2018-12-19] MEDS: PIPERACILLIN/TAZOBACTAM 3.375 GM in IV NORMAL SALINE 50ML 50 ML IV SCH ×3 (06:08→17:59)
[2018-12-19 06:33] LABS: BASO % 0 % (0-3); EOS % 0 % (0-3); HEMATOCRIT 28.3 % (36.0-47.0); HEMOGLOBIN 9.4 g/dL (12.0-15.5); LYMPH # 0.1 x10^3/uL (1.0-4.8); LYMPH % 3 % (24-48); MEAN CORPUSCULAR HEMOGLOBIN 29 pg (25-35); MEAN CORPUSCULAR HGB CONC 33 g/dL (31-37); MEAN CORPUSCULAR VOLUME 87 fL (79-100); MONO % 1 % (0-9); NEUT # 4.4 x10^3/uL (1.8-7.7); NEUT % 97 % (31-73); PLATELET COUNT 125 x10^3/uL (140-400); RED BLOOD COUNT 3.26 x10^6/uL (3.50-5.40); RED CELL DISTRIBUTION WIDTH 14.9 % (11.5-14.5); WHITE BLOOD COUNT 4.5 x10^3/uL (4.0-11.0)
[2018-12-19 06:49] LABS: CALCIUM 8.6 mg/dL (8.5-10.1); CREATININE 0.8 mg/dL (0.6-1.0); GFR 70.9; POTASSIUM 3.7 mmol/L (3.5-5.1)
--- NOTE | 2018-12-19 07:58 | PDOC ---
Infectious Disease Note Subjective: Subjective pt is sleeping , barely arousable had landon cath taken out 12/18 ROS: ROS unable to obtain Vital Signs: Vital Signs Vital Signs Date Time Temp Pulse Resp B/P (MAP) Pulse Ox O2 Delivery O2 Flow Rate FiO2 12/19/18 07:30 Nasal Cannula 6.0 12/19/18 07:00 84 13 170/69 (102) 90 12/19/18 04:00 98.7 98.7 Physical Exam: PHYSICAL EXAM GENERAL: sleeping, comfortable HEENT: Anicteric, no thrush. Oral mucosa moist. NECK: Supple. LUNGS: Clear bilaterally. Chestwall landon cath removed, site less erythematous ABDOMEN: Soft, obese. Bowel sounds present, nontender, nondistended. EXTREMITIES: No edema, no cyanosis. DERMATOLOGIC: Warm, dry. CENTRAL NERVOUS SYSTEM:sleepy Medications: Inpatient Meds: Current Medications Medications (Trade) Dose Ordered Sig/Sushma Start Time Stop Time Status Last Admin Dose Admin Acetaminophen (Tylenol) 650 mg PRN Q6HRS PRN 12/18/18 05:00 12/19/18 03:48 650 MG Al Hydroxide/Mg Hydroxide (Mylanta Plus Xs) 30 ml PRN Q2HR PRN 12/12/18 09:15 12/18/18 16:11 30 ML Albuterol Sulfate (Ventolin Neb Soln) 2.5 mg PRN Q4HRS PRN 12/10/18 09:30 12/19/18 02:33 2.5 MG Albuterol/ Ipratropium (Duoneb) 3 ml RTQID 12/16/18 12:00 12/16/18 10:45 DC Alprazolam (Xanax) 0.5 mg TID 12/10/18 10:00 12/18/18 22:17 0.5 MG Amino Acids/ Glycerin/ Electrolytes 1,000 ml @ 80 mls/hr [id number] 12/18/18 10:15 12/18/18 22:18 80 MLS/HR Amitriptyline HCl (Elavil) 100 mg QHS 12/10/18 21:00 12/14/18 20:54 DC 12/11/18 20:42 100 MG Amlodipine Besylate (Norvasc) 5 mg DAILY 12/10/18 10:00 12/17/18 12:04 5 MG Aspirin (Children'S Aspirin) 81 mg DAILY 12/10/18 10:00 12/18/18 09:53 81 MG Atorvastatin Calcium (Lipitor) 40 mg QHS 12/10/18 21:00 12/14/18 20:54 DC 12/12/18 21:37 40 MG Budesonide (Pulmicort) 0.5 mg RTBID 12/10/18 10:00 12/18/18 19:22 0.5 MG Carboplatin 600 mg/Sodium Chloride 310 ml @ 310 mls/hr 1X ONCE 12/14/18 10:00 12/14/18 10:59 DC 12/14/18 12:49 310 MLS/HR Daptomycin 500 mg/ Sodium Chloride 50 ml @ 100 mls/hr Q24H 12/17/18 12:30 12/18/18 22:19 100 MLS/HR Dexamethasone Sodium Phosphate 12 mg/Sodium Chloride 53 ml @ 212 mls/hr 1X ONCE 12/14/18 08:30 12/14/18 08:44 DC 12/14/18 10:25 212 MLS/HR Dextrose 1,000 ml @ 75 mls/hr [id number] 12/17/18 06:45 12/18/18 10:25 DC 12/17/18 06:45 75 MLS/HR Dextrose (Dextrose 50%-Water Syringe) 12.5 gm PRN Q15MIN PRN 12/10/18 09:30 12/17/18 03:15 12.5 GM Dextrose/Sodium Chloride 1,000 ml @ 75 mls/hr [id number] 12/17/18 06:30 12/17/18 06:41 DC 12/17/18 06:30 75 MLS/HR Diclofenac Sodium (Voltaren) 1 cornelia BID 12/10/18 10:00 12/18/18 22:18 1 CORNELIA Docusate Sodium (Colace) 100 mg DAILY 12/15/18 09:00 12/18/18 09:53 100 MG Enoxaparin Sodium (Lovenox 40mg Syringe) 40 mg Q24H 12/18/18 21:00 12/18/18 22:17 40 MG Enoxaparin Sodium (Lovenox 60mg Syringe) 60 mg Q12HR 12/17/18 10:00 12/18/18 10:53 DC 12/17/18 22:37 60 MG Etoposide 236 mg/ Sodium Chloride 1,011.8 ml @ 1,011.8 mls/hr DAILY 12/15/18 13:00 12/16/18 13:59 DC 12/16/18 13:23 1,011.8 MLS/HR Fentanyl Citrate (Fentanyl 2ml Vial) 25 mcg PRN Q4HRS PRN 12/17/18 09:45 12/18/18 23:54 25 MCG Furosemide (Lasix) 20 mg 1X ONCE 12/16/18 17:30 12/16/18 17:37 DC 12/16/18 17:56 20 MG Gadoterate Meglumine (Dotarem) 25.8 ml 1X ONCE 12/17/18 10:00 12/17/18 10:01 DC 12/17/18 10:23 25.8 ML Glimepiride (Amaryl) 4 mg BID 12/10/18 10:00 12/17/18 06:37 DC 12/16/18 21:34 4 MG Hydrochlorothiazide (Microzide) 12.5 mg DAILY 12/10/18 10:00 12/17/18 12:04 12.5 MG Influenza Virus Vaccine Quadrival (Afluria Quad 2019-20 (3yr Up) Syringe) 0.5 ml ONCE ONCE 12/11/18 09:00 12/11/18 09:01 DC 12/11/18 17:16 0.5 ML Info (CONTRAST GIVEN -- Rx MONITORING) 1 each PRN DAILY PRN 12/10/18 14:15 12/12/18 14:14 DC Insulin Human Lispro (HumaLOG) 0-9 UNITS TIDWMEALS 12/10/18 12:00 12/17/18 06:37 DC 12/14/18 17:25 4 UNITS Iohexol (Omnipaque 240 Mg/ml) 50 ml 1X ONCE 12/10/18 14:00 12/10/18 14:07 DC 12/10/18 16:30 50 ML Iohexol (Omnipaque 300 Mg/ml) 75 ml 1X ONCE 12/10/18 14:00 12/10/18 14:07 DC 12/10/18 16:30 75 ML Levothyroxine Sodium (Synthroid) 200 mcg DAILY06 12/10/18 10:00 12/18/18 09:54 200 MCG Lidocaine (Lidoderm) 1 patch DAILY08 12/18/18 08:00 12/18/18 10:05 1 PATCH Lidocaine HCl (Buffered Lidocaine 1%) 3 ml 1X ONCE 12/11/18 09:15 12/11/18 09:17 DC 12/11/18 09:29 3 ML Lidocaine HCl (Lta Kit) 4 ml 1X ONCE 12/14/18 09:15 12/14/18 09:16 UNV Lidocaine HCl (Xylocaine 2% Topical 5gm Tube) 1 cornelia PRN Q6HRS PRN 12/16/18 10:15 12/18/18 18:22 1 CORNELIA Lidocaine/ Epinephrine (LIDOCAINE 1%-EPI 1:100,000 Multi-Dose) 2 ml 1X ONCE 12/18/18 11:45 12/18/18 11:47 DC 12/18/18 11:44 2 ML Lidocaine/ Prilocaine (Emla) 1 cornelia 1X ONCE 12/14/18 09:30 12/14/18 09:31 DC 12/14/18 10:13 1 CORNELIA Lisinopril (Prinivil) 20 mg DAILY 12/10/18 10:00 12/17/18 12:05 20 MG Midazolam HCl (Versed) 2 mg 1X ONCE 12/13/18 13:30 12/13/18 13:31 DC 12/13/18 13:30 1 MG Miscellaneous (Lidoderm Patch Removal) 1 ea DAILY 12/14/18 09:00 12/18/18 09:00 1 EA Morphine Sulfate (Morphine Sulfate) 2 mg PRN Q2HR PRN 12/10/18 02:00 12/11/18 01:59 DC Non-Formulary Medication (Albuterol Sulfate (Albuterol Sulfate Neb Soln)) 1 vial QID 12/10/18 13:00 UNV Non-Formulary Medication (Ipratropium/ Albuterol Sulfate (Combivent Respimat Inhal)) 2 inh QID 12/10/18 13:00 UNV Non-Formulary Medication (Lisinopril/ Hydrochlorothiazide (Lisinopril-Hctz 20-12.5 Mg Tab)) 1 tab DAILY 12/11/18 09:00 UNV Ondansetron HCl (Zofran) 8 mg Q24H 12/15/18 12:30 12/16/18 12:31 DC 12/16/18 13:10 8 MG Oxycodone HCl (Roxicodone) 10 mg PRN Q6HRS PRN 12/10/18 04:45 12/19/18 04:37 10 MG Pantoprazole Sodium (Protonix) 40 mg 1X ONCE 12/12/18 09:15 12/12/18 09:23 DC 12/12/18 10:49 40 MG Pioglitazone HCl (Actos) 45 mg DAILY 12/10/18 10:00 12/17/18 06:37 DC 12/16/18 09:07 45 MG Piperacillin Sod/ Tazobactam Sod 3.375 gm/Sodium Chloride 50 ml @ 100 mls/hr Q6HRS 12/17/18 12:00 12/19/18 06:08 100 MLS/HR Potassium Chloride (Klor-Con) 20 meq 1X ONCE 12/18/18 12:15 12/18/18 12:16 DC Sertraline HCl (Zoloft) 50 mg DAILY 12/13/18 14:00 12/18/18 09:55 50 MG Labs: Lab Laboratory Tests Test 12/19/18 05:51 White Blood Count 4.5 x10^3/uL (4.0-11.0) Red Blood Count 3.26 x10^6/uL (3.50-5.40) Hemoglobin 9.4 g/dL (12.0-15.5) Hematocrit 28.3 % (36.0-47.0) Mean Corpuscular Volume 87 fL (79-100) Mean Corpuscular Hemoglobin 29 pg (25-35) Mean Corpuscular Hemoglobin Concent 33 g/dL (31-37) Red Cell Distribution Width 14.9 % (11.5-14.5) Platelet Count 125 x10^3/uL (140-400) Neutrophils (%) (Auto) 97 % (31-73) Lymphocytes (%) (Auto) 3 % (24-48) Monocytes (%) (Auto) 1 % (0-9) Eosinophils (%) (Auto) 0 % (0-3) Basophils (%) (Auto) 0 % (0-3) Neutrophils # (Auto) 4.4 x10^3/uL (1.8-7.7) Lymphocytes # (Auto) 0.1 x10^3/uL (1.0-4.8) Monocytes # (Auto) 0.0 x10^3/uL (0.0-1.1) Eosinophils # (Auto) 0.0 x10^3/uL (0.0-0.7) Basophils # (Auto) 0.0 x10^3/uL (0.0-0.2) Sodium Level 136 mmol/L (136-145) Potassium Level 3.7 mmol/L (3.5-5.1) Chloride Level 99 mmol/L (98-107) Carbon Dioxide Level 32 mmol/L (21-32) Anion Gap 5 (6-14) Blood Urea Nitrogen 25 mg/dL (7-20) Creatinine 0.8 mg/dL (0.6-1.0) Estimated GFR (Cockcroft-Gault) 70.9 Glucose Level 178 mg/dL (70-99) Calcium Level 8.6 mg/dL (8.5-10.1) Micro BC 07/12 positive from 12/17 staph ,ID pending Objective: Assessment: Staph sepsis likely from landon cath s/p Landon cath removal 12/18 Staph bacteremia 12/17/ bottles Recently diagnosed small cell lung CA, status post chemo 12/14 through Port-A-Cath, landon cath placed 12/13 now removed Chronic obstructive pulmonary disease. History of chronic back pain. Anxiety Plan: Plan of Care Zosyn and daptomycin. f/u ID of staph in bc f/u repeat bc from 12/19 Follow up labs. D/W PAMELA DONALDSON MD Dec 19, 2018 07:58
[2018-12-19] MEDS: BUDESONIDE 0.5 MG/2 ML NEBU. NEB SCH ×2 (08:01→20:10)
[2018-12-19] MEDS: IPRATRPIUM/ALBUTEROL 0.5/2.5MG 3 ML NEBU. NEB SCH ×4 (08:01→20:10)
--- NOTE | 2018-12-19 09:40 | PDOC ---
SUBJECTIVE Subjective S: port out, getting wound care O: Physical exam: Gen.: obese elderly female, resting in bed, NAD Lungs: Breathing comfortably Skin: port site w/ gauze and slight red/brown on gauze Labs: White count 4.5, hemoglobin 9.4, platelets 125 yesterday Creatinine 0.8 6/6 bottles + for staph Brain MRI: neg for mets Assessment and Plan: Small cell lung ca, Left upper lobe lung mass with extensive mediastinal, hilar lymphadenopathy and left cervical lymphadenopathy, C1 D6 carbo/etoposide, w/ plans to start RT w/ C2 port infection: apprec ID assistance, on Abx, port not needed til Day 21, blood cx + for staph speciation pending COPD: per pulm GERD: PPI back pain: prn meds Prophylaxis: lovenox Dispo: f/u Dr Madden and Dr Hercules upon dc, poss to SNF w/ IV abx w/ bacteremia Thank you kindly and please do not hesitate to call with questions. OBJECTIVE Vital Signs Vital Signs Date Time Temp Pulse Resp B/P (MAP) Pulse Ox O2 Delivery O2 Flow Rate FiO2 12/19/18 08:01 97 Nasal Cannula 6.0 12/19/18 08:00 97.9 83 20 140/62 (88) 98 Nasal Cannula 6.0 97.9 12/19/18 07:30 Nasal Cannula 6.0 12/19/18 07:00 84 13 170/69 (102) 90 Nasal Cannula 6.0 12/19/18 06:00 90 12 148/57 (87) 97 Nasal Cannula 2.0 12/19/18 05:48 89 12 174/80 (111) 97 Nasal Cannula 2.0 12/19/18 05:37 12 97 Nasal Cannula 2.0 12/19/18 04:37 13 12/19/18 04:00 Nasal Cannula 2.0 12/19/18 04:00 98.7 96 12 129/51 (77) 94 Nasal Cannula 2.0 98.7 12/19/18 03:00 89 16 153/93 (113) 97 Nasal Cannula 2.0 12/19/18 02:32 95 Nasal Cannula 3.0 12/19/18 02:00 96 15 169/62 (97) 92 Nasal Cannula 2.0 12/19/18 01:00 92 31 175/71 (105) 91 Nasal Cannula 2.0 12/19/18 00:24 17 95 Nasal Cannula 3.0 12/19/18 00:01 98.4 87 24 158/57 (90) 89 Nasal Cannula 2.0 98.4 12/19/18 00:00 Nasal Cannula 2.0 12/18/18 23:54 12 94 Nasal Cannula 2.0 12/18/18 23:17 19 94 Nasal Cannula 2.0 12/18/18 23:00 91 20 167/62 (97) 94 Nasal Cannula 2.0 12/18/18 22:20 100 Nasal Cannula 2.0 12/18/18 22:17 20 95 Nasal Cannula 2.0 12/18/18 22:00 84 21 192/67 (108) 94 Nasal Cannula 2.0 12/18/18 21:00 81 18 85/59 (68) 94 Nasal Cannula 2.0 12/18/18 20:00 98.7 81 19 109/52 (71) 95 Nasal Cannula 2.0 98.7 12/18/18 20:00 Nasal Cannula 2.0 12/18/18 19:24 99 Nasal Cannula 2.0 12/18/18 19:22 99 Nasal Cannula 2.0 12/18/18 19:00 84 21 132/59 (83) 94 Nasal Cannula 2.0 12/18/18 18:50 97 Nasal Cannula 2.0 12/18/18 18:20 97 Nasal Cannula 2.0 12/18/18 18:00 88 21 94/35 (54) 94 Nasal Cannula 2.0 12/18/18 17:00 92 26 105/40 (61) 95 Nasal Cannula 2.0 12/18/18 16:00 98.4 88 14 123/49 (73) 93 Nasal Cannula 2.0 98.4 12/18/18 16:00 Nasal Cannula 2.0 12/18/18 15:00 76 23 125/49 (74) 97 Nasal Cannula 4.0 12/18/18 14:00 78 14 105/51 (69) 98 Nasal Cannula 4.0 12/18/18 13:00 78 12 112/45 (67) 98 Nasal Cannula 4.0 12/18/18 12:21 99 Nasal Cannula 4.0 12/18/18 12:00 Nasal Cannula 4.0 12/18/18 12:00 98.8 80 24 132/49 (76) 98 Nasal Cannula 4.0 98.8 12/18/18 11:00 78 24 113/53 (73) 98 Nasal Cannula 4.0 12/18/18 10:00 78 24 119/57 (77) 98 Nasal Cannula 4.0 I & O Intake and Output 12/19/18 07:00 Intake Total 3039 ml Output Total 2150 ml Balance 889 ml Intake Oral 300 ml IV Total 1739 ml Other 1000 ml Output Urine Total 2150 ml COMMENT Lab Laboratory Tests Test 12/19/18 05:51 White Blood Count 4.5 x10^3/uL (4.0-11.0) Red Blood Count 3.26 x10^6/uL (3.50-5.40) Hemoglobin 9.4 g/dL (12.0-15.5) Hematocrit 28.3 % (36.0-47.0) Mean Corpuscular Volume 87 fL (79-100) Mean Corpuscular Hemoglobin 29 pg (25-35) Mean Corpuscular Hemoglobin Concent 33 g/dL (31-37) Red Cell Distribution Width 14.9 % (11.5-14.5) Platelet Count 125 x10^3/uL (140-400) Neutrophils (%) (Auto) 97 % (31-73) Lymphocytes (%) (Auto) 3 % (24-48) Monocytes (%) (Auto) 1 % (0-9) Eosinophils (%) (Auto) 0 % (0-3) Basophils (%) (Auto) 0 % (0-3) Neutrophils # (Auto) 4.4 x10^3/uL (1.8-7.7) Lymphocytes # (Auto) 0.1 x10^3/uL (1.0-4.8) Monocytes # (Auto) 0.0 x10^3/uL (0.0-1.1) Eosinophils # (Auto) 0.0 x10^3/uL (0.0-0.7) Basophils # (Auto) 0.0 x10^3/uL (0.0-0.2) Sodium Level 136 mmol/L (136-145) Potassium Level 3.7 mmol/L (3.5-5.1) Chloride Level 99 mmol/L (98-107) Carbon Dioxide Level 32 mmol/L (21-32) Anion Gap 5 (6-14) Blood Urea Nitrogen 25 mg/dL (7-20) Creatinine 0.8 mg/dL (0.6-1.0) Estimated GFR (Cockcroft-Gault) 70.9 Glucose Level 178 mg/dL (70-99) Calcium Level 8.6 mg/dL (8.5-10.1) ANGELITA SHARPE MD Dec 19, 2018 09:40
--- NOTE | 2018-12-19 10:04 | PDOC ---
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 Diagnosis Problem List Problems Medical Problems: (1) Anxiety Status: Acute (2) Depression Status: Chronic (3) Diabetes Status: Chronic (4) Dyspnea on minimal exertion Status: Acute (5) HTN (hypertension) Status: Chronic (6) Hyperlipidemia Status: Chronic (7) Hypothyroidism Status: Chronic (8) Mass of left lung Status: Acute (9) Pleural effusion, left Status: Acute Assessment Assessment Problems Medical Problems: (1) Anxiety Status: Acute (2) Depression Status: Chronic (3) Diabetes Status: Chronic (4) Dyspnea on minimal exertion Status: Acute (5) HTN (hypertension) Status: Chronic (6) Hyperlipidemia Status: Chronic (7) Hypothyroidism Status: Chronic (8) Mass of left lung Status: Acute (9) Pleural effusion, left Status: Acute FINAL IMPRESSION: sepsis bacteremia staph,6/6 blood c/s positive cellulitis at port site.? pus pocket Small cell lung ca ,metastatic. 1. Left upper lung mass new finding ,suspicious for lung cancer, small cell lung cancer 2. Extensive mediastinal hilar adenopathy as well as cervical adenopathy, atelectasis of the left lung, atelectasis of the right lung and hiatal hernia. 3. Diabetes. 4. Hypertension. 5. Hyperlipidemia. 6. Hypothyroidism. 7. Anxiety, depression. 8. Ex-smoker, quit 10 years ago, smoked for 25 years, 2 packs at least. PLAN: infected port removed packing today. spoke with IR and oncology dapto+zosyn spoke with case manger transfer out of icu today MRI brain neg for mets start on chemo , 1 st cycle of chemo completed 12/16/18 labs reviewed. cxr lung infiltrates. Plan Plan of Care Problems Medical Problems: (1) Anxiety Status: Acute (2) Depression Status: Chronic (3) Diabetes Status: Chronic (4) Dyspnea on minimal exertion Status: Acute (5) HTN (hypertension) Status: Chronic (6) Hyperlipidemia Status: Chronic (7) Hypothyroidism Status: Chronic (8) Mass of left lung Status: Acute (9) Pleural effusion, left Status: Acute Comment Review of Relevant I have reviewed the following items malik (where applicable) has been applied. Labs Laboratory Tests Test 12/19/18 05:51 White Blood Count 4.5 x10^3/uL (4.0-11.0) Red Blood Count 3.26 x10^6/uL (3.50-5.40) Hemoglobin 9.4 g/dL (12.0-15.5) Hematocrit 28.3 % (36.0-47.0) Mean Corpuscular Volume 87 fL (79-100) Mean Corpuscular Hemoglobin 29 pg (25-35) Mean Corpuscular Hemoglobin Concent 33 g/dL (31-37) Red Cell Distribution Width 14.9 % (11.5-14.5) Platelet Count 125 x10^3/uL (140-400) Neutrophils (%) (Auto) 97 % (31-73) Lymphocytes (%) (Auto) 3 % (24-48) Monocytes (%) (Auto) 1 % (0-9) Eosinophils (%) (Auto) 0 % (0-3) Basophils (%) (Auto) 0 % (0-3) Neutrophils # (Auto) 4.4 x10^3/uL (1.8-7.7) Lymphocytes # (Auto) 0.1 x10^3/uL (1.0-4.8) Monocytes # (Auto) 0.0 x10^3/uL (0.0-1.1) Eosinophils # (Auto) 0.0 x10^3/uL (0.0-0.7) Basophils # (Auto) 0.0 x10^3/uL (0.0-0.2) Sodium Level 136 mmol/L (136-145) Potassium Level 3.7 mmol/L (3.5-5.1) Chloride Level 99 mmol/L (98-107) Carbon Dioxide Level 32 mmol/L (21-32) Anion Gap 5 (6-14) Blood Urea Nitrogen 25 mg/dL (7-20) Creatinine 0.8 mg/dL (0.6-1.0) Estimated GFR (Cockcroft-Gault) 70.9 Glucose Level 178 mg/dL (70-99) Calcium Level 8.6 mg/dL (8.5-10.1) Microbiology 12/17/18 Blood Culture - Final, Complete Medications Current Medications Amino Acids/ Glycerin/ Electrolytes 1,000 ml @ 80 mls/hr [id number] IV Last administered on 12/18/18at 22:18; Start 12/18/18 at 10:15 Enoxaparin Sodium (Lovenox 40mg Syringe) 40 mg Q24H SQ Last administered on 12/18/18at 22:17; Start 12/18/18 at 21:00 Lidocaine/ Epinephrine (LIDOCAINE 1%-EPI 1:100,000 Multi-Dose) 2 ml 1X ONCE INJ Last administered on 12/18/18at 11:44; Start 12/18/18 at 11:45; Stop 12/18/18 at 11:47; Status DC Lidocaine/ Epinephrine (LIDOCAINE 1%-EPI 1:100,000 Multi-Dose) 20 ml STK-MED ONCE .ROUTE ; Start 12/18/18 at 10:59; Stop 12/18/18 at 10:59; Status DC Potassium Chloride (Klor-Con) 20 meq 1X ONCE PO ; Start 12/18/18 at 12:15; Stop 12/18/18 at 12:16; Status DC Potassium Chloride (Klor-Con) 40 meq 1X ONCE PO Last administered on 12/18/18at 13:09; Start 12/18/18 at 10:15; Stop 12/18/18 at 10:25; Status DC Vitals/I & O Vital Sign - Last 24 Hours 12/18/18 12/18/18 12/18/18 12/18/18 11:00 12:00 12:00 12:21 Temp 98.8 98.8 Pulse 78 80 Resp 24 24 B/P (MAP) 113/53 (73) 132/49 (76) Pulse Ox 98 98 99 O2 Delivery Nasal Cannula Nasal Cannula Nasal Cannula Nasal Cannula O2 Flow Rate 4.0 4.0 4.0 4.0 1112/18/18 12/18/18 12/18/18 13:00 14:00 15:00 16:00 Pulse 78 78 76 Resp 12 14 23 B/P (MAP) 112/45 (67) 105/51 (69) 125/49 (74) Pulse Ox 98 98 97 O2 Delivery Nasal Cannula Nasal Cannula Nasal Cannula Nasal Cannula O2 Flow Rate 4.0 4.0 4.0 2.0 12/18/18 12/18/18 12/18/18 12/18/18 16:00 17:00 18:00 18:20 Temp 98.4 98.4 Pulse 88 92 88 Resp 14 26 21 B/P (MAP) 123/49 (73) 105/40 (61) 94/35 (54) Pulse Ox 93 95 94 97 O2 Delivery Nasal Cannula Nasal Cannula Nasal Cannula Nasal Cannula O2 Flow Rate 2.0 2.0 2.0 2.0 12/18/18 12/18/18 12/18/18 12/18/18 18:50 19:00 19:22 19:24 Pulse 84 Resp 21 B/P (MAP) 132/59 (83) Pulse Ox 97 94 99 99 O2 Delivery Nasal Cannula Nasal Cannula Nasal Cannula Nasal Cannula O2 Flow Rate 2.0 2.0 2.0 2.0 12/18/18 12/18/18 12/18/18 12/18/18 20:00 20:00 21:00 22:00 Temp 98.7 98.7 Pulse 81 81 84 Resp 19 18 21 B/P (MAP) 109/52 (71) 85/59 (68) 192/67 (108) Pulse Ox 95 94 94 O2 Delivery Nasal Cannula Nasal Cannula Nasal Cannula Nasal Cannula O2 Flow Rate 2.0 2.0 2.0 2.0 12/18/18 12/18/18 12/18/18 12/18/18 22:17 22:20 23:00 23:17 Pulse 91 Resp 20 20 19 B/P (MAP) 167/62 (97) Pulse Ox 95 100 94 94 O2 Delivery Nasal Cannula Nasal Cannula Nasal Cannula Nasal Cannula O2 Flow Rate 2.0 2.0 2.0 2.0 12/18/18 12/19/18 12/19/18 12/19/18 23:54 00:00 00:01 00:24 Temp 98.4 98.4 Pulse 87 Resp 12 24 17 B/P (MAP) 158/57 (90) Pulse Ox 94 89 95 O2 Delivery Nasal Cannula Nasal Cannula Nasal Cannula Nasal Cannula O2 Flow Rate 2.0 2.0 2.0 3.0 12/19/18 12/19/18 12/19/18 12/19/18 01:00 02:00 02:32 03:00 Pulse 92 96 89 Resp 31 15 16 B/P (MAP) 175/71 (105) 169/62 (97) 153/93 (113) Pulse Ox 91 92 95 97 O2 Delivery Nasal Cannula Nasal Cannula Nasal Cannula Nasal Cannula O2 Flow Rate 2.0 2.0 3.0 2.0 12/19/18 12/19/18 12/19/18 12/19/18 04:00 04:00 04:37 05:37 Temp 98.7 98.7 Pulse 96 Resp 01 18 12 B/P (MAP) 129/51 (77) Pulse Ox 94 97 O2 Delivery Nasal Cannula Nasal Cannula Nasal Cannula O2 Flow Rate 2.0 2.0 2.0 12/19/18 12/19/18 12/19/18 12/19/18 05:48 06:00 07:00 07:30 Pulse 89 90 84 Resp 01 17 13 B/P (MAP) 174/80 (111) 148/57 (87) 170/69 (102) Pulse Ox 97 97 90 O2 Delivery Nasal Cannula Nasal Cannula Nasal Cannula Nasal Cannula O2 Flow Rate 2.0 2.0 6.0 6.0 12/19/18 12/19/18 08:00 08:01 Temp 97.9 97.9 Pulse 83 Resp 20 B/P (MAP) 140/62 (88) Pulse Ox 98 97 O2 Delivery Nasal Cannula Nasal Cannula O2 Flow Rate 6.0 6.0 Intake and Output 12/18/18 12/18/18 12/19/18 15:00 23:00 07:00 Intake Total 200 ml 1850 ml 989 ml Output Total 590 ml 870 ml 690 ml Balance -390 ml 980 ml 299 ml PATRIC MICHEL MD Dec 19, 2018 10:04
[2018-12-19] MEDS: AMINO AC 3%/ELECTROLYTE/GLYCER 1,000 ML IV SCH (10:40)
--- NOTE | 2018-12-19 11:15 | PDOC ---
PULMONARY PROGRESS NOTES Subjective Patient seeking benzos and narcotics, sleepy 07/12 BC positive stable BP Vitals Vital Signs Date Time Temp Pulse Resp B/P (MAP) Pulse Ox O2 Delivery O2 Flow Rate FiO2 12/19/18 10:00 80 12 169/75 (106) 100 Nasal Cannula 4.0 12/19/18 08:00 97.9 97.9 General: Lethargic Lungs: Clear Cardiovascular: S1, S2 Abdomen: Soft, Other (obese) Extremities: Other (trace edema) Skin: Warm Labs Laboratory Tests Test 12/17/18 11:40 12/17/18 17:17 12/17/18 20:40 12/17/18 22:38 Glucose (Fingerstick) 151 mg/dL (70-99) 224 mg/dL (70-99) 220 mg/dL (70-99) White Blood Count 10.1 x10^3/uL (4.0-11.0) Red Blood Count 3.35 x10^6/uL (3.50-5.40) Hemoglobin 9.6 g/dL (12.0-15.5) Hematocrit 28.9 % (36.0-47.0) Mean Corpuscular Volume 86 fL (79-100) Mean Corpuscular Hemoglobin 29 pg (25-35) Mean Corpuscular Hemoglobin Concent 33 g/dL (31-37) Red Cell Distribution Width 15.1 % (11.5-14.5) Platelet Count 150 x10^3/uL (140-400) Neutrophils (%) (Auto) 99 % (31-73) Lymphocytes (%) (Auto) 1 % (24-48) Monocytes (%) (Auto) 0 % (0-9) Eosinophils (%) (Auto) 0 % (0-3) Basophils (%) (Auto) 0 % (0-3) Neutrophils # (Auto) 10.0 x10^3/uL (1.8-7.7) Lymphocytes # (Auto) 0.1 x10^3/uL (1.0-4.8) Monocytes # (Auto) 0.0 x10^3/uL (0.0-1.1) Eosinophils # (Auto) 0.0 x10^3/uL (0.0-0.7) Basophils # (Auto) 0.0 x10^3/uL (0.0-0.2) O2 Saturation 97 % (92-99) Arterial Blood pH 7.42 (7.35-7.45) Arterial Blood pCO2 at Patient Temp 43 mmHg (35-46) Arterial Blood pO2 at Patient Temp 97 mmHg (65-108) Arterial Blood HCO3 27 mmol/L (21-28) Arterial Blood Base Excess 2 mmol/L (-3-3) FiO2 32 Sodium Level 130 mmol/L (136-145) Potassium Level 3.2 mmol/L (3.5-5.1) Chloride Level 93 mmol/L (98-107) Carbon Dioxide Level 31 mmol/L (21-32) Anion Gap 6 (6-14) Blood Urea Nitrogen 22 mg/dL (7-20) Creatinine 1.2 mg/dL (0.6-1.0) Estimated GFR (Cockcroft-Gault) 44.4 BUN/Creatinine Ratio 18 (6-20) Glucose Level 218 mg/dL (70-99) Lactic Acid Level 0.9 mmol/L (0.4-2.0) Calcium Level 8.6 mg/dL (8.5-10.1) Magnesium Level 2.2 mg/dL (1.8-2.4) Total Bilirubin 0.4 mg/dL (0.2-1.0) Aspartate Amino Transf (AST/SGOT) 40 U/L (15-37) Alanine Aminotransferase (ALT/SGPT) 30 U/L (14-59) Alkaline Phosphatase 59 U/L (46-116) Creatine Kinase 102 U/L (26-192) Total Protein 7.2 g/dL (6.4-8.2) Albumin 2.8 g/dL (3.4-5.0) Albumin/Globulin Ratio 0.6 (1.0-1.7) Test 12/17/18 23:15 12/18/18 06:34 12/19/18 05:51 Urine Collection Type U cath Urine Color Yellow Urine Clarity Clear Urine pH 5.0 Urine Specific [place] 1.015 Urine Protein 100 mg/dL (NEG-TRACE) Urine Glucose (UA) 250 mg/dL (NEG) Urine Ketones (Stick) Negative mg/dL (NEG) Urine Blood Moderate (NEG) Urine Nitrite Negative (NEG) Urine Bilirubin Negative (NEG) Urine Urobilinogen Dipstick 0.2 mg/dL (0.2 mg/dL) Urine Leukocyte Esterase Negative (NEG) Urine RBC Rare /HPF (0-2) Urine WBC Rare /HPF (0-4) Urine Squamous Epithelial Cells Few /LPF Urine Transitional Epithelial Cells Occ /LPF Urine Bacteria 0 /HPF (0-FEW) Urine Mucus Slight /LPF Glucose (Fingerstick) 127 mg/dL (70-99) White Blood Count 4.5 x10^3/uL (4.0-11.0) Red Blood Count 3.26 x10^6/uL (3.50-5.40) Hemoglobin 9.4 g/dL (12.0-15.5) Hematocrit 28.3 % (36.0-47.0) Mean Corpuscular Volume 87 fL (79-100) Mean Corpuscular Hemoglobin 29 pg (25-35) Mean Corpuscular Hemoglobin Concent 33 g/dL (31-37) Red Cell Distribution Width 14.9 % (11.5-14.5) Platelet Count 125 x10^3/uL (140-400) Neutrophils (%) (Auto) 97 % (31-73) Lymphocytes (%) (Auto) 3 % (24-48) Monocytes (%) (Auto) 1 % (0-9) Eosinophils (%) (Auto) 0 % (0-3) Basophils (%) (Auto) 0 % (0-3) Neutrophils # (Auto) 4.4 x10^3/uL (1.8-7.7) Lymphocytes # (Auto) 0.1 x10^3/uL (1.0-4.8) Monocytes # (Auto) 0.0 x10^3/uL (0.0-1.1) Eosinophils # (Auto) 0.0 x10^3/uL (0.0-0.7) Basophils # (Auto) 0.0 x10^3/uL (0.0-0.2) Sodium Level 136 mmol/L (136-145) Potassium Level 3.7 mmol/L (3.5-5.1) Chloride Level 99 mmol/L (98-107) Carbon Dioxide Level 32 mmol/L (21-32) Anion Gap 5 (6-14) Blood Urea Nitrogen 25 mg/dL (7-20) Creatinine 0.8 mg/dL (0.6-1.0) Estimated GFR (Cockcroft-Gault) 70.9 Glucose Level 178 mg/dL (70-99) Calcium Level 8.6 mg/dL (8.5-10.1) Laboratory Tests Test 12/19/18 05:51 White Blood Count 4.5 x10^3/uL (4.0-11.0) Red Blood Count 3.26 x10^6/uL (3.50-5.40) Hemoglobin 9.4 g/dL (12.0-15.5) Hematocrit 28.3 % (36.0-47.0) Mean Corpuscular Volume 87 fL (79-100) Mean Corpuscular Hemoglobin 29 pg (25-35) Mean Corpuscular Hemoglobin Concent 33 g/dL (31-37) Red Cell Distribution Width 14.9 % (11.5-14.5) Platelet Count 125 x10^3/uL (140-400) Neutrophils (%) (Auto) 97 % (31-73) Lymphocytes (%) (Auto) 3 % (24-48) Monocytes (%) (Auto) 1 % (0-9) Eosinophils (%) (Auto) 0 % (0-3) Basophils (%) (Auto) 0 % (0-3) Neutrophils # (Auto) 4.4 x10^3/uL (1.8-7.7) Lymphocytes # (Auto) 0.1 x10^3/uL (1.0-4.8) Monocytes # (Auto) 0.0 x10^3/uL (0.0-1.1) Eosinophils # (Auto) 0.0 x10^3/uL (0.0-0.7) Basophils # (Auto) 0.0 x10^3/uL (0.0-0.2) Sodium Level 136 mmol/L (136-145) Potassium Level 3.7 mmol/L (3.5-5.1) Chloride Level 99 mmol/L (98-107) Carbon Dioxide Level 32 mmol/L (21-32) Anion Gap 5 (6-14) Blood Urea Nitrogen 25 mg/dL (7-20) Creatinine 0.8 mg/dL (0.6-1.0) Estimated GFR (Cockcroft-Gault) 70.9 Glucose Level 178 mg/dL (70-99) Calcium Level 8.6 mg/dL (8.5-10.1) Medications Active Scripts Medications Dose Route/Sig Max Daily Dose Days Date Category Proair Hfa Inhaler (Albuterol Sulfate) 8.5 Gm Hfa.aer.ad 2 Puff INH PRN Q4HRS PRN 07/04/17 Reported Lidocaine PATCH (Lidocaine) 1 Each Adh..patch 1 Each TP DAILY 07/04/17 Reported Amlodipine Besylate 5 Mg Tablet 5 Mg PO DAILY 07/04/17 Reported Duoneb 0.5-3(2.5) Mg/3 Ml (Albuterol/Ipratropium) 3 Ml Ampul.neb 3 Ml NEB QID 07/04/17 Reported Symbicort 160-4.5 Mcg Inhaler (Budesonide/Formoterol Fumarate) 10.2 Gm Hfa.aer.ad 2 Puff IH BID 07/04/17 Reported Flector (Diclofenac Epolamine) 1 Each Patch.td12 1 Each TD BID 07/04/17 Reported Combivent Respimat Inhal (Ipratropium/Albuterol Sulfate) 4 Gm Aer.w.adap 2 Inh IH QID 07/04/17 Reported Albuterol Sulfate Neb Soln (Albuterol Sulfate) 0.63 Mg/3 Ml Vial.neb 1 Vial NEB QID 07/04/17 Reported Xanax (Alprazolam) 0.5 Mg Tablet 1 Tab PO TID 07/04/17 Reported Oxycodone Hcl Immed.release (Oxycodone Hcl) 10 Mg Tablet 10 Mg PO PRN Q6HRS PRN 07/04/17 Reported Potassium Chloride 20 Meq Tablet.er 8 Meq PO DAILY 07/04/17 Reported Synthroid (Levothyroxine Sodium) 200 Mcg Tablet 1 Tab PO DAILY 07/04/17 Reported Lisinopril-Hctz 20-12.5 Mg Tab (Lisinopril/Hydrochlorothiazide) 1 Each Tablet 1 Tab PO DAILY 07/04/17 Reported Glimepiride 4 Mg Tablet 1 Tab PO BID 07/04/17 Reported Lipitor (Atorvastatin Calcium) 40 Mg Tablet 1 Tab PO DAILY 07/04/17 Reported Actos (Pioglitazone Hcl) 45 Mg Tablet 1 Tab PO DAILY 07/04/17 Reported Amitriptyline Hcl 100 Mg Tablet 1 Tab PO QHS 07/04/17 Reported Aspirin 81 Mg Tab.chew 1 Tab PO DAILY 07/04/17 Reported Impression . 1. Dyspnea/ encephalopathy due to sepsis , Narcotics and benzo;s induced. 2. Small cell lung ca, Stage IIIB, T2N3M0, Left upper lobe lung mass with extensive mediastinal, hilar lymphadenopathy and left cervical lymphadenopathy s/p cervical lymph node biopsy 12/11/18 3. acute exacerbation of chronic obstructive pulmonary disease, 4. Clinical symptoms and signs of obstructive sleep apnea. 5. Chronic diastolic heart failure. 6. Hyperlipidemia. 7. Hypothyroidism. 8. / BC positive PATH Diagnosis: "LT cervical LN BX", needle biopsy: - SMALL CELL CARCINOMA. (See comment) . (CLW:br[place]ford; 12/13/2018) [facility] 12/13/2018 1050 Local Plan . 1. Cont. recommendations from HEM/ONC-- currently being treated with chemo and radiation 2. Follow all BC ID/ Abx per ID 3. Pt. is clinically stable from respiratory stand point, cont. supplemental oxygen and bronchodilators / PRN BIPAP 4. Cont.bronchodilators as needed 5. cont. PPI and HOB 30 degress post meals to aide with acid reflux 6. Need to reduce scheduled Xanox dose d/w NICANOR LOPEZ MD Dec 19, 2018 11:15
[2018-12-19] MEDS: fentaNYL PF VIAL 100 MCG/2 ML VIAL IVP PRN ×2 (12:41→19:48)
[2018-12-19] MEDS: hydroCHLOROthiazide 12.5 MG CAPSULE PO SCH (12:42)
[2018-12-19] MEDS: ASPIRIN CHEWABLE 81 MG TABLET. PO SCH (12:42)
[2018-12-19] MEDS: LISINOPRIL 20 MG TABLET PO SCH (12:42)
[2018-12-19] MEDS: PANTOPRAZOLE 40 MG TABLET.DR. PO SCH (12:43)
[2018-12-19] MEDS: SERTRALINE 50 MG TABLET. PO SCH (12:43)
[2018-12-19] MEDS: amLODIPine BESYLATE 5 MG TABLET PO SCH (12:43)
[2018-12-19] MEDS: DOCUSATE SODIUM 100 MG CAPSULE. PO SCH (12:43)
[2018-12-19] MEDS: POTASSIUM CHLORIDE 10 MEQ TABLET.ER. PO SCH (12:43)
[2018-12-19] MEDS: PATCH REMOVAL. MC SCH (12:48)
[2018-12-19] MEDS: LIDOCAINE (700MG/PATCH) PATCH. TP SCH (12:48)
[2018-12-19] MEDS: ALPRAZolam 0.5 MG TABLET PO SCH ×2 (12:49→20:34)
[2018-12-19] MEDS: DICLOFENAC SODIUM 1% TOPICAL GEL 100GM TUBE. TP SCH ×2 (12:49→20:35)
[2018-12-19] MEDS: ONDANSETRON PF 4 MG/2 ML VIAL. IVP PRN ×2 (12:56→19:48)
--- NOTE | 2018-12-19 16:08 | NUR ---
Wound Care: Cleansed, pictured and measured wound to R chest from port removal. Periwound red, warm and swollen. Treated with skin prep and packed with iodoform gauze packing, covered with a foam dressing, change every other day. No other open areas noted on head to toe assessment. Heels floated on pillows, positioned on R side with wedge. Follow up 12/27/18
[2018-12-19] MEDS: ENOXAPARIN 40 MG/0.4 ML SYRINGE. SQ SCH (20:35)
[2018-12-19] MEDS: DAPTOmycin (GENERIC) IVPB 500 MG in IV NORMAL SALINE 50ML 50 ML IV SCH (20:39)
[2018-12-20] MEDS: PIPERACILLIN/TAZOBACTAM 3.375 GM in IV NORMAL SALINE 50ML 50 ML IV SCH ×4 (00:10→17:57)
[2018-12-20] MEDS: fentaNYL PF VIAL 100 MCG/2 ML VIAL IVP PRN ×4 (02:01→22:35)
[2018-12-20] MEDS: ALBUTEROL SULFATE 2.5 MG/3 ML NEBU. INH PRN (02:28)
[2018-12-20] MEDS: AMINO AC 3%/ELECTROLYTE/GLYCER 1,000 ML IV SCH ×2 (02:39→17:57)
[2018-12-20] MEDS: oxyCODONE IR 5 MG TABLET PO PRN ×3 (02:39→21:33)
[2018-12-20 03:00] VITALS: BP 147/92
[2018-12-20] MEDS: ALPRAZolam 0.25 MG TABLET PO PRN (03:02)
[2018-12-20 05:27] LABS: BASO % 0 % (0-3); EOS % 1 % (0-3); HEMATOCRIT 26.6 % (36.0-47.0); HEMOGLOBIN 8.7 g/dL (12.0-15.5); LYMPH # 0.1 x10^3/uL (1.0-4.8); LYMPH % 7 % (24-48); MEAN CORPUSCULAR HEMOGLOBIN 29 pg (25-35); MEAN CORPUSCULAR HGB CONC 33 g/dL (31-37); MEAN CORPUSCULAR VOLUME 87 fL (79-100); MONO % 1 % (0-9); NEUT # 1.9 x10^3/uL (1.8-7.7); NEUT % 91 % (31-73); PLATELET COUNT 105 x10^3/uL (140-400); RED BLOOD COUNT 3.05 x10^6/uL (3.50-5.40); RED CELL DISTRIBUTION WIDTH 15.1 % (11.5-14.5); WHITE BLOOD COUNT 2.1 x10^3/uL (4.0-11.0)
[2018-12-20 05:44] LABS: CALCIUM 8.8 mg/dL (8.5-10.1); GFR 54.8; POTASSIUM 4.1 mmol/L (3.5-5.1)
--- NOTE | 2018-12-20 05:49 | NUR ---
Patient has been hostile all night. She asks for breathing treatments and pain medication constantly (at least once per hour). If she is unable to get what she is asking for she claims "you just want to torture me" and "I don't believe you". She also claims RN is hiding call light from her when call light is sitting next to her on her bed. Patient verbally abusive toward staff, calling this RN names such as "bitch". When patient is told that this is inappropriate she starts to yell loudly and states "you are only here for me so I'll do what I want".
[2018-12-20] MEDS: LEVOTHYROXINE 100 MCG TABLET PO SCH (06:04)
[2018-12-20 07:00] VITALS: BP 141/66
[2018-12-20] MEDS: IPRATRPIUM/ALBUTEROL 0.5/2.5MG 3 ML NEBU. NEB SCH ×4 (07:36→20:11)
[2018-12-20] MEDS: BUDESONIDE 0.5 MG/2 ML NEBU. NEB SCH ×2 (07:37→20:11)
--- NOTE | 2018-12-20 08:05 | PDOC ---
Infectious Disease Note Subjective: Subjective pt is sleeping , arousable was agitated at night again had landon cath taken out 12/18 no fevers reported no n/v/d Vital Signs: Vital Signs Vital Signs Date Time Temp Pulse Resp B/P (MAP) Pulse Ox O2 Delivery O2 Flow Rate FiO2 12/20/18 07:37 97 Nasal Cannula 3.0 12/20/18 07:00 98.5 85 14 141/66 (91) 98.5 Physical Exam: PHYSICAL EXAM GENERAL: sleeping, comfortable HEENT: Anicteric, no thrush. Oral mucosa moist. NECK: Supple. LUNGS: Clear bilaterally. Chestwall landon cath removed, site less erythematous ABDOMEN: Soft, obese. Bowel sounds present, nontender, nondistended. EXTREMITIES: No edema, no cyanosis. DERMATOLOGIC: Warm, dry. CENTRAL NERVOUS SYSTEM:sleepy Medications: Inpatient Meds: Current Medications Medications (Trade) Dose Ordered Sig/Sushma Start Time Stop Time Status Last Admin Dose Admin Acetaminophen (Tylenol) 650 mg PRN Q6HRS PRN 12/18/18 05:00 12/19/18 03:48 650 MG Al Hydroxide/Mg Hydroxide (Mylanta Plus Xs) 30 ml PRN Q2HR PRN 12/12/18 09:15 12/18/18 16:11 30 ML Albuterol Sulfate (Ventolin Neb Soln) 2.5 mg PRN Q4HRS PRN 12/10/18 09:30 12/20/18 02:28 2.5 MG Albuterol/ Ipratropium (Duoneb) 3 ml RTQID 12/16/18 12:00 12/16/18 10:45 DC Alprazolam (Xanax) 0.25 mg TID 12/19/18 14:00 12/19/18 20:34 0.25 MG Amino Acids/ Glycerin/ Electrolytes 1,000 ml @ 80 mls/hr [id number] 12/18/18 10:15 12/20/18 02:39 80 MLS/HR Amitriptyline HCl (Elavil) 100 mg QHS 12/10/18 21:00 12/14/18 20:54 DC 12/11/18 20:42 100 MG Amlodipine Besylate (Norvasc) 5 mg DAILY 12/10/18 10:00 12/19/18 12:43 5 MG Aspirin (Children'S Aspirin) 81 mg DAILY 12/10/18 10:00 12/19/18 12:42 81 MG Atorvastatin Calcium (Lipitor) 40 mg QHS 12/10/18 21:00 12/14/18 20:54 DC 12/12/18 21:37 40 MG Budesonide (Pulmicort) 0.5 mg RTBID 12/10/18 10:00 12/20/18 07:37 0.5 MG Carboplatin 600 mg/Sodium Chloride 310 ml @ 310 mls/hr 1X ONCE 12/14/18 10:00 12/14/18 10:59 DC 12/14/18 12:49 310 MLS/HR Daptomycin 500 mg/ Sodium Chloride 50 ml @ 100 mls/hr Q24H 12/17/18 12:30 12/19/18 20:39 100 MLS/HR Dexamethasone Sodium Phosphate 12 mg/Sodium Chloride 53 ml @ 212 mls/hr 1X ONCE 12/14/18 08:30 12/14/18 08:44 DC 12/14/18 10:25 212 MLS/HR Dextrose 1,000 ml @ 75 mls/hr [id number] 12/17/18 06:45 12/18/18 10:25 DC 12/17/18 06:45 75 MLS/HR Dextrose (Dextrose 50%-Water Syringe) 12.5 gm PRN Q15MIN PRN 12/10/18 09:30 12/17/18 03:15 12.5 GM Dextrose/Sodium Chloride 1,000 ml @ 75 mls/hr [id number] 12/17/18 06:30 12/17/18 06:41 DC 12/17/18 06:30 75 MLS/HR Diclofenac Sodium (Voltaren) 1 cornelia BID 12/10/18 10:00 12/19/18 20:35 1 CORNELIA Docusate Sodium (Colace) 100 mg DAILY 12/15/18 09:00 12/19/18 12:43 100 MG Enoxaparin Sodium (Lovenox 40mg Syringe) 40 mg Q24H 12/18/18 21:00 12/19/18 20:35 40 MG Enoxaparin Sodium (Lovenox 60mg Syringe) 60 mg Q12HR 12/17/18 10:00 12/18/18 10:53 DC 12/17/18 22:37 60 MG Etoposide 236 mg/ Sodium Chloride 1,011.8 ml @ 1,011.8 mls/hr DAILY 12/15/18 13:00 12/16/18 13:59 DC 12/16/18 13:23 1,011.8 MLS/HR Fentanyl Citrate (Fentanyl 2ml Vial) 25 mcg PRN Q4HRS PRN 12/17/18 09:45 12/20/18 06:05 25 MCG Furosemide (Lasix) 20 mg 1X ONCE 12/16/18 17:30 12/16/18 17:37 DC 12/16/18 17:56 20 MG Gadoterate Meglumine (Dotarem) 25.8 ml 1X ONCE 12/17/18 10:00 12/17/18 10:01 DC 12/17/18 10:23 25.8 ML Glimepiride (Amaryl) 4 mg BID 12/10/18 10:00 12/17/18 06:37 DC 12/16/18 21:34 4 MG Hydrochlorothiazide (Microzide) 12.5 mg DAILY 12/10/18 10:00 12/19/18 12:42 12.5 MG Influenza Virus Vaccine Quadrival (Afluria Quad 2019-20 (3yr Up) Syringe) 0.5 ml ONCE ONCE 12/11/18 09:00 12/11/18 09:01 DC 12/11/18 17:16 0.5 ML Info (CONTRAST GIVEN -- Rx MONITORING) 1 each PRN DAILY PRN 12/10/18 14:15 12/12/18 14:14 DC Insulin Human Lispro (HumaLOG) 0-9 UNITS TIDWMEALS 12/10/18 12:00 12/17/18 06:37 DC 12/14/18 17:25 4 UNITS Iohexol (Omnipaque 240 Mg/ml) 50 ml 1X ONCE 12/10/18 14:00 12/10/18 14:07 DC 12/10/18 16:30 50 ML Iohexol (Omnipaque 300 Mg/ml) 75 ml 1X ONCE 12/10/18 14:00 12/10/18 14:07 DC 12/10/18 16:30 75 ML Levothyroxine Sodium (Synthroid) 200 mcg DAILY06 12/10/18 10:00 12/20/18 06:04 200 MCG Lidocaine (Lidoderm) 1 patch DAILY08 12/18/18 08:00 12/19/18 12:48 1 PATCH Lidocaine HCl (Buffered Lidocaine 1%) 3 ml 1X ONCE 12/11/18 09:15 12/11/18 09:17 DC 12/11/18 09:29 3 ML Lidocaine HCl (Lta Kit) 4 ml 1X ONCE 12/14/18 09:15 12/14/18 09:16 UNV Lidocaine HCl (Xylocaine 2% Topical 5gm Tube) 1 cornelia PRN Q6HRS PRN 12/16/18 10:15 12/18/18 18:22 1 CORNELIA Lidocaine/ Epinephrine (LIDOCAINE 1%-EPI 1:100,000 Multi-Dose) 2 ml 1X ONCE 12/18/18 11:45 12/18/18 11:47 DC 12/18/18 11:44 2 ML Lidocaine/ Prilocaine (Emla) 1 cornelia 1X ONCE 12/14/18 09:30 12/14/18 09:31 DC 12/14/18 10:13 1 CORNELIA Lisinopril (Prinivil) 20 mg DAILY 12/10/18 10:00 12/19/18 12:42 20 MG Midazolam HCl (Versed) 2 mg 1X ONCE 12/13/18 13:30 12/13/18 13:31 DC 12/13/18 13:30 1 MG Miscellaneous (Lidoderm Patch Removal) 1 ea DAILY 12/14/18 09:00 12/19/18 12:48 1 EA Morphine Sulfate (Morphine Sulfate) 2 mg PRN Q2HR PRN 12/10/18 02:00 12/11/18 01:59 DC Non-Formulary Medication (Albuterol Sulfate (Albuterol Sulfate Neb Soln)) 1 vial QID 12/10/18 13:00 UNV Non-Formulary Medication (Ipratropium/ Albuterol Sulfate (Combivent Respimat Inhal)) 2 inh QID 12/10/18 13:00 UNV Non-Formulary Medication (Lisinopril/ Hydrochlorothiazide (Lisinopril-Hctz 20-12.5 Mg Tab)) 1 tab DAILY 12/11/18 09:00 UNV Ondansetron HCl (Zofran) 8 mg Q24H 12/15/18 12:30 12/16/18 12:31 DC 12/16/18 13:10 8 MG Oxycodone HCl (Roxicodone) 10 mg PRN Q6HRS PRN 12/10/18 04:45 12/20/18 02:39 10 MG Pantoprazole Sodium (Protonix) 40 mg 1X ONCE 12/12/18 09:15 12/12/18 09:23 DC 12/12/18 10:49 40 MG Pioglitazone HCl (Actos) 45 mg DAILY 12/10/18 10:00 12/17/18 06:37 DC 12/16/18 09:07 45 MG Piperacillin Sod/ Tazobactam Sod 3.375 gm/Sodium Chloride 50 ml @ 100 mls/hr Q6HRS 12/17/18 12:00 12/20/18 06:05 100 MLS/HR Potassium Chloride (Klor-Con) 20 meq 1X ONCE 12/18/18 12:15 12/18/18 12:16 DC Sertraline HCl (Zoloft) 50 mg DAILY 12/13/18 14:00 12/19/18 12:43 50 MG Labs: Lab Laboratory Tests Test 12/20/18 05:00 White Blood Count 2.1 x10^3/uL (4.0-11.0) Red Blood Count 3.05 x10^6/uL (3.50-5.40) Hemoglobin 8.7 g/dL (12.0-15.5) Hematocrit 26.6 % (36.0-47.0) Mean Corpuscular Volume 87 fL (79-100) Mean Corpuscular Hemoglobin 29 pg (25-35) Mean Corpuscular Hemoglobin Concent 33 g/dL (31-37) Red Cell Distribution Width 15.1 % (11.5-14.5) Platelet Count 105 x10^3/uL (140-400) Neutrophils (%) (Auto) 91 % (31-73) Lymphocytes (%) (Auto) 7 % (24-48) Monocytes (%) (Auto) 1 % (0-9) Eosinophils (%) (Auto) 1 % (0-3) Basophils (%) (Auto) 0 % (0-3) Neutrophils # (Auto) 1.9 x10^3/uL (1.8-7.7) Lymphocytes # (Auto) 0.1 x10^3/uL (1.0-4.8) Monocytes # (Auto) 0.0 x10^3/uL (0.0-1.1) Eosinophils # (Auto) 0.0 x10^3/uL (0.0-0.7) Basophils # (Auto) 0.0 x10^3/uL (0.0-0.2) Sodium Level 136 mmol/L (136-145) Potassium Level 4.1 mmol/L (3.5-5.1) Chloride Level 99 mmol/L (98-107) Carbon Dioxide Level 32 mmol/L (21-32) Anion Gap 5 (6-14) Blood Urea Nitrogen 36 mg/dL (7-20) Creatinine 1.0 mg/dL (0.6-1.0) Estimated GFR (Cockcroft-Gault) 54.8 Glucose Level 142 mg/dL (70-99) Calcium Level 8.8 mg/dL (8.5-10.1) Micro BC 6/6 positive from 12/17 CYN reed pending RUN DATE: 12/19/18 PAGE 1 RUN TIME: 1411 [facility] [address] [place] [address] Suraj Duong M.D., [employer] PATIENT: MEGA ARAUZ ACCT: [id number] LOC: 1 WEST ICU U: [id number] AGE/SX: 68/F ROOM: 109 RE12/10/[address]: PATRIC MICHEL MD : 1950 BED: 1 DIS: STATUS: ADM IN TLOC: SPEC #: [id number] AD: 12/18/18 STATUS: RES REQ #: [id number] RECD: 12/18/18 [facility] DR: AYLEEN MENDOZA MD SOURCE: CATH TIP ENTR: 12/18/18 [facility] DR: PAMELA MULLEN MD SPDESC: UNSPEC PATRIC MICHEL MD, VINAY MD ROBINOW,JESSIE ANTON,MIRNA CORREA ORDERED: AEROBIC CULT GS COMMENTS: CATH TIP AND PORT Procedure Result AEROBIC CULTURE PENDING AEROBIC RES 1 PENDING GRAM STAIN Final Final report GRAM STAIN RESULT 1 Final Comment No white blood cells seen. GRAM STAIN RESULT 2 Final Comment Rare gram positive cocci in pairs, chains, and clusters Performed at: - [facility] [id number] [facility] [address], [place], [place] [id number] Hot Dip Galvanizer: CLIF Maria MD, Phone: [phone] Objective: Assessment: Staph sepsis likely from landon cath s/p Landon cath removal 12/18 Staph bacteremia 12/17 07/12 bottles Recently diagnosed small cell lung CA, status post chemo 12/14 through Port-A-Cath, landon cath placed 12/13 now removed Pancytopenia likely recent chemo Chronic obstructive pulmonary disease. History of chronic back pain. Anxiety Plan: Plan of Care cont Zosyn and daptomycin. f/u ID of staph in bc,still pending f/u repeat bc from 12/19 Follow up labs. D/W PAMELA DONALDSON MD Dec 20, 2018 08:05
[2018-12-20] MEDS: PANTOPRAZOLE 40 MG TABLET.DR. PO SCH (09:38)
[2018-12-20] MEDS: POTASSIUM CHLORIDE 10 MEQ TABLET.ER. PO SCH (09:38)
[2018-12-20] MEDS: PATCH REMOVAL. MC SCH (09:39)
[2018-12-20] MEDS: ALPRAZolam 0.5 MG TABLET PO SCH ×3 (09:39→21:33)
[2018-12-20] MEDS: LIDOCAINE (700MG/PATCH) PATCH. TP SCH (09:39)
[2018-12-20] MEDS: hydroCHLOROthiazide 12.5 MG CAPSULE PO SCH (09:40)
[2018-12-20] MEDS: LISINOPRIL 20 MG TABLET PO SCH (09:40)
[2018-12-20] MEDS: ASPIRIN CHEWABLE 81 MG TABLET. PO SCH (09:41)
[2018-12-20] MEDS: DOCUSATE SODIUM 100 MG CAPSULE. PO SCH (09:41)
[2018-12-20] MEDS: SERTRALINE 50 MG TABLET. PO SCH (09:41)
[2018-12-20] MEDS: amLODIPine BESYLATE 5 MG TABLET PO SCH (09:42)
[2018-12-20] MEDS: DICLOFENAC SODIUM 1% TOPICAL GEL 100GM TUBE. TP SCH ×2 (09:42→21:32)
--- NOTE | 2018-12-20 09:46 | PDOC ---
SUBJECTIVE Subjective S: alternating between sleeping or pain O: Physical exam: Gen.: obese elderly female, resting in bed, NAD Lungs: Breathing comfortably w/o resp distress Skin: port site w/ gauze covering, getting wound dressing changes Labs: White count 2.1, hemoglobin 8.7, platelets 105 6/6 bottles + for staph, 12/19 cx pending Brain MRI: neg for mets Assessment and Plan: Small cell lung ca, Left upper lobe lung mass with extensive mediastinal, hilar lymphadenopathy and left cervical lymphadenopathy, C1 D7 carbo/etoposide, w/ plans to start RT w/ C2 port infection: apprec ID assistance, on Abx, port not needed til Day 21, blood cx + for staph speciation pending pancytopenia: Related to chemotherapy COPD: per pulm GERD: PPI back pain: prn meds Prophylaxis: lovenox Dispo: f/u Dr Madden and Dr Hercules upon dc, poss to SNF w/ IV abx w/ bacteremia Thank you kindly and please do not hesitate to call with questions. OBJECTIVE Vital Signs Vital Signs Date Time Temp Pulse Resp B/P (MAP) Pulse Ox O2 Delivery O2 Flow Rate FiO2 12/20/18 07:58 Nasal Cannula 3.0 12/20/18 07:37 97 Nasal Cannula 3.0 12/20/18 07:00 98.5 85 14 141/66 (91) 95 Nasal Cannula 3.0 98.5 12/20/18 03:00 98.3 85 19 147/92 (110) 95 Nasal Cannula 3.0 98.3 12/20/18 02:28 97 Nasal Cannula 3.0 12/19/18 23:00 99.0 87 15 107/41 (63) 97 Nasal Cannula 3.0 99.0 12/19/18 22:43 96 Nasal Cannula 3.0 12/19/18 21:34 14 97 12/19/18 20:34 21 97 Nasal Cannula 12/19/18 20:18 21 97 Nasal Cannula 12/19/18 20:10 98 Nasal Cannula 3.0 12/19/18 20:00 98.6 83 16 134/61 (85) 96 Nasal Cannula 4.0 98.6 12/19/18 20:00 Nasal Cannula 3.0 12/19/18 19:48 15 97 Nasal Cannula 2.0 12/19/18 16:21 99 Nasal Cannula 4.0 12/19/18 15:00 98.5 81 14 138/61 (86) 96 Nasal Cannula 4.0 98.5 12/19/18 14:40 14 95 Nasal Cannula 4.0 12/19/18 13:19 16 96 Nasal Cannula 4.0 12/19/18 12:50 16 100 Nasal Cannula 4.0 12/19/18 12:43 90 173/67 12/19/18 12:42 87 173/67 12/19/18 12:41 17 99 Nasal Cannula 4.0 12/19/18 12:29 100 Nasal Cannula 4.0 12/19/18 11:00 86 16 96/63 (74) 98 Nasal Cannula 4.0 12/19/18 10:00 80 12 169/75 (106) 100 Nasal Cannula 4.0 I & O Intake and Output 12/20/18 07:00 Intake Total 2261.64 ml Output Total 1225 ml Balance 1036.64 ml Intake Oral 660 ml IV Total 1601.64 ml Output Urine Total 1225 ml COMMENT Lab Laboratory Tests Test 12/20/18 05:00 White Blood Count 2.1 x10^3/uL (4.0-11.0) Red Blood Count 3.05 x10^6/uL (3.50-5.40) Hemoglobin 8.7 g/dL (12.0-15.5) Hematocrit 26.6 % (36.0-47.0) Mean Corpuscular Volume 87 fL (79-100) Mean Corpuscular Hemoglobin 29 pg (25-35) Mean Corpuscular Hemoglobin Concent 33 g/dL (31-37) Red Cell Distribution Width 15.1 % (11.5-14.5) Platelet Count 105 x10^3/uL (140-400) Neutrophils (%) (Auto) 91 % (31-73) Lymphocytes (%) (Auto) 7 % (24-48) Monocytes (%) (Auto) 1 % (0-9) Eosinophils (%) (Auto) 1 % (0-3) Basophils (%) (Auto) 0 % (0-3) Neutrophils # (Auto) 1.9 x10^3/uL (1.8-7.7) Lymphocytes # (Auto) 0.1 x10^3/uL (1.0-4.8) Monocytes # (Auto) 0.0 x10^3/uL (0.0-1.1) Eosinophils # (Auto) 0.0 x10^3/uL (0.0-0.7) Basophils # (Auto) 0.0 x10^3/uL (0.0-0.2) Sodium Level 136 mmol/L (136-145) Potassium Level 4.1 mmol/L (3.5-5.1) Chloride Level 99 mmol/L (98-107) Carbon Dioxide Level 32 mmol/L (21-32) Anion Gap 5 (6-14) Blood Urea Nitrogen 36 mg/dL (7-20) Creatinine 1.0 mg/dL (0.6-1.0) Estimated GFR (Cockcroft-Gault) 54.8 Glucose Level 142 mg/dL (70-99) Calcium Level 8.8 mg/dL (8.5-10.1) ANGELITA SHARPE MD Dec 20, 2018 09:46
[2018-12-20] MEDS ORDERED: ENOXAPARIN 40 MG/0.4 ML SYRINGE. SQ SCH (10:30)
--- NOTE | 2018-12-20 10:36 | PDOC ---
PROGRESS NOTES Subjective Subjective more awake today Objective Objective Vital Signs Date Time Temp Pulse Resp B/P (MAP) Pulse Ox O2 Delivery O2 Flow Rate FiO2 12/20/18 09:44 24 93 Nasal Cannula 3.0 12/20/18 09:42 87 105/40 12/20/18 07:00 98.5 98.5 Intake and Output 12/20/18 07:00 Intake Total 2261.64 ml Output Total 1225 ml Balance 1036.64 ml Intake Oral 660 ml IV Total 1601.64 ml Output Urine Total 1225 ml Physical Exam Physical Exam sleepy Abdomen: Normal bowel sounds, Soft Heart: Normal S1, Normal S2 General: Alert, Oriented X3 Lungs: Clear to auscultation MUSCULOSKELETAL: No deformity COMMENT redness rt chest .packing present. Diagnosis Problem List Problems Medical Problems: (1) Anxiety Status: Acute (2) Depression Status: Chronic (3) Diabetes Status: Chronic (4) Dyspnea on minimal exertion Status: Acute (5) HTN (hypertension) Status: Chronic (6) Hyperlipidemia Status: Chronic (7) Hypothyroidism Status: Chronic (8) Mass of left lung Status: Acute (9) Pleural effusion, left Status: Acute Assessment Assessment Problems Medical Problems: (1) Anxiety Status: Acute (2) Depression Status: Chronic (3) Diabetes Status: Chronic (4) Dyspnea on minimal exertion Status: Acute (5) HTN (hypertension) Status: Chronic (6) Hyperlipidemia Status: Chronic (7) Hypothyroidism Status: Chronic (8) Mass of left lung Status: Acute (9) Pleural effusion, left Status: Acute FINAL IMPRESSION: sepsis staph bacteremia staph,6/6 blood c/s positive cellulitis at port site.? pus pocket, port was removed Small cell lung ca ,metastatic.1 st cycle of chemo done 1. Left upper lung mass new finding ,suspicious for lung cancer, small cell lung cancer 2. Extensive mediastinal hilar adenopathy as well as cervical adenopathy, atelectasis of the left lung, atelectasis of the right lung and hiatal hernia. 3. Diabetes. 4. Hypertension. 5. Hyperlipidemia. 6. Hypothyroidism. 7. Anxiety, depression. 8. Ex-smoker, quit 10 years ago, smoked for 25 years, 2 packs at least. PLAN: infected port removed,open wound now spoke with ID,waiting for final ID on [facility] select screen ,transfer tomorrow? dapto+zosyn for 2 weeks spoke with case manger transfer out of icu today? MRI brain neg for mets start on chemo , 1 st cycle of chemo completed 12/16/18 labs reviewed. cxr lung infiltrates. Plan Plan of Care Problems Medical Problems: (1) Anxiety Status: Acute (2) Depression Status: Chronic (3) Diabetes Status: Chronic (4) Dyspnea on minimal exertion Status: Acute (5) HTN (hypertension) Status: Chronic (6) Hyperlipidemia Status: Chronic (7) Hypothyroidism Status: Chronic (8) Mass of left lung Status: Acute (9) Pleural effusion, left Status: Acute Comment Review of Relevant I have reviewed the following items malik (where applicable) has been applied. Labs Laboratory Tests Test 12/20/18 05:00 White Blood Count 2.1 x10^3/uL (4.0-11.0) Red Blood Count 3.05 x10^6/uL (3.50-5.40) Hemoglobin 8.7 g/dL (12.0-15.5) Hematocrit 26.6 % (36.0-47.0) Mean Corpuscular Volume 87 fL (79-100) Mean Corpuscular Hemoglobin 29 pg (25-35) Mean Corpuscular Hemoglobin Concent 33 g/dL (31-37) Red Cell Distribution Width 15.1 % (11.5-14.5) Platelet Count 105 x10^3/uL (140-400) Neutrophils (%) (Auto) 91 % (31-73) Lymphocytes (%) (Auto) 7 % (24-48) Monocytes (%) (Auto) 1 % (0-9) Eosinophils (%) (Auto) 1 % (0-3) Basophils (%) (Auto) 0 % (0-3) Neutrophils # (Auto) 1.9 x10^3/uL (1.8-7.7) Lymphocytes # (Auto) 0.1 x10^3/uL (1.0-4.8) Monocytes # (Auto) 0.0 x10^3/uL (0.0-1.1) Eosinophils # (Auto) 0.0 x10^3/uL (0.0-0.7) Basophils # (Auto) 0.0 x10^3/uL (0.0-0.2) Sodium Level 136 mmol/L (136-145) Potassium Level 4.1 mmol/L (3.5-5.1) Chloride Level 99 mmol/L (98-107) Carbon Dioxide Level 32 mmol/L (21-32) Anion Gap 5 (6-14) Blood Urea Nitrogen 36 mg/dL (7-20) Creatinine 1.0 mg/dL (0.6-1.0) Estimated GFR (Cockcroft-Gault) 54.8 Glucose Level 142 mg/dL (70-99) Calcium Level 8.8 mg/dL (8.5-10.1) Microbiology 12/19/18 Blood Culture - Preliminary, Resulted NO GROWTH AFTER 1 DAY 12/18/18 Aerobic Culture, Resulted Pending 12/18/18 Aerobic Culture Result 1 (ERVIN), Resulted Pending 12/18/18 Gram Stain - Final, Resulted 12/18/18 Gram Stain Result 1 (ERVIN) - Final, Resulted 12/18/18 Gram Stain Result 2 (ERVIN) - Final, Resulted Medications Current Medications Alprazolam (Xanax) 0.25 mg TID PO Last administered on 12/20/18at 09:39; Start 12/19/18 at 14:00 Vitals/I & O Vital Sign - Last 24 Hours 12/19/18 12/19/18 12/19/18 12/19/18 11:00 12:29 12:41 12:42 Pulse 86 87 Resp 16 17 B/P (MAP) 96/63 (74) 173/67 Pulse Ox 98 100 99 O2 Delivery Nasal Cannula Nasal Cannula Nasal Cannula O2 Flow Rate 4.0 4.0 4.0 12/19/18 12/19/18 12/19/18 12/19/18 12:43 12:50 13:19 14:40 Pulse 90 Resp 16 16 14 B/P (MAP) 173/67 Pulse Ox 100 96 95 O2 Delivery Nasal Cannula Nasal Cannula Nasal Cannula O2 Flow Rate 4.0 4.0 4.0 12/19/18 12/19/18 12/19/18 12/19/18 15:00 16:21 19:48 20:00 Temp 98.5 98.5 Pulse 81 Resp 14 15 B/P (MAP) 138/61 (86) Pulse Ox 96 99 97 O2 Delivery Nasal Cannula Nasal Cannula Nasal Cannula Nasal Cannula O2 Flow Rate 4.0 4.0 2.0 3.0 12/19/18 12/19/18 12/19/18 12/19/18 20:00 20:10 20:18 20:34 Temp 98.6 98.6 Pulse 83 Resp 16 21 21 B/P (MAP) 134/61 (85) Pulse Ox 96 98 97 97 O2 Delivery Nasal Cannula Nasal Cannula Nasal Cannula Nasal Cannula O2 Flow Rate 4.0 3.0 12/19/18 12/19/18 12/19/18 12/20/18 21:34 22:43 23:00 02:28 Temp 99.0 99.0 Pulse 87 Resp 14 15 B/P (MAP) 107/41 (63) Pulse Ox 97 96 97 97 O2 Delivery Nasal Cannula Nasal Cannula Nasal Cannula O2 Flow Rate 3.0 3.0 3.0 12/20/18 12/20/18 12/20/18 12/20/18 03:00 07:00 07:37 07:58 Temp 98.3 98.5 98.3 98.5 Pulse 85 85 Resp 19 14 B/P (MAP) 147/92 (110) 141/66 (91) Pulse Ox 95 95 97 O2 Delivery Nasal Cannula Nasal Cannula Nasal Cannula Nasal Cannula O2 Flow Rate 3.0 3.0 3.0 3.0 12/20/18 12/20/18 12/20/18 12/20/18 09:40 09:40 09:42 09:44 Pulse 84 87 Resp 28 24 B/P (MAP) 105/40 105/40 Pulse Ox 97 93 O2 Delivery Nasal Cannula Nasal Cannula O2 Flow Rate 3.0 3.0 Intake and Output 12/19/18 12/19/18 12/20/18 15:00 23:00 07:00 Intake Total 410 ml 869.64 ml 982 ml Output Total 435 ml 350 ml 440 ml Balance -25 ml 519.64 ml 542 ml PATRIC MICHEL MD Dec 20, 2018 10:35
[2018-12-20 11:00] VITALS: BP 124/77
--- NOTE | 2018-12-20 12:38 | PDOC ---
PULMONARY PROGRESS NOTES Subjective Patient seeking benzos and narcotics, more awake today after reducing dose of xanax 07/12 BC positive stable BP Vitals Vital Signs Date Time Temp Pulse Resp B/P (MAP) Pulse Ox O2 Delivery O2 Flow Rate FiO2 12/20/18 12:26 96 Nasal Cannula 3.0 12/20/18 11:31 20 12/20/18 09:42 87 105/40 12/20/18 07:00 98.5 98.5 General: Lethargic Lungs: Clear Cardiovascular: S1, S2 Abdomen: Soft, Other (obese) Extremities: Other (trace edema) Skin: Warm Labs Laboratory Tests Test 12/19/18 05:51 12/20/18 05:00 White Blood Count 4.5 x10^3/uL (4.0-11.0) 2.1 x10^3/uL (4.0-11.0) Red Blood Count 3.26 x10^6/uL (3.50-5.40) 3.05 x10^6/uL (3.50-5.40) Hemoglobin 9.4 g/dL (12.0-15.5) 8.7 g/dL (12.0-15.5) Hematocrit 28.3 % (36.0-47.0) 26.6 % (36.0-47.0) Mean Corpuscular Volume 87 fL (79-100) 87 fL (79-100) Mean Corpuscular Hemoglobin 29 pg (25-35) 29 pg (25-35) Mean Corpuscular Hemoglobin Concent 33 g/dL (31-37) 33 g/dL (31-37) Red Cell Distribution Width 14.9 % (11.5-14.5) 15.1 % (11.5-14.5) Platelet Count 125 x10^3/uL (140-400) 105 x10^3/uL (140-400) Neutrophils (%) (Auto) 97 % (31-73) 91 % (31-73) Lymphocytes (%) (Auto) 3 % (24-48) 7 % (24-48) Monocytes (%) (Auto) 1 % (0-9) 1 % (0-9) Eosinophils (%) (Auto) 0 % (0-3) 1 % (0-3) Basophils (%) (Auto) 0 % (0-3) 0 % (0-3) Neutrophils # (Auto) 4.4 x10^3/uL (1.8-7.7) 1.9 x10^3/uL (1.8-7.7) Lymphocytes # (Auto) 0.1 x10^3/uL (1.0-4.8) 0.1 x10^3/uL (1.0-4.8) Monocytes # (Auto) 0.0 x10^3/uL (0.0-1.1) 0.0 x10^3/uL (0.0-1.1) Eosinophils # (Auto) 0.0 x10^3/uL (0.0-0.7) 0.0 x10^3/uL (0.0-0.7) Basophils # (Auto) 0.0 x10^3/uL (0.0-0.2) 0.0 x10^3/uL (0.0-0.2) Sodium Level 136 mmol/L (136-145) 136 mmol/L (136-145) Potassium Level 3.7 mmol/L (3.5-5.1) 4.1 mmol/L (3.5-5.1) Chloride Level 99 mmol/L (98-107) 99 mmol/L (98-107) Carbon Dioxide Level 32 mmol/L (21-32) 32 mmol/L (21-32) Anion Gap 5 (6-14) 5 (6-14) Blood Urea Nitrogen 25 mg/dL (7-20) 36 mg/dL (7-20) Creatinine 0.8 mg/dL (0.6-1.0) 1.0 mg/dL (0.6-1.0) Estimated GFR (Cockcroft-Gault) 70.9 54.8 Glucose Level 178 mg/dL (70-99) 142 mg/dL (70-99) Calcium Level 8.6 mg/dL (8.5-10.1) 8.8 mg/dL (8.5-10.1) Laboratory Tests Test 12/20/18 05:00 White Blood Count 2.1 x10^3/uL (4.0-11.0) Red Blood Count 3.05 x10^6/uL (3.50-5.40) Hemoglobin 8.7 g/dL (12.0-15.5) Hematocrit 26.6 % (36.0-47.0) Mean Corpuscular Volume 87 fL (79-100) Mean Corpuscular Hemoglobin 29 pg (25-35) Mean Corpuscular Hemoglobin Concent 33 g/dL (31-37) Red Cell Distribution Width 15.1 % (11.5-14.5) Platelet Count 105 x10^3/uL (140-400) Neutrophils (%) (Auto) 91 % (31-73) Lymphocytes (%) (Auto) 7 % (24-48) Monocytes (%) (Auto) 1 % (0-9) Eosinophils (%) (Auto) 1 % (0-3) Basophils (%) (Auto) 0 % (0-3) Neutrophils # (Auto) 1.9 x10^3/uL (1.8-7.7) Lymphocytes # (Auto) 0.1 x10^3/uL (1.0-4.8) Monocytes # (Auto) 0.0 x10^3/uL (0.0-1.1) Eosinophils # (Auto) 0.0 x10^3/uL (0.0-0.7) Basophils # (Auto) 0.0 x10^3/uL (0.0-0.2) Sodium Level 136 mmol/L (136-145) Potassium Level 4.1 mmol/L (3.5-5.1) Chloride Level 99 mmol/L (98-107) Carbon Dioxide Level 32 mmol/L (21-32) Anion Gap 5 (6-14) Blood Urea Nitrogen 36 mg/dL (7-20) Creatinine 1.0 mg/dL (0.6-1.0) Estimated GFR (Cockcroft-Gault) 54.8 Glucose Level 142 mg/dL (70-99) Calcium Level 8.8 mg/dL (8.5-10.1) Medications Active Scripts Medications Dose Route/Sig Max Daily Dose Days Date Category Proair Hfa Inhaler (Albuterol Sulfate) 8.5 Gm Hfa.aer.ad 2 Puff INH PRN Q4HRS PRN 07/04/17 Reported Lidocaine PATCH (Lidocaine) 1 Each Adh..patch 1 Each TP DAILY 07/04/17 Reported Amlodipine Besylate 5 Mg Tablet 5 Mg PO DAILY 07/04/17 Reported Duoneb 0.5-3(2.5) Mg/3 Ml (Albuterol/Ipratropium) 3 Ml Ampul.neb 3 Ml NEB QID 07/04/17 Reported Symbicort 160-4.5 Mcg Inhaler (Budesonide/Formoterol Fumarate) 10.2 Gm Hfa.aer.ad 2 Puff IH BID 07/04/17 Reported Flector (Diclofenac Epolamine) 1 Each Patch.td12 1 Each TD BID 07/04/17 Reported Combivent Respimat Inhal (Ipratropium/Albuterol Sulfate) 4 Gm Aer.w.adap 2 Inh IH QID 07/04/17 Reported Albuterol Sulfate Neb Soln (Albuterol Sulfate) 0.63 Mg/3 Ml Vial.neb 1 Vial NEB QID 07/04/17 Reported Xanax (Alprazolam) 0.5 Mg Tablet 1 Tab PO TID 07/04/17 Reported Oxycodone Hcl Immed.release (Oxycodone Hcl) 10 Mg Tablet 10 Mg PO PRN Q6HRS PRN 07/04/17 Reported Potassium Chloride 20 Meq Tablet.er 8 Meq PO DAILY 07/04/17 Reported Synthroid (Levothyroxine Sodium) 200 Mcg Tablet 1 Tab PO DAILY 07/04/17 Reported Lisinopril-Hctz 20-12.5 Mg Tab (Lisinopril/Hydrochlorothiazide) 1 Each Tablet 1 Tab PO DAILY 07/04/17 Reported Glimepiride 4 Mg Tablet 1 Tab PO BID 07/04/17 Reported Lipitor (Atorvastatin Calcium) 40 Mg Tablet 1 Tab PO DAILY 07/04/17 Reported Actos (Pioglitazone Hcl) 45 Mg Tablet 1 Tab PO DAILY 07/04/17 Reported Amitriptyline Hcl 100 Mg Tablet 1 Tab PO QHS 07/04/17 Reported Aspirin 81 Mg Tab.chew 1 Tab PO DAILY 07/04/17 Reported Impression . 1. Dyspnea/ encephalopathy due to sepsis , Narcotics and benzo;s induced. 2. Small cell lung ca, Stage IIIB, [id number], Left upper lobe lung mass with extensive mediastinal, hilar lymphadenopathy and left cervical lymphadenopathy s/p cervical lymph node biopsy 12/11/18 3. acute exacerbation of chronic obstructive pulmonary disease, 4. Clinical symptoms and signs of obstructive sleep apnea. 5. Chronic diastolic heart failure. 6. Hyperlipidemia. 7. Hypothyroidism. 8. 07/12 BC positive PATH Diagnosis: "LT cervical LN BX", needle biopsy: - SMALL CELL CARCINOMA. (See comment) . (CLW:[place]; 12/13/2018) QL 12/13/2018 1050 Local Plan . 1. Cont. recommendations from HEM/ONC-- currently treated with chemo and radiation 2. Follow all BC ID/ Abx per ID 3. Pt. is clinically stable from respiratory stand point, cont. supplemental oxygen and bronchodilators / PRN BIPAP 4. Cont.bronchodilators as needed 5. cont. PPI and HOB 30 degress post meals to aide with acid reflux 6. reduced scheduled Xanox dose 12/19, more awake d/w NICANOR LOPEZ MD Dec 20, 2018 12:38
--- NOTE | 2018-12-20 14:32 | NUR ---
SS following up with discharge planning. SS phoned and faxed clinical updates to [facility], ; fax [phone]. Pt accepted at [facility] but will not be able to have chemo treatments while at [facility]. Pt also unable to have chemo treatments in snf unit as well. SS will continue to follow for discharge planning.
[2018-12-20 15:00] VITALS: BP 127/45
[2018-12-20 20:00] VITALS: BP 158/57
[2018-12-20] MEDS: ONDANSETRON PF 4 MG/2 ML VIAL. IVP PRN (20:40)
[2018-12-20] MEDS: DAPTOmycin (GENERIC) IVPB 500 MG in IV NORMAL SALINE 50ML 50 ML IV SCH (21:34)
[2018-12-20 23:00] VITALS: BP 125/56
--- NOTE | 2018-12-20 23:40 | NUR ---
After notification to patient, patient was transferred to room 660 via bed with O2 3L/NC, accompanied by 2RNS at 2240. Nursing report given via phone to HARRIETT Mendoza. All patient's belongings taken with patient to include computer, coloring book, pencils, and red case.
[2018-12-21 00:15] VITALS: BP 180/72
[2018-12-21] MEDS: PIPERACILLIN/TAZOBACTAM 3.375 GM in IV NORMAL SALINE 50ML 50 ML IV SCH ×3 (00:17→13:32)
[2018-12-21] MEDS: fentaNYL PF VIAL 100 MCG/2 ML VIAL IVP PRN ×3 (02:36→16:56)
[2018-12-21] MEDS: AMINO AC 3%/ELECTROLYTE/GLYCER 1,000 ML IV SCH ×2 (02:59→08:45)
[2018-12-21] MEDS: oxyCODONE IR 5 MG TABLET PO PRN ×2 (03:48→12:49)
[2018-12-21] MEDS: ALPRAZolam 0.25 MG TABLET PO PRN (03:48)
[2018-12-21] MEDS: MAG HYDROX/ALUMINUM HYD/SIMETH 30 ML ORAL.SUSP PO PRN (03:53)
[2018-12-21 03:54] VITALS: BP 131/53
[2018-12-21] MEDS: LEVOTHYROXINE 100 MCG TABLET PO SCH (06:46)
[2018-12-21] MEDS: PANTOPRAZOLE 40 MG TABLET.DR. PO SCH (07:30)
[2018-12-21] MEDS: IPRATRPIUM/ALBUTEROL 0.5/2.5MG 3 ML NEBU. NEB SCH ×5 (07:57→20:00)
[2018-12-21] MEDS: BUDESONIDE 0.5 MG/2 ML NEBU. NEB SCH ×2 (07:57→20:00)
[2018-12-21 07:58] VITALS: BP 128/62
[2018-12-21] MEDS: POTASSIUM CHLORIDE 10 MEQ TABLET.ER. PO SCH (08:00)
[2018-12-21] MEDS: LIDOCAINE (700MG/PATCH) PATCH. TP SCH ×2 (08:00→17:19)
[2018-12-21] MEDS: SERTRALINE 50 MG TABLET. PO SCH (09:00)
[2018-12-21] MEDS: PATCH REMOVAL. MC SCH (09:00)
[2018-12-21] MEDS: DICLOFENAC SODIUM 1% TOPICAL GEL 100GM TUBE. TP SCH (09:00)
[2018-12-21] MEDS: DOCUSATE SODIUM 100 MG CAPSULE. PO SCH (09:00)
[2018-12-21] MEDS: ASPIRIN CHEWABLE 81 MG TABLET. PO SCH (09:00)
[2018-12-21] MEDS: ALPRAZolam 0.5 MG TABLET PO SCH ×2 (09:00→14:00)
[2018-12-21] MEDS: amLODIPine BESYLATE 5 MG TABLET PO SCH (09:00)
[2018-12-21] MEDS: hydroCHLOROthiazide 12.5 MG CAPSULE PO SCH (09:00)
[2018-12-21] MEDS: LISINOPRIL 20 MG TABLET PO SCH (09:00)
--- NOTE | 2018-12-21 09:29 | PDOC ---
Provider Note Provider Note This is a 68 yo female who has been noted with sepsis, bacteremia with noted lung CA. ELAYNE has been requested to rule out endocarditis. She is AOx3. She is not in any significant discomfort but just tired as she did not sleep well overnight and on xanax. No SOA or CP. No hx of esophageal stricture. Risks and benefits in regards to ELAYNE discussed and agreeable to proceed. KATHY GIVENS ACADEMY EDUCATION DIRECTOR Dec 21, 2018 09:29
[2018-12-21] MEDS ORDERED: LIDOCAINE 2% VISCOUS 15 ML SOLUTION. SWSW ONE (10:00)
[2018-12-21] MEDS ORDERED: BENZOCAINE ONE 20% MUCOSAL SPRAY. MM (10:00)
[2018-12-21] MEDS ORDERED: LIDOCAINE 2% TOPICAL JELLY 30GM TUBE. TP ONE (10:00)
--- NOTE | 2018-12-21 10:00 | NUR ---
Patient to undergo ELAYNE this morning, called the patient's , left message in his voicemail notifying about the procedure.
--- NOTE | 2018-12-21 10:13 | PDOC ---
PROGRESS NOTES Subjective Subjective sleepy today Objective Objective Vital Signs Date Time Temp Pulse Resp B/P (MAP) Pulse Ox O2 Delivery O2 Flow Rate FiO2 12/21/18 07:58 98.2 94 18 128/62 (84) 96 Nasal Cannula 3.0 98.2 Intake and Output 12/21/18 06:59 Intake Total 2044 ml Output Total 1160 ml Balance 884 ml Intake Oral 700 ml IV Total 1344 ml Output Urine Total 1160 ml Physical Exam Physical Exam sleepy Abdomen: Normal bowel sounds, Soft Heart: Normal S1, Normal S2 General: Alert, Oriented X3 Lungs: Clear to auscultation MUSCULOSKELETAL: No deformity COMMENT redness rt chest .packing present. Diagnosis Problem List Problems Medical Problems: (1) Anxiety Status: Acute (2) Depression Status: Chronic (3) Diabetes Status: Chronic (4) Dyspnea on minimal exertion Status: Acute (5) HTN (hypertension) Status: Chronic (6) Hyperlipidemia Status: Chronic (7) Hypothyroidism Status: Chronic (8) Mass of left lung Status: Acute (9) Pleural effusion, left Status: Acute Assessment Assessment Problems Medical Problems: (1) Anxiety Status: Acute (2) Depression Status: Chronic (3) Diabetes Status: Chronic (4) Dyspnea on minimal exertion Status: Acute (5) HTN (hypertension) Status: Chronic (6) Hyperlipidemia Status: Chronic (7) Hypothyroidism Status: Chronic (8) Mass of left lung Status: Acute (9) Pleural effusion, left Status: Acute FINAL IMPRESSION: sepsis staph aurus bacteremia bacteremia staph,6/6 blood c/s positive cellulitis at port site.? pus pocket, port was removed Small cell lung ca ,metastatic.1 st cycle of chemo done 1. Left upper lung mass new finding ,suspicious for lung cancer, small cell lung cancer 2. Extensive mediastinal hilar adenopathy as well as cervical adenopathy, atelectasis of the left lung, atelectasis of the right lung and hiatal hernia. 3. Diabetes. 4. Hypertension. 5. Hyperlipidemia. 6. Hypothyroidism. 7. Anxiety, depression. 8. Ex-smoker, quit 10 years ago, smoked for 25 years, 2 packs at least. PLAN: ELAYNE today.r/o endocarditis select transfer today rehab consult. iv antibiotics dapto+zosyn. spoke with ID and oncology. infected port removed,open wound now spoke with ID,waiting for final ID on [facility] select screen ,transfer tomorrow? dapto+zosyn for 2 weeks spoke with case manger transfer out of icu today? MRI brain neg for mets start on chemo , 1 st cycle of chemo completed 12/16/18 labs reviewed. cxr lung infiltrates. Plan Plan of Care Problems Medical Problems: (1) Anxiety Status: Acute (2) Depression Status: Chronic (3) Diabetes Status: Chronic (4) Dyspnea on minimal exertion Status: Acute (5) HTN (hypertension) Status: Chronic (6) Hyperlipidemia Status: Chronic (7) Hypothyroidism Status: Chronic (8) Mass of left lung Status: Acute (9) Pleural effusion, left Status: Acute Comment Review of Relevant I have reviewed the following items malik (where applicable) has been applied. Labs Laboratory Tests Test 12/21/18 07:31 Glucose (Fingerstick) 155 mg/dL (70-99) Microbiology 12/19/18 Blood Culture - Final, Complete 12/18/18 Aerobic Culture - Preliminary, Resulted 12/18/18 Aerobic Culture Result 1 (ERVIN) - Preliminary, Resulted 12/18/18 Gram Stain - Final, Resulted 12/18/18 Gram Stain Result 1 (ERVIN) - Final, Resulted 12/18/18 Gram Stain Result 2 (ERVIN) - Final, Resulted Medications Current Medications Benzocaine (Hurricaine One) 2 spray 1X ONCE MM ; Start 12/21/18 at 10:00; Stop 12/21/18 at 10:01; Status DC Enoxaparin Sodium (Lovenox 40mg Syringe) 40 mg Q24H SQ ; Start 12/20/18 at 10:30; Status UNV Enoxaparin Sodium (Lovenox 60mg Syringe) 60 mg Q12HR SQ Last administered on 12/20/18at 21:34; Start 12/20/18 at 11:30 Enoxaparin Sodium (Lovenox Per Pharmacy Prophylaxis Dosing) 1 each PRN DAILY PRN MC SEE COMMENTS; Start 12/20/18 at 11:00 Lidocaine HCl (Viscous Lidocaine) 15 ml 1X ONCE SWSW ; Start 12/21/18 at 10:00; Stop 12/21/18 at 10:01; Status DC Lidocaine HCl (Xylocaine 2% Topical 30gm Tube) 1 cornelia 1X ONCE TP ; Start 12/21/18 at 10:00; Stop 12/21/18 at 10:01; Status DC Vitals/I & O Vital Sign - Last 24 Hours 12/20/18 12/20/18 12/20/18 12/20/18 10:15 11:00 11:31 12:26 Temp 98.9 98.9 Pulse 90 Resp 22 14 20 B/P (MAP) 124/77 (93) Pulse Ox 93 93 93 96 O2 Delivery Nasal Cannula Nasal Cannula Nasal Cannula Nasal Cannula O2 Flow Rate 2.0 3.0 2.0 3.0 12/20/18 12/20/18 12/20/18 12/20/18 15:00 15:35 19:46 20:00 Temp 99.0 99.0 Pulse 102 Resp 16 B/P (MAP) 127/45 (72) Pulse Ox 95 96 95 O2 Delivery Nasal Cannula Nasal Cannula Nasal Cannula Nasal Cannula O2 Flow Rate 3.0 3.0 3.0 3.0 12/20/18 12/20/18 12/20/18 12/20/18 20:00 21:33 22:30 22:35 Temp 98.5 98.5 Pulse 89 Resp 24 20 22 22 B/P (MAP) 158/57 (90) Pulse Ox 100 95 95 96 O2 Delivery Nasal Cannula Nasal Cannula Nasal Cannula Nasal Cannula O2 Flow Rate 3.0 3.0 3.0 3.0 12/20/18 12/20/18 12/21/18 12/21/18 23:00 23:05 00:05 00:15 Temp 98.7 98.5 98.7 98.5 Pulse 91 88 Resp 18 18 20 B/P (MAP) 125/56 (79) 180/72 (108) Pulse Ox 96 96 97 O2 Delivery Nasal Cannula Nasal Cannula Nasal Cannula Nasal Cannula O2 Flow Rate 3.0 3.0 3.0 3.0 12/21/18 12/21/18 12/21/18 12/21/18 03:06 03:54 07:57 07:58 Temp 98.1 98.2 98.1 98.2 Pulse 93 94 Resp 20 18 B/P (MAP) 131/53 (79) 128/62 (84) Pulse Ox 94 96 96 O2 Delivery Nasal Cannula Nasal Cannula Nasal Cannula Nasal Cannula O2 Flow Rate 3.0 3.0 3.0 Intake and Output 12/20/18 12/20/18 12/21/18 14:59 22:59 06:59 Intake Total 80 ml 1264 ml 700 ml Output Total 445 ml 215 ml 500 ml Balance -365 ml 1049 ml 200 ml PATRIC MICHEL MD Dec 21, 2018 10:13
--- NOTE | 2018-12-21 10:17 | SNU/HH DC ---
DISCHARGE ORDERS DISCHARGE INFORMATION: DISCHARGE DATE: Dec 21, 2018 FINAL DIAGNOSIS Problems Medical Problems: (1) Anxiety Status: Acute (2) Depression Status: Chronic (3) Diabetes Status: Chronic (4) Dyspnea on minimal exertion Status: Acute (5) HTN (hypertension) Status: Chronic (6) Hyperlipidemia Status: Chronic (7) Hypothyroidism Status: Chronic (8) Mass of left lung Status: Acute (9) Pleural effusion, left Status: Acute CONDITION ON DISCHARGE: Guarded CODE STATUS: Code Status: Full CORRECTION: SNF STAY <30 DAYS: Yes HOSPICE: HOSPICE: No HOSPICE EVAL & TREAT: No LTAC: ADMIT TO LTAC: Yes POST DISCHARGE ORDERS: DIET AFTER DISCHARGE: ADA CHECKS AFTER DISCHARGE: CHECKS AFTER DISCHARGE: Check blood press - daily, Check blood sugar, ac/hs TREATMENT/EQUIPMENT ORDERS: RESPIRATORY EQUIPMENT NEEDED: Oxygen, Nebulizer Physical Therapy For: Evalulation/Treatment Occupational Therapy For: Evaluation/Treatment DISCHARGE MEDICATIONS: Home Meds Active Scripts Ondansetron Hcl (ZOFRAN) 8 Mg Tablet, 8 MG PO BID PRN for NAUSEA/VOMITING for 10 Days, #20 TAB Prov:PATRIC MICHEL MD 12/16/18 Reported Medications Albuterol Sulfate (PROAIR HFA INHALER) 8.5 Gm Hfa.aer.ad, 2 PUFF INH PRN Q4HRS PRN for SHORTNESS OF BREATH, INHALER 0 Refills 07/04/17 Lidocaine (Lidocaine PATCH ) 1 Each Adh..patch, 1 EACH TP DAILY, PATCH 07/04/17 Amlodipine Besylate (AMLODIPINE BESYLATE) 5 Mg Tablet, 5 MG PO DAILY, TAB 07/04/17 Ipratropium/Albuterol Sulfate (DUONEB 0.5-3(2.5) MG/3 ML) 3 Ml Ampul.neb, 3 ML NEB QID, EACH 07/04/17 Budesonide/Formoterol Fumarate (SYMBICORT 160-4.5 MCG INHALER) 10.2 Gm Hfa.aer .ad, 2 PUFF IH BID, #1 INHALER 3 Refills 07/04/17 Diclofenac Epolamine (FLECTOR) 1 Each Patch.td12, 1 EACH TD BID, EACH 07/04/17 Ipratropium/Albuterol Sulfate (COMBIVENT RESPIMAT INHAL) 4 Gm Aer.w.adap, 2 INH IH QID, INHALER 07/04/17 Albuterol Sulfate (ALBUTEROL SULFATE NEB SOLN) 0.63 Mg/3 Ml Vial.neb, 1 VIAL NEB QID, #150 ML 1 Refill 07/04/17 Alprazolam (XANAX) 0.5 Mg Tablet, 1 TAB PO TID, #90 TAB 07/04/17 Oxycodone Hcl (OXYCODONE HCL IMMED.RELEASE) 10 Mg Tablet, 10 MG PO PRN Q6HRS PRN for PAIN, TAB 0 Refills 07/04/17 Potassium Chloride (POTASSIUM CHLORIDE) 20 Meq Tablet.er, 8 MEQ PO DAILY, TAB.SR 07/04/17 Levothyroxine Sodium (SYNTHROID) 200 Mcg Tablet, 1 TAB PO DAILY, #30 TAB 5 Refills 07/04/17 Lisinopril/Hydrochlorothiazide (LISINOPRIL-HCTZ 20-12.5 MG TAB) 1 Each Tablet, 1 TAB PO DAILY, #30 TAB 5 Refills 07/04/17 Glimepiride (GLIMEPIRIDE) 4 Mg Tablet, 1 TAB PO BID, #180 TAB 1 Refill 07/04/17 Atorvastatin Calcium (LIPITOR) 40 Mg Tablet, 1 TAB PO DAILY, #90 TAB 1 Refill 07/04/17 Pioglitazone Hcl (ACTOS) 45 Mg Tablet, 1 TAB PO DAILY, #30 TAB 5 Refills 07/04/17 Amitriptyline Hcl (AMITRIPTYLINE HCL) 100 Mg Tablet, 1 TAB PO QHS, #30 TAB 1 R efill 07/04/17 Aspirin (ASPIRIN) 81 Mg Tab.chew, 1 TAB PO DAILY, #30 TAB 3 Refills 07/04/17 PATIRC MICHEL MD Dec 21, 2018 10:17
[2018-12-21] MEDS ORDERED: DAPT350V IV (10:19)
[2018-12-21] MEDS ORDERED: PIPE3.377 IV (10:19)
--- NOTE | 2018-12-21 10:25 | PDOC ---
SUBJECTIVE Subjective S: sleeping still, poss dc today O: Physical exam: Gen.: obese elderly female, resting in bed, NAD Lungs: Breathing comfortably w/o resp distress Skin: port site w/ gauze covering, and some dried blood Labs: recent White count 2.1, hemoglobin 8.7, platelets 105 6/6 bottles + for staph w/ staph aureus, 12/19 cx neg Brain MRI: neg for mets Assessment and Plan: Small cell lung ca, Left upper lobe lung mass with extensive mediastinal, hilar lymphadenopathy and left cervical lymphadenopathy, C1 D8 carbo/etoposide, w/ plans to start RT w/ C2 port infection: apprec ID assistance, on Abx, port not needed til Day 21, blood cx + for staph aureus, pending ELAYNE today pancytopenia: Related to chemotherapy, consider G-CSF prn, not needed now COPD: per pulm GERD: PPI back pain: prn meds Prophylaxis: lovenox Dispo: f/u Dr Madden and Dr Hercules upon dc, poss to SNF w/ IV abx w/ bacteremia Thank you kindly and please do not hesitate to call with questions. OBJECTIVE Vital Signs Vital Signs Date Time Temp Pulse Resp B/P (MAP) Pulse Ox O2 Delivery O2 Flow Rate FiO2 12/21/18 08:00 Nasal Cannula 3.0 12/21/18 07:58 98.2 94 18 128/62 (84) 96 Nasal Cannula 3.0 98.2 12/21/18 07:57 96 Nasal Cannula 3.0 12/21/18 03:54 98.1 93 20 131/53 (79) 94 Nasal Cannula 3.0 98.1 12/21/18 03:06 Nasal Cannula 12/21/18 00:15 98.5 88 20 180/72 (108) 97 Nasal Cannula 3.0 98.5 12/21/18 00:05 Nasal Cannula 3.0 12/20/18 23:05 18 96 Nasal Cannula 3.0 12/20/18 23:00 98.7 91 18 125/56 (79) 96 Nasal Cannula 3.0 98.7 12/20/18 22:35 22 96 Nasal Cannula 3.0 12/20/18 22:30 22 95 Nasal Cannula 3.0 12/20/18 21:33 20 95 Nasal Cannula 3.0 12/20/18 20:00 98.5 89 24 158/57 (90) 100 Nasal Cannula 3.0 98.5 12/20/18 20:00 Nasal Cannula 3.0 12/20/18 19:46 95 Nasal Cannula 3.0 12/20/18 15:35 96 Nasal Cannula 3.0 12/20/18 15:00 99.0 102 16 127/45 (72) 95 Nasal Cannula 3.0 99.0 12/20/18 12:26 96 Nasal Cannula 3.0 12/20/18 11:31 20 93 Nasal Cannula 2.0 12/20/18 11:00 98.9 90 14 124/77 (93) 93 Nasal Cannula 3.0 98.9 I & O Intake and Output 12/21/18 07:00 Intake Total 1964 ml Output Total 1110 ml Balance 854 ml Intake Oral 700 ml IV Total 1264 ml Output Urine Total 1110 ml COMMENT Lab Laboratory Tests Test 12/21/18 07:31 Glucose (Fingerstick) 155 mg/dL (70-99) ANGELITA SHARPE MD Dec 21, 2018 10:25
--- NOTE | 2018-12-21 10:46 | PDOC ---
Infectious Disease Note Subjective: Subjective pt is sleepy but arousable says feels ok no fevers reported no n/v/d has some abdo discomfort po intake is very poor d/w rn Vital Signs: Vital Signs Vital Signs Date Time Temp Pulse Resp B/P (MAP) Pulse Ox O2 Delivery O2 Flow Rate FiO2 12/21/18 08:00 Nasal Cannula 3.0 12/21/18 07:58 98.2 94 18 128/62 (84) 96 98.2 Physical Exam: PHYSICAL EXAM GENERAL: sleepy,arousable comfortable HEENT: Anicteric, no thrush. Oral mucosa moist. NECK: Supple. LUNGS: Clear bilaterally. Chestwall landon cath removed, site less erythematous, deep wound packed, no purulence noted ABDOMEN: Soft, obese. Bowel sounds present, nontender, nondistended. EXTREMITIES: No edema, no cyanosis. DERMATOLOGIC: Warm, dry. CENTRAL NERVOUS SYSTEM moves all 4 ext Medications: Inpatient Meds: Current Medications Medications (Trade) Dose Ordered Sig/Sushma Start Time Stop Time Status Last Admin Dose Admin Acetaminophen (Tylenol) 650 mg PRN Q6HRS PRN 12/18/18 05:00 12/19/18 03:48 650 MG Al Hydroxide/Mg Hydroxide (Mylanta Plus Xs) 30 ml PRN Q2HR PRN 12/12/18 09:15 12/21/18 03:53 30 ML Albuterol Sulfate (Ventolin Neb Soln) 2.5 mg PRN Q4HRS PRN 12/10/18 09:30 12/20/18 02:28 2.5 MG Albuterol/ Ipratropium (Duoneb) 3 ml RTQID 12/16/18 12:00 12/16/18 10:45 DC Alprazolam (Xanax) 0.25 mg TID 12/19/18 14:00 12/20/18 21:33 0.25 MG Amino Acids/ Glycerin/ Electrolytes 1,000 ml @ 80 mls/hr [id number] 12/18/18 10:15 12/21/18 08:45 80 MLS/HR Amitriptyline HCl (Elavil) 100 mg QHS 12/10/18 21:00 12/14/18 20:54 DC 12/11/18 20:42 100 MG Amlodipine Besylate (Norvasc) 5 mg DAILY 12/10/18 10:00 12/20/18 09:42 5 MG Aspirin (Children'S Aspirin) 81 mg DAILY 12/10/18 10:00 12/20/18 09:41 81 MG Atorvastatin Calcium (Lipitor) 40 mg QHS 12/10/18 21:00 12/14/18 20:54 DC 12/12/18 21:37 40 MG Benzocaine (Hurricaine One) 2 spray 1X ONCE 12/21/18 10:00 12/21/18 10:01 DC Budesonide (Pulmicort) 0.5 mg RTBID 12/10/18 10:00 12/21/18 07:57 0.5 MG Carboplatin 600 mg/Sodium Chloride 310 ml @ 310 mls/hr 1X ONCE 12/14/18 10:00 12/14/18 10:59 DC 12/14/18 12:49 310 MLS/HR Daptomycin 500 mg/ Sodium Chloride 50 ml @ 100 mls/hr Q24H 12/17/18 12:30 12/20/18 21:34 100 MLS/HR Dexamethasone Sodium Phosphate 12 mg/Sodium Chloride 53 ml @ 212 mls/hr 1X ONCE 12/14/18 08:30 12/14/18 08:44 DC 12/14/18 10:25 212 MLS/HR Dextrose 1,000 ml @ 75 mls/hr [id number] 12/17/18 06:45 12/18/18 10:25 DC 12/17/18 06:45 75 MLS/HR Dextrose (Dextrose 50%-Water Syringe) 12.5 gm PRN Q15MIN PRN 12/10/18 09:30 12/17/18 03:15 12.5 GM Dextrose/Sodium Chloride 1,000 ml @ 75 mls/hr [id number] 12/17/18 06:30 12/17/18 06:41 DC 12/17/18 06:30 75 MLS/HR Diclofenac Sodium (Voltaren) 1 cornelia BID 12/10/18 10:00 12/20/18 21:32 1 CORNELIA Docusate Sodium (Colace) 100 mg DAILY 12/15/18 09:00 12/20/18 09:41 100 MG Enoxaparin Sodium (Lovenox 40mg Syringe) 40 mg Q24H 12/20/18 10:30 UNV Enoxaparin Sodium (Lovenox 60mg Syringe) 60 mg Q12HR 12/20/18 11:30 12/20/18 21:34 60 MG Enoxaparin Sodium (Lovenox Per Pharmacy Prophylaxis Dosing) 1 each PRN DAILY PRN 12/20/18 11:00 Etoposide 236 mg/ Sodium Chloride 1,011.8 ml @ 1,011.8 mls/hr DAILY 12/15/18 13:00 12/16/18 13:59 DC 12/16/18 13:23 1,011.8 MLS/HR Fentanyl Citrate (Fentanyl 2ml Vial) 25 mcg PRN Q4HRS PRN 12/17/18 09:45 12/21/18 02:36 25 MCG Furosemide (Lasix) 20 mg 1X ONCE 12/16/18 17:30 12/16/18 17:37 DC 12/16/18 17:56 20 MG Gadoterate Meglumine (Dotarem) 25.8 ml 1X ONCE 12/17/18 10:00 12/17/18 10:01 DC 12/17/18 10:23 25.8 ML Glimepiride (Amaryl) 4 mg BID 12/10/18 10:00 12/17/18 06:37 DC 12/16/18 21:34 4 MG Hydrochlorothiazide (Microzide) 12.5 mg DAILY 12/10/18 10:00 12/20/18 09:40 12.5 MG Influenza Virus Vaccine Quadrival (Afluria Quad 2019-20 (3yr Up) Syringe) 0.5 ml ONCE ONCE 12/11/18 09:00 12/11/18 09:01 DC 12/11/18 17:16 0.5 ML Info (CONTRAST GIVEN -- Rx MONITORING) 1 each PRN DAILY PRN 12/10/18 14:15 12/12/18 14:14 DC Insulin Human Lispro (HumaLOG) 0-9 UNITS TIDWMEALS 12/10/18 12:00 12/17/18 06:37 DC 12/14/18 17:25 4 UNITS Iohexol (Omnipaque 240 Mg/ml) 50 ml 1X ONCE 12/10/18 14:00 12/10/18 14:07 DC 12/10/18 16:30 50 ML Iohexol (Omnipaque 300 Mg/ml) 75 ml 1X ONCE 12/10/18 14:00 12/10/18 14:07 DC 12/10/18 16:30 75 ML Levothyroxine Sodium (Synthroid) 200 mcg DAILY06 12/10/18 10:00 12/21/18 06:46 200 MCG Lidocaine (Lidoderm) 1 patch DAILY08 12/18/18 08:00 12/20/18 09:39 1 PATCH Lidocaine HCl (Buffered Lidocaine 1%) 3 ml 1X ONCE 12/11/18 09:15 12/11/18 09:17 DC 12/11/18 09:29 3 ML Lidocaine HCl (Lta Kit) 4 ml 1X ONCE 12/14/18 09:15 12/14/18 09:16 UNV Lidocaine HCl (Viscous Lidocaine) 15 ml 1X ONCE 12/21/18 10:00 12/21/18 10:01 DC Lidocaine HCl (Xylocaine 2% Topical 30gm Tube) 1 cornelia 1X ONCE 12/21/18 10:00 12/21/18 10:01 DC Lidocaine HCl (Xylocaine 2% Topical 5gm Tube) 1 cornelia PRN Q6HRS PRN 12/16/18 10:15 12/18/18 18:22 1 CORNELIA Lidocaine/ Epinephrine (LIDOCAINE 1%-EPI 1:100,000 Multi-Dose) 2 ml 1X ONCE 12/18/18 11:45 12/18/18 11:47 DC 12/18/18 11:44 2 ML Lidocaine/ Prilocaine (Emla) 1 cornelia 1X ONCE 12/14/18 09:30 12/14/18 09:31 DC 12/14/18 10:13 1 CORNELIA Lisinopril (Prinivil) 20 mg DAILY 12/10/18 10:00 12/20/18 09:40 20 MG Midazolam HCl (Versed) 2 mg 1X ONCE 12/13/18 13:30 12/13/18 13:31 DC 12/13/18 13:30 1 MG Miscellaneous (Lidoderm Patch Removal) 1 ea DAILY 12/14/18 09:00 12/20/18 09:39 1 EA Morphine Sulfate (Morphine Sulfate) 2 mg PRN Q2HR PRN 12/10/18 02:00 12/11/18 01:59 DC Non-Formulary Medication (Albuterol Sulfate (Albuterol Sulfate Neb Soln)) 1 vial QID 12/10/18 13:00 UNV Non-Formulary Medication (Ipratropium/ Albuterol Sulfate (Combivent Respimat Inhal)) 2 inh QID 12/10/18 13:00 UNV Non-Formulary Medication (Lisinopril/ Hydrochlorothiazide (Lisinopril-Hctz 20-12.5 Mg Tab)) 1 tab DAILY 12/11/18 09:00 UNV Ondansetron HCl (Zofran) 8 mg Q24H 12/15/18 12:30 12/16/18 12:31 DC 12/16/18 13:10 8 MG Oxycodone HCl (Roxicodone) 10 mg PRN Q6HRS PRN 12/10/18 04:45 12/21/18 03:48 10 MG Pantoprazole Sodium (Protonix) 40 mg 1X ONCE 12/12/18 09:15 12/12/18 09:23 DC 12/12/18 10:49 40 MG Pioglitazone HCl (Actos) 45 mg DAILY 12/10/18 10:00 12/17/18 06:37 DC 12/16/18 09:07 45 MG Piperacillin Sod/ Tazobactam Sod 3.375 gm/Sodium Chloride 50 ml @ 100 mls/hr Q6HRS 12/17/18 12:00 12/21/18 06:10 100 MLS/HR Potassium Chloride (Klor-Con) 20 meq 1X ONCE 12/18/18 12:15 12/18/18 12:16 DC Sertraline HCl (Zoloft) 50 mg DAILY 12/13/18 14:00 12/20/18 09:41 50 MG Labs: Lab Laboratory Tests Test 12/21/18 07:31 Glucose (Fingerstick) 155 mg/dL (70-99) Micro BC 6 positive from 12/17 derek ,CYN pending RUN DATE: 12/19/18 PAGE 1 RUN TIME: 1411 [facility] [address] [place] [address] Suraj Duong M.D., Tax Senior Associate PATIENT: MEGA ARAUZ ACCT: [id number] LOC: 1 [facility] U: [id number] AGE/SX: 68/F ROOM: 109 RE12/10/[address]: PATRIC MICHEL MD : 1950 BED: 1 DIS: STATUS: ADM IN TLOC: SPEC #: [id number] AD: 12/18/18 STATUS: RES REQ #: [id number] RECD: 12/18/[address]: AYLEEN MENDOZA MD SOURCE: CATH TIP ENTR: 12/18/[address]: PAMELA MULLEN MD SPDESC: PATRIC PATEL MD, VINAY MD ROBINOW, JAY S MD SISILLO, SABATO MD ORDERED: AEROBIC CULT GS COMMENTS: CATH TIP AND PORT Procedure Result AEROBIC CULTURE PENDING AEROBIC RES 1 PENDING GRAM STAIN Final Final report GRAM STAIN RESULT 1 Final Comment No white blood cells seen. GRAM STAIN RESULT 2 Final Comment Rare gram positive cocci in pairs, chains, and clusters Performed at: - [facility] [address], [place], [place] [id number] It Software Engineer: CLIF Maria MD, Phone: [phone] 12/19 BC 1/2 SETS POSITIVE GPCS Objective: Assessment: Septic shock from Staph sepsis likely from landon cath s/p Landon cath removal 12/18 Staph bacteremia 12/17 6/ bottles GPC BC 1 set 12/19 Recently diagnosed small cell lung CA, status post chemo 12/14 through Port-A-Cath, landon cath placed 12/13 now removed Pancytopenia likely recent chemo Chronic obstructive pulmonary disease. History of chronic back pain. Anxiety Plan: Plan of Care cont Zosyn and daptomycin. F/U ELAYNE, ordered by primary f/u ID of staph in bc,still pending per micro from 12/17 and 12/19 f/u repeat bc from 12/21 Follow up labs. per primary team pt will be dc to LTAC this pm do not place picc line until last bc are neg for atleast 48 hrs D/W Dr Michel D/W RN PAMELA MULLEN MD Dec 21, 2018 10:46
[2018-12-21] MEDS ORDERED: KETAMINE HCL IN NACL, ISO-OSM 50 MG/5 ML SYRINGE ONE (11:26)
[2018-12-21] MEDS ORDERED: MIDAZOLAM HCL/PF 2 MG/2 ML VIAL. ONE (11:26)
[2018-12-21] MEDS ORDERED: IV RINGERS,LACTATED 1000ML 1,000 ML IV SCH (11:35)
[2018-12-21] MEDS ORDERED: PROPOFOL 20 ML IV ONE (12:03)
[2018-12-21] MEDS ORDERED: LIDOCAINE 2% PF 5 ML VIAL. ONE (12:03)
[2018-12-21] MEDS: ACETAMINOPHEN 325 MG TABLET. PO PRN (12:48)
[2018-12-21 13:25] VITALS: BP 134/53
--- NOTE | 2018-12-21 13:26 | PDOC ---
Provider Note Provider Note Pt not seen. not in room. gone for NICANOR WOO MD Dec 21, 2018 13:26
[2018-12-21 14:15] VITALS: BP 128/58
--- NOTE | 2018-12-21 14:25 | CARD ---
MR#: [id number] Date of Study: 12/21/2018 Ordering Physician: KATHY GIVENS, Referring Physician: KATHY GIVENS, Tech: Minal Langford APPROVED REPORT EXAM: Transesophageal echocardiogram with color flow Doppler. INDICATION COPD Dyspnea Congestive Heart Failure Bacteremia RISK FACTORS Hypertension Hyperlipidemia Diabetes Reason For Test : Rule out Intracardiac Thrombus. PROCEDURE After obtaining informed consent, patient underwent transesophageal echo in the PACU. Type of Sedation : General Anesthesia Sedation was administered by Collin Arguelles CRNA. Sedation was achieved with Versed 2mg intravenously. Sedation was achieved with Lidocaine 100mg intravenously. Sedation was achieved with Ketamine 30mg intravenously. Transesophageal probe was inserted and advanced into esophagus by Terry Tapia MD. The ELAYNE was performed without complications. Throughout the procedure, the blood pressure, pulse oximetry, cardiac rhythm, and rate were monitored . The patient tolerated the procedure without adverse effects. Recovery from general anesthesia was une ventful and vital signs were stable. LEFT VENTRICLE The left ventricle is normal size. There is normal left ventricular wall thickness. The left ventricu lar systolic function is normal. The Ejection Fraction is 60-65%. There is normal LV segmental wall m otion. Diastology not performed No left ventricle thrombus noted on this study. RIGHT VENTRICLE The right ventricle is normal size. There is normal right ventricular wall thickness. The right ventr icular systolic function is normal. ATRIA The left atrium size is normal. The right atrium size is normal. Lipomatous interatrial septal hypert rophy. There is no thrombus noted in the left atrial appendage. AORTIC VALVE The aortic valve is normal in structure and function. Doppler and Color Flow revealed no significant aortic regurgitation. There is no significant aortic valvular stenosis. There is no aortic valvular v egetation. MITRAL VALVE The mitral valve is normal in structure and function. There is no evidence of mitral valve prolapse. There is no mitral valve stenosis. Doppler and Color-flow revealed trace mitral regurgitation. TRICUSPID VALVE The tricuspid valve is normal in structure and function. Doppler and Color Flow revealed trace tricus pid regurgitation. There is no tricuspid valve prolapse or vegetation. There is no tricuspid valve st enosis. PULMONIC VALVE The pulmonary valve is normal in structure and function. Doppler and Color Flow revealed trace pulmon ic valvular regurgitation. There is no pulmonic valvular stenosis. GREAT VESSELS The aortic root is normal in size. PERICARDIAL EFFUSION There is no evidence of significant pericardial effusion. Critical Notification Critical Value: No <Conclusion> The left ventricular systolic function is normal. The Ejection Fraction is 60-65%. There is normal LV segmental wall motion. Lipomatous interatrial septal hypertrophy. Trace mitral regurgitation. Trace tricuspid regurgitation. There is no evidence of significant pericardial effusion. * No intracardiac vegetation or thrombus. Signed by : Terry Tapia, Electronically Approved : 12/21/2018 14:24:52
--- NOTE | 2018-12-21 15:18 | NUR ---
The patient underwent ELAYNE this morning, came back to the unit at 1320. VS stable, O2 sat 1t 91-92 % at 3 Liters oxygen per nasal cannula, no complaints of pain. She's lethargic, awakens to voice, follows commands. Blood sugar at 160 mg/dl. The patient is on frequent vital signs monitoring,call light placed within reach. We'll continue to monitor.
[2018-12-21 15:56] LABS: BASO % 2 % (0-3); EOS % 5 % (0-3); HEMATOCRIT 25.6 % (36.0-47.0); HEMOGLOBIN 8.4 g/dL (12.0-15.5); LYMPH # 0.2 x10^3/uL (1.0-4.8); LYMPH % 45 % (24-48); MEAN CORPUSCULAR HEMOGLOBIN 29 pg (25-35); MEAN CORPUSCULAR HGB CONC 33 g/dL (31-37); MEAN CORPUSCULAR VOLUME 87 fL (79-100); MONO % 4 % (0-9); NEUT # 0.2 x10^3/uL (1.8-7.7); NEUT % 44 % (31-73); PLATELET COUNT 81 x10^3/uL (140-400); RED BLOOD COUNT 2.93 x10^6/uL (3.50-5.40); RED CELL DISTRIBUTION WIDTH 15.6 % (11.5-14.5)
--- NOTE | 2018-12-21 15:59 | NUR ---
HAIM following pt. HAIM phoned and faxed orders to [facility]. Transport is arranged at 1730 via [email or web address]. SW attempted to notify pt but is asleep. SW attempted to reach pt's but VM is not set up. Discussed with RN.
[2018-12-21 16:00] LABS: CREATININE 0.8 mg/dL (0.6-1.0); GFR 70.9; POTASSIUM 4.1 mmol/L (3.5-5.1)
[2018-12-21 16:25] LABS: WHITE BLOOD COUNT 0.4 x10^3/uL (4.0-11.0)
[2018-12-21 17:07] LABS: % EOS 6 % (0-5); % LYMPHS 47 % (24-48); % MONOS 6 % (0-10); % SEGS 41 % (35-66)
[2018-12-21 17:08] LABS: ANISOCYTOSIS SLIGHT; HYPOCHROMIA SLIGHT; PLT ESTIMATE DECREASED (ADEQUATE)
--- NOTE | 2018-12-21 18:00 | NUR ---
The patient has critical lab result, ANC 176. Notified Dr. Aamir Campa at 1640, Dr. Deng at 1645, Dr. Lane (for Dr. Monreal) at 1655. No new orders placed. Patient to be placed in neutropenic precautions, endorsed to [facility] RN.
--- NOTE | 2018-12-21 18:57 | NUR ---
Discharge Note: MEGA ARAUZ K6 [facility] Discharge instructions and discharge home medications reviewed with Delroy LORENZANA of [facility] and a copy given to EMS personnel. All questions have been answered and understanding verbalized. The following instructions and handouts were given: Peripheral IVs left in place No PICC line due to bacteremia. Place patient in neutropenic precautions. Last dose of pain meds reviewed with RN. Family at the bedside, updated of patient's condition. Patient discharged to [facility] via stretcher accompanied by EMS personnel. She's alert, oriented x 3, VS stable, on O2 at 3LPM. She left the unit at 1845.
--- NOTE | 2018-12-22 00:09 | CONS ---
DATE OF CONSULTATION: 12/21/2018 I saw her at the request of Dr. Dneg on 12/21/2018. She is in room 671. HISTORY OF PRESENT ILLNESS: This is a 68-year-old female admitted on 12/10/2018 with new lung mass with pleural effusion and cervical adenopathy and she is having shortness of breath, noted some swelling of lymph nodes in her neck, was seen in the Emergency Room. She was an ex-smoker, smoked for more than 25 years, stopped about 10 years ago. The patient is having difficulty to breathe. She had radiological studies done in the Emergency Room including chest x-ray, which showed lung mass and also cervical lymphadenopathy and CT scan revealed pleural effusion and mediastinal adenopathy. The patient is with known diastolic heart failure, chronic obstructive pulmonary disease, diabetes, hypertension, hyperlipidemia, hypothyroidism, anxiety, depression, and lipomatosis of spinal cord. She lives with her , had stairs to manipulate and she was walking without an assistive device just until this hospitalization. She is on chronic pain medication. Her had prostate carcinoma and she also had a sister with carcinoma. The patient since admission was found with small cell carcinoma of lung. The patient is also being treated for septic shock from Staph sepsis, likely from Port-A-Cath, status post Port-A-Cath removal on 12/18/2018 for Staph bacteremia, pancytopenia, likely from recent chemotherapy. The patient admits chronic lower back pain. Plan is to transfer to [facility] for continued care. The patient is being followed by physical therapy and occupational therapy. PHYSICAL EXAMINATION: On physical examination today revealed an elderly female. She is awake, oriented to place and person, follows commands appropriately, moves all 4 extremities voluntarily where she had generalized muscle weakness. She seemed to have equal perception of touch and pinprick sensation bilaterally. The patient had absent knee and ankle jerks. She had tenderness to palpation over lumbar spine area or adjoining paraspinal muscles and sacroiliac joint area and straight leg raising test is negative bilaterally. The patient requires help with bed mobility. As per physical therapy notes, she requires moderate assistance 2 persons for stand, pivot technique, transfers, using a roller walker. She required maximal verbal cues for maintaining posture. She took only 2-3 steps to bedside commode. She is receiving IV fluids. She had an indwelling Arriaga catheter in place. She is obese. ASSESSMENT: Mobility and self-care limitation in a patient with deconditioned state from recent hospitalization with increased shortness of breath, found with carcinoma of lung with metastasis, small cell carcinoma, on chemotherapy, also with known chronic obstructive pulmonary disease, diabetes mellitus with peripheral neuropathy, hypertension, anxiety, depression, diastolic heart failure, obesity. RECOMMENDATIONS: Agree with the plan for physical therapy and occupational therapy. Her back pain is most probably from degenerative disk disease and degenerative joint disease of lumbar vertebrae. Consider trigger point injections if her medical condition permits. Dr. Deng, I appreciate asking me to participate in the care of this interesting patient. I will be glad to follow her with you at [facility]. ROMEL MENSAH MD DR: SHANA/nts JOB#: [id number] / [id number]
--- NOTE | 2019-01-02 21:38 | PDOC ---
Provider Note Provider Note Discharge summary dictated.#[id number]. PATRIC MICHEL MD Jan 02, 2019 21:37
--- NOTE | 2019-01-02 23:05 | DS ---
DATE OF DISCHARGE: 12/21/2018 REASON FOR ADMISSION TO THE HOSPITAL: Shortness of breath, left supraclavicular lymphadenopathy. CONSULTATIONS: Dr. Godoy, Pulmonology; Dr. Madden, Oncology; Dr. Hercules, Radiation Oncology; Infectious Disease; Dr. Campa; Dr. Galindo, Rehabilitation and Interventional Radiology. PROCEDURES DONE: Biopsy of the supraclavicular mass, new diagnosis of small cell carcinoma. OTHER PROCEDURES DONE: 1. MRI of the brain, CT of the chest, CT of the abdomen, bone scan and session of dialysis port. 2. Removal of port. Other complication noted Staphylococcus aureus bacteremia. HOSPITAL COURSE: The patient is a 68-year-old female patient with history of COPD, ex-smoker, stopped 10 years ago and she was developing shortness of breath and also swelling in the left side of the neck. The patient was found to have a mass in the left upper lung and mediastinal and hilar adenopathy, extensive hiatal hernia, and the patient also had cervical lymphadenopathy. The patient had an Interventional Radiology, had a cervical lymph node biopsy, which came back as small cell carcinoma. The patient had a workup done to see the extent including MRI of the brain, which was negative. Bone scan was negative. CT of the abdomen and pelvis was negative for any tumors and it was decided that because of the tumor volume, she would need to undergo chemotherapy, while in the hospital, the patient was seen by Radiation Oncology, Dr. Hercules. The patient had a Port-A-Cath placed for chemotherapy and she was given chemotherapy with the regimen. The patient did well, a couple of days after chemo, the patient developed fever and redness around the port side and she was running fever, metabolic encephalopathy, transferred to ICU. She had positive blood cultures, 07/12, Staph aureus sensitive to cephalosporins. The patient was treated with broad-spectrum antibiotics and she had positive draining near the Port-A-Cath site and the Port-A-Cath was removed and the patient needed at least 2-4 weeks of IV antibiotics. The patient had a transesophageal echocardiogram to rule out endocarditis that came back negative. The patient was weak and needed IV antibiotics for Staph aureus infection and Physical Therapy Rehabilitation. The patient was transferred to LTAC facility. FINAL DIAGNOSES: 1. Newly diagnosed lung cancer, small cell carcinoma. The patient had extensive mediastinal, hilar as well as left apical lung mass with the metastasis to the supraclavicular area. 2. Acute Staphylococcus aureus sepsis. Port-A-Cath was removed because of infection. 3. The patient received first chemotherapy for lung cancer.Small cell. 4. Diabetes. 5. Hypertension. 6. Hypothyroidism. 7. History of smoker . 8. Encephalopathy due to infection . Patient was sent to LTAC facility, recommended to have a second chemo after the infection subsided in 3-4 weeks, and she is going to come in with radiation treatment at that time. PATRIC MICHEL MD DR: ALISSON/deb JOB#: [id number] / [id number] SHERICE
== END 2018-12-21 18:30 | DRG 987 ==
LOC: ER 21:30 → 6 SOUTH 12-10 02:08 → 1 WEST ICU 12-17 23:00 → 6 SOUTH 12-21 00:05
PROVIDERS: ADMIT Internal Medicine; ATTEND Internal Medicine
PROC: 07B23ZX Excision of Left Neck Lymphatic, Percutaneous Approach, Diagnostic (ICD-10-PCS; 2018-12-12)
PROC: 3E04305 Introduction of Other Antineoplastic into Central Vein, Percutaneous Approach (ICD-10-PCS; 2018-12-14)
PROC: 0JH63WZ Insertion of Totally Implantable Vascular Access Device into Chest Subcutaneous Tissue and Fascia, Percutaneous Approach (ICD-10-PCS; principal; 2018-12-17)
PROC: 02H633Z Insertion of Infusion Device into Right Atrium, Percutaneous Approach (ICD-10-PCS; 2018-12-17)
PROC: B5181ZA Fluoroscopy of Superior Vena Cava using Low Osmolar Contrast, Guidance (ICD-10-PCS; 2018-12-17)
PROC: B548ZZA Ultrasonography of Superior Vena Cava, Guidance (ICD-10-PCS; 2018-12-17)
PROC: 0JPT3WZ Removal of Totally Implantable Vascular Access Device from Trunk Subcutaneous Tissue and Fascia, Percutaneous Approach (ICD-10-PCS; 2018-12-18)
PROC: 02PA33Z Removal of Infusion Device from Heart, Percutaneous Approach (ICD-10-PCS; 2018-12-18)
DX: C34.12 Malignant neoplasm of upper lobe, left bronchus or lung (principal); N17.0 Acute kidney failure with tubular necrosis; T80.219A Unspecified infection due to central venous catheter, initial encounter; A41.2 Sepsis due to unspecified staphylococcus; D61.810 Antineoplastic chemotherapy induced pancytopenia; G93.41 Metabolic encephalopathy; R65.21 Severe sepsis with septic shock; J44.1 Chronic obstructive pulmonary disease with (acute) exacerbation; J98.11 Atelectasis; J90 Pleural effusion, not elsewhere classified; Z68.43 Body mass index [BMI] 50.0-59.9, adult; I50.32 Chronic diastolic (congestive) heart failure; C85.90 Non-Hodgkin lymphoma, unspecified, unspecified site; E03.9 Hypothyroidism, unspecified; E10.42 Type 1 diabetes mellitus with diabetic polyneuropathy; E10.649 Type 1 diabetes mellitus with hypoglycemia without coma; E78.00 Pure hypercholesterolemia, unspecified; E78.5 Hyperlipidemia, unspecified; E88.2 Lipomatosis, not elsewhere classified; F32.9 Major depressive disorder, single episode, unspecified; F41.9 Anxiety disorder, unspecified; G89.29 Other chronic pain; I11.0 Hypertensive heart disease with heart failure; K21.9 Gastro-esophageal reflux disease without esophagitis; M51.34 Other intervertebral disc degeneration, thoracic region; T45.1X5A Adverse effect of antineoplastic and immunosuppressive drugs, initial encounter; Z79.4 Long term (current) use of insulin; Z79.899 Other long term (current) drug therapy; Z80.9 Family history of malignant neoplasm, unspecified; Z85.118 Personal history of other malignant neoplasm of bronchus and lung; Z87.891 Personal history of nicotine dependence
CPT/HCPCS: 36415; 36561; 36590; 36600; 38505; 70491; 70553; 71045; 71260; 74177; 76937; 76942; 77001; 78306; 80048; 80053; 80061; 81001; 82550; 82805; 82962; 83036; 83605; 83735; 83880; 84443; 84484; 85007; 85025; 85610; 87040; 87070; 87071; 87075; 87077; 87186; 87205; 87804; 88305; 88341; 88342; 90471; 90686; 93312; 93320; 93325; 94640; 94660; 94760; 99152; 99153; A9503; A9575; C1751; C1892; J0878; J1100; J1650; J1815; J1940; J2001; J2250; J2405; J2543; J2704; J3010; J3490; J7030; J7042; J7050; J7120; J7613; J7620; J7626; J9045; J9181; Q9966; Q9967; 97110; 97116; 97535; 99285-25; G0378

== ENCOUNTER 2019-02-21 06:38 | Outpatient (CLI) | payer OTHER, MEDICARE ==
[~2019-02-21] VITALS: Ht 154.9 cm; Wt 117.0 kg
[~2019-02-21 06:38] MED LIST changes: +DAPT350V IV; -GLIM4TAB4 PO; +GLIM4TAB8 PO; +ONDA8TAB9 PO; +PIPE3.377 IV
[2019-02-21 07:27] LABS: BASO # 0.1 x10^3/uL (0.0-0.2); BASO % 1 % (0-3); EOS # 0.2 x10^3/uL (0.0-0.7); EOS % 2 % (0-3); HEMOGLOBIN 10.2 g/dL (12.0-15.5); LYMPH # 0.9 x10^3/uL (1.0-4.8); LYMPH % 10 % (24-48); MEAN CORPUSCULAR HEMOGLOBIN 27 pg (25-35); MEAN CORPUSCULAR HGB CONC 32 g/dL (31-37); MEAN CORPUSCULAR VOLUME 85 fL (79-100); MONO # 0.2 x10^3/uL (0.0-1.1); MONO % 2 % (0-9); NEUT # 7.6 x10^3/uL (1.8-7.7); NEUT % 85 % (31-73); PLATELET COUNT 371 x10^3/uL (140-400); RED BLOOD COUNT 3.78 x10^6/uL (3.50-5.40); RED CELL DISTRIBUTION WIDTH 15.5 % (11.5-14.5); WHITE BLOOD COUNT 8.9 x10^3/uL (4.0-11.0)
[2019-02-21 07:38] LABS: PROTHROMBIN TIME PATIENT 13.1 SEC (11.7-14.0)
[2019-02-21 07:40] VITALS: BP 146/79
[2019-02-21] MEDS ORDERED: ALPR0.25 PO (07:48)
[2019-02-21] MEDS ORDERED: OXYC5TAB4 PO (07:48)
[2019-02-21] MEDS ORDERED: FURO-68 PO (07:48)
[2019-02-21] MEDS ORDERED: LIDOCAINE 1%/EPI 1:100,000 20 ML VIAL. ONE (07:55)
[2019-02-21] MEDS ORDERED: LIDOCAINE 1%/EPI 1:100,000 20 ML VIAL. SQ ONE (08:15)
[2019-02-21] MEDS ORDERED: MIDAZOLAM HCL/PF 2 MG/2 ML VIAL. IV ONE (08:15)
[2019-02-21] MEDS ORDERED: fentaNYL PF VIAL 100 MCG/2 ML VIAL IV ONE (08:15)
[2019-02-21 08:46] LABS: % BANDS 1 % (0-9); % BASOS 1 % (0-3); % EOS 2 % (0-5); % LYMPHS 7 % (24-48); % MONOS 2 % (0-10); % SEGS 87 % (35-66); PLT ESTIMATE ADEQUATE (ADEQUATE)
[2019-02-21 09:02] VITALS: BP 152/65
[2019-02-21 09:25] VITALS: BP 158/64
[2019-02-21 09:40] VITALS: BP 161/65
[2019-02-21 09:45] VITALS: BP 159/75
[2019-02-21 10:00] VITALS: BP 151/74
--- NOTE | 2019-02-21 10:40 | NUR ---
Discharge Note: MEGA ARAUZ Discharge instructions and discharge home medications reviewed with Patient and a copy given. All questions have been answered and understanding verbalized. The following instructions and handouts were given: Post moderate sedation and port placement Discontinued lines and drains: Left wrist IV dc'd tip intact. Patient discharged to home with son and friend via car.
--- NOTE | 2019-02-21 12:31 | RAD ---
Procedure: Ultrasound and fluoroscopically guided placement of right internal jugular power port.. 02/21/2019 10:18 AM Clinical Indication: Lung CA Sedation: Conscious sedation was administered for 34 minutes. The patient was monitored by a qualified independent observer throughout the time of sedation. Please refer to the medical record for exact doses of medications utilized to achieve moderate sedation. Fluoroscopy time: 0.5 minutes Dose area product: 2 Gycm2 Consent: The procedure was explained in its entirety to the patient or the patients designated players club representative by a member of the treatment team, including a discussion of the risks, benefits and commonly accepted alternatives to the procedure, as well as the expected consequences of no therapy whatsoever. Discussion of the risks included, but was not limited to, those that are most frequent and those that are rare but possibly severe or life-threatening, as well as the possibility of unforeseen complications. Technique and Findings: All elements of maximal sterile barrier technique including the use of a cap, mask, sterile gown, sterile gloves, large sterile sheet, appropriate hand hygiene, and 2% chlorhexidine for cutaneous antisepsis (or acceptable alternative antiseptic per current guidelines) were followed for this procedure. Following informed consent, and a timeout procedure, the patient was prepped and draped in the usual sterile fashion. Ultrasound interrogation of the right neck revealed patency and compressibility of the right internal jugular vein. A 21-gauge micropuncture was then used to gain access to this vein under ultrasound guidance. A hard copy ultrasound image was recorded. The needle was exchanged over a wire for a sheath. A 1 inch incision was made several centimeters inferior to the venotomy site. A catheter was tunneled from this site dermatotomy site in the neck. Catheter was advanced through peel-away sheath such that its tip was in the proximal right atrium with the patient supine. The catheter was trimmed to length and connected to the port reservoir. The port was found to flush and aspirate normally. The wound was closed in layers using 4-0 Vicryl suture. Sterile dressings were applied. Impression: Successful ultrasound and fluoroscopically guided placement of a right internal jugular PowerPort
== END 2019-02-21 10:46 | disposition home or self-care (01) ==
LOC: INTRAD 06:38
PROVIDERS: ATTEND Internal Medicine Hematology & Oncology
DX: Z45.2 Encounter for adjustment and management of vascular access device (principal); C34.90 Malignant neoplasm of unspecified part of unspecified bronchus or lung; Z79.899 Other long term (current) drug therapy; Z79.01 Long term (current) use of anticoagulants
CPT/HCPCS: 36415; 36561; 76937; 77001; 85007; 85025; 85610; 99152; 99153; C1751; C1892; J0696; J2250; J3010; J3490

== ENCOUNTER → 2019-02-26 | Outpatient (CLI) | payer OTHER, MEDICARE ==
[2019-02-21 10:00] VITALS: BP 151/74
[~2019-02-26] MED LIST changes: +ALPR0.25 PO; +HEPARIN PF 500 UNIT/5 ML DISP.SYRIN. IVP ONE; +IOHEXOL 240 MG/ML 50ML VIAL. PO ONE; +IOHEXOL 300 MG/ML 100ML VIAL. IV ONE; +OXYC5TAB4 PO
--- NOTE | 2019-02-27 08:51 | RAD ---
Examination: CT NECK CHEST ABD PELVIS W CON History: Small cell lung cancer Comparison/Correlation: 12/10/2018 CT neck and chest with contrast, 12/10/2018 CT abdomen and pelvis with contrast Findings: Axial images of the neck, chest, abdomen, and pelvis were obtained. IV and oral contrast were provided. Sagittal and coronal reformatted images were provided. Right-sided infusion port catheter has its tip terminating within the right atrium. Visualized posterior fossa is unremarkable. Globes and optic nerves are unremarkable. Visualized paranasal sinuses are mostly clear. Minimal opacification of the right ethmoid air cells posteriorly noted. Partial opacification of the right mastoid air cells noted. Fatty replacement of the parotid glands noted. Submandibular glands are unremarkable. Borderline to slightly enlarged lymph node lateral to the left segment irregular gland is noted. Conglomeration of multiple lymph nodes of which some are enlarged as present at the left base of the neck. Largest of these lymph nodes measures up to 2.3 cm in diameter on axial image 20. This is unchanged compared to prior exam. Enlarged lymph node posterior to the left jugular vein measuring 2.2 cm x 2.3 cm on axial image 20 is stable. Lymph nodes in the posterior triangle and supraclavicular region on the left noted. These are similar in size and number compared to prior exam. Some of these are enlarged in size. Thyroid gland is not well delineated and may be very atrophic. Atlantoaxial joint degenerative remodeling is present. Mild disc space narrowing at multiple levels of the cervical spine noted. Prevascular space lymphadenopathy which extends to the left hilum identified. Overall volume of lymphadenopathy is unchanged. Subcarinal lymphadenopathy is similar to previous exam. Mass along the superior margin of the left hilum measuring up to 4.1 cm diameter on axial image 27 is similar upon correlation with the prior exam. Minimal left basilar atelectasis is present. Minimal linear linear scarring or atelectasis involving the right middle lobe noted. Minimal lingular scarring or atelectasis along the right lower lobe noted. A hiatal hernia is present. Liver, spleen, pancreas, adrenal glands, and kidneys are unremarkable. The appendix is normal. No extraluminal gas. No enlarged abdominal or pelvic lymph nodes. Small umbilical hernia contains omental fat. There is a soft tissue density nodule involving the omental fat at the upper abdomen on the right on axial image 45 measuring up to 0.8 cm in diameter. This is similar compared to prior exam. Gallbladder fossa is unremarkable. Urinary bladder is unremarkable. Facet joint degenerative changes within the lumbar spine noted. Impression: There is mild increase in size of a borderline size lymph node lateral to the left submandibular gland compared to prior exam. No significant change in involving the significant lymphadenopathy noted at the left base of the neck and supraclavicular regions. Significant lymphadenopathy involving the superior mediastinum extending to the left hilum again is seen. Mass along the superior margin of the left hilum is similar upon correlation with the prior exam. Subcarinal lymphadenopathy again is also unchanged. A Slight increase in linear atelectasis at the lower lung gibbs. No suspicious new findings involving abdomen or pelvis. Small hiatal hernia. PQRS Compliance Statement: One or more of the following individualized dose reduction techniques were utilized for this examination: 1. Automated exposure control 2. Adjustment of the mA and/or kV according to patient size 3. Use of iterative reconstruction technique Electronically signed by: Arjun Verde MD (02/27/2019 8:48 AM) [facility]
== END | disposition home or self-care (01) ==
LOC: CT 13:42
PROVIDERS: ATTEND Internal Medicine Hematology & Oncology
DX: C34.90 Malignant neoplasm of unspecified part of unspecified bronchus or lung (principal); R59.1 Generalized enlarged lymph nodes; J98.11 Atelectasis; K42.9 Umbilical hernia without obstruction or gangrene; K44.9 Diaphragmatic hernia without obstruction or gangrene
CPT/HCPCS: 70491; 71260; 74177; Q9966; Q9967

== ENCOUNTER → 2019-06-05 | Outpatient (CLI) | payer OTHER, MEDICARE ==
[~2019-06-05] VITALS: Ht 157.5 cm; Wt 111.6 kg
[~2019-06-05] MED LIST changes: +FURO80TA72 PO; -HEPARIN PF 500 UNIT/5 ML DISP.SYRIN. IVP ONE; -IOHEXOL 240 MG/ML 50ML VIAL. PO ONE; -IOHEXOL 300 MG/ML 100ML VIAL. IV ONE; +LACT296L10 PO; +NYST60PO TP; +POTA10TA12 PO; +ZOLP5TAB PO
[2019-06-05 12:16] VITALS: BP 142/50
[2019-06-05 12:21] LABS: HEMATOCRIT 19.5 % (36.0-47.0); HEMOGLOBIN 6.6 g/dL (12.0-15.5)
[2019-06-05] MEDS: diphenhydrAMINE HCL 25 MG CAPSULE PO PRN (13:12)
[2019-06-05] MEDS: ACETAMINOPHEN 325 MG TABLET. PO PRN (13:12)
[2019-06-05 13:45] VITALS: BP 123/64
[2019-06-05 14:45] VITALS: BP 129/63
[2019-06-05 15:16] VITALS: BP 145/63
[2019-06-05] MEDS: HEPARIN PF 500 UNIT/5 ML DISP.SYRIN. IVP PRN (15:25)
== END | disposition home or self-care (01) ==
LOC: OPS 11:34
PROVIDERS: ATTEND Internal Medicine Hematology & Oncology
DX: C34.12 Malignant neoplasm of upper lobe, left bronchus or lung (principal); I11.0 Hypertensive heart disease with heart failure; I50.32 Chronic diastolic (congestive) heart failure; J44.9 Chronic obstructive pulmonary disease, unspecified; F41.9 Anxiety disorder, unspecified; K21.9 Gastro-esophageal reflux disease without esophagitis; E78.5 Hyperlipidemia, unspecified; E03.9 Hypothyroidism, unspecified; F32.9 Major depressive disorder, single episode, unspecified; G89.29 Other chronic pain; E11.9 Type 2 diabetes mellitus without complications; E78.00 Pure hypercholesterolemia, unspecified; E66.01 Morbid (severe) obesity due to excess calories; Z68.42 Body mass index [BMI] 45.0-49.9, adult; Z87.891 Personal history of nicotine dependence
CPT/HCPCS: 36415; 36430; 85014; 85018; 86850; 86900; 86901; 86920; J1642; P9016; Q0163

== ENCOUNTER → 2019-06-27 | Outpatient (CLI) | payer OTHER, MEDICARE ==
[2019-06-05 15:16] VITALS: BP 145/63
[~2019-06-27] MED LIST changes: +CONTRAST GIVEN. MC PRN; +HEPARIN PF 500 UNIT/5 ML DISP.SYRIN. IVP ONE; +IOHEXOL 240 MG/ML 50ML VIAL. PO ONE; +IOHEXOL 300 MG/ML 100ML VIAL. IV ONE
--- NOTE | 2019-06-27 15:23 | RAD ---
Exam: CT neck, chest, abdomen, and pelvis with intravenous contrast Indication: Small cell lung cancer Comparison: CT neck chest abdomen and pelvis 02/26/2019 Technique: Helical CT imaging performed of the abdomen and pelvis after the intravenous administration of 60 mL Omnipaque 300 intravenous contrast. Sagittal and coronal reformats were obtained. One or more of the following individualized dose reduction techniques were utilized for this examination: 1. Automated exposure control 2. Adjustment of the mA and/or kV according to patient size 3. Use of iterative reconstruction technique. Findings: CT NECK: Airway: Normal. Parotid, submandibular, and thyroid glands: Parotid and submandibular glands are normal. Thyroid gland is atrophic. Vasculature: A right internal jugular port is in place. There is a new coil in the tubing where it enters the jugular vein. The tip terminates in the lower superior vena cava. There are calcifications at the right carotid bifurcation. Lymph nodes: Numerous enlarged lymph nodes posterior to the left sternocleidomastoid muscle have all significantly decreased in size or resolved. These now measure up to 4 mm short axis, previously 1.2 cm short axis (image 44, series 2). The lymph node conglomeration in the lower left neck at the level of the thyroid and thoracic inlet has decreased in size, now 3.6 x 2.1 cm in overall diameter of the conglomeration of lymph nodes, previously 5.3 x 3.1 cm (image 2, series 4). Decreased size of left level 1B lymph node lateral to the submandibular gland, now 4 mm short axis, previously 8 mm. No new lymphadenopathy. Paranasal sinuses, mastoid air cells, and globes and orbits: Minimal mucosal thickening in the right ethmoid air cells. Remainder of the paranasal sinuses and mastoid air cells clear. Globes and orbits are intact. Skull base: Unremarkable. Soft tissue and bones: No acute osseous abnormality. Mild degenerative disc disease at C4-C5 and C5-C6. CHEST: Heart and great vessels: Heart is normal in size. No pericardial effusion. There is calcified coronary artery atherosclerosis. Thoracic aorta is normal in caliber. Mild calcified aortic atherosclerosis. Main pulmonary artery is mildly enlarged, unchanged. Mediastinum and gene: Left mediastinal and hilar lymph node conglomeration involving the prevascular and periaortic space and extending to the left hilum has decreased in size, now 5.0 x 2.1 cm at the level of the transverse aorta, previously 8.4 x 3.47 m (image 17, series 4). A subcarinal lymph node has decreased in size, now 2.6 x 2.1 cm, previously 3.4 x 2.7 cm. Lungs and pleura: Left suprahilar mass has decreased in size, now 1.7 x 1.0 cm, previously 2.3 x 1.7 cm (image 15, series 4). The mass appears slightly more spiculated. No new suspicious pulmonary nodule. Mild persistent linear atelectasis in the lower lobes. No pleural effusion. Chest wall and bones: No axillary lymphadenopathy. Mild thoracic degenerative disc disease. ABDOMEN AND PELVIS: Liver: Normal. Gallbladder/Biliary Tree: Normal. Pancreas: Mild fatty atrophy is unchanged. Spleen: No splenomegaly. Calcified splenic granulomas. Adrenal Glands: Unchanged thickening of left adrenal gland. Kidneys/Ureters/Bladder: Normal. No hydronephrosis. Reproductive Organs: Uterus is anteverted. No adnexal mass. Stomach, small bowel, and colon: Unchanged moderate hiatal hernia. No small bowel obstruction. Colon and appendix are normal. Vasculature: No abdominal aortic aneurysm. Moderate calcified aortic atherosclerosis. Lymph Nodes: No lymphadenopathy. Peritoneum and retroperitoneum: No free fluid or free air. Bones: No acute osseous abnormality. IMPRESSION: 1. Significantly decreased lymphadenopathy in the left neck and chest, and decreased size of left suprahilar mass. 2. No lymphadenopathy in the abdomen and pelvis. 3. Unchanged moderate hiatal hernia. Electronically signed by: Cristiana Ball MD (06/27/2019 3:20 PM) [id number]
== END | disposition home or self-care (01) ==
LOC: CT 12:18
PROVIDERS: ATTEND Internal Medicine Hematology & Oncology
DX: C34.90 Malignant neoplasm of unspecified part of unspecified bronchus or lung (principal); K44.9 Diaphragmatic hernia without obstruction or gangrene; R91.1 Solitary pulmonary nodule; R59.0 Localized enlarged lymph nodes; E03.4 Atrophy of thyroid (acquired); J98.11 Atelectasis; K86.89 Other specified diseases of pancreas; I65.21 Occlusion and stenosis of right carotid artery; I70.0 Atherosclerosis of aorta; I77.89 Other specified disorders of arteries and arterioles; M51.34 Other intervertebral disc degeneration, thoracic region
CPT/HCPCS: 70491; 71260; 74177; Q9966; Q9967